=== PATIENT | male | born 1930 | race Caucasian/White ===

== ENCOUNTER 2016-11-25 13:31 | Observation (INO) ==
[2016-11-25 14:40] LABS: Basophils % 0.5 %; Eosinophils # 0.1 K/mcL (0.0-0.6); Hematocrit 41.4 % (37.5-50.1); Hemoglobin 13.4 g/dL (12.9-16.9); Immature Granulocytes % 0.5 % (0-4); Lymphocytes # 0.8 K/mcL (0.6-4.6); Lymphocytes % 9.7 %; Mean Corpuscular HGB Conc 32.4 g/dL (31.6-35.5); Mean Corpuscular Hemoglobin 30.8 pg (28.0-33.3); Mean Corpuscular Volume 95.2 fL (83.0-100.0); Monocytes # 0.7 K/mcL (0.0-1.3); Monocytes % 7.8 %; Platelet Count 232 K/mcL (140-400); Red Blood Count 4.35 M/mcL (4.19-5.50); Red Cell Distribution Width 13.9 % (11.5-14.5); Segmented Neutrophils % 80.5 %
[2016-11-25 14:46] LABS: INR 1.5; Prothrombin Time 16.9 Seconds (9.4-12.1)
[2016-11-25 14:54] LABS: Calcium 9.9 mg/dL (8.6-10.8)
--- NOTE | 2016-11-25 15:43 | Emergency Department Note ---
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 Patient states that he has had shortness of breath since August of this year. States he was admitted to the hospital for heart failure and was placed on Lasix. Prior to discharge, she noticed that he had some abdominal fullness and swelling and states that he was told the Lasix would help. Since then, he is had progressive shortness of breath. States that his abdomen has been so full of water that he can no longer been down to tie his shoes and gets very short of breath with very little activity. He denies any chest pain or swelling in his legs. Since he just cannot breathe. No history DVT or PE. Has no other symptoms or complaints. - Related Data Home Medications Medication Instructions Recorded Confirmed Cyclosporine [Restasis] 1 drop OP BID 04/17/15 11/25/16 Gabapentin [Neurontin] 400 mg PO BID 04/17/15 11/25/16 Insulin Glargine,Hum.rec.anlog 24 unit SQ QAM 04/17/15 11/25/16 [Lantus Solostar] Multivit-Min/FA/Lycopen/Lutein 1 tab PO QAM 04/17/15 11/25/16 [Centrum Silver Tablet] Rivaroxaban [Xarelto] 15 mg PO QPM 04/17/15 11/25/16 Ropinerole [Requip] 1 mg PO HS 04/17/15 11/25/16 Simvastatin [Zocor] 40 mg PO QPM 09/17/15 11/25/16 Furosemide [Lasix] 40 mg PO BID 01/24/16 11/25/16 Metoprolol Succinate 100 mg PO DAILY 07/18/16 11/25/16 Potassium Chloride 10 meq PO BID 11/25/16 11/25/16 Previous Rx's Medication Instructions Recorded Diltiazem CD (24hr) [Cardizem CD] 240 mg PO QAM #30 cap.er.24h 04/20/15 Albuterol Sulfate [Proair Hfa] 1 puff IH Q6H PRN #1 inh 10/12/15 Allergies Allergy/AdvReac Type Severity Reaction Status Date / Time codeine Allergy Mild Flushing Verified 10/12/15 10:07 tramadol Allergy Mild Dizziness Verified 10/12/15 10:07 metformin AdvReac Mild Nausea Verified 10/12/15 10:07 All systems ED: reviewed and negative except as stated. Cardiovascular: Reports: dyspnea on exertion Respiratory: Reports: dyspnea Gastrointestinal: Reports: as per HPI (abdominal swelling ) Genitourinary: Denies: dysuria, hematuria Musculoskeletal: Denies: back pain, neck pain Integumentary: Denies: rash Neurological: Denies: headache Endocrine: Reports: fatigue Past Medical History - Past Medical History Attestation: Yes The following information was validated with the patient. Source: patient, old records reviewed, obtained from family Medical history: Reports: arthritis, atrial fibrillation, CHF, coronary artery disease, diabetes, hyperlipidemia, hypertension, renal disease, valvular heart disease Surgical history: Reports: appendectomy, cholecystectomy, orthopedic, other, other Psychiatric history: Reports: no psych history - Social History Smoking Status: Never smoker Smokeless Tobacco Status: No Alcohol use: Reports: none Drug use: Reports: none Physical Exam - General Limitations: no limitations General appearance: alert, in no apparent distress - Head Head exam: atraumatic, normocephalic, normal inspection - Eye Eye exam: Present: normal appearance, PERRL, EOMI - ENT ENT exam: normal exam, normal oropharynx, mucous membranes moist - Neck Neck exam: Present: normal inspection, full ROM, trachea midline - Chest Chest inspection: Present: normal inspection, symmetric chest wall rise - Respiratory Respiratory exam: Present: normal lung sounds bilaterally - Cardiovascular Cardiovascular exam: Present: regular rate, irregular rhythm - Abdominal Exam Abdominal exam: Present: soft, Non-Tender, distention, diminished bowel sounds, ascites. Absent: tenderness - Extremities Exam Extremities exam: Present: normal inspection, full ROM, normal capillary refill. Absent: tenderness, pedal edema - Neurological Exam Neurological exam: Present: alert, oriented X3 - Psychiatric Psychiatric exam: Present: normal affect, normal mood - Skin Skin exam: Present: warm, dry, intact, normal color Course Course Narrative: 86-year-old male presenting with progressive abdominal fullness and distention. Was told it was just related to CHF, but has been getting worse, causing difficulty in breathing. Hepatic panel and lipase pending. We will order a noncontrasted CT of abdomen. On medical record review. 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 We will further evaluate this, but are unable to use IV contrast at this time due to chronic renal insufficiency. - Reevaluation(s) Reevaluation #1: Accepted to the hospitalist service. Vital Signs Temperature 97.9 F 11/25/16 13:37 Pulse Rate 91 11/25/16 13:37 Respiratory Rate 20 11/25/16 13:37 Blood Pressure 109/66 11/25/16 13:37 O2 Sat by Pulse Oximetry 94 11/25/16 13:37 Temperature 97.9 F 11/25/16 13:37 Pulse Rate 89 11/25/16 15:22 Respiratory Rate 22 11/25/16 15:22 Blood Pressure 133/98 11/25/16 15:22 O2 Sat by Pulse Oximetry 95 11/25/16 15:22 Oxygen Delivery Oxygen Delivery Room Air Shortness of Breath/Dyspnea - Medical Records Medical records reviewed: Yes I reviewed the patient's medical records. - Lab Data Lab results reviewed: Yes I reviewed the patient's lab results. Result diagrams: 11/25/16 14:25 11/25/16 14:25 Lab Results 11/25/16 11/25/16 11/25/16 Range/Units 14:25 14:25 14:25 WBC 8.7 (4.3-11.1) K/mcL RBC 4.35 (4.19-5.50) M/mcL Hgb 13.4 (12.9-16.9) g/dL Hct 41.4 (37.5-50.1) % MCV 95.2 (83.0-100.0) fL MCH 30.8 (28.0-33.3) pg MCHC 32.4 (31.6-35.5) g/dL RDW 13.9 (11.5-14.5) % Plt Count 232 (140-400) K/mcL MPV 11.0 (9.4-12.4) fL Immature Gran % 0.5 (0-4) % Seg Neutrophils % 80.5 % Lymphocytes % 9.7 % Monocytes % 7.8 % Eosinophils % 1.0 % Basophils % 0.5 % Neutrophils # 7.0 (1.6-8.9) K/mcL Lymphocytes # 0.8 (0.6-4.6) K/mcL Monocytes # 0.7 (0.0-1.3) K/mcL Eosinophils # 0.1 (0.0-0.6) K/mcL Basophils # 0.0 (0.0-0.2) K/mcL PT 16.9 H (9.4-12.1) Seconds INR 1.5 Sodium 144 (136-145) mEq/L Potassium 5.0 H (3.5-4.5) mEq/L Chloride 103 (98-109) mEq/L Carbon Dioxide 33 H (19-29) mEq/L BUN 31 H (8-26) mg/dL Creatinine 1.89 H (0.72-1.25) mg/dL Est GFR ( Amer) 41 L (> 60) Est GFR (Non-Af Amer) 34 L (> 60) BUN/Creatinine Ratio 16 (6-26) Glucose 225 H (70-99) mg/dL Calculated Osmolality 312 H (280-300) Calcium 9.9 (8.6-10.8) mg/dL Total Bilirubin 0.5 (0.2-1.2) mg/dL Direct Bilirubin 0.2 (0.0-0.5) mg/dL Indirect Bilirubin 0.3 (0.0-1.2) mg/dL AST 25 (5-34) Units/L ALT 22 (0-55) Units/L Alkaline Phosphatase 120 (38-126) Units/L Troponin I (0-0.03) ng/mL Serum Total Protein 6.9 (6.0-8.3) g/dL Albumin 3.6 (3.5-5.0) g/dL Globulin 3.3 (2.4-3.5) g/dL Albumin/Globulin Ratio 1.1 (1.1-2.2) Lipase 37 (8-78) Units/L 04/19/17 Range/Units 14:25 WBC (4.3-11.1) K/mcL RBC (4.19-5.50) M/mcL Hgb (12.9-16.9) g/dL Hct (37.5-50.1) % MCV (83.0-100.0) fL MCH (28.0-33.3) pg MCHC (31.6-35.5) g/dL RDW (11.5-14.5) % Plt Count (140-400) K/mcL MPV (9.4-12.4) fL Immature Gran % (0-4) % Seg Neutrophils % % Lymphocytes % % Monocytes % % Eosinophils % % Basophils % % Neutrophils # (1.6-8.9) K/mcL Lymphocytes # (0.6-4.6) K/mcL Monocytes # (0.0-1.3) K/mcL Eosinophils # (0.0-0.6) K/mcL Basophils # (0.0-0.2) K/mcL PT (9.4-12.1) Seconds INR Sodium (136-145) mEq/L Potassium (3.5-4.5) mEq/L Chloride (98-109) mEq/L Carbon Dioxide (19-29) mEq/L BUN (8-26) mg/dL Creatinine (0.72-1.25) mg/dL Est GFR ( Amer) (> 60) Est GFR (Non-Af Amer) (> 60) BUN/Creatinine Ratio (6-26) Glucose (70-99) mg/dL Calculated Osmolality (280-300) Calcium (8.6-10.8) mg/dL Total Bilirubin (0.2-1.2) mg/dL Direct Bilirubin (0.0-0.5) mg/dL Indirect Bilirubin (0.0-1.2) mg/dL AST (5-34) Units/L ALT (0-55) Units/L Alkaline Phosphatase (38-126) Units/L Troponin I 0.07 H* (0-0.03) ng/mL Serum Total Protein (6.0-8.3) g/dL Albumin (3.5-5.0) g/dL Globulin (2.4-3.5) g/dL Albumin/Globulin Ratio (1.1-2.2) Lipase (8-78) Units/L - Radiology Data Radiology results reviewed: Yes I reviewed the patient's radiology results. - EKG Data EKG attestation: Yes I reviewed and interpreted this EKG. EKG results narrative: A. fib, rate 91, QRS 104, QTC 400, left axis deviation, no ischemic changes Keny - Keny Situation: Demographics, MOA Background: Presenting Complaint, Relevant PMH, Meds, & Allergies Assessment: Vital Signs, Course and respsone to treatment, Exam Concerns, Patient/Family Expectation, Pertinant Lab Results, Outstanding Labs Recommendation: Recommendation based on pending studies, treatments, or consults S.B.Daniel Report Given to: Dr. Tomas Bustillo Repor Time: 17:01
--- NOTE | 2016-11-25 15:45 | Emergency Department Note ---
Disposition Clinical Impression: CHF (congestive heart failure), Elevated troponin Disposition: Admitted As Inpatient Condition: Fair General Adult HPI - General Chief complaint: ED Shortness of Breath/Dyspnea Stated complaint: ASHISH Time Seen by Provider: 11/25/16 15:03 Source: patient Mode of arrival: ambulatory Limitations: no limitations Nursing Notes Reviewed: Yes Vital Signs Reviewed: Yes - History of Present Illness Pain Scale: 0 - Related Data Home Medications Medication Instructions Recorded Confirmed Cyclosporine [Restasis] 1 drop OP BID 04/17/15 11/25/16 Gabapentin [Neurontin] 400 mg PO BID 04/17/15 11/25/16 Insulin Glargine,Hum.rec.anlog 24 unit SQ QAM 04/17/15 11/25/16 [Lantus Solostar] Multivit-Min/FA/Lycopen/Lutein 1 tab PO QAM 04/17/15 11/25/16 [Centrum Silver Tablet] Rivaroxaban [Xarelto] 15 mg PO QPM 04/17/15 11/25/16 Ropinerole [Requip] 1 mg PO HS 04/17/15 11/25/16 Simvastatin [Zocor] 40 mg PO QPM 09/17/15 11/25/16 Furosemide [Lasix] 40 mg PO BID 01/24/16 11/25/16 Metoprolol Succinate 100 mg PO DAILY 07/18/16 11/25/16 Potassium Chloride 10 meq PO BID 11/25/16 11/25/16 Previous Rx's Medication Instructions Recorded Diltiazem CD (24hr) [Cardizem CD] 240 mg PO QAM #30 cap.er.24h 04/20/15 Albuterol Sulfate [Proair Hfa] 1 puff IH Q6H PRN #1 inh 10/12/15 Allergies Allergy/AdvReac Type Severity Reaction Status Date / Time codeine Allergy Mild Flushing Verified 10/12/15 10:07 tramadol Allergy Mild Dizziness Verified 10/12/15 10:07 metformin AdvReac Mild Nausea Verified 10/12/15 10:07 Past Medical History - Past Medical History Medical history: Reports: arthritis, atrial fibrillation, CHF, coronary artery disease, diabetes, hyperlipidemia, hypertension, renal disease, valvular heart disease Surgical history: Reports: appendectomy, cholecystectomy, orthopedic, other, other Psychiatric history: Reports: no psych history - Social History Smoking Status: Never smoker Smokeless Tobacco Status: No Alcohol use: Reports: none Drug use: Reports: none Physical Exam - General Limitations: no limitations General appearance: alert, in no apparent distress Course Vital Signs Temperature 97.9 F 11/25/16 13:37 Pulse Rate 91 11/25/16 13:37 Respiratory Rate 20 11/25/16 13:37 Blood Pressure 109/66 11/25/16 13:37 O2 Sat by Pulse Oximetry 94 11/25/16 13:37 Temperature 97.9 F 11/25/16 13:37 Pulse Rate 80 11/25/16 17:32 Respiratory Rate 16 11/25/16 17:47 Blood Pressure 128/86 11/25/16 17:47 O2 Sat by Pulse Oximetry 96 11/25/16 17:32 Oxygen Delivery Oxygen Delivery Room Air Medical Decision Making - MDM Narrative Medical decision making narrative: I examined this patient and my medical decision-making was reviewed with the DIABETES CLINICAL MANAGER/PA/Advanced Practice Nurse/Resident Physician. I agree with the documented findings, disposition and treatment plan as described except to the extent set forth below. Evaluate this patient with Dr. King myself, I agree with his evaluation and management plan, supravascular the patient states. Patient presents today with some edema in his abdomen sitting on this after his last discharge back in July. Into spasm and any better he denies any chest pain he says difficulty breathing as he feels like his abdomen is pushing up into his chest. He does not really have a lot of pitting edema at this time. Due to his old CT which showed no fluid in his abdomen at the time. Repeat check labs on him and reassess. He is in agreement with this plan. 1640 hrs.: Patient's CT is fairly unremarkable workup and echo in bring him in the hospital with elevated troponin and the dyspnea that he had. She will need a cardiac workup. He stable at this time denies any chest pain is agreement with this plan. - Lab Data Result diagrams: 11/25/16 14:25 11/25/16 14:25 Lab Results 11/25/16 11/25/16 11/25/16 Range/Units 14:25 14:25 14:25 WBC 8.7 (4.3-11.1) K/mcL RBC 4.35 (4.19-5.50) M/mcL Hgb 13.4 (12.9-16.9) g/dL Hct 41.4 (37.5-50.1) % MCV 95.2 (83.0-100.0) fL MCH 30.8 (28.0-33.3) pg MCHC 32.4 (31.6-35.5) g/dL RDW 13.9 (11.5-14.5) % Plt Count 232 (140-400) K/mcL MPV 11.0 (9.4-12.4) fL Immature Gran % 0.5 (0-4) % Seg Neutrophils % 80.5 % Lymphocytes % 9.7 % Monocytes % 7.8 % Eosinophils % 1.0 % Basophils % 0.5 % Neutrophils # 7.0 (1.6-8.9) K/mcL Lymphocytes # 0.8 (0.6-4.6) K/mcL Monocytes # 0.7 (0.0-1.3) K/mcL Eosinophils # 0.1 (0.0-0.6) K/mcL Basophils # 0.0 (0.0-0.2) K/mcL PT 16.9 H (9.4-12.1) Seconds INR 1.5 Sodium 144 (136-145) mEq/L Potassium 5.0 H (3.5-4.5) mEq/L Chloride 103 (98-109) mEq/L Carbon Dioxide 33 H (19-29) mEq/L BUN 31 H (8-26) mg/dL Creatinine 1.89 H (0.72-1.25) mg/dL Est GFR ( Amer) 41 L (> 60) Est GFR (Non-Af Amer) 34 L (> 60) BUN/Creatinine Ratio 16 (6-26) Glucose 225 H (70-99) mg/dL Calculated Osmolality 312 H (280-300) Calcium 9.9 (8.6-10.8) mg/dL Total Bilirubin 0.5 (0.2-1.2) mg/dL Direct Bilirubin 0.2 (0.0-0.5) mg/dL Indirect Bilirubin 0.3 (0.0-1.2) mg/dL AST 25 (5-34) Units/L ALT 22 (0-55) Units/L Alkaline Phosphatase 120 (38-126) Units/L Troponin I (0-0.03) ng/mL Serum Total Protein 6.9 (6.0-8.3) g/dL Albumin 3.6 (3.5-5.0) g/dL Globulin 3.3 (2.4-3.5) g/dL Albumin/Globulin Ratio 1.1 (1.1-2.2) Lipase 37 (8-78) Units/L 11/25/16 Range/Units 14:25 WBC (4.3-11.1) K/mcL RBC (4.19-5.50) M/mcL Hgb (12.9-16.9) g/dL Hct (37.5-50.1) % MCV (83.0-100.0) fL MCH (28.0-33.3) pg MCHC (31.6-35.5) g/dL RDW (11.5-14.5) % Plt Count (140-400) K/mcL MPV (9.4-12.4) fL Immature Gran % (0-4) % Seg Neutrophils % % Lymphocytes % % Monocytes % % Eosinophils % % Basophils % % Neutrophils # (1.6-8.9) K/mcL Lymphocytes # (0.6-4.6) K/mcL Monocytes # (0.0-1.3) K/mcL Eosinophils # (0.0-0.6) K/mcL Basophils # (0.0-0.2) K/mcL PT (9.4-12.1) Seconds INR Sodium (136-145) mEq/L Potassium (3.5-4.5) mEq/L Chloride (98-109) mEq/L Carbon Dioxide (19-29) mEq/L BUN (8-26) mg/dL Creatinine (0.72-1.25) mg/dL Est GFR ( Amer) (> 60) Est GFR (Non-Af Amer) (> 60) BUN/Creatinine Ratio (6-26) Glucose (70-99) mg/dL Calculated Osmolality (280-300) Calcium (8.6-10.8) mg/dL Total Bilirubin (0.2-1.2) mg/dL Direct Bilirubin (0.0-0.5) mg/dL Indirect Bilirubin (0.0-1.2) mg/dL AST (5-34) Units/L ALT (0-55) Units/L Alkaline Phosphatase (38-126) Units/L Troponin I 0.07 H* (0-0.03) ng/mL Serum Total Protein (6.0-8.3) g/dL Albumin (3.5-5.0) g/dL Globulin (2.4-3.5) g/dL Albumin/Globulin Ratio (1.1-2.2) Lipase (8-78) Units/L
[2016-11-25 15:58] LABS: Albumin 3.6 g/dL (3.5-5.0); Albumin/Globulin Ratio 1.1 (1.1-2.2); Bilirubin,Direct 0.2 mg/dL (0.0-0.5); Bilirubin,Indirect 0.3 mg/dL (0.0-1.2); Bilirubin,Total 0.5 mg/dL (0.2-1.2); Globulin 3.3 g/dL (2.4-3.5); Total Protein 6.9 g/dL (6.0-8.3)
[2016-11-25] MEDS ORDERED: Sodium Bicarbonate 50 MEQ/50 ML VIAL IVP ONE (17:08)
[2016-11-25] MEDS ORDERED: Calcium Gluconate 1,000 MG in D5% in Water 100 ML IVPB ONE (17:08)
[2016-11-25] MEDS ORDERED: Naloxone 0.4 MG/ML INJ IVP PRN (20:03)
[2016-11-25] MEDS ORDERED: Dextrose Gel 15 GM PO PRN ×2 (20:10)
[2016-11-25] MEDS ORDERED: D5% in Water 1,000 ML IVC PRN (20:10)
[2016-11-25] MEDS ORDERED: *HR* Dextrose 50 % in Water (Syg) 50 ML SYRINGE IVP PRN (20:10)
--- NOTE | 2016-11-25 20:53 | Internal Med History&Physical ---
<Zoe Marx - Last Filed: 11/25/16 21:39> Date of Encounter: 11/25/16 Time of Encounter: 20:45 Assessment and Plan (1) Acute exacerbation of CHF (congestive heart failure) Current visit: Yes Status: Acute Patient with history of diastolic CHF. Last echo 05/23/16 showed LVEF 60%, normal LV size and function, mild-moderate LVH and indeterminate diastolic function. He is reporting increased abdominal fullness, shortness of breath and LE swelling over the last several months. He takes 40mg PO Lasix BID at home. CT of the abdomen showed no ascites. CXR showed trace bilateral pleural effusions. BNP ordered daily weights I/Os Lasix 40mg IVP BID cardiac diet with 1.5L fluid restriction Qualifiers: Congestive heart failure type: diastolic Qualified Code(s): I50.33 - Acute on chronic diastolic (congestive) heart failure (2) Hyperkalemia Current visit: Yes Status: Acute Potassium of 5.0. Patient given Calcium gluconate and sodium bicarb hold home PO potassium Recheck chemistry in the morning. (3) Type 2 diabetes mellitus Current visit: No Status: Chronic Diabetic, heart healthy diet check blood sugars ACHS continue home basal dose of Levemir 24u Q AM Sliding scale correction dose ACHS hypoglycemic protocol. Qualifiers: Diabetes mellitus complication status: with unspecified complications Diabetes mellitus stereoptician insulin use: with stereoptician use Qualified Code(s) : E11.8 - Type 2 diabetes mellitus with unspecified complications; Z79.4 - shelter (current) use of insulin (4) CKD (chronic kidney disease) Current visit: No Status: Acute BUN/Cr 31/1.89 consistent with baseline. Qualifiers: Chronic kidney disease stage: stage 4 (severe) Qualified Code(s): N18.4 - Chronic kidney disease, stage 4 (severe) (5) Atrial fibrillation Current visit: No Status: Chronic Patient on Xarelto for anticoagulation and takes diltiazem and metoprolol for rate control. Continue home doses of medications. Qualifiers: Atrial fibrillation type: chronic Qualified Code(s): I48.2 - Chronic atrial fibrillation (6) Elevated troponin Current visit: Yes Status: Acute Patient with troponin elevation to 0.07. HIs troponin has been chronically elevated during previous admissions. He has CKD which may account for troponin elevation. Continuous cardiac/vascular sonographer. Serial troponins for trend. (7) Fever Current visit: Yes Status: Acute Patient with temperature of 100.7. Patient denies any recent fevers at home, chills, sweats, cough, body aches, or dysuria. Will get UA, blood cultures and flu swab. Qualifiers: Fever type: unspecified Qualified Code(s): R50.9 - Fever, unspecified (8) DVT prophylaxis Current visit: No Status: Acute Ambulate with assistance anti-embolic stockings Patient on Xarelto, additional pharmacologic prophylaxis not warranted. Internal Medicine - H&P: HPI Chief complaint: shortness of breath Admitted From: Emergency Dept Plans for Post Hospital Care: Home History of present illness: Mr. lFores is a 86 year old male with atrial fibrillation on several toe, diabetes, hypertension, hyperlipidemia, CAD, CHF who presented to the emergency department today with complaints of increasing shortness of breath and abdominal fullness. Patient reports he was hospitalized 3 or 4 months ago with similar complaints and was given Lasix, however he reports his history is of breath has gradually worsened since discharge as well as abdominal fullness. Shortness of breath is worse with activity and lying flat. He denies any headache, lightheadedness, chest pain, palpitations. He denies any fever, chills, sweats, cough, body aches, nausea, vomiting, diarrhea, abdominal pain. Evaluation in the emergency department included a troponin which was elevated to 0.07, he was hyperkalemic with potassium of 5.0, BUN and creatinine were elevated consistent with his chronic kidney disease. His EKG showed atrial fibrillation with heart rate of 91. CT of the abdomen showed trace right and small left pleural effusions with mild bibasilar atelectasis noted acute abdominal abnormalities, no evidence of ascites. Chest x-ray showed trace bilateral pleural effusions and left atelectasis. On exam, patient is alert and oriented, in no acute distress. Heart has irregular rhythm with normal rate. Lungs are mostly clear to auscultation with fine crackles in the bases. He has bilateral lower extremity edema +1. Past Med Surg Social Fam HX - Past Medical History Medical history: arthritis, atrial fibrillation, CHF, coronary artery disease, diabetes, hyperlipidemia, hypertension, renal disease, valvular heart disease Psychiatric history: no psych history - Past Surgical History Surgical History: appendectomy, cholecystectomy, orthopedic, other, other - Social History Smoking Status: Never smoker Smokeless Tobacco Status: No Alcohol use: none Drug use: none - Family History Mother History Unknown: Yes Living Status: Age at : 86 Father Family Member Ethnicity: Non- Living Status: Age at : 87 Hx Family Cardiac Disorders: No Hx Family Respiratory Disorders: No Hx Family Cancer: No Hx Family GI Disorders: No Hx Family Endocrine Disorder: Yes (diabetes) Hx Family Neuromuscular Disorders: No Hx Family Neurologic Disorders: No Hx Family HEENT Disorders: No Hx Family Autoimmune Disorders: No Internal Medicine - H&P: Meds Cyclosporine [Restasis] 1 drop OP BID 04/17/15 [History] Gabapentin [Neurontin] 400 mg PO BID 04/17/15 [History] Insulin Glargine,Hum.rec.anlog [Lantus Solostar] 24 unit SQ QAM 04/17/15 [ History] Multivit-Min/FA/Lycopen/Lutein [Centrum Silver Tablet] 1 tab PO QAM 04/17/15 [ History] Rivaroxaban [Xarelto] 15 mg PO QPM 04/17/15 [History] Ropinerole [Requip] 1 mg PO HS 04/17/15 [History] Diltiazem CD (24hr) [Cardizem CD] 240 mg PO QAM #30 cap.er.24h 04/20/15 [Rx] Simvastatin [Zocor] 40 mg PO QPM 09/17/15 [History] Albuterol Sulfate [Proair Hfa] 1 puff IH Q6H PRN #1 inh 10/12/15 [Rx] Furosemide [Lasix] 40 mg PO BID 01/24/16 [History] Metoprolol Succinate 100 mg PO DAILY 07/18/16 [History] Potassium Chloride 10 meq PO BID 11/25/16 [History] Allergies codeine Allergy (Mild, Verified 10/12/15 10:07) Flushing tramadol Allergy (Mild, Verified 10/12/15 10:07) Dizziness metformin Adverse Reaction (Mild, Verified 10/12/15 10:07) Nausea All Systems PM: A 10-system review of systems was performed and is negative for pertinent findings except as documented above in the HPI. - Constitutional Constitutional: no chills, no fever(s), no night sweats - EENT Eyes: no change in vision, no discharge, no pain, no photophobia Ears: no ear discharge, no ear pain, no tinnitus Nose, mouth and throat: no dysphagia, no nasal discharge, no neck pain, no sore throat - Cardiovascular Cardiovascular ROS IM: dyspnea, dyspnea on exertion, edema, no chest pain, no diaphoresis, no lightheadedness, no palpitations, no syncope - Respiratory Respiratory: dyspnea, dyspnea on exertion, no cough, no wheezing, no excessive phlegm production - Gastrointestinal Gastrointestinal: no abdominal pain, no diarrhea, no hematemesis, no hematochezia, no melena, no nausea, no vomiting - Musculoskeletal Musculoskeletal ROS IM: no numbness, no tingling - Integumentary Integumentary IM: no rash, no unusual bruising - Neurological Neurological ROS: no confusion, no convulsions, no focal weakness, no numbness, no tingling, no tremor(s) - Hematologic/Lymphatic Hematologic/Lymphatic: no easy bruising - Constitutional Vitals: Temp Pulse Resp BP Pulse Ox 100.7 F H 86 16 118/79 93 11/25/16 18:56 11/25/16 18:56 11/25/16 18:56 11/25/16 18:56 11/25/16 18:56 General appearance: Present: A&O X 3, pleasant, no acute distress - Head Head exam: Present: atraumatic, normocephalic - Eye Eye exam: Present: PERRL, conjuntiva pink, sclera anicteric Pupils: Present: PERRL - Neck Neck exam general surgery: Present: supple, trachea midline. Absent: lymphadenopathy - Respiratory Respiratory exam: Present: CTAB. Absent: accessory muscle use, rales, rhonchi, wheezes Additional comments: fine crackles in bases - Cardiovascular Cardiovascular exam: Present: irregular rhythm, +S1, +S2. Absent: diastolic murmur, gallop, rubs, systolic murmur - GI/Abdominal GI/Abdominal exam: Present: distended, normal bowel sounds, soft, no peritoneal signs. Absent: tenderness - Extremities Exam Extremities exam: Present: pedal edema, warm, radial pulses palpable and symetrical. Absent: calf tenderness, cyanotic Additional comments: +1 BLE edema - Neurological Exam Neurological exam: Present: CN II-XII intact, oriented X3, no focal deficits, pronater drift. Absent: facial droop, speech deficit - Skin Skin exam: Present: dry, intact Internal Med - H&P Results - Labs CBC & Chem 7: 11/25/16 14:25 11/25/16 14:25 Labs: All Lab Results (24 Hours) 11/25/16 11/25/16 11/25/16 Range/Units 14:25 14:25 14:25 WBC 8.7 (4.3-11.1) K/mcL RBC 4.35 (4.19-5.50) M/mcL Hgb 13.4 (12.9-16.9) g/dL Hct 41.4 (37.5-50.1) % MCV 95.2 (83.0-100.0) fL MCH 30.8 (28.0-33.3) pg MCHC 32.4 (31.6-35.5) g/dL RDW 13.9 (11.5-14.5) % Plt Count 232 (140-400) K/mcL MPV 11.0 (9.4-12.4) fL Immature Gran % 0.5 (0-4) % Seg Neutrophils % 80.5 % Lymphocytes % 9.7 % Monocytes % 7.8 % Eosinophils % 1.0 % Basophils % 0.5 % Neutrophils # 7.0 (1.6-8.9) K/mcL Lymphocytes # 0.8 (0.6-4.6) K/mcL Monocytes # 0.7 (0.0-1.3) K/mcL Eosinophils # 0.1 (0.0-0.6) K/mcL Basophils # 0.0 (0.0-0.2) K/mcL PT 16.9 H (9.4-12.1) Seconds INR 1.5 Sodium 144 (136-145) mEq/L Potassium 5.0 H (3.5-4.5) mEq/L Chloride 103 (98-109) mEq/L Carbon Dioxide 33 H (19-29) mEq/L BUN 31 H (8-26) mg/dL Creatinine 1.89 H (0.72-1.25) mg/dL Est GFR ( Amer) 41 L (> 60) Est GFR (Non-Af Amer) 34 L (> 60) BUN/Creatinine Ratio 16 (6-26) Glucose 225 H (70-99) mg/dL Calculated Osmolality 312 H (280-300) Calcium 9.9 (8.6-10.8) mg/dL Total Bilirubin 0.5 (0.2-1.2) mg/dL Direct Bilirubin 0.2 (0.0-0.5) mg/dL Indirect Bilirubin 0.3 (0.0-1.2) mg/dL AST 25 (5-34) Units/L ALT 22 (0-55) Units/L Alkaline Phosphatase 120 (38-126) Units/L Troponin I (0-0.03) ng/mL Serum Total Protein 6.9 (6.0-8.3) g/dL Albumin 3.6 (3.5-5.0) g/dL Globulin 3.3 (2.4-3.5) g/dL Albumin/Globulin Ratio 1.1 (1.1-2.2) Lipase 37 (8-78) Units/L / Range/Units 14:25 WBC (4.3-11.1) K/mcL RBC (4.19-5.50) M/mcL Hgb (12.9-16.9) g/dL Hct (37.5-50.1) % MCV (83.0-100.0) fL MCH (28.0-33.3) pg MCHC (31.6-35.5) g/dL RDW (11.5-14.5) % Plt Count (140-400) K/mcL MPV (9.4-12.4) fL Immature Gran % (0-4) % Seg Neutrophils % % Lymphocytes % % Monocytes % % Eosinophils % % Basophils % % Neutrophils # (1.6-8.9) K/mcL Lymphocytes # (0.6-4.6) K/mcL Monocytes # (0.0-1.3) K/mcL Eosinophils # (0.0-0.6) K/mcL Basophils # (0.0-0.2) K/mcL PT (9.4-12.1) Seconds INR Sodium (136-145) mEq/L Potassium (3.5-4.5) mEq/L Chloride (98-109) mEq/L Carbon Dioxide (19-29) mEq/L BUN (8-26) mg/dL Creatinine (0.72-1.25) mg/dL Est GFR ( Amer) (> 60) Est GFR (Non-Af Amer) (> 60) BUN/Creatinine Ratio (6-26) Glucose (70-99) mg/dL Calculated Osmolality (280-300) Calcium (8.6-10.8) mg/dL Total Bilirubin (0.2-1.2) mg/dL Direct Bilirubin (0.0-0.5) mg/dL Indirect Bilirubin (0.0-1.2) mg/dL AST (5-34) Units/L ALT (0-55) Units/L Alkaline Phosphatase (38-126) Units/L Troponin I 0.07 H* (0-0.03) ng/mL Serum Total Protein (6.0-8.3) g/dL Albumin (3.5-5.0) g/dL Globulin (2.4-3.5) g/dL Albumin/Globulin Ratio (1.1-2.2) Lipase (8-78) Units/L - Diagnostic Studies CT scan - abdomen Additional comments: Abdomen/Pelvis CT 11/25/16 15:31 IMPRESSION: Trace right and small left pleural effusions with mild adjacent bibasilar atelectasis. No acute intraabdominal for intrapelvic abnormality. No evidence of ascites. D/ / Lizbeth Amaral MD / Lizbeth Amaral MD Interpreting Provider: Lizbeth Amaral MD Chest x-ray Additional comments: Chest X-Ray 11/25/16 13:40 IMPRESSION: Trace bilateral pleural effusions and left basilar atelectasis. D/ / Jimmie Lange MD / Jimmie Lange MD Interpreting Provider: Jimmie Lange MD <Apple Buckner - Last Filed: 11/26/16 05:38> Date of Encounter: 11/26/16 Internal Medicine - H&P: HPI History of present illness: Mr. Flores is a 86 year old male All Systems PM: A 10-system review of systems was performed and is negative for pertinent findings except as documented above in the HPI. - Constitutional Vitals: Temp Pulse Resp BP Pulse Ox 98.5 F 76 16 119/75 90 11/26/16 04:00 11/26/16 04:00 11/26/16 04:00 11/26/16 04:00 11/26/16 04:00 Internal Med - H&P Results - Labs CBC & Chem 7: 11/26/16 03:58 11/26/16 03:58 Labs: Short CBC 11/26/16 Range/Units 03:58 WBC 8.0 (4.3-11.1) K/mcL Hgb 12.2 L (12.9-16.9) g/dL Hct 37.9 (37.5-50.1) % Plt Count 205 (140-400) K/mcL Neutrophils # 6.1 (1.6-8.9) K/mcL BMP 11/26/16 03:58 Sodium 146 H Potassium 3.5 D Chloride 102 Carbon Dioxide 36 H BUN 32 H Creatinine 1.83 H Glucose 79 Calcium 9.7 Cardiac Enzymes 11/25/16 11/26/16 Range/Units 20:53 03:58 Troponin I 0.07 H* 0.08 H* (0-0.03) ng/mL Urine 11/25/16 Range/Units 23:56 Urine Color Yellow (Yellow) Urine Clarity Clear (Clear) Urine pH 7.0 (5.0-8.0) pH Units Ur Specific [place] 1.013 (1.010-1.025) Urine Protein Negative (Neg-Trace) mg/dL Urine Glucose (UA) 100 H (Normal) mg/dL - Attending Attestation Patient seen and examined, agree with assessment and plan of JAVI Marx. Patient with CHF exacerbation, symptoms significantly improved with IV lasix given in ER. Will continue to diurese. Troponin slightly elevated in setting of decompensated CHF and CKD. Will trend troponin.
[2016-11-25 21:15] LABS: Hemoglobin A1C 8.2 %
[2016-11-25] MEDS: Furosemide 40 MG/4 ML VIAL IVP SCH (22:23)
[2016-11-25] MEDS: Insulin LISPRO 300 UNITS/3 ML VIAL SQ SCH (22:24)
[2016-11-25] MEDS: rOPINIRole 1 MG TABLET PO SCH (22:24)
[2016-11-25] MEDS: Gabapentin 400 MG CAPSULE PO SCH (22:24)
[2016-11-26 00:09] LABS: Bilirubin,Urine Negative (Negative); Blood,Urine Negative (Negative); Clarity,Urine Clear (Clear); Color,Urine Yellow (Yellow); Glucose,Urine (UA) 100 mg/dL (Normal); Ketones,Urine Negative (Negative); Leukocyte Esterase,Urine Negative (Negative); Nitrite,Urine Negative (Negative); Protein,Urine Negative (Neg-Trace); Specific Gravity,Urine 1.013 (1.010-1.025); Urobilinogen,Urine Normal (Normal)
[2016-11-26 04:46] LABS: Basophils % 0.5 %; Eosinophils # 0.2 K/mcL (0.0-0.6); Eosinophils % 1.9 %; Hematocrit 37.9 % (37.5-50.1); Hemoglobin 12.2 g/dL (12.9-16.9); Immature Granulocytes % 0.2 % (0-4); Lymphocytes % 11.8 %; Mean Corpuscular HGB Conc 32.2 g/dL (31.6-35.5); Mean Corpuscular Hemoglobin 30.2 pg (28.0-33.3); Mean Corpuscular Volume 93.8 fL (83.0-100.0); Monocytes # 0.7 K/mcL (0.0-1.3); Neutrophils # 6.1 K/mcL (1.6-8.9); Platelet Count 205 K/mcL (140-400); Red Blood Count 4.04 M/mcL (4.19-5.50); Red Cell Distribution Width 13.8 % (11.5-14.5); Segmented Neutrophils % 76.6 %
[2016-11-26 05:08] LABS: Calcium 9.7 mg/dL (8.6-10.8); Potassium 3.5 mEq/L (3.5-4.5)
[2016-11-26] MEDS: Insulin LISPRO 300 UNITS/3 ML VIAL SQ SCH ×5 (07:20→21:18)
[2016-11-26] MEDS: Gabapentin 400 MG CAPSULE PO SCH ×2 (08:32→21:17)
[2016-11-26] MEDS: Metoprolol XL (24 HR) Succ 50 MG TAB.ER.24H PO SCH (08:32)
[2016-11-26] MEDS: Insulin DETEMIR 100 UNIT/ML X5UNITS SQ SCH (08:33)
[2016-11-26] MEDS: Diltiazem CD (24hr) 240 MG CAPSULE PO SCH (08:33)
[2016-11-26] MEDS: Furosemide 40 MG/4 ML VIAL IVP SCH ×2 (08:35→18:19)
--- NOTE | 2016-11-26 11:05 | Internal Med Progress Note ---
Date of Encounter: 11/26/16 Time of Encounter: 11:05 - Assessment and plan (1) CHF (congestive heart failure) Current Visit: Yes Status: Acute Assessment and plan: Continue diuresis, strict intake and output fluid restriction Patient is hemodynamically stable and not hypoxic Last echo 05/23/16 showed LVEF 60%, normal LV size and function, mild-moderate LVH and indeterminate diastolic function. Continue other home meds Qualifiers: Congestive heart failure type: systolic Congestive heart failure chronicity : acute on chronic Qualified Code(s): I50.23 - Acute on chronic systolic ( congestive) heart failure (2) Pleural effusion Current Visit: Yes Status: Chronic Assessment and plan: Chronic, stable Continue diuresis Patient is not in respirator distress (3) Afib Current Visit: Yes Status: Chronic Assessment and plan: rate controlled Continue diltiazem, metoprolol, xarelto Qualifiers: Atrial fibrillation type: chronic Qualified Code(s): I48.2 - Chronic atrial fibrillation (4) HTN (hypertension) Current Visit: Yes Status: Chronic Assessment and plan: Controlled, continue same meds Qualifiers: Hypertension type: essential hypertension Qualified Code(s): I10 - Essential (primary) hypertension (5) Type 2 diabetes mellitus Current Visit: Yes Status: Chronic Assessment and plan: Uncontrolled A1C 8.2 Continue basal insulin Stat on lispro prandial and continue supplemental insulin Monitor FS Qualifiers: Diabetes mellitus complication status: with unspecified complications Diabetes mellitus fdc insulin use: with fdc use Qualified Code(s) : E11.8 - Type 2 diabetes mellitus with unspecified complications; Z79.4 - prison (current) use of insulin (6) Fever Current Visit: Yes Status: Acute Assessment and plan: Etiology unspecified at this time Patient has no focal point or source of infection, no leukocytosis, only one abnormal temp reading Will continue t observe Qualifiers: Fever type: unspecified Qualified Code(s): R50.9 - Fever, unspecified - Subjective Interval history: Initial encounter 86 Y/O M PMH of CHpEF, CKD IV, DM, Afib, CAD, Valvular heart disease He is placed on observation for management of acute on chronic CHF He is seen at bedside Denies new complains - Constitutional Vitals: Temp Pulse Resp BP Pulse Ox 98.6 F 81 17 122/79 96 11/26/16 06:50 11/26/16 06:50 11/26/16 06:50 11/26/16 06:50 11/26/16 06:50 General appearance: Present: A&O X 3, pleasant, no acute distress - Head Head exam: Present: atraumatic, normocephalic - Eye Eye exam: Present: PERRL, conjuntiva pink, sclera anicteric Pupils: Present: PERRL - Neck Neck exam general surgery: Present: supple, trachea midline. Absent: lymphadenopathy - Respiratory Respiratory exam: Present: CTAB. Absent: accessory muscle use, rales, rhonchi, wheezes - Cardiovascular Cardiovascular exam: Present: RRR, +S1, +S2, systolic murmur. Absent: diastolic murmur, gallop, rubs - GI/Abdominal GI/Abdominal exam: Present: normal bowel sounds, soft, no peritoneal signs. Absent: tenderness - Extremities Exam Additional comments: trace peal edema extremities are cold, left dorsalis pedis faint, right doraslis pedis palpable - Neurological Exam Neurological exam: Present: alert, CN II-XII intact, oriented X3, no focal deficits. Absent: pronater drift, facial droop, speech deficit - Skin Skin exam: Present: dry, intact Internal Medicine: Result - Labs CBC & Chem 7: 11/26/16 03:58 11/26/16 03:58 Labs: Short CBC 11/26/16 Range/Units 03:58 WBC 8.0 (4.3-11.1) K/mcL Hgb 12.2 L (12.9-16.9) g/dL Hct 37.9 (37.5-50.1) % Plt Count 205 (140-400) K/mcL Neutrophils # 6.1 (1.6-8.9) K/mcL BMP 11/26/16 03:58 Sodium 146 H Potassium 3.5 D Chloride 102 Carbon Dioxide 36 H BUN 32 H Creatinine 1.83 H Glucose 79 Calcium 9.7 Cardiac Enzymes 11/25/16 11/26/16 Range/Units 20:53 03:58 Troponin I 0.07 H* 0.08 H* (0-0.03) ng/mL Urine 11/25/16 Range/Units 23:56 Urine Color Yellow (Yellow) Urine Clarity Clear (Clear) Urine pH 7.0 (5.0-8.0) pH Units Ur Specific [place] 1.013 (1.010-1.025) Urine Protein Negative (Neg-Trace) mg/dL Urine Glucose (UA) 100 H (Normal) mg/dL - ABG Interpretation ABG results: PT/INR, D-dimer PT 16.9 Seconds (9.4-12.1) H 11/25/16 14:25 Consult Discharge Plan - Plan Referrals: Dannie Anthony MD [Primary Care Provider] - (web request sent on 11/26/16)
--- NOTE | 2016-11-26 13:34 | Electrocardiograph Report ---
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
--- NOTE | 2016-11-26 13:35 | Electrocardiograph Report ---
[place] [address] Test Date: 2016-11-25 Pat Name: Ciro Flores Department: 105 Room: 2A14 Gender: M Announcer: ELVIRA : 1930 Requested By: Francisco Hinkle Order Number: [id number] Reading MD: Ilya Cortez MD Measurements Intervals [place] Rate: 91 P: [place]: 0 QRS: -28 QRSD: 104 T: -22 QT: 351 QTc: 400 Interpretive Statements ATRIAL FIBRILLATION Poor R wave progression BASELINE ARTIFACT COMPLICATES ACCURATE INTERPRETATION Electronically Signed On 11-26-2016 13:34:21 EDT by Ilya Cortez MD
[2016-11-26] MEDS: *HR* Rivaroxaban 15 MG TABLET PO SCH (18:19)
[2016-11-26] MEDS: rOPINIRole 1 MG TABLET PO SCH (21:17)
[2016-11-27 04:38] LABS: Basophils % 0.5 %; Eosinophils # 0.2 K/mcL (0.0-0.6); Eosinophils % 2.8 %; Hematocrit 38.9 % (37.5-50.1); Hemoglobin 12.6 g/dL (12.9-16.9); Immature Granulocytes % 0.4 % (0-4); Lymphocytes # 1.1 K/mcL (0.6-4.6); Lymphocytes % 13.3 %; Mean Corpuscular HGB Conc 32.4 g/dL (31.6-35.5); Mean Corpuscular Hemoglobin 30.4 pg (28.0-33.3); Mean Platelet Volume 10.9 fL (9.4-12.4); Monocytes # 0.9 K/mcL (0.0-1.3); Monocytes % 11.1 %; Neutrophils # 5.9 K/mcL (1.6-8.9); Platelet Count 205 K/mcL (140-400); Red Blood Count 4.14 M/mcL (4.19-5.50); Segmented Neutrophils % 71.9 %
[2016-11-27 04:59] LABS: Potassium 3.6 mEq/L (3.5-4.5)
[2016-11-27 05:00] LABS: Calcium 9.5 mg/dL (8.6-10.8)
[2016-11-27] MEDS: Metoprolol XL (24 HR) Succ 50 MG TAB.ER.24H PO SCH (08:43)
[2016-11-27] MEDS: Insulin LISPRO 300 UNITS/3 ML VIAL SQ SCH ×7 (08:43→20:57)
[2016-11-27] MEDS: Gabapentin 400 MG CAPSULE PO SCH ×2 (08:44→20:56)
[2016-11-27] MEDS: Diltiazem CD (24hr) 240 MG CAPSULE PO SCH (08:44)
[2016-11-27] MEDS: Furosemide 40 MG/4 ML VIAL IVP SCH ×2 (08:44→16:21)
[2016-11-27] MEDS: Insulin DETEMIR 100 UNIT/ML X5UNITS SQ SCH (08:53)
--- NOTE | 2016-11-27 11:45 | Internal Med Progress Note ---
Date of Encounter: 11/27/16 Time of Encounter: 11:44 - Assessment and plan (1) CHF (congestive heart failure) Current Visit: Yes Status: Acute Assessment and plan: Continue diuresis, strict intake and output fluid restriction Patient is hemodynamically stable and not hypoxic Last echo 05/23/16 showed LVEF 60%, normal LV size and function, mild-moderate LVH and indeterminate diastolic function. Continue other home meds Qualifiers: Congestive heart failure type: systolic Congestive heart failure chronicity : acute on chronic Qualified Code(s): I50.23 - Acute on chronic systolic ( congestive) heart failure (2) Pleural effusion Current Visit: Yes Status: Chronic Assessment and plan: Chronic, stable Continue diuresis Patient is not in respirator distress (3) Afib Current Visit: Yes Status: Chronic Assessment and plan: rate controlled Continue diltiazem, metoprolol, xarelto Qualifiers: Atrial fibrillation type: chronic Qualified Code(s): I48.2 - Chronic atrial fibrillation (4) HTN (hypertension) Current Visit: Yes Status: Chronic Assessment and plan: Controlled, continue same meds Qualifiers: Hypertension type: essential hypertension Qualified Code(s): I10 - Essential (primary) hypertension (5) Type 2 diabetes mellitus Current Visit: Yes Status: Chronic Assessment and plan: Uncontrolled A1C 8.2 Continue basal insulin Stat on lispro prandial and continue supplemental insulin Monitor FS Qualifiers: Diabetes mellitus complication status: with unspecified complications Diabetes mellitus [facility] insulin use: with continuous churn buttermaker use Qualified Code(s) : E11.8 - Type 2 diabetes mellitus with unspecified complications; Z79.4 - [facility] (current) use of insulin (6) Fever Current Visit: Yes Status: Acute Assessment and plan: Etiology unspecified at this time Patient has no focal point or source of infection, no leukocytosis, only one abnormal temp reading Blood culture is negative, UA unremarkable Will continue to observe Qualifiers: Fever type: unspecified Qualified Code(s): R50.9 - Fever, unspecified - Subjective Interval history: Initial encounter 86 Y/O M PMH of CHpEF, CKD IV, DM, Afib, CAD, Valvular heart disease He is placed on observation for management of acute on chronic CHF He is seen at bedside Denies new complains, diuresis is not adequate, possibly because of patient's CKD, will give additional dose of lasix Patient has requested to establish renal care with Dr. Wills, consult placed - Constitutional Vitals: Temp Pulse Resp BP Pulse Ox 97.4 F L 82 18 127/81 93 11/27/16 06:55 11/27/16 06:55 11/27/16 06:55 11/27/16 06:55 11/27/16 08:43 General appearance: Present: A&O X 3, pleasant, no acute distress - Head Head exam: Present: atraumatic, normocephalic - Eye Eye exam: Present: PERRL, conjuntiva pink, sclera anicteric Pupils: Present: PERRL - Neck Neck exam general surgery: Present: supple, trachea midline. Absent: lymphadenopathy - Respiratory Respiratory exam: Present: CTAB. Absent: accessory muscle use, rales, rhonchi, wheezes - Cardiovascular Cardiovascular exam: Present: RRR, +S1, +S2. Absent: diastolic murmur, gallop, rubs, systolic murmur - GI/Abdominal GI/Abdominal exam: Present: normal bowel sounds, soft, no peritoneal signs. Absent: distended, tenderness - Extremities Exam Extremities exam: Present: pedal edema (Trace) Additional comments: Cold, diminished R dorsalis pedis pulses, normal capillary refill - Neurological Exam Neurological exam: Present: alert, CN II-XII intact, oriented X3, no focal deficits. Absent: pronater drift, facial droop, speech deficit - Skin Skin exam: Present: dry Internal Medicine: Result - Labs CBC & Chem 7: 11/27/16 04:19 11/27/16 04:19 Labs: Short CBC 11/27/16 Range/Units 04:19 WBC 8.1 (4.3-11.1) K/mcL Hgb 12.6 L (12.9-16.9) g/dL Hct 38.9 (37.5-50.1) % Plt Count 205 (140-400) K/mcL Neutrophils # 5.9 (1.6-8.9) K/mcL BMP 11/27/16 04:19 Sodium 143 Potassium 3.6 Chloride 100 Carbon Dioxide 36 H BUN 33 H Creatinine 1.77 H Glucose 109 H Calcium 9.5 - ABG Interpretation ABG results: PT/INR, D-dimer PT 16.9 Seconds (9.4-12.1) H 11/25/16 14:25 Consult Discharge Plan - Plan Referrals: Dannie Anthony MD [Primary Care Provider] - 12/03/16 10:00 am ()
[2016-11-27] MEDS ORDERED: Furosemide 40 MG/4 ML VIAL IVP ONE (11:46)
[2016-11-27] MEDS: *HR* Rivaroxaban 15 MG TABLET PO SCH (16:57)
[2016-11-27] MEDS ORDERED: Acetaminophen 325 MG TABLET PO PRN (18:38)
[2016-11-27] MEDS: rOPINIRole 1 MG TABLET PO SCH (20:56)
[2016-11-28] MEDS: Insulin LISPRO 300 UNITS/3 ML VIAL SQ SCH ×4 (07:39→11:41)
[2016-11-28] MEDS: Furosemide 40 MG/4 ML VIAL IVP SCH (08:01)
[2016-11-28] MEDS: Insulin DETEMIR 100 UNIT/ML X5UNITS SQ SCH (08:03)
[2016-11-28] MEDS: Diltiazem CD (24hr) 240 MG CAPSULE PO SCH (08:05)
[2016-11-28] MEDS: Metoprolol XL (24 HR) Succ 50 MG TAB.ER.24H PO SCH (08:05)
[2016-11-28] MEDS: Gabapentin 400 MG CAPSULE PO SCH (08:05)
--- NOTE | 2016-11-28 09:43 | Discharge Summary ---
Date of Encounter: 11/28/16 Time of Encounter: 09:40 - Discharge Diagnosis (1) CHF (congestive heart failure) Priority: Primary Status: Acute Qualifiers: Congestive heart failure type: systolic Congestive heart failure chronicity : acute on chronic Qualified Code(s): I50.23 - Acute on chronic systolic ( congestive) heart failure (2) Pleural effusion Priority: Secondary Status: Chronic (3) Afib Priority: Secondary Status: Chronic Qualifiers: Atrial fibrillation type: chronic Qualified Code(s): I48.2 - Chronic atrial fibrillation (4) HTN (hypertension) Priority: Secondary Status: Chronic Qualifiers: Hypertension type: essential hypertension Qualified Code(s): I10 - Essential (primary) hypertension (5) Type 2 diabetes mellitus Priority: Secondary Status: Chronic Qualifiers: Diabetes mellitus complication status: with unspecified complications Diabetes mellitus senior living insulin use: with vermin exterminator use Qualified Code(s) : E11.8 - Type 2 diabetes mellitus with unspecified complications; 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 (6) Fever Priority: Secondary Status: Acute Qualifiers: Fever type: unspecified Qualified Code(s): R50.9 - Fever, unspecified - Discharge Medications Prescriptions: Furosemide [Lasix] 40 mg PO QPM #30 tab Furosemide [Lasix] 60 mg PO QAM #90 tablet Home Medications: Cyclosporine [Restasis] 1 drop OP BID 04/17/15 [History] Gabapentin [Neurontin] 400 mg PO BID 04/17/15 [History] Insulin Glargine,Hum.rec.anlog [Lantus Solostar] 24 unit SQ QAM 04/17/15 [ History] Multivit-Min/FA/Lycopen/Lutein [Centrum Silver Tablet] 1 tab PO QAM 04/17/15 [ History] Rivaroxaban [Xarelto] 15 mg PO QPM 04/17/15 [History] Ropinerole [Requip] 1 mg PO HS 04/17/15 [History] Diltiazem CD (24hr) [Cardizem CD] 240 mg PO QAM #30 cap.er.24h 04/20/15 [Rx] Simvastatin [Zocor] 40 mg PO QPM 09/17/15 [History] Albuterol Sulfate [Proair Hfa] 1 puff IH Q6H PRN #1 inh 10/12/15 [Rx] Metoprolol Succinate 100 mg PO DAILY 07/18/16 [History] Potassium Chloride 10 meq PO BID 11/25/16 [History] Furosemide [Lasix] 40 mg PO QPM #30 tab 11/28/16 [Rx] Furosemide [Lasix] 60 mg PO QAM #90 tablet 11/28/16 [Rx] Allergies/Adverse Reactions: Allergies codeine Allergy (Mild, Verified 10/12/15 10:07) Flushing tramadol Allergy (Mild, Verified 10/12/15 10:07) Dizziness metformin Adverse Reaction (Mild, Verified 10/12/15 10:07) Nausea Date of admission: 11/25/16 17:14 Primary care physician: Dannie Anthony MD Consults: 11/25/16 18:34 Consult to Hand Buffer [CONS] Routine Reason for SW Consult: Over 80 and lives alone 11/27/16 11:44 Consult to Nephrology [CONS] Routine Consulting Provider: [facility] Reason for Consult: CKD IV, fluid overload Call Completed: No Discharging clinician: Atilio Jaime Anticipated date of discharge: 11/28/16 - Patient Status Disposition: Home, Self-Care Condition: Fair Functional capacity at discharge: independent ambulation Overall status at discharge: patient is back to baseline - Discharge Instructions Follow Up With: Dannie Anthony MD [Primary Care Provider] - 12/03/16 10:00 am () - Diet and Activity Activity: resume usual activities as tolerated Diet: diabetic diet, low fat, low cholesterol, low salt diet Interval History: See below Hospital course: 86 Y/O M PMH of CHpEF, CKD IV, DM, Afib, CAD, Valvular heart disease He is placed on observation for management of acute on chronic CHF He is seen at bedside today with no new complains His pedal edema has resolved and he has been diuressed on Lasix 40mg IV bid His home meds have been resumed and he is stable for discharge today His home lasix regimen has been chnaed to 60mg a.m and 40mg ppm. He is on PO K replacements, continue same Patient requests renal team eval prior to discharge, prefered Dr. Wills's group because of prior relationship with his , he has been obliged He has an appointment with his PCP next week,advised to keep Follow up with pumper helper as out-patient - Time Spent with Patient Total time spent providing and/or coordinating discharge services: Less than 30 minutes - Constitutional Vitals: Temp Pulse Resp BP Pulse Ox 98.5 F 68 16 124/78 95 11/28/16 06:56 11/28/16 06:56 11/28/16 06:56 11/28/16 06:56 11/28/16 08:23 General appearance: Present: A&O X 3, pleasant, no acute distress - Head Head exam: Present: atraumatic, normocephalic - Eye Eye exam: Present: PERRL, conjuntiva pink, sclera anicteric Pupils: Present: PERRL - Neck Neck exam general surgery: Present: supple, trachea midline. Absent: lymphadenopathy - Respiratory Respiratory exam: Present: CTAB. Absent: accessory muscle use, rales, rhonchi, wheezes - Cardiovascular Cardiovascular exam: Present: irregular rhythm, +S1, +S2. Absent: diastolic murmur, gallop, rubs, systolic murmur - GI/Abdominal GI/Abdominal exam: Present: normal bowel sounds, soft, no peritoneal signs. Absent: distended, tenderness - Extremities Exam Extremities exam: Present: warm, radial pulses palpable and symetrical. Absent : calf tenderness, cyanotic, pedal edema - Neurological Exam Neurological exam: Present: alert, CN II-XII intact, normal gait, oriented X3, no focal deficits. Absent: pronater drift, facial droop, speech deficit - Skin Skin exam: Present: dry, intact
[2016-11-28 10:45] VITALS: BP 127/68
--- NOTE | 2016-11-28 12:40 | Nephrology Consult Note ---
Date of Encounter: 11/28/16 Time of Encounter: 12:32 Assessment and Plan (1) CKD (chronic kidney disease) stage 3, GFR 30-59 ml/min Current Visit: No Status: Chronic 1. 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 Serum creatinine is stable. Needs outpatient follow-up with Dr. Alex in 2- 4 weeks. 2. CHF sec to diastolic dysfunction. 2-D echo 05/2016; LVEF 60 %, mild to moderate LVH Place of 2 g sodium restriction, 1.5-2 L fluid restriction. Patient is being discharged on Lasix 60 mg every morning and 40 mg every afternoon 3. Bone metabolism. Check vitamin D, PTH levels at outpatient visit 4. HTN, BP stable. Continue metoprolol and Cardizem History of Present Illness - Reason for Consult Chronic Kidney Disease - Chief Complaint Renal failure - History of Present Illness 86-year-old male with history of DM type II, HTN, admitted with increasing shortness of breath and abdominal fullness. He was admitted with fluid overload in August of this year. Labs significant for a slightly elevated troponin of 0.07. EKG showed A. fib. CT abdomen; small bilateral pleural effusions, no ascites. Chest x-ray; small bilateral pleural effusions, left basilar atelectasis Noted to have bibasilar crackles and 1+ edema in the ankles. He was diagnosed with CHF secondary to diastolic dysfunction. He was on Lasix 40 mg twice a day at home. IV Lasix 40 mg twice a day was started He was diuresed, wt improved from 89.8-85.8 kg,, peripheral edema and shortness of breath have improved. He is being discharged today. He is requesting to be seen by Dr. Alex prior to discharge. H/o long-standing diabetes, complicated by neuropathy but no h/o retinopathy. He is unaware of hypertension. Denies h/o prostate problems. Had taken OTC NSAIDs for several years in the past. Baseline creatinine in the mid to high 1 range since 2013. Serum albumin total protein and hemoglobin are stable UA is negative for blood and protein Past Med Surg Social Fam HX - Past Medical History Medical history: arthritis, atrial fibrillation, CHF, coronary artery disease, diabetes, hyperlipidemia, hypertension, renal disease, valvular heart disease Psychiatric history: no psych history - Past Surgical History Surgical History: appendectomy, cholecystectomy, orthopedic, other, other ( Cervical spine surgery) - Social History Smoking Status: Never smoker Smokeless Tobacco Status: No Alcohol use: none Drug use: none - Family History Mother History Unknown: Yes Living Status: Age at : 86 Father Family Member Ethnicity: Non- Living Status: Age at : 87 Hx Family Cardiac Disorders: No Hx Family Respiratory Disorders: No Hx Family Cancer: No Hx Family GI Disorders: No Hx Family Endocrine Disorder: Yes (diabetes) Hx Family Neuromuscular Disorders: No Hx Family Neurologic Disorders: No Hx Family HEENT Disorders: No Hx Family Autoimmune Disorders: No Medications and Allergies Cyclosporine [Restasis] 1 drop OP BID 04/17/15 [History] Gabapentin [Neurontin] 400 mg PO BID 04/17/15 [History] Insulin Glargine,Hum.rec.anlog [Lantus Solostar] 24 unit SQ QAM 04/17/15 [ History] Multivit-Min/FA/Lycopen/Lutein [Centrum Silver Tablet] 1 tab PO QAM 04/17/15 [ History] Rivaroxaban [Xarelto] 15 mg PO QPM 04/17/15 [History] Ropinerole [Requip] 1 mg PO HS 04/17/15 [History] Diltiazem CD (24hr) [Cardizem CD] 240 mg PO QAM #30 cap.er.24h 04/20/15 [Rx] Simvastatin [Zocor] 40 mg PO QPM 09/17/15 [History] Albuterol Sulfate [Proair Hfa] 1 puff IH Q6H PRN #1 inh 10/12/15 [Rx] Metoprolol Succinate 100 mg PO DAILY 07/18/16 [History] Potassium Chloride 10 meq PO BID 11/25/16 [History] Furosemide [Lasix] 40 mg PO QPM #30 tab 11/28/16 [Rx] Furosemide [Lasix] 60 mg PO QAM #90 tablet 11/28/16 [Rx] Allergies codeine Allergy (Mild, Verified 10/12/15 10:07) Flushing tramadol Allergy (Mild, Verified 10/12/15 10:07) Dizziness metformin Adverse Reaction (Mild, Verified 10/12/15 10:07) Nausea Review of Systems All Systems review (narrative): CVS; edema in ankles has resolved, denies chest pain or shortness of breath Musculoskeletal; has chronic pain in the left shoulder and back. Had cervical spine surgery in 2003 C/O chronic numbness in the feet All other review of symptoms was done and is negative Exam - Vital Signs Vital signs: Initial Vital Signs Temp Pulse Resp BP Pulse Ox 97.9 F 91 20 109/66 94 11/25/16 13:37 11/25/16 13:37 11/25/16 13:37 11/25/16 13:37 11/25/16 13:37 Vital Signs - Last 8 Hours Temp Pulse Resp BP Pulse Ox 11/28/16 10:00 98.3 F 63 16 127/68 96 11/28/16 08:23 95 11/28/16 06:56 98.5 F 68 16 124/78 95 11/28/16 05:00 98.4 F 65 16 128/71 94 Intake and Output 11/27/16 11/28/16 11/28/16 23:59 07:59 15:59 Intake Total 680 / 680 Output Total 900 / 900 600 / 600 325 / 325 Balance -220 / -220 -600 / -600 -325 / -325 Intake: Oral 680 / 680 Output: Urine 900 / 900 600 / 600 325 / 325 Other: Meal Dinner Percent of Meal Consumed 100% Stool Size Moderate Stool Consistency soft formed Stool Color Brown Weight 85.8 kg Blood Glucose* 67 82 149 Patient Weight 11/28/16 23:59 Weight 85.8 kg - General Appearance Exam: HEENT; no pallor or icterus Throat no congestion. Neck ; supple no JVD no lymphadenopathy no carotid bruit CVS; s1s2 present, irregular, no murmurs RESP; good air entry, clear to auscultation ABD; soft, NT, BS present, no organomegaly, no bruits EXT; no edema, DP pulses palpable. 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
== END 2016-11-28 13:50 | disposition home or self-care (01) ==
LOC: 2ANU 13:31 → EMEROO 13:31 → 2ANU 18:07
PROVIDERS: ADMIT Hospitalist; ATTEND Internal Medicine

== ENCOUNTER 2017-02-01 07:01 | Inpatient (IN) ==
--- NOTE | 2017-02-01 07:35 | Emergency Department Note ---
Disposition Clinical Impression: Elevated troponin I level Acute exacerbation of CHF (congestive heart failure) Qualifiers: Congestive heart failure type: unspecified congestive heart failure type Qualified Code(s): I50.9 - Heart failure, unspecified Disposition: Admitted As Inpatient Condition: Fair Referrals: NO,PCP [Non-Partnered Physician] - Forms: ED Satisfaction Letter Time of Disposition: 09:14 SOB HPI - General Chief Complaint: ED Shortness of Breath/Dyspnea Stated Complaint: rylee 2l o2 at night couldn't breathe Time Seen by Provider: 02/01/17 07:12 Source: patient Limitations: no limitations Nursing Notes Reviewed: Yes Vital Signs Reviewed: Yes - History of Present Illness 86-year-old male with history of CHF Heart failure, valvular heart disease, A. fib on Xarelto, presents with shortness of breath for the last day. Patient states that he is on oxygen at baseline and night, reports that he was was to get some outpatient lab work work done, and he came in because he was still feeling short of breath and he felt like he get a done faster at the beginning emergency department. Is a patient of Dr. Tate. He states that he needed a CBC a CMP hemoglobin A1c uric acid microalbumin random additional lab work run today's visit, I stated that some of those are outpatient labs were not able to get in the emergency department. Pt Subjective Complaint: shortness of breath Onset (ago): hour(s) Severity: mild Consistency/Duration: constant Improves with: nothing Worsens with: lying flat, exertion Known history of: congestive heart failure Associated symptoms: Reports: orthopnea. Denies: chest pain, pain with inspiration, fever, cough, wheezing, sputum production, lower extremity pain, polydipsia, parasthesias - Related Data Home Medications Medication Instructions Recorded Confirmed Cyclosporine [Restasis] 1 drop OP BID 04/17/15 02/01/17 Gabapentin [Neurontin] 400 mg PO TID 04/17/15 02/01/17 Insulin Glargine,Hum.rec.anlog 24 unit SQ QAM 04/17/15 02/01/17 [Lantus Solostar] Multivit-Min/FA/Lycopen/Lutein 1 tab PO QAM 04/17/15 02/01/17 [Centrum Silver Tablet] Rivaroxaban [Xarelto] 15 mg PO QPM 04/17/15 02/01/17 Ropinerole [Requip] 1 mg PO HS 04/17/15 02/01/17 Simvastatin [Zocor] 40 mg PO QPM 09/17/15 02/01/17 Metoprolol Succinate 100 mg PO DAILY 07/18/16 02/01/17 Potassium Chloride 10 meq PO BID 11/25/16 02/01/17 Diltiazem HCl [Diltiazem 24Hr Cd] 180 mg PO DAILY 02/01/17 02/01/17 Previous Rx's Medication Instructions Recorded Albuterol Sulfate [Proair Hfa] 1 puff IH Q6H PRN #1 inh 10/12/15 Furosemide [Lasix] 40 mg PO QPM #30 tab 11/28/16 Furosemide [Lasix] 60 mg PO QAM #90 tablet 11/28/16 Allergies Allergy/AdvReac Type Severity Reaction Status Date / Time codeine Allergy Mild Flushing Verified 02/01/17 07:37 tramadol Allergy Mild Dizziness Verified 02/01/17 07:37 metformin AdvReac Mild Nausea Verified 02/01/17 07:37 All systems ED: reviewed and negative except as stated. Constitutional: Denies: fever, chills ENT ED: Denies: ear pain, throat pain Cardiovascular: Reports: as per HPI, orthopnea, edema. Denies: chest pain, palpitations Respiratory: Denies: cough, dyspnea Gastrointestinal: Denies: abdominal pain, nausea Genitourinary: Denies: urgency, dysuria Musculoskeletal: Denies: back pain, neck pain Past Medical History - Past Medical History Attestation: Yes The following information was validated with the patient. Source: patient Medical history: Reports: arthritis, atrial fibrillation, CHF, coronary artery disease, diabetes, hyperlipidemia, hypertension, renal disease, valvular heart disease Surgical history: Reports: appendectomy, cholecystectomy, orthopedic, other, other (Cervical spine surgery) Psychiatric history: Reports: no psych history - Social History Smoking Status: Never smoker Smokeless Tobacco Status: No Alcohol use: Reports: none Drug use: Reports: none Physical Exam Constitutional: alert and oriented, in NAD, vital signs reviewed and wnl HEENT: NCAT, sclera anicteric, PERRLA bilaterally, normal external ears bilaterally, nasal septum nondeviated, average dentition, MMM Neck: normal inspection, neck is supple, trachea midline Resp: Mild bibasilar Rales CV: Irregularly irregular, no m/g/r +1 pitting edema bilateral lower extremities GI: normal inspection, Soft, NTND, BS present Back: normal inspection, no tenderness to palpation Neuro: A&O3, no gross motor or sensory deficits bilaterally Skin: No rashes, skin warm, dry, intact - General Limitations: no limitations General appearance: alert, in no apparent distress Course Course Narrative: 86-year-old male with shortness of breath, history of CHF will give diuretic medication troponin EKG basic lab work and reassess - Reevaluation(s) Reevaluation #1: Is not evidence of elevated troponin 0.09, this is consistent with his baseline , his BNP is slightly elevated 700, I did add an aspirin, also given the patient Lasix 40 mg IV, again his EKG has no ischemic changes, concerning given his any shortness of breath with lab abnormalities, his mild pleural effusion on the left lung base, will admit to the medicine service, I spoke with Dr. Schuster who is accepting the patient Vital Signs Temperature 97.4 F L 02/01/17 07:03 Pulse Rate 96 02/01/17 07:03 Respiratory Rate 18 02/01/17 07:03 Blood Pressure 145/89 02/01/17 07:03 O2 Sat by Pulse Oximetry 96 02/01/17 07:03 Temperature 97.4 F L 02/01/17 07:03 Pulse Rate 78 02/01/17 09:22 Respiratory Rate 16 02/01/17 09:22 Blood Pressure 134/94 02/01/17 09:22 O2 Sat by Pulse Oximetry 100 02/01/17 09:22 Oxygen Delivery Oxygen Delivery Nasal Cannula Shortness of Breath/Dyspnea - [facility] Narrative Medical decision making narrative: 86-year-old male with acute CHF exacerbation shortness of breath, diuresis in the ER, found of elevated troponin however this is consistent with his baseline is no EKG changes, admitted to medicine service in stable condition - Differential Diagnosis Likely: acute exacerbation of chronic obstructive airways disease, congestive heart failure, pneumonia - Medical Records Medical records reviewed: Yes I reviewed the patient's medical records. - Lab Data Lab results reviewed: Yes I reviewed the patient's lab results. Result diagrams: 02/01/17 07:48 02/01/17 07:48 Lab Results 02/01/17 02/01/17 02/01/17 Range/Units 07:48 07:48 07:48 WBC 8.9 (4.3-11.1) K/mcL RBC 4.37 (4.19-5.50) M/mcL Hgb 13.6 (12.9-16.9) g/dL Hct 42.1 (37.5-50.1) % MCV 96.3 (83.0-100.0) fL MCH 31.1 (28.0-33.3) pg MCHC 32.3 (31.6-35.5) g/dL RDW 14.4 (11.5-14.5) % Plt Count 200 (140-400) K/mcL MPV 11.2 (9.4-12.4) fL Immature Gran % 0.2 (0-4) % Seg Neutrophils % 82.4 % Lymphocytes % 7.2 % Monocytes % 6.9 % Eosinophils % 3.0 % Basophils % 0.3 % Neutrophils # 7.3 (1.6-8.9) K/mcL Lymphocytes # 0.6 (0.6-4.6) K/mcL Monocytes # 0.6 (0.0-1.3) K/mcL Eosinophils # 0.3 (0.0-0.6) K/mcL Basophils # 0.0 (0.0-0.2) K/mcL Sodium (136-145) mEq/L Potassium (3.5-4.5) mEq/L Chloride (98-109) mEq/L Carbon Dioxide (19-29) mEq/L BUN (8-26) mg/dL Creatinine (0.72-1.25) mg/dL Est GFR ( Amer) (> 60) Est GFR (Non-Af Amer) (> 60) BUN/Creatinine Ratio (6-26) Glucose (70-99) mg/dL Calculated Osmolality (280-300) Calcium (8.6-10.8) mg/dL Total Bilirubin (0.2-1.2) mg/dL AST (5-34) Units/L ALT (0-55) Units/L Alkaline Phosphatase (38-126) Units/L Troponin I 0.09 H* (0-0.03) ng/mL B-Natriuretic Peptide 716 H (0-100) pg/mL Serum Total Protein (6.0-8.3) g/dL Albumin (3.5-5.0) g/dL Globulin (2.4-3.5) g/dL Albumin/Globulin Ratio (1.1-2.2) Urine Color (Yellow) Urine Clarity (Clear) Urine pH (5.0-8.0) pH Units Ur Specific [place] (1.010-1.025) Urine Protein (Neg-Trace) mg/dL Urine Glucose (UA) (Normal) mg/dL Urine Ketones (Negative) mg/dL Urine Blood (Negative) Urine Nitrite (Negative) Urine Bilirubin (Negative) Urine Urobilinogen (Normal) mg/dL Ur Leukocyte Esterase (Negative) Urine Microscopic RBC (0-3) per hpf Urine Microscopic WBC (0-3) per hpf Ur Squamous Epith Cells (None-Few) per lpf Urine Bacteria (None-Few) per hpf Hyaline Casts (None-Few) per lpf Ur Culture Indicated? (NO) 02/01/17 02/01/17 Range/Units 07:48 08:24 WBC (4.3-11.1) K/mcL RBC (4.19-5.50) M/mcL Hgb (12.9-16.9) g/dL Hct (37.5-50.1) % MCV (83.0-100.0) fL MCH (28.0-33.3) pg MCHC (31.6-35.5) g/dL RDW (11.5-14.5) % Plt Count (140-400) K/mcL MPV (9.4-12.4) fL Immature Gran % (0-4) % Seg Neutrophils % % Lymphocytes % % Monocytes % % Eosinophils % % Basophils % % Neutrophils # (1.6-8.9) K/mcL Lymphocytes # (0.6-4.6) K/mcL Monocytes # (0.0-1.3) K/mcL Eosinophils # (0.0-0.6) K/mcL Basophils # (0.0-0.2) K/mcL Sodium 145 (136-145) mEq/L Potassium 4.0 (3.5-4.5) mEq/L Chloride 101 (98-109) mEq/L Carbon Dioxide 34 H (19-29) mEq/L BUN 30 H (8-26) mg/dL Creatinine 1.94 H (0.72-1.25) mg/dL Est GFR ( Amer) 40 L (> 60) Est GFR (Non-Af Amer) 33 L (> 60) BUN/Creatinine Ratio 15 (6-26) Glucose 132 H (70-99) mg/dL Calculated Osmolality 308 H (280-300) Calcium 9.8 (8.6-10.8) mg/dL Total Bilirubin 1.1 (0.2-1.2) mg/dL AST 26 (5-34) Units/L ALT 18 (0-55) Units/L Alkaline Phosphatase 120 (38-126) Units/L Troponin I (0-0.03) ng/mL B-Natriuretic Peptide (0-100) pg/mL Serum Total Protein 6.7 (6.0-8.3) g/dL Albumin 3.6 (3.5-5.0) g/dL Globulin 3.1 (2.4-3.5) g/dL Albumin/Globulin Ratio 1.2 (1.1-2.2) Urine Color Yellow (Yellow) Urine Clarity Clear (Clear) Urine pH 6.0 (5.0-8.0) pH Units Ur Specific [place] 1.020 (1.010-1.025) Urine Protein 100 H (Neg-Trace) mg/dL Urine Glucose (UA) Normal (Normal) mg/dL Urine Ketones Negative (Negative) mg/dL Urine Blood Trace H (Negative) Urine Nitrite Negative (Negative) Urine Bilirubin Negative (Negative) Urine Urobilinogen Normal (Normal) mg/dL Ur Leukocyte Esterase Negative (Negative) Urine Microscopic RBC 0-3 (0-3) per hpf Urine Microscopic WBC 0-3 (0-3) per hpf Ur Squamous Epith Cells Many H (None-Few) per lpf Urine Bacteria None Seen (None-Few) per hpf Hyaline Casts None Seen (None-Few) per lpf Ur Culture Indicated? NO (NO) - Radiology Data Radiology results reviewed: Yes I reviewed the patient's radiology results. Chest X-Ray 02/01/17 07:32 IMPRESSION: Stable cardiomegaly. Atelectasis and small pleural effusion at the left lung base. Persistent asymmetric elevation of the left hemidiaphragm. D/ / Jason Sandy MD / Jason Sandy MD Interpreting Provider: Jason Sandy MD - EKG Data EKG attestation: Yes I reviewed and interpreted this EKG. Rate: Reports: tachycardia Rhythm: Reports: A.Fib (70 bpm QRS [address] segment changes.) Interpretation: Reports: unchanged when compared to prior tracing (date) - Core Measures AMI Core Measures Followed: Yes Attestation Statement - Attestation Attestation: I examined this patient and my medical decision-making was reviewed with the BILLIARD TABLE ASSEMBLER/PA/Advanced Practice Nurse/Resident Physician. I agree with the documented findings, disposition and treatment plan as described except to the extent set forth below. Patient to the emergency Department not feeling well. States he was wheezing last night. Week. Was going to have blood drawn but thought he should stop here. Denies fever. Denies chest pain. Patient is in no acute distress on exam. Lungs clear. Plan. Cardiac workup and basic labs. Patient has a slight elevated troponin which is likely chronic. BNP is elevated at baseline. He is dyspneic. Patient admitted. 30 minutes of critical care exclusive of separately billable procedures.
[2017-02-01 08:11] LABS: Albumin 3.6 g/dL (3.5-5.0); Albumin/Globulin Ratio 1.2 (1.1-2.2); Bilirubin,Total 1.1 mg/dL (0.2-1.2); Calcium 9.8 mg/dL (8.6-10.8); Globulin 3.1 g/dL (2.4-3.5); Total Protein 6.7 g/dL (6.0-8.3)
[2017-02-01 08:16] LABS: Basophils % 0.3 %; Eosinophils # 0.3 K/mcL (0.0-0.6); Hematocrit 42.1 % (37.5-50.1); Hemoglobin 13.6 g/dL (12.9-16.9); Immature Granulocytes % 0.2 % (0-4); Lymphocytes # 0.6 K/mcL (0.6-4.6); Lymphocytes % 7.2 %; Mean Corpuscular HGB Conc 32.3 g/dL (31.6-35.5); Mean Corpuscular Hemoglobin 31.1 pg (28.0-33.3); Mean Corpuscular Volume 96.3 fL (83.0-100.0); Mean Platelet Volume 11.2 fL (9.4-12.4); Monocytes # 0.6 K/mcL (0.0-1.3); Monocytes % 6.9 %; Neutrophils # 7.3 K/mcL (1.6-8.9); Platelet Count 200 K/mcL (140-400); Red Blood Count 4.37 M/mcL (4.19-5.50); Red Cell Distribution Width 14.4 % (11.5-14.5); Segmented Neutrophils % 82.4 %
[2017-02-01] MEDS ORDERED: Furosemide 40 MG/4 ML VIAL IVP ONE (08:40)
[2017-02-01 08:49] LABS: Bilirubin,Urine Negative (Negative); Blood,Urine Trace (Negative); Clarity,Urine Clear (Clear); Color,Urine Yellow (Yellow); Glucose,Urine (UA) Normal (Normal); Ketones,Urine Negative (Negative); Leukocyte Esterase,Urine Negative (Negative); Nitrite,Urine Negative (Negative); Protein,Urine 100 mg/dL (Neg-Trace); Urobilinogen,Urine Normal (Normal)
[2017-02-01 08:53] LABS: Bacteria,Urine None Seen per hpf (None-Few); Hyaline Casts,Urine None Seen per lpf (None-Few); RBC,Urine 0-3 per hpf (0-3); Squamous Epithelial Cell,Urine Many per lpf (None-Few); WBC,Urine 0-3 per hpf (0-3)
[2017-02-01] MEDS: Aspirin Enteric Coated 325 MG Tablet PO SCH (09:19)
[2017-02-01] MEDS ORDERED: Acetaminophen 325 MG TABLET PO PRN (10:41)
[2017-02-01] MEDS ORDERED: Naloxone 0.4 MG/ML INJ IVP PRN (10:41)
[2017-02-01] MEDS ORDERED: Ondansetron 4 MG/2 ML VIAL IVP PRN (10:41)
--- NOTE | 2017-02-01 10:58 | Internal Med History&Physical ---
<Jac Benjamin - Last Filed: 02/01/17 14:33> Date of Encounter: 02/01/17 Time of Encounter: 10:15 Assessment and Plan (1) Acute exacerbation of CHF (congestive heart failure) Current visit: Yes Status: Acute Patient presents with acute exacerbation of congestive heart failure. Patient states he is always short of breath but his symptoms worsened over the past 72 hours. He also states he has been coughing and wheezing with no sputum production. Will place continuous cardiac telemetry, IVP Lasix 60 mg twice a day , supplemental O2 with titration and continuous SPO2 monitoring. Qualifiers: Congestive heart failure type: diastolic Qualified Code(s): I50.33 - Acute on chronic diastolic (congestive) heart failure (2) Dyspnea Current visit: Yes Status: Acute Patient presents with chief complaint shortness of breath/dyspnea due to acute exacerbation of CHF. States symptoms worsened over the past 72 hours. Patient' s SPO2 varying between mid 80s and mid 90s on 2 L via nasal cannula. DuoNebs ordered Q6. Supplemental O2 with titration if SPO2 92% and continuous SPO2 monitoring. We will switch to facemask if nasal cannula ineffective. Qualifiers: Dyspnea type: shortness of breath Qualified Code(s): R06.02 - Shortness of breath (3) Elevated troponin I level Current visit: Yes Status: Acute Patient presents with elevated troponin level of 0.09. Patient has history of CAD, atrial fibrillation, HLD, HTN, and valvular heart disease. Will trend troponins 2 and order echocardiogram. (4) Leg edema Current visit: Yes Status: Acute Patient presents with bilateral pedal edema 1+ pitting related to current acute exacerbation of CHF. IVP Lasix 60 mg twice a day ordered. 1.5L Fluid restriction/cardiac diet ordered. Will monitor patient for signs of fluid overload. Qualifiers: Laterality: bilateral Qualified Code(s): R60.0 - Localized edema (5) Leg weakness, bilateral Current visit: Yes Status: Acute Patient presents with acute bilateral leg weakness which he reports he cannot stand for great lengths of time without risk of fall. Patient states leg weakness most likely related to his back pain and history of cervical spine surgery. PT/OT consult ordered. Falls precautions/-width-assist/bedrest with bedside commode with assist status to leg weakness and risk of falls. (6) Atrial fibrillation with rapid ventricular response Current visit: Yes Status: Chronic Patient presents with history of chronic atrial fibrillation with rapid ventricular response. Continuous cardiac telemetry ordered. Will continue patient's diltiazem and Xarelto. (7) Insulin dependent diabetes mellitus Current visit: Yes Status: Chronic Patient presents with history of chronic insulin-dependent diabetes mellitus. Blood glucose monitoring ordered ACHS and will continue patient's a.m. insulin with hypoglycemic protocol. A1C ordered. (8) CKD (chronic kidney disease) stage 3, GFR 30-59 ml/min Current visit: Yes Status: Chronic Presents with history of chronic kidney disease stage III. Patient's current GFR is 33. 1.5 L fluid restriction diet ordered. Monitor I&O and daily weight. (9) HTN (hypertension) Current visit: Yes Status: Chronic She presents with history of chronic hypertension. We will continue patient's metoprolol and monitor patient and vital signs. Qualifiers: Hypertension type: essential hypertension Qualified Code(s): I10 - Essential (primary) hypertension (10) HLD (hyperlipidemia) Current visit: Yes Status: Chronic Patient presents with history of chronic hyperlipidemia. Will continue patient' s simvastatin. Lipid panel ordered. Qualifiers: Hyperlipidemia type: pure hypercholesterolemia Qualified Code(s): E78.00 - Pure hypercholesterolemia, unspecified; E78.0 - Pure hypercholesterolemia (11) DVT prophylaxis Current visit: No Status: Acute Patient placed on DVT prophylaxis due to admission protocol concurrent risk factors. Will continue patient's Xarelto. Internal Medicine - H&P: HPI Chief complaint: SOB/Dyspnea Admitted From: Emergency Dept Plans for Post Hospital Care: Home History of present illness: Mr. Flores is a 86 year old male who presents from the ED with chief complaint of shortness of breath/dyspnea. Patient states he is always short of breath due to CHF but this is become progressively worse over the past 72 hours. He reports he was up all night coughing and wheezing. Produces no sputum. Patient does state he has bilateral leg weakness for which he uses a cane and walker now at home but denies current history of falls. Patient denies chest pain, nausea, vomiting, recent illness, fever, chills, abdominal pain, headache , or generalized weakness. Upon examination patient has +1 pitting edema bilaterally lower extremities with diminished lung sounds. Mr. Flores has a medical history of arthritis, atrial fibrillation which is currently controlled with diltiazem, CHF, CAD, diabetes with insulin dependency, HLD, HTN, stage IV renal disease (stage III), and valvular heart disease. Patient also states he has 2 pinched nerves in his back which comes constant back pain and difficulty with ambulation. Patient is at moderate risk for respiratory decline due to acute exacerbation of CHF currently and will be placed as observation with orders for supplemental O2 with titration if SpO2 <92%, continuous cardiac telemetry, fluid restriction (1.5 L daily) cardiac diet, DuoNebs Q6, continuation of home meds with the exception of PO Lasix, IVP Lasix 60 mg daily BID, falls precautions/ob-ldla-ldmvmj/bed rest with bedside commode with assist only, PT/OT consults. Patient to be monitored closely. Time spent with patient > 40 minutes. Past Med Surg Social Fam HX - Past Medical History Source: patient Medical history: arthritis, atrial fibrillation, CHF, coronary artery disease, diabetes, hyperlipidemia, hypertension, renal disease (Stage III), valvular heart disease Psychiatric history: no psych history - Past Surgical History Surgical History: appendectomy, cholecystectomy, knee replacement (Bilateral), orthopedic, other (Cervical spine) - Social History Smoking Status: Never smoker Smokeless Tobacco Status: No Alcohol use: none Drug use: none Occupational status: retired Current living situation: Home - Independent Activity Level: Uses cane/walker Recent Out of Country Travel Within the Last 8 Weeks: No Exposure or Possible Exposure to Illness During Travel: No - Family History Mother Race: Family Member Ethnicity: Non- Living Status: Age at : 87 Cause of : Unknown Hx Family Musculoskeletal Disorders: Yes (Arthritis) Father Race: Family Member Ethnicity: Non- Living Status: Age at : 85 Cause of : Unknown Hx Family Endocrine Disorder: Yes (DM) Brother Race: Family Member Ethnicity: Non- Living Status: Age at : 79 Cause of : Unknown Sister Race: Family Member Ethnicity: Non- Living Status: Still Living Hx Family Medical Disorders: No Internal Medicine - H&P: Meds Cyclosporine [Restasis] 1 drop OP BID 04/17/15 [History] Gabapentin [Neurontin] 400 mg PO TID 04/17/15 [History] Insulin Glargine,Hum.rec.anlog [Lantus Solostar] 24 unit SQ QAM 04/17/15 [ History] Multivit-Min/FA/Lycopen/Lutein [Centrum Silver Tablet] 1 tab PO QAM 04/17/15 [ History] Rivaroxaban [Xarelto] 15 mg PO QPM 04/17/15 [History] Ropinerole [Requip] 1 mg PO HS 04/17/15 [History] Simvastatin [Zocor] 40 mg PO QPM 09/17/15 [History] Albuterol Sulfate [Proair Hfa] 1 puff IH Q6H PRN #1 inh 10/12/15 [Rx] Metoprolol Succinate 100 mg PO DAILY 07/18/16 [History] Potassium Chloride 10 meq PO BID 11/25/16 [History] Furosemide [Lasix] 40 mg PO QPM #30 tab 11/28/16 [Rx] Furosemide [Lasix] 60 mg PO QAM #90 tablet 11/28/16 [Rx] Diltiazem HCl [Diltiazem 24Hr Cd] 180 mg PO DAILY 02/01/17 [History] Allergies codeine Allergy (Mild, Verified 02/01/17 07:37) Flushing tramadol Allergy (Mild, Verified 02/01/17 07:37) Dizziness metformin Adverse Reaction (Mild, Verified 02/01/17 07:37) Nausea All Systems PM: A 10-system review of systems was performed and is negative for pertinent findings except as documented above in the HPI. - Constitutional Constitutional: no chills, no fever(s), no night sweats - EENT Eyes: no change in vision, no discharge, no pain, no photophobia Ears: no ear discharge, no ear pain, no tinnitus Nose, mouth and throat: no dysphagia, no nasal discharge, no neck pain, no sore throat - Breasts Breasts: as per HPI - Cardiovascular Cardiovascular ROS IM: as per HPI, dyspnea, irregular heart rhythm, no chest pain, no diaphoresis, no lightheadedness, no palpitations, no syncope - Respiratory Respiratory: as per HPI, cough, dyspnea - Gastrointestinal Gastrointestinal: no abdominal pain, no diarrhea, no hematemesis, no hematochezia, no melena, no nausea, no vomiting - Genitourinary Genitourinary ROS male: as per HPI - Musculoskeletal Musculoskeletal ROS IM: as per HPI, back pain, other (Bilateral leg weakness) - Integumentary Integumentary IM: no rash, no unusual bruising - Neurological Neurological ROS: no confusion, no convulsions, no focal weakness, no numbness, no tingling, no tremor(s) - Psychiatric Psychiatric: as per HPI - Endocrine Endocrine IM: as per HPI - Hematologic/Lymphatic Hematologic/Lymphatic: no easy bruising - Allergic/Immunologic Allergic/Immunologic: as per HPI - Constitutional Vitals: Temp Pulse Resp BP Pulse Ox 97.4 F L 78 16 134/94 100 02/01/17 07:03 02/01/17 09:22 02/01/17 09:22 02/01/17 09:22 02/01/17 09:22 General appearance: Present: cooperative, A&O X 3, pleasant, no acute distress, obese, answers questions appropriately - Head Head exam: Present: atraumatic, normocephalic - Eye Eye exam: Present: PERRL, conjuntiva pink, sclera anicteric Pupils: Present: PERRL - ENT ENT exam: Present: normal exam, normal external ear exam - Neck Neck exam general surgery: Present: supple, trachea midline. Absent: lymphadenopathy - Respiratory Respiratory exam: Present: decreased breath sounds - Cardiovascular Cardiovascular exam: Present: irregular rhythm (Atrial fibrillation) - GI/Abdominal GI/Abdominal exam: Present: normal bowel sounds, soft, no peritoneal signs. Absent: distended, tenderness - Rectal Rectal exam: Present: deferred - Additional comments: exam deferred. - Extremities Exam Extremities exam: Present: pedal edema (1+ pitting edema bilaterally in LE), warm, radial pulses palpable and symetrical. Absent: calf tenderness, cyanotic - Back Exam Back exam: Present: normal inspection - Neurological Exam Neurological exam: Present: CN II-XII intact, oriented X3, no focal deficits. Absent: pronater drift, facial droop, speech deficit - Psychiatric Psychiatric exam: Present: normal affect, normal mood - Skin Skin exam: Present: dry, intact Internal Med - H&P Results - Labs CBC & Chem 7: 02/01/17 07:48 02/01/17 07:48 Labs: Short CBC 02/01/17 Range/Units 07:48 WBC 8.9 (4.3-11.1) K/mcL Hgb 13.6 (12.9-16.9) g/dL Hct 42.1 (37.5-50.1) % Plt Count 200 (140-400) K/mcL Neutrophils # 7.3 (1.6-8.9) K/mcL BMP 02/01/17 07:48 Sodium 145 Potassium 4.0 Chloride 101 Carbon Dioxide 34 H BUN 30 H Creatinine 1.94 H Glucose 132 H Calcium 9.8 Cardiac Enzymes 02/01/17 Range/Units 07:48 Troponin I 0.09 H* (0-0.03) ng/mL Liver Function 02/01/17 Range/Units 07:48 Total Bilirubin 1.1 (0.2-1.2) mg/dL AST 26 (5-34) Units/L ALT 18 (0-55) Units/L Alkaline Phosphatase 120 (38-126) Units/L Albumin 3.6 (3.5-5.0) g/dL Urine 02/01/17 Range/Units 08:24 Urine Color Yellow (Yellow) Urine Clarity Clear (Clear) Urine pH 6.0 (5.0-8.0) pH Units Ur Specific Caspian 1.020 (1.010-1.025) Urine Protein 100 H (Neg-Trace) mg/dL Urine Glucose (UA) Normal (Normal) mg/dL - EKG Data Prior EKG available for review: yes When compared to previous EKG: there is no significant change EKG comments: 02/01/17 11:19 EKG dated 11/25/16 shows atrial fibrillation with poor R-wave progression. Baseline artifact complicates accurate interpretation. 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 - Impressions ITS Impressions Chest X-Ray 02/01/17 07:32 IMPRESSION: Stable cardiomegaly. Atelectasis and small pleural effusion at the left lung base. Persistent asymmetric elevation of the left hemidiaphragm. D/ / Jason Sandy MD / Jason Sandy MD Interpreting Provider: Jason Sandy MD - Diagnostic Studies Chest x-ray Additional comments: Impressions Chest X-Ray 02/01/17 07:32 IMPRESSION: Stable cardiomegaly. Atelectasis and small pleural effusion at the left lung base. Persistent asymmetric elevation of the left hemidiaphragm. D/ / Jason Sandy MD / Jason Sandy MD Interpreting Provider: Jason Sandy MD <[email or web address] - Last Filed: 02/01/17 14:41> Date of Encounter: 02/01/17 Time of Encounter: 12:15 Internal Medicine - H&P: HPI History of present illness: Mr. Flores is a 86 year old male All Systems PM: A 10-system review of systems was performed and is negative for pertinent findings except as documented above in the HPI. - Constitutional Vitals: Temp Pulse Resp BP Pulse Ox 97.4 F L 106 16 118/75 99 02/01/17 07:03 02/01/17 13:57 02/01/17 13:57 02/01/17 13:57 02/01/17 13:57 Internal Med - H&P Results - Labs CBC & Chem 7: 02/01/17 07:48 02/01/17 07:48 - Attending Attestation I examined this patient and my medical decision-making was reviewed with the nurse practitioner. I agree with the documented history of present illness, review of systems, past medical, surgical social and family histories and examination findings, disposition and treatment plan as described above except to any changes set forth below. Patient with history of atrial fibrillation, CHF, coronary artery disease, presented to the ER with complaints of shortness of breath. He has chronic shortness of breath and wears home oxygen only at bedtime but he became progressively dyspneic over the past 72 hours. He denies any chest discomfort or pain but has been having some intermittent palpitations. Denies any nausea or vomiting. Complains of bilateral lower extremity swelling and weakness. In the ER, the patient was noted to be severely dyspneic and was wheezing. He was also having a rapid ventricular response to A. fib. He was treated with duo nebs and O2 supplementation. He also received Lasix. This seemed to have helped with his breathing but he remains dyspneic than usual. On examination, patient has normal S1 and S2 with an irregularly irregular heart rate and tachycardia. Bilateral pedal edema is present. I will let her end expiratory wheezing on examination of lungs. Acute diastolic congestive heart failure: We will treat with IV Lasix. Patient' s most recent echo in May 2016 showed an EF of 60% with indeterminate diastolic function. Monitor daily weights. Monitor input and output. High risk for complications due to acute CHF and IV Lasix use. Mild elevation in troponins: Likely related to demand ischemia. We will trend. Atrial fibrillation with RVR: Chronic A. fib. Resume home medications. Heart rate is currently varying between 70 and 110. For now we will hold off on any IV medications. If heart rate persistently is greater than 110/m, we will start him on IV Cardizem drip. Diabetes mellitus type 2: Monitor blood sugars. Sliding scale insulin. Hypertension: Monitor blood pressure. Currently well controlled. Continue home medications.
--- NOTE | 2017-02-01 15:47 | Electrocardiograph Report ---
[facility] Test Date: 2017-02-01 Pat Name: Ciro Flores Department: 105 Room: 3B23 Gender: M Care Connector: MSC : [id number] Requested By: Gail See Order Number: [id number] Reading MD: Walter Tobias MD Measurements Intervals [place] Rate: 97 P: [place]: 0 QRS: -42 QRSD: 90 T: -28 QT: 360 QTc: 415 Interpretive Statements ATRIAL FIBRILLATION WITH ABERRANT CONDUCTION OR VENTRICULAR PREMATURE COMPLEXES MARKED LEFT AXIS DEVIATION [QRS AXIS < -30] LOW QRS VOLTAGE IN EXTREMITY LEADS [QRS DEFLECTION < 0.5 mV IN LIMB LEADS] SEPTAL MYOCARDIAL INFARCTION [40+ ms Q WAVE IN V1/V2], PROBABLY OLD Electronically Signed On 02-01-2017 15:45:29 EDT by Walter Tobias MD
[2017-02-01] MEDS: Ipratropium/Albuterol Neb 3 ML IH SCH ×2 (16:18→21:00)
[2017-02-01] MEDS: Gabapentin 400 MG CAPSULE PO SCH ×2 (16:31→21:15)
[2017-02-01] MEDS: Furosemide 40 MG/4 ML VIAL IVP SCH (16:31)
[2017-02-01] MEDS: *HR* Rivaroxaban 15 MG TABLET PO SCH (18:36)
[2017-02-01 20:40] LABS: Basophils % 0.3 %; Eosinophils # 0.1 K/mcL (0.0-0.6); Eosinophils % 1.2 %; Hematocrit 39.7 % (37.5-50.1); Hemoglobin 12.8 g/dL (12.9-16.9); Immature Granulocytes % 0.6 % (0-4); Immature Platelets 8.2 % (1.1-6.1); Lymphocytes # 0.5 K/mcL (0.6-4.6); Lymphocytes % 4.8 %; Mean Corpuscular HGB Conc 32.2 g/dL (31.6-35.5); Mean Corpuscular Hemoglobin 30.8 pg (28.0-33.3); Mean Corpuscular Volume 95.7 fL (83.0-100.0); Mean Platelet Volume 10.9 fL (9.4-12.4); Monocytes # 0.8 K/mcL (0.0-1.3); Monocytes % 7.1 %; Neutrophils # 9.2 K/mcL (1.6-8.9); Platelet Count 195 K/mcL (140-400); Red Blood Count 4.15 M/mcL (4.19-5.50); Red Cell Distribution Width 14.3 % (11.5-14.5)
[2017-02-01] MEDS: rOPINIRole 1 MG TABLET PO SCH (21:14)
[2017-02-01] MEDS: (Cyclosporine [Restasis] 1 DROP) OP SCH (21:15)
[2017-02-02] MEDS: Ipratropium/Albuterol Neb 3 ML IH SCH ×2 (04:29→06:08)
[2017-02-02] MEDS ORDERED: Ipratropium/Albuterol Neb 3 ML IH PRN (06:04)
[2017-02-02 06:59] LABS: INR 2.2
[2017-02-02 07:01] LABS: Basophils % 0.3 %; Eosinophils # 0.1 K/mcL (0.0-0.6); Hematocrit 40.9 % (37.5-50.1); Hemoglobin 13.3 g/dL (12.9-16.9); Immature Granulocytes % 0.5 % (0-4); Lymphocytes # 0.9 K/mcL (0.6-4.6); Lymphocytes % 7.6 %; Mean Corpuscular HGB Conc 32.5 g/dL (31.6-35.5); Mean Corpuscular Hemoglobin 31.1 pg (28.0-33.3); Mean Corpuscular Volume 95.8 fL (83.0-100.0); Mean Platelet Volume 11.7 fL (9.4-12.4); Monocytes # 0.9 K/mcL (0.0-1.3); Monocytes % 7.2 %; Platelet Count 187 K/mcL (140-400); Red Blood Count 4.27 M/mcL (4.19-5.50); Red Cell Distribution Width 14.6 % (11.5-14.5); Segmented Neutrophils % 83.4 %
[2017-02-02 07:02] LABS: Activated Partial Thrombo Time 36.5 Seconds (26.0-36.0)
[2017-02-02 07:12] LABS: Calcium 9.4 mg/dL (8.6-10.8); Chol/HDL Ratio 2.9 (0-4.9); Potassium 3.6 mEq/L (3.5-4.5)
[2017-02-02] MEDS: Metoprolol XL (24 HR) Succ 50 MG TAB.ER.24H PO SCH (08:07)
[2017-02-02] MEDS: Gabapentin 400 MG CAPSULE PO SCH ×3 (08:07→20:30)
[2017-02-02] MEDS: (Cyclosporine [Restasis] 1 DROP) OP SCH ×2 (08:08→20:25)
[2017-02-02] MEDS: Multivit/Ca/Min/Fe/FA 1 TAB TABLET PO SCH (08:08)
[2017-02-02] MEDS: Aspirin Enteric Coated 325 MG Tablet PO SCH ×2 (08:08→10:22)
[2017-02-02] MEDS: Diltiazem CD (24hr) 180 MG CAPSULE PO SCH (08:08)
--- NOTE | 2017-02-02 08:42 | Cardiology Consult Note ---
Date of Encounter: 02/02/17 Time of Encounter: 08:40 Assessment and Plan (1) Atrial fibrillation with rapid ventricular response Current Visit: Yes Status: Chronic Per Cardiology: Known history of atrial fibrillation. Presented with A. fib with RVR. Upon review of records received IV Cardizem bolus yesterday evening. IV Cardizem drip started this morning. Received Cardizem CD 180 mg and Toprol-XL 100 mg by mouth this morning prior to evaluation. Current heart rate 120s to 140s and remains atrial fibrillation. Heart rate improved to 80s to 110s status post IV Cardizem 10 mg bolus. Systolic blood pressures 140s to 150s. On Cardizem drip at 15 mg per hour. Will titrate to keep HR less than 100mmHg. Mg = 2.0. TSH ok. From a respiratory standpoint remains clinically unchanged with better rate control. Suspect respiratory status driving A. fib with RVR. Will switch Alb nebs to xopenex. (2) Dyspnea Current Visit: Yes Status: Acute Per Cardiology: No known history of COPD or past history of nicotine abuse. Patient seen and evaluated with Dr. Bermudez-- ABG showed PCO2 in the 50s and PO2 in the 60s. CT scan pending. Patient reports compliance with Xarelto. Has R leg larger than left-- reports chronic. Has underlying CKD3B-- about baseline. Can consider CT to r/o PE, however since on Xarelto with compliance suspect low-liklihood. Additionally, echo showed normal RV size and mild decrease in fxn. Chest x-ray: IMPRESSION: Stable cardiomegaly. Atelectasis and small pleural effusion at the left lung base. Persistent asymmetric elevation of the left hemidiaphragm. Discussed with Dr. Bermudez and recommend pulmonology consult, primary service aware. Qualifiers: Dyspnea type: shortness of breath Qualified Code(s): R06.02 - Shortness of breath (3) Elevated troponin I level Current Visit: Yes Status: Acute Per Cardiology: Upon review of records patient has chronically elevated troponins over the past few years. Currently flat and adynamic at 0.09, then 0.08 x 2 in setting of afib rvr, hypoxia, and CKD. Suspect demand ischemia, no cardiac rehab c/s warranted at this juncture. Had negative nuclear stress test March 2015. Denies CP. (4) Acute on chronic diastolic heart failure Current Visit: No Status: Acute Per Cardiology: History of diastolic CHF. Current echo shows EF 50-55%, indeterminant diastolic dysfunction, normal RV size with mild reduction in function, mildly dilated left atrium, mild to moderate MR, mild TR, moderate pulmonary hypertension. BNP 716. Has bilateral LE edema. On IV Lasix 60mg BID-- net I&O +127.7ml. Continue daily weights, place on strict I&O and 1.5L fluid restriction. Suspect CHF contributing factor to resp status, however severity of resp status appears worse than CHF clinical picture. Has PHTN as well. (5) CKD (chronic kidney disease) stage 3, GFR 30-59 ml/min Current Visit: Yes Status: Chronic Per Cardiology: Has CKD3B-- about baseline. Monitor closely with diuresis. On renal dose of Xarelto. Discussion w patient/family: The assessment and plan as outlined above was discussed with the patient who expressed understanding and agreement. All questions were answered. Thank you for involving us in the care of your patient. Please call with any questions. Patient is full code. History of Present Illness Consult date: 02/02/17 Requesting physician: Dali Caro Consult reason: Afib RVR Chief complaint: SOB History of present illness: Mr. Flores is a 86 year old male with a PMH: arthritis, atrial fibrillation, CHF , coronary artery disease, diabetes, hyperlipidemia, hypertension, renal disease (Stage III), and valvular heart disease. Cardiology c/s for afib RVR. Called this am to evaluate patient urgently d/t concerns of afibr RVR in the 180's. Patient reports increased short of breath at rest and with exertion over the past 2 months. Reports slight swelling to lower extremities, right leg chronically larger than left. He denies any chest pain or palpitations. He reports compliance with medications and his Xarelto. He denies any active bleeding or blood loss. Denies any syncope or falls. Denies any past history of COPD or nicotine abuse. Patient reports cough with tannish productive sputum. Denies any recent fever, chills, nausea, vomiting, diarrhea. Past Med Surg Social Fam HX - Past Medical History Attestation: Yes The following information was validated with the patient. Source: patient, old records reviewed Medical history: arthritis, atrial fibrillation, CHF, coronary artery disease, diabetes, hyperlipidemia, hypertension, renal disease, valvular heart disease Psychiatric history: no psych history - Past Surgical History Surgical History: appendectomy, cholecystectomy, knee replacement, orthopedic, other - Social History Smoking Status: Never smoker Smokeless Tobacco Status: No Alcohol use: none Drug use: none - Family History Mother Race: Family Member Ethnicity: Non- Living Status: Age at : 87 Cause of : Unknown Hx Family Musculoskeletal Disorders: Yes (Arthritis) Brother Race: Family Member Ethnicity: Non- Living Status: Age at : 79 Cause of : Unknown Sister Race: Family Member Ethnicity: Non- Living Status: Still Living Hx Family Medical Disorders: No Father Race: Family Member Ethnicity: Non- Living Status: Age at : 85 Cause of : Unknown Hx Family Cardiac Disorders: No Hx Family Respiratory Disorders: No Hx Family Cancer: No Hx Family GI Disorders: No Hx Family Endocrine Disorder: Yes (DM) Hx Family Neuromuscular Disorders: No Hx Family Neurologic Disorders: No Hx Family HEENT Disorders: No Hx Family Autoimmune Disorders: No Medications and Allergies Cyclosporine [Restasis] 1 drop OP BID 04/17/15 [History] Gabapentin [Neurontin] 400 mg PO TID 04/17/15 [History] Insulin Glargine,Hum.rec.anlog [Lantus Solostar] 24 unit SQ QAM 04/17/15 [ History] Multivit-Min/FA/Lycopen/Lutein [Centrum Silver Tablet] 1 tab PO QAM 04/17/15 [ History] Rivaroxaban [Xarelto] 15 mg PO QPM 04/17/15 [History] Ropinerole [Requip] 1 mg PO HS 04/17/15 [History] Simvastatin [Zocor] 40 mg PO QPM 09/17/15 [History] Albuterol Sulfate [Proair Hfa] 1 puff IH Q6H PRN #1 inh 10/12/15 [Rx] Metoprolol Succinate 100 mg PO DAILY 07/18/16 [History] Potassium Chloride 10 meq PO BID 11/25/16 [History] Furosemide [Lasix] 40 mg PO QPM #30 tab 11/28/16 [Rx] Furosemide [Lasix] 60 mg PO QAM #90 tablet 11/28/16 [Rx] Diltiazem HCl [Diltiazem 24Hr Cd] 180 mg PO DAILY 02/01/17 [History] Allergies codeine Allergy (Mild, Verified 02/01/17 07:37) Flushing tramadol Allergy (Mild, Verified 02/01/17 07:37) Dizziness metformin Adverse Reaction (Mild, Verified 02/01/17 07:37) Nausea All Systems Review: A 10-system review of systems was performed and is negative for pertinent findings except as documented above in the HPI. - Constitutional Constitutional: fatigue - Cardiovascular Cardiovascular: as per HPI, dyspnea at rest, dyspnea on exertion, leg edema - Respiratory Respiratory: cough, dyspnea, wheezing Physical Examination Vital Signs, Last 4 Hours Temp Pulse Resp BP Pulse Ox 02/02/17 08:30 133 20 130/82 02/02/17 07:57 134 18 135/75 95 02/02/17 07:29 99.1 F 103 17 118/82 94 02/02/17 06:50 120 111/66 02/02/17 06:10 18 96 Selected Entries 02/02/17 03:37 Temperature 99.6 F General: Conversant HEENT: Atraumatic, Normocephaly, Mucus Membranes Moist Neck: No JVD, Normal carotid pulses Cardiac: No Murmur, Other (Irregularly irregular) Lungs: Other (Audible expiratory wheezes noted, conversational dyspnea noted, scattered wheezes throughout right lobes and diminished breath sounds left lobes ) Neuro: Alert and responsive, No focal deficits noted Abdomen: Soft, Non-Tender Skin: No rashes noted on visualized skin Musculoskeletal: No Chest Wall Tenderness Extremities: Normal Pulses, Other (+1 pitting edema to bilateral lower extremities, right leg larger than left-- patient reports chronic) Results 02/02/17 05:57 02/02/17 05:57 Lab Results Laboratory Tests 12/03/16 02/01/17 02/01/17 12:59 07:48 07:48 Potassium Creatinine 1.96 H Est GFR (Non-Af Amer) 33 L Troponin I 0.09 H* B-Natriuretic Peptide 716 H 02/01/17 02/01/17 02/01/17 07:48 13:29 18:54 Potassium Creatinine 1.94 H Est GFR (Non-Af Amer) 33 L Troponin I 0.08 H* 0.08 H* B-Natriuretic Peptide 02/02/17 05:57 Potassium 3.6 Creatinine 1.62 H Est GFR (Non-Af Amer) 41 L Troponin I B-Natriuretic Peptide 02/02/17 02/02/17 02/02/17 05:57 05:57 09:26 INR 2.2 ABG pH 7.43 ABG pCO2 55 H ABG pO2 61 L ABG HCO3 36.5 H Magnesium 2.0 TSH 1.246 ITS Impressions Chest X-Ray 02/01/17 07:32 IMPRESSION: Stable cardiomegaly. Atelectasis and small pleural effusion at the left lung base. Persistent asymmetric elevation of the left hemidiaphragm. D/ / Jason Sandy MD / Jason Sandy MD Interpreting Provider: Jason Sandy MD Intake & Output 01/30/17 01/31/17 02/01/17 02/02/17 23:59 23:59 23:59 23:59 Intake Total 337.7 / 337.7 Output Total 200 / 200 250 / 250 Balance -200 / -200 87.7 / 87.7 Weight 90.718 kg 91 kg Active Medications Acetaminophen (Tylenol) 650 mg PO Q6HR PRN PRN Reason: Mild Pain (1-3) Stop: 08/03/17 10:42 Albuterol/Ipratropium (Duoneb) 3 ml IH [id number] KELSI PRN Reason: Protocol Stop: 08/03/17 16:01 Last Admin: 02/02/17 04:29 Dose: Not Given Albuterol/Ipratropium (Duoneb) 3 ml IH [id number] PRN; Protocol PRN Reason: Shortness Of Breath/Wheezing Stop: 08/04/17 06:05 Last Admin: 02/02/17 06:10 Dose: 3 ml Aspirin (Aspirin Ec) 325 mg PO DAILY [facility] Stop: 08/03/17 09:01 Last Admin: 02/02/17 08:08 Dose: 325 mg Diltiazem HCl (Cardizem Cd) 180 mg PO DAILY [facility] Stop: 08/04/17 09:01 Last Admin: 02/02/17 08:08 Dose: 180 mg Furosemide (Lasix) 60 mg IVP BIDDIURETIC KELSI Stop: 08/03/17 17:01 Last Admin: 02/01/17 16:31 Dose: 60 mg Gabapentin (Neurontin) 400 mg PO TID KELSI Stop: 08/03/17 15:01 Last Admin: 02/02/17 08:07 Dose: 400 mg Diltiazem HCl 125 mg/ Dextrose 125 mls @ 5 mls/hr IVC .Q24H KELSI; 5 MG/HR PRN Reason: Protocol Stop: 08/04/17 06:16 Last Titration: 02/02/17 08:00 Dose: 10 mg/hr, 10 mls/hr Insulin Detemir (Levemir) 24 unit SQ QAM [facility] Stop: 08/04/17 09:01 Metoprolol Succinate (Toprol Xl) 100 mg PO DAILY [facility] Stop: 08/04/17 09:01 Last Admin: 02/02/17 08:07 Dose: 100 mg Multivitamins/Calcium (Thera M Plus) 1 tab PO QAM [facility] Stop: 08/04/17 09:01 Last Admin: 02/02/17 08:08 Dose: 1 tab Naloxone HCl (Narcan) 0.4 mg IVP Q2MIN PRN PRN Reason: Opioid Reversal Stop: 08/03/17 10:42 Ondansetron HCl (Zofran) 4 mg IVP Q8HR PRN PRN Reason: Nausea And Vomiting Stop: 08/03/17 10:42 Pantoprazole Sodium (Protonix) 40 mg IVP DAILY [facility] Stop: 08/04/17 09:01 Pharmacy Profile Note (Patient Taking Own Medication) 0 each OP BID KELSI Stop: 08/03/17 21:01 Last Admin: 02/02/17 08:08 Dose: Not Given Potassium Chloride (Potassium Chloride) 10 meq PO BID KELSI Stop: 08/03/17 21:01 Last Admin: 02/02/17 08:08 Dose: 10 meq Rivaroxaban (Xarelto) 15 mg PO QPM [facility] Stop: 08/03/17 18:01 Last Admin: 02/01/17 18:36 Dose: 15 mg Ropinirole HCl (Requip) 1 mg PO HS [facility] Stop: 08/03/17 21:01 Last Admin: 02/01/17 21:14 Dose: 1 mg Simvastatin (Zocor) 40 mg PO QPM KELSI PRN Reason: Protocol Stop: 08/03/17 18:01 Last Admin: 02/01/17 18:36 Dose: 40 mg - Imaging and Cardiology Chest Xray: report reviewed Echo: report reviewed - EKG Interpretation EKG results cardiology: personally reviewed (afib RVR), other (upon eval, afib 120's-140's, repeat eval afib 80-110's) Consult Discharge Plan - Plan Referrals: Jaime Garcia MD [Primary Care Provider] - 02/08/17 3:15 pm
--- NOTE | 2017-02-02 08:45 | Internal Med Progress Note ---
Date of Encounter: 02/02/17 Time of Encounter: 08:15 - Assessment and plan (1) Asthma Current Visit: Yes Status: Suspected Assessment and plan: Patient informing me that he was diagnosed with asthma approximately 6 months ago with "asthma and some sort of inflammatory issue." I cannot find any evidence of this in review of his chart in [facility] and in [facility]. He has seen his primary care provider several times this year with no mention of any type of lung disease. He is a non-/never smoker. 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 I am concerned that he has had shortness of breath for 6 months and has had several readmissions for suspected fluid overload and diastolic heart failure exacerbations. On examination, he has diffuse expiratory wheezing and poor aeration with moderate respiratory distress. He is unable to speak in complete sentences. Patient stating the breathing treatment helped while he was in progress this morning but he states the second breathing treatment was turned off, and he continued to be short of breath. We will change the albuterol to Xopenex secondary to A. fib RVR and continue ipratropium. Chest x-ray revealing small pleural effusion to left lower lobe. Chest CT revealing small bilateral pleural effusions with atelectasis. ABGs unremarkable. We will continue to diurese but will also continue bronchodilators and initiate steroids. As his physical examination is not entirely consistent with simple fluid overload, we will bring pulmonology on board; appreciate their recommendations. ITS Impressions Chest X-Ray 02/01/17 07:32 IMPRESSION: Stable cardiomegaly Atelectasis and small pleural effusion at the left lung base. Persistent asymmetric elevation of the left hemidiaphragm. D/ / Jason Sandy MD / Jason Sandy MD Interpreting Provider: Jason Sandy MD Chest CT 02/02/17 09:00 IMPRESSION: 1. Small bilateral pleural effusions with associated atelectasis. 2. Mild patchy ground-glass opacities in the lower lungs could be due to atelectatic changes or pulmonary edema. D/ / Nick Hathaway MD / Nick Hathaway MD Interpreting Provider: Nick Hathaway MD (2) ILD (interstitial lung disease) Current Visit: Yes Status: Suspected Assessment and plan: See prior note for asthma (3) CHF (congestive heart failure) Current Visit: No Status: Acute Assessment and plan: Acute on chronic diastolic heart failure. We will continue to diurese with IV furosemide. Patient does have 1+ pitting edema to his right lower extremity, left lower extremity with nonpitting edema. Patient stating his right leg is always more swollen than the left and continues to endorse compliance with his Xarelto. Low suspicion for DVT. Aeration poor with moderate respiratory distress. See prior note for asthma as well. Echocardiogram revealing ejection fraction of 50-55% with indeterminate diastolic function. He is on furosemide at home. Cardiology is on board and is following. Echocardiogram impressions: LVEF 50-55%. Normal LV chamber size and function. Mild concentric left ventricular hypertrophy. Indeterminate diastolic function. Normal right ventricular size with mildly reduced function. Moderately dilated left atrium. Mild-moderate mitral regurgitation. Mild tricuspid regurgitation. Moderate pulmonary hypertension. Estimated RVSP is 48 mmHg. Qualifiers: Congestive heart failure type: diastolic Congestive heart failure chronicity: acute on chronic Qualified Code(s): I50.23 - Acute on chronic systolic (congestive) heart failure (4) Atrial fibrillation with rapid ventricular response Current Visit: Yes Status: Acute Assessment and plan: Continue diltiazem drip. Heart rate now better controlled. Blood pressure stable. Cardiology is on board. Of note, patient's respiratory distress and poor aeration did not improve after his heart rate had decreased to the 80s, suspect possible interstitial lung disease/asthma in addition to CHF exacerbation. Pulmonology also on board. (5) Afib Current Visit: No Status: Chronic Assessment and plan: Anticoagulated with Xarelto. On diltiazem at home as well. Qualifiers: Atrial fibrillation type: chronic Qualified Code(s): I48.2 - Chronic atrial fibrillation (6) HTN (hypertension) Current Visit: Yes Status: Chronic Assessment and plan: Controlled and stable, trending closely with diltiazem drip. Qualifiers: Hypertension type: essential hypertension Qualified Code(s): I10 - Essential (primary) hypertension (7) CKD (chronic kidney disease) stage 3, GFR 30-59 ml/min Current Visit: Yes Status: Chronic Assessment and plan: In review of his chart, he was chronic kidney disease stage IV last year however is currently in stage III and is currently at the high end of his normal , will continue to trend daily. Improved overnight. (8) Type 2 diabetes mellitus Current Visit: No Status: Chronic Assessment and plan: Moderately controlled with an A1c of 8.0%, continue sliding scale while admitted. 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 OT and PT consultations are pending. (10) DVT prophylaxis Current Visit: No Status: Acute Assessment and plan: home Xarelto continued (11) Elevated troponin Current Visit: No Status: Chronic Assessment and plan: Chronic over the past several years, adynamic, stable. Patient denies chest pain. (12) HLD (hyperlipidemia) Current Visit: Yes Status: Chronic Assessment and plan: Lipid panel unremarkable. Recommend continue statin and low-cholesterol diet Qualifiers: Hyperlipidemia type: pure hypercholesterolemia Qualified Code(s): E78.00 - Pure hypercholesterolemia, unspecified; E78.0 - Pure hypercholesterolemia (13) Leg edema Current Visit: Yes Status: Chronic Assessment and plan: 1+ pitting edema noted to right lower extremity, trace, nonpitting edema noted to left lower extremity. Patient stating this is chronic for him. - Subjective Interval history: Patient seen and examined. On examination, patient sitting upright in bed. Patient stating he feels lousy and miserable. He states he feels very short of breath. He states he was able to eat a few bites of his breakfast but was otherwise too short of breath and too fatigued to eat more. He states he had a breathing treatment approximately 30 minutes ago that he states helped while it was in progress but immediately afterwards, he continued with shortness of breath. - Constitutional Vitals: Temp Pulse Resp BP Pulse Ox 99.1 F 133 20 130/82 95 02/02/17 07:29 02/02/17 08:30 02/02/17 08:30 02/02/17 08:30 02/02/17 07:57 General appearance: Present: cooperative, A&O X 3, pleasant, severe distress ( moderate), answers questions appropriately - Head Head exam: Present: atraumatic, normocephalic - Eye Eye exam: Present: PERRL, conjuntiva pink, sclera anicteric Pupils: Present: PERRL - Neck Neck exam general surgery: Present: supple, trachea midline. Absent: lymphadenopathy - Respiratory Respiratory exam: Present: accessory muscle use, decreased breath sounds, prolonged expiratory phase, respiratory distress, wheezes, tachypnea. Absent: CTAB, rales, rhonchi - Cardiovascular Cardiovascular exam: Present: irregular rhythm, +S1, +S2, tachycardia. Absent: diastolic murmur, gallop, rubs, systolic murmur - GI/Abdominal GI/Abdominal exam: Present: normal bowel sounds, soft, no peritoneal signs. Absent: distended, tenderness - Extremities Exam Extremities exam: Present: warm, radial pulses palpable and symetrical. Absent : calf tenderness, cyanotic, pedal edema - Neurological Exam Neurological exam: Present: alert, CN II-XII intact, oriented X3, no focal deficits, strengths equal and symetr throughout. Absent: pronater drift, facial droop, speech deficit - Skin Skin exam: Present: dry, intact, pallor, warm Internal Medicine: Result - Labs CBC & Chem 7: 02/02/17 05:57 02/02/17 05:57 Labs: Short CBC 02/01/17 02/02/17 Range/Units 20:35 05:57 WBC 10.7 11.9 H (4.3-11.1) K/mcL Hgb 12.8 L 13.3 (12.9-16.9) g/dL Hct 39.7 40.9 (37.5-50.1) % Plt Count 195 187 (140-400) K/mcL Neutrophils # 9.2 H 10.0 H (1.6-8.9) K/mcL BMP 02/02/17 05:57 Sodium 142 Potassium 3.6 Chloride 100 Carbon Dioxide 33 H BUN 25 Creatinine 1.62 H Glucose 162 H Calcium 9.4 Cardiac Enzymes 02/01/17 Range/Units 18:54 Troponin I 0.08 H* (0-0.03) ng/mL - ABG Interpretation ABG results: PT/INR, D-dimer PT 24.0 Seconds (9.4-12.1) H 02/02/17 05:57 Consult Discharge Plan - Plan Referrals: Jaime Garcia MD [Primary Care Provider] - 02/08/17 3:15 pm
[2017-02-02 09:31] LABS: ABG Base Excess 10.2 mEq/L (-2.0 to 3.0); ABG HCO3 36.5 mEQ/L (21-27); ABG Oxygen Saturation 92 % (95-98); ABG PCO2 55 mmHg (35-45); ABG PH 7.43 pH Units (7.32-7.45); ABG PO2 61 mmHg (85-104); ABG TCO2 38.2 mEq/L (20-26); Blood Gas Liter Flow 2 L/MIN
[2017-02-02] MEDS: Ipratropium Neb 0.5 MG NEBULIZER IH SCH ×3 (09:31→20:53)
[2017-02-02] MEDS: Levalbuterol Neb 1.25 MG/3 ML IH SCH ×3 (09:31→20:53)
[2017-02-02] MEDS: Insulin DETEMIR 100 UNIT/ML X5UNITS SQ SCH (09:32)
[2017-02-02] MEDS: Furosemide 40 MG/4 ML VIAL IVP SCH ×2 (09:32→16:19)
[2017-02-02] MEDS: Pantoprazole 40 MG VIAL IVP SCH (09:33)
[2017-02-02 10:03] LABS: Thyroid Stimulating Hormone 1.246 mcIU/mL (0.350-4.840)
--- NOTE | 2017-02-02 13:51 | Event Note ---
Date of Encounter: 02/02/17 Time of Encounter: 13:30 - Cardiology Event Note Impressions Chest CT 02/02/17 09:00 IMPRESSION: 1. Small bilateral pleural effusions with associated atelectasis. 2. Mild patchy ground-glass opacities in the lower lungs could be due to atelectatic changes or pulmonary edema. D/ / Nick Hathaway MD / Nick Hathaway MD Interpreting Provider: Nick Hathaway MD remains afib in the 80's -100's. SBP currently stable. IV Cardizem gtt 12.5mg per hr, wean to keep HR less than 100bpm. Pending transfer to . Continue with diuresis.
[2017-02-02] MEDS ORDERED: 0.9 % Sodium Chloride 500 ML ONE (14:29)
--- NOTE | 2017-02-02 15:53 | Event Note ---
Date of Encounter: 02/02/17 Time of Encounter: 12:30 Patient seen and reexamined. On examination, patient appears much more comfortable and states that he is less short of breath than earlier this morning. Diffuse expiratory wheezing now more prominent and aeration has improved slightly. Continue current plan of care. Heart rate now in the 80s with stable blood pressures. Plan is transfer down to [facility]. Cardiology and pulmonology on board.
[2017-02-02] MEDS: *HR* Rivaroxaban 15 MG TABLET PO SCH (16:20)
[2017-02-02] MEDS ORDERED: Dextrose Gel 15 GM PO PRN ×2 (16:45)
[2017-02-02] MEDS ORDERED: *HR* Dextrose 50 % in Water (Syg) 50 ML SYRINGE IVP PRN (16:45)
[2017-02-02] MEDS ORDERED: D5% in Water 1,000 ML IVC PRN (16:45)
[2017-02-02] MEDS: Insulin LISPRO 300 UNITS/3 ML VIAL SQ SCH (17:05)
[2017-02-02] MEDS: rOPINIRole 1 MG TABLET PO SCH (20:29)
[2017-02-02] MEDS ORDERED: Insulin LISPRO 300 UNITS/3 ML VIAL SQ SCH (21:00)
[2017-02-02] MEDS ORDERED: Ipratropium/Albuterol Neb 3 ML IH ONE (22:19)
[2017-02-03] MEDS ORDERED: methylPREDNISolone 125 MG/2 ML VIAL IVP ONE (00:30)
[2017-02-03] MEDS: Ipratropium Neb 0.5 MG NEBULIZER IH SCH ×4 (04:31→21:56)
[2017-02-03] MEDS: Levalbuterol Neb 1.25 MG/3 ML IH SCH ×2 (04:32→10:41)
[2017-02-03 05:24] LABS: Basophils % 0.1 %; Eosinophils % 0.2 %; Hematocrit 38.4 % (37.5-50.1); Hemoglobin 12.3 g/dL (12.9-16.9); Immature Granulocytes % 0.4 % (0-4); Lymphocytes # 0.3 K/mcL (0.6-4.6); Lymphocytes % 2.8 %; Mean Corpuscular Hemoglobin 30.7 pg (28.0-33.3); Mean Corpuscular Volume 95.8 fL (83.0-100.0); Mean Platelet Volume 11.2 fL (9.4-12.4); Monocytes # 0.4 K/mcL (0.0-1.3); Monocytes % 3.2 %; Neutrophils # 10.7 K/mcL (1.6-8.9); Platelet Count 174 K/mcL (140-400); Red Blood Count 4.01 M/mcL (4.19-5.50); Red Cell Distribution Width 14.6 % (11.5-14.5); Segmented Neutrophils % 93.3 %
[2017-02-03 05:34] LABS: Calcium 9.4 mg/dL (8.6-10.8); Potassium 3.8 mEq/L (3.5-4.5)
--- NOTE | 2017-02-03 08:25 | Electrocardiograph Report ---
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
[2017-02-03] MEDS: Furosemide 40 MG/4 ML VIAL IVP SCH ×2 (08:29→17:14)
[2017-02-03] MEDS: Pantoprazole 40 MG VIAL IVP SCH (08:30)
--- NOTE | 2017-02-03 08:30 | Electrocardiograph Report ---
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
[2017-02-03] MEDS: Metoprolol XL (24 HR) Succ 50 MG TAB.ER.24H PO SCH (08:31)
[2017-02-03] MEDS: Diltiazem CD (24hr) 180 MG CAPSULE PO SCH (08:31)
[2017-02-03] MEDS: Insulin LISPRO 300 UNITS/3 ML VIAL SQ SCH ×4 (08:31→19:57)
[2017-02-03] MEDS: Multivit/Ca/Min/Fe/FA 1 TAB TABLET PO SCH (08:31)
[2017-02-03] MEDS: Insulin DETEMIR 100 UNIT/ML X5UNITS SQ SCH (08:32)
[2017-02-03] MEDS: Gabapentin 400 MG CAPSULE PO SCH ×2 (08:32→19:58)
[2017-02-03] MEDS: (Cyclosporine [Restasis] 1 DROP) OP SCH (08:33)
[2017-02-03] MEDS: Aspirin Enteric Coated 325 MG Tablet PO SCH (08:33)
--- NOTE | 2017-02-03 08:42 | Cardiology Progress Note ---
Date of Encounter: 02/03/17 Time of Encounter: 08:40 Assessment and Plan (1) Atrial fibrillation with rapid ventricular response Current Visit: Yes Status: Acute Per Cardiology: Known history of atrial fibrillation. Presented with A. fib with RVR. Average heart rate the past 12 hours 87, remains in atrial fibrillation, currently 90s to 110s. Currently on Cardizem drip down to 7.5 mg per hour and on Cardizem CD 180 mg and Toprol-XL 100 mg PO daily. Received PO medications this morning. Will give Cardizem 60 mg PO 1 now and attempt to wean off IV Cardizem drip to keep HR less than 100bpm. Increase Cardizem CD to 240 mg by mouth daily. Systolic blood pressures 100's - 120's. Mg & TSH ok. Continue with rate control strategy. Regarding long-term anticoagulation, currently on Xarelto 15 mg by mouth daily. Patient reports compliance at home. H&H stable. Continue to monitor closely. Kidney function remains about baseline. (2) Dyspnea Current Visit: Yes Status: Acute Per Cardiology: No known history of COPD or past history of nicotine abuse. Chest CT: IMPRESSION: 1. Small bilateral pleural effusions with associated atelectasis. 2. Mild patchy ground-glass opacities in the lower lungs could be due to atelectatic changes or pulmonary edema. Remains on NC O2. Seen by pulmonology, mohsen recs. Qualifiers: Dyspnea type: shortness of breath Qualified Code(s): R06.02 - Shortness of breath (3) Acute on chronic diastolic heart failure Current Visit: No Status: Acute Per Cardiology: History of diastolic CHF and pulmonary HTN. Current echo shows EF 50-55%, indeterminant diastolic dysfunction, normal RV size with mild reduction in function, mildly dilated left atrium, mild to moderate MR, mild TR, moderate pulmonary hypertension. BNP 716. Edema imporoved, but resp status remains somewhat tenous. On IV Lasix 60mg BID-- net I&O according to records +280ml. Kidney fxn appears slightly improved. Will attempt more aggressive diuresis-- increase to 80mg IV BID. Continue daily weights, strict I&O and 1.5L fluid restriction. K being replaced. (4) Elevated troponin I level Current Visit: Yes Status: Acute Per Cardiology: Upon review of records patient has chronically elevated troponins over the past few years. Flat and adynamic at 0.09, then 0.08 x 2 in setting of afib rvr, hypoxia, and CKD. Suspect demand ischemia. Had negative nuclear stress test March 2015. Denies CP. (5) CKD (chronic kidney disease) stage 3, GFR 30-59 ml/min Current Visit: Yes Status: Chronic Per Cardiology: Has CKD3B-- about baseline, slightly improved today. Monitor closely with diuresis. On renal dose of Xarelto. Discussion w patient/family: The assessment and plan as outlined above was discussed with the patient who expressed understanding and agreement. All questions were answered. Thank you for involving us in the care of your patient. Please call with any questions. Patient is full code. Subjective Principal diagnosis: Afib RVR Interval history: Patient reports he continues to have shortness of breath at rest. He denies any chest pain or palpitations. Denies any new concerns or complaints overnight. Objective Vital Signs, Last 4 Hours Temp Pulse Resp BP Pulse Ox 02/03/17 07:49 97.6 F 96 20 123/104 99 02/03/17 07:18 75 02/03/17 06:00 75 98/55 02/03/17 05:00 82 105/67 General: Conversant HEENT: Atraumatic, Normocephaly, Mucus Membranes Moist Neck: No JVD, Normal carotid pulses Cardiac: No Murmur, Other (Irregularly irregular) Lungs: Other (Audible expiratory wheezes noted, decreased breath sounds to left lower lobe, scattered rhonchi throughout, mild conversational dyspnea noted, on NC O2) Neuro: Alert and responsive, No focal deficits noted Abdomen: Soft, Non-Tender, Other (distended) Skin: No rashes noted on visualized skin Musculoskeletal: No Chest Wall Tenderness Extremities: No Clubbing, No Cyanosis, No Edema, Normal Pulses Results 02/03/17 04:47 02/03/17 04:47 Lab Results: Laboratory Tests 02/01/17 02/02/17 02/03/17 07:48 05:57 04:47 Creatinine 1.94 H 1.62 H 1.[address] 02/02/17 09:00 IMPRESSION: 1. Small bilateral pleural effusions with associated atelectasis. 2. Mild patchy ground-glass opacities in the lower lungs could be due to atelectatic changes or pulmonary edema. D/ / Nick Hathaway MD / Nick Hathaway MD Interpreting Provider: Nick Hathaway MD Intake & Output 01/31/17 02/01/17 02/02/17 02/03/17 23:59 23:59 23:59 23:59 Intake Total 1055.0 / 1055.0 Output Total 200 / 200 600 / 600 Balance -200 / -200 455.0 / 455.0 Weight 90.718 kg 89.72 kg 88.8 kg Active Medications Acetaminophen (Tylenol) 650 mg PO Q6HR PRN PRN Reason: Mild Pain (1-3) Stop: 08/03/17 10:42 Aspirin (Aspirin Ec) 81 mg PO DAILY KELSI Stop: 08/03/17 09:01 Last Admin: 02/03/17 08:33 Dose: Not Given Dextrose/Water (Dextrose 50% (Syg)) 25 ml IVP AD PRN PRN Reason: Hypoglycemia Stop: 08/04/17 16:46 Diltiazem HCl (Cardizem Cd) 180 mg PO DAILY KELSI Stop: 08/04/17 09:01 Last Admin: 02/03/17 08:31 Dose: 180 mg Furosemide (Lasix) 60 mg IVP BIDDIURETIC KELSI Stop: 08/03/17 17:01 Last Admin: 02/03/17 08:29 Dose: 60 mg Gabapentin (Neurontin) 400 mg PO TID KELSI Stop: 08/03/17 15:01 Last Admin: 02/03/17 08:32 Dose: 400 mg Glucagon (Glucagen) 1 mg IM ONCE PRN PRN Reason: Hypoglycemia Stop: 08/04/17 16:46 Glucose (Gluctose) 15 gm PO ONCE PRN PRN Reason: Hypoglycemia Stop: 08/04/17 16:46 Glucose (Gluctose) 30 gm PO ONCE PRN PRN Reason: Hypoglycemia Stop: 08/04/17 16:46 Diltiazem HCl 125 mg/ Dextrose 125 mls @ 5 mls/hr IVC .Q24H KELSI; 5 MG/HR PRN Reason: Protocol Stop: 08/04/17 06:16 Last Admin: 02/03/17 02:06 Dose: 7.5 mg/hr, 7.5 mls/hr Dextrose (Dextrose 5%) 1,000 mls @ 100 mls/hr IVC .Q10H PRN PRN Reason: HYPOGLYCEMIA Stop: 08/04/17 16:46 Insulin Detemir (Levemir) 24 unit SQ QAM [facility] Stop: 08/04/17 09:01 Last Admin: 02/03/17 08:32 Dose: 24 unit Insulin Human Lispro (Humalog) 0 units SQ TIDAC KELSI PRN Reason: Protocol Stop: 08/04/17 16:46 Last Admin: 02/03/17 08:31 Dose: 4 units Insulin Human Lispro (Humalog) 0 units SQ HS KELSI PRN Reason: Protocol Stop: 08/04/17 21:01 Last Admin: 02/02/17 20:25 Dose: Not Given Ipratropium Spruce (Atrovent Neb) 0.5 mg IH [id number] [facility] Stop: 08/04/17 10:01 Last Admin: 02/03/17 04:31 Dose: 0.5 mg Levalbuterol HCl (Xopenex) 1.25 mg IH [id number] [facility] Stop: 08/04/17 10:01 Last Admin: 02/03/17 04:32 Dose: Not Given Metoprolol Succinate (Toprol Xl) 100 mg PO DAILY [facility] Stop: 08/04/17 09:01 Last Admin: 02/03/17 08:31 Dose: 100 mg Multivitamins/Calcium (Thera M Plus) 1 tab PO QAM [facility] Stop: 08/04/17 09:01 Last Admin: 02/03/17 08:31 Dose: 1 tab Naloxone HCl (Narcan) 0.4 mg IVP Q2MIN PRN PRN Reason: Opioid Reversal Stop: 08/03/17 10:42 Ondansetron HCl (Zofran) 4 mg IVP Q8HR PRN PRN Reason: Nausea And Vomiting Stop: 08/03/17 10:42 Pantoprazole Sodium (Protonix) 40 mg IVP DAILY [facility] Stop: 08/04/17 09:01 Last Admin: 02/03/17 08:30 Dose: 40 mg Pharmacy Profile Note (Patient Taking Own Medication) 0 each OP BID [facility] Stop: 08/03/17 21:01 Last Admin: 02/03/17 08:33 Dose: Not Given Potassium Chloride (Potassium Chloride) 10 meq PO BID [facility] Stop: 08/03/17 21:01 Last Admin: 02/03/17 08:31 Dose: 10 meq Rivaroxaban (Xarelto) 15 mg PO QPM [facility] Stop: 08/03/17 18:01 Last Admin: 02/02/17 16:20 Dose: 15 mg Ropinirole HCl (Requip) 1 mg PO HS [facility] Stop: 08/03/17 21:01 Last Admin: 02/02/17 20:29 Dose: 1 mg Simvastatin (Zocor) 40 mg PO QPM [facility]EL[facility] PRN Reason: Protocol Stop: 08/03/17 18:01 Last Admin: 02/02/17 16:19 Dose: 40 mg - Imaging and Cardiology Chest Xray: report reviewed Echo: report reviewed - EKG Interpretation EKG results cardiology: other (Telemetry reviewed with average heart rate is 12 hours 87, currently in the 90s to 100s, A. fib, longest pause 2 seconds) Consult Discharge Plan - Plan Referrals: Jaime Garcia MD [Primary Care Provider] - 02/08/17 3:15 pm
--- NOTE | 2017-02-03 08:43 | Pulmonology Consult Note ---
Date of Encounter: 02/03/17 Time of Encounter: 08:40 Assessment and Plan (1) Dyspnea Current Visit: Yes Status: Acute Dyspnea is multifactorial in etiology with diastolic heart failure coupled with atrial fibrillation with RVR contributing significantly. He describes deconditioning and musculoskeletal weakness as a contributor as well. He also has secondary pulmonary hypertension from diastolic dysfunction and valvular heart disease, is also likely contributing to his dyspnea and hypoxia. His expiratory wheezing is upper airway in etiology and very unlikely due to bronchospasm. I do not know that he is benefiting much from bronchodilator therapy, and is likely contributing to his tachycardia. I recommend Xopenex on a when necessary basis if it provides symptomatic relief. I will obtain pulmonary function testing as well for further evaluation of bronchospasm and upper airway obstruction. Qualifiers: Dyspnea type: shortness of breath Qualified Code(s): R06.02 - Shortness of breath (2) Pleural effusion Current Visit: No Status: Chronic Small pleural effusions left greater than right noted on CT scan of the chest. Associated atelectasis may be contributing to hypoxia as well. 2 small for thoracentesis. Recommend diuresis to tolerance. (3) CHF (congestive heart failure) Current Visit: No Status: Acute Diastolic heart failure made worse by A. fib with RVR. Management per cardiology and primary service. Currently on a diltiazem drip and anticoagulated with an oral agent. Qualifiers: Congestive heart failure type: diastolic Congestive heart failure chronicity: acute on chronic Qualified Code(s): I50.23 - Acute on chronic systolic (congestive) heart failure (4) Secondary pulmonary hypertension Current Visit: Yes Status: Acute Secondary to diastolic dysfunction and valvular heart disease. I do not recommend vasodilator therapy. This may be contributing to his hypoxia. History of Present Illness Consult date: 02/02/17 Requesting physician: Dali Caro Reason for consult: dyspnea Chief complaint: dyspnea History of present illness: 86-year-old white male with medical history significant for diastolic heart failure and atrial fibrillation. He presented to the hospital with complaints of dyspnea and lower extremity edema. Evaluation has revealed A. fib with RVR requiring diltiazem drip. He continues to have upper respiratory expiratory wheezing and dyspnea with very little activity, so pulmonary was consult for further evaluation and management. Patient states that he has had chronic dyspnea for greater than one year. He can walk out to his mailbox and back on most days, but some days he will have significant dyspnea on exertion with that. He states that a lot of his symptoms are related to muscle fatigue, and then he can no longer stand for prolonged periods of time as he has to take multiple breaks. He denies cough or chronic sputum production. He denies significant orthopnea. He feels no better or worse since admission. He describes very little activity since admission. No fevers or chills. Overall, the patient feels that his lung function is good. 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 However, upper extremity and back musculoskeletal issues have limited this, but he states even a few days ago his lung capacity was well enough that he was able to play several songs on the [employer]. Past Med Surg Social Fam HX - Past Medical History Medical history: arthritis, atrial fibrillation, CHF, coronary artery disease, diabetes, hyperlipidemia, hypertension, renal disease, valvular heart disease Psychiatric history: no psych history - Past Surgical History Surgical History: appendectomy, cholecystectomy, knee replacement, orthopedic, other - Social History Smoking Status: Never smoker Smokeless Tobacco Status: No Alcohol use: none Drug use: none - Family History Mother Race: Family Member Ethnicity: Non- Living Status: Age at : 87 Cause of : Unknown Hx Family Musculoskeletal Disorders: Yes (Arthritis) Brother Race: Family Member Ethnicity: Non- Living Status: Age at : 79 Cause of : Unknown Sister Race: Family Member Ethnicity: Non- Living Status: Still Living Hx Family Medical Disorders: No Father Race: Family Member Ethnicity: Non- Living Status: Age at : 85 Cause of : Unknown Hx Family Cardiac Disorders: No Hx Family Respiratory Disorders: No Hx Family Cancer: No Hx Family GI Disorders: No Hx Family Endocrine Disorder: Yes (DM) Hx Family Neuromuscular Disorders: No Hx Family Neurologic Disorders: No Hx Family HEENT Disorders: No Hx Family Autoimmune Disorders: No Medications and Allergies Cyclosporine [Restasis] 1 drop OP BID 04/17/15 [History] Gabapentin [Neurontin] 400 mg PO TID 04/17/15 [History] Insulin Glargine,Hum.rec.anlog [Lantus Solostar] 24 unit SQ QAM 04/17/15 [ History] Multivit-Min/FA/Lycopen/Lutein [Centrum Silver Tablet] 1 tab PO QAM 04/17/15 [ History] Rivaroxaban [Xarelto] 15 mg PO QPM 04/17/15 [History] Ropinerole [Requip] 1 mg PO HS 04/17/15 [History] Simvastatin [Zocor] 40 mg PO QPM 09/17/15 [History] Albuterol Sulfate [Proair Hfa] 1 puff IH Q6H PRN #1 inh 10/12/15 [Rx] Metoprolol Succinate 100 mg PO DAILY 07/18/16 [History] Potassium Chloride 10 meq PO BID 11/25/16 [History] Furosemide [Lasix] 40 mg PO QPM #30 tab 11/28/16 [Rx] Furosemide [Lasix] 60 mg PO QAM #90 tablet 11/28/16 [Rx] Diltiazem HCl [Diltiazem 24Hr Cd] 180 mg PO DAILY 02/01/17 [History] Allergies codeine Allergy (Mild, Verified 02/01/17 07:37) Flushing tramadol Allergy (Mild, Verified 02/01/17 07:37) Dizziness metformin Adverse Reaction (Mild, Verified 02/01/17 07:37) Nausea All Systems: A 10-system review of systems was performed and is negative for pertinent findings except as documented above in the HPI. Physical Examination Vital Signs: Vital Signs, Last 4 Hours Temp Pulse Resp BP Pulse Ox 02/03/17 07:49 97.6 F 96 20 123/104 99 02/03/17 07:18 75 02/03/17 06:00 75 98/55 02/03/17 05:00 82 105/67 General: no acute distress Eyes: nonicteric ENT: oropharynx moist Neck: supple, no lymphadenopathy Lungs: Clear to auscultation bilaterally Cardiovascular: Irregular and tachycardic Gastrointestinal: normoactive bowel sounds, soft, non-tender, non-distended Integumentary: normal Extremities: no cyanosis, no edema Musculoskeletal: no deformities Neuro: normal mental status, non-focal exam Psych: mood appropriate, affect normal Results - Laboratory Findings CBC and BMP: 02/03/17 04:47 02/03/17 04:47 ABG ABG pH 7.43 pH Units (7.32-7.45) 02/02/17 09:26 ABG pCO2 55 mmHg (35-45) H 02/02/17 09:26 ABG pO2 61 mmHg (85-104) L 02/02/17 09:26 ABG O2 Saturation 92 % (95-98) L 02/02/17 09:26 PT/INR, D-dimer PT 24.0 Seconds (9.4-12.1) H 02/02/17 05:57 Abnormal lab findings: Abnormal lab results WBC 11.5 K/mcL (4.3-11.1) H 02/03/17 04:47 RBC 4.01 M/mcL (4.19-5.50) L 02/03/17 04:47 Hgb 12.3 g/dL (12.9-16.9) L 02/03/17 04:47 RDW 14.6 % (11.5-14.5) H 02/03/17 04:47 Neutrophils # 10.7 K/mcL (1.6-8.9) H 02/03/17 04:47 Lymphocytes # 0.3 K/mcL (0.6-4.6) L 02/03/17 04:47 Immature Plt Fraction 8.2 % (1.1-6.1) H 02/01/17 20:35 PT 24.0 Seconds (9.4-12.1) H 02/02/17 05:57 APTT 36.5 Seconds (26.0-36.0) H 02/02/17 05:57 ABG pCO2 55 mmHg (35-45) H 02/02/17 09:26 ABG pO2 61 mmHg (85-104) L 02/02/17 09:26 ABG HCO3 36.5 mEQ/L (21-27) H 02/02/17 09:26 ABG Total CO2 38.2 mEq/L (20-26) H 02/02/17 09:26 ABG O2 Saturation 92 % (95-98) L 02/02/17 09:26 ABG Base Excess 10.2 mEq/L (-2.0 to 3.0) H 02/02/17 09:26 Carbon Dioxide 33 mEq/L (19-29) H 02/03/17 04:47 BUN 32 mg/dL (8-26) H 02/03/17 04:47 Creatinine 1.52 mg/dL (0.72-1.25) H 02/03/17 04:47 Est GFR ( Amer) 53 (> 60) L 02/03/17 04:47 Est GFR (Non-Af Amer) 44 (> 60) L 02/03/17 04:47 Glucose 123 mg/dL (70-99) H 02/03/17 04:47 POC Glucose 262 (58-89) H 02/02/17 15:55 Hemoglobin A1c 8.0 % (-5.6) H 02/02/17 05:57 Troponin I 0.08 ng/mL (0-0.03) H* 02/01/17 18:54 B-Natriuretic Peptide 716 pg/mL (0-100) H 02/01/17 07:48 HDL Cholesterol 38 mg/dL (40-59) L 02/02/17 05:57 Urine Protein 100 mg/dL (Neg-Trace) H 02/01/17 08:24 Urine Blood Trace (Negative) H 02/01/17 08:24 Ur Squamous Epith Cells Many per lpf (None-Few) H 02/01/17 08:24 - Clinical Findings Intake & Output: Intake & Output 02/02/17 02/03/17 02/03/17 23:59 07:59 15:59 Intake Total 340.0 / 340.0 Output Total 350 / 350 Balance -10.0 / -10.0 Weight 88.8 kg Consult Discharge Plan - Plan Referrals: Jaime Garcia MD [Primary Care Provider] - 02/08/17 3:15 pm
[2017-02-03] MEDS ORDERED: dilTIAZem HCl 60 MG TABLET PO ONE (10:22)
[2017-02-03] MEDS ORDERED: Furosemide 20 MG/2 ML VIAL IVP ONE (10:23)
[2017-02-03] MEDS ORDERED: Artificial Tears SOLN 15 ML BOTTLE BOTH EYES PRN (14:50)
[2017-02-03] MEDS: Aspirin Enteric Coated 81 MG Tablet PO SCH (14:54)
--- NOTE | 2017-02-03 14:59 | Internal Med Progress Note ---
Date of Encounter: 02/03/17 Time of Encounter: 14:56 - Assessment and plan (1) HTN (hypertension) Current Visit: Yes Status: Chronic Assessment and plan: Controlled and stable, continue to monitor Qualifiers: Hypertension type: essential hypertension Qualified Code(s): I10 - Essential (primary) hypertension (2) CKD (chronic kidney disease) stage 3, GFR 30-59 ml/min Current Visit: Yes Status: Chronic Assessment and plan: continue to monitor (3) Type 2 diabetes mellitus Current Visit: No Status: Chronic Assessment and plan: Moderately controlled with an A1c of 8.0% noted that the fsgs today at 500s, possible given one dose of methypred yest. will start levemir at 25 HS for now and advance to high dose sliding scale. 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 ?aggravated by Afib RVR, appreciate pulmonary recommendations. Plan for lung function tests for evaluation of bronchospasm and upper airway obstruction. He denies any history of COPD or asthma, currently maintaining his sats at 4 L of nasal cannula. He received 1 dose of methylprednisone yesterday, no indication to continue steroids at this time. Albuterol has been changed to Xopenex when necessary Qualifiers: Dyspnea type: shortness of breath Qualified Code(s): R06.02 - Shortness of breath (5) Atrial fibrillation with rapid ventricular response Current Visit: Yes Status: Acute Assessment and plan: Cardiology on board. Cardizem drip has been stopped and oral Cardizem restarted at a higher dose. contiue xarelto for AC - Subjective Interval history: Patient seen at the bedside, reports that he had a rough night with difficulty in breathing. However this morning lying in bed in no acute distress. Cardiology and pulmonary has been consulted. Patient noted to be on Cardizem drip for A. fib RVR. - Constitutional Vitals: Temp Pulse Resp BP Pulse Ox 97.7 F 94 20 115/74 97 02/03/17 14:16 02/03/17 14:16 02/03/17 14:16 02/03/17 14:16 02/03/17 14:16 General appearance: Present: cooperative, A&O X 3, pleasant, severe distress ( moderate), answers questions appropriately Exam: HEENT: Atraumatic, Normocephaly, Mucus Membranes Moist Neck: No JVD, Normal carotid pulses Cardiac: No Murmur, Other (Irregularly irregular) Lungs: b/l minimal wheezing, no crepts Neuro: Alert and responsive, No focal deficits noted Abdomen: Soft, Non-Tender,bs are present Skin: No rashes noted on visualized skin Musculoskeletal: No Chest Wall Tenderness Extremities: No Clubbing, No Cyanosis, No Edema, Normal Pulses Internal Medicine: Result - Labs CBC & Chem 7: 02/03/17 04:47 02/03/17 04:47 Labs: Short CBC 02/03/17 Range/Units 04:47 WBC 11.5 H (4.3-11.1) K/mcL Hgb 12.3 L (12.9-16.9) g/dL Hct 38.4 (37.5-50.1) % Plt Count 174 (140-400) K/mcL Neutrophils # 10.7 H (1.6-8.9) K/mcL BMP 02/03/17 04:47 Sodium 141 Potassium 3.8 Chloride 100 Carbon Dioxide 33 H BUN 32 H Creatinine 1.52 H Glucose 123 H Calcium 9.4 - ABG Interpretation ABG results: ABG ABG pH 7.43 pH Units (7.32-7.45) 02/02/17 09:26 ABG pCO2 55 mmHg (35-45) H 02/02/17 09:26 ABG pO2 61 mmHg (85-104) L 02/02/17 09:26 ABG O2 Saturation 92 % (95-98) L 02/02/17 09:26 PT/INR, D-dimer PT 24.0 Seconds (9.4-12.1) H 02/02/17 05:57 Consult Discharge Plan - Plan Referrals: Jaime Garcia MD [Primary Care Provider] - 02/08/17 3:15 pm
[2017-02-03] MEDS: *HR* Rivaroxaban 15 MG TABLET PO SCH (17:14)
[2017-02-03] MEDS: rOPINIRole 1 MG TABLET PO SCH (19:57)
[2017-02-04] MEDS: Ipratropium Neb 0.5 MG NEBULIZER IH SCH ×4 (04:11→22:52)
[2017-02-04 05:55] LABS: Calcium 9.4 mg/dL (8.6-10.8); Potassium 4.4 mEq/L (3.5-4.5)
[2017-02-04] MEDS: Pantoprazole 40 MG VIAL IVP SCH (08:39)
[2017-02-04] MEDS: Furosemide 40 MG/4 ML VIAL IVP SCH ×2 (08:39→16:57)
[2017-02-04] MEDS: Metoprolol XL (24 HR) Succ 50 MG TAB.ER.24H PO SCH (08:39)
[2017-02-04] MEDS: Aspirin Enteric Coated 81 MG Tablet PO SCH (08:40)
[2017-02-04] MEDS: Multivit/Ca/Min/Fe/FA 1 TAB TABLET PO SCH (08:40)
[2017-02-04] MEDS: Diltiazem CD (24hr) 240 MG CAPSULE PO SCH (08:40)
[2017-02-04] MEDS: Gabapentin 400 MG CAPSULE PO SCH ×2 (08:40→19:38)
[2017-02-04] MEDS: Insulin LISPRO 300 UNITS/3 ML VIAL SQ SCH ×4 (08:41→19:36)
[2017-02-04] MEDS: Insulin DETEMIR 100 UNIT/ML X5UNITS SQ SCH (08:46)
[2017-02-04 08:49] LABS: Hematocrit 42.6 % (37.5-50.1); Hemoglobin 13.5 g/dL (12.9-16.9); Immature Granulocytes % 0.9 % (0-4); Lymphocytes % 2.5 %; Mean Corpuscular HGB Conc 31.7 g/dL (31.6-35.5); Mean Corpuscular Hemoglobin 30.8 pg (28.0-33.3); Mean Platelet Volume 11.8 fL (9.4-12.4); Monocytes % 4.7 %; Platelet Count 238 K/mcL (140-400); Red Blood Count 4.39 M/mcL (4.19-5.50); Red Cell Distribution Width 14.8 % (11.5-14.5); Segmented Neutrophils % 91.9 %
[2017-02-04 08:52] LABS: Lymphocytes # 0.6 K/mcL (0.6-4.6); Neutrophils # 20.1 K/mcL (1.6-8.9)
[2017-02-04 09:07] LABS: Potassium 4.7 mEq/L (3.5-4.5)
--- NOTE | 2017-02-04 09:37 | Event Note ---
Date of Encounter: 02/04/17 Time of Encounter: 09:34 - Cardiology Event Note Pt reports continued dyspnea and wheezing, worse on exertion. 12 hour tele AVG HR 97, currently 90s-1teens at bedside, but had not yet received AM meds. Denies palpitations or chest pain.
--- NOTE | 2017-02-04 09:39 | Cardiology Progress Note ---
Date of Encounter: 02/04/17 Time of Encounter: 09:37 Assessment and Plan (1) Atrial fibrillation with rapid ventricular response Current Visit: Yes Status: Acute Per Cardiology: Known history of atrial fibrillation. Presented with Tyron fuller with RVR. Average heart rate the past 12 hours 97, remains in atrial fibrillation, currently 90s to 110s at bedside. Currently on Cardizem CD 240 mg and Toprol-XL 100 mg PO daily. Received PO medications while I was at bedside. Will re-evaluate HR later today after meds given to see if further adjustments need made. Regarding long-term anticoagulation, currently on Xarelto 15 mg daily. (2) CKD (chronic kidney disease) stage 3, GFR 30-59 ml/min Current Visit: Yes Status: Chronic Per Cardiology: Has CKD3B-- worsened today, but near baseline. Monitor closely with diuresis. On renal dose of Xarelto. (3) Acute on chronic diastolic heart failure Current Visit: No Status: Acute Per Cardiology: History of diastolic CHF and pulmonary HTN. Current echo shows EF 50-55%, indeterminant diastolic dysfunction, normal RV size with mild reduction in function, mildly dilated left atrium, mild to moderate MR, mild TR, moderate pulmonary hypertension. BNP 716. Edema imporoved, but resp status remains somewhat tenous. On IV Lasix 80mg BID (increased yesterday)-- net I&O according to records - 1660ml. Continue daily weights, strict I&O and 1.5L fluid restriction. K being replaced. (4) Elevated troponin I level Current Visit: Yes Status: Acute Per Cardiology: Upon review of records patient has chronically elevated troponins over the past few years. Flat and adynamic at 0.09, then 0.08 x 2 in setting of afib rvr, hypoxia, and CKD. Suspect demand ischemia, nondiagnostic for ACS. Had negative nuclear stress test March 2015. Denies CP. Discussion w patient/family: The assessment and plan as outlined above was discussed with the patient and/or family members who expressed understanding and agreement. All questions were answered. Thank you for involving us in the care of your patient. Please call with any questions. I will discuss all the above with Dr. Bermudez and make changes as necessary. Subjective Principal diagnosis: Afib RVR Interval history: Pt reports continued dyspnea and wheezing, worse on exertion. 12 hour tele AVG HR 97, currently 90s-1teens at bedside, but had not yet received AM meds. Denies palpitations or chest pain. Objective Vital Signs, Last 4 Hours Temp Pulse Resp BP Pulse Ox 02/04/17 08:55 100 02/04/17 08:20 97.8 F 125 16 118/75 98 Vital Signs Temp Pulse Resp BP Pulse Ox 02/04/17 08:55 100 02/04/17 08:20 97.8 F 125 16 118/75 98 02/04/17 03:33 98.0 F 119 22 113/90 95 02/04/17 00:13 99.0 F 112 20 112/87 97 02/03/17 21:56 16 97 02/03/17 20:07 97.8 F 97 16 114/67 98 02/03/17 15:42 16 115/74 98 02/03/17 14:56 79 02/03/17 14:16 97.7 F 94 20 115/74 97 02/03/17 12:09 97.8 F 97 20 99/64 97 02/03/17 11:16 98 02/03/17 10:52 96 02/03/17 10:42 18 96 Intake and Output 02/03/17 02/04/17 02/04/17 23:59 07:59 15:59 Output Total 750 / 750 750 / 750 225 / 225 Balance -750 / -750 -750 / -750 -225 / -225 Output: Urine 750 / 750 750 / 750 225 / 225 Other: Meal Dinner Percent of Meal Consumed 100% Weight 89.1 kg Blood Glucose* 304 179 Patient Weight 02/04/17 23:59 Weight 89.1 kg General: Conversant, No Apparent Distress HEENT: Atraumatic, Normocephaly, Mucus Membranes Moist Neck: Normal carotid pulses Cardiac: Other (irregularly irregular) Lungs: Other (wheezes throughout) Neuro: Alert and responsive, No focal deficits noted Abdomen: Soft, Non-Tender Skin: No rashes noted on visualized skin Musculoskeletal: No Chest Wall Tenderness Extremities: No Clubbing, No Cyanosis, No Edema, Normal Pulses Results 02/04/17 08:29 02/04/17 08:29 Lab Results 02/04/17 02/04/17 02/04/17 05:34 08:29 08:29 WBC 21.9 H D Hgb 13.5 Hct 42.6 Plt Count 238 Sodium 143 143 Potassium 4.4 4.7 H Chloride 102 101 Carbon Dioxide 30 H 33 H BUN 59 H D 60 H Creatinine 1.86 H 1.83 H Glucose 198 H 216 H Calcium 9.4 10.0 Short CBC 02/04/17 Range/Units 08:29 WBC 21.9 H D (4.3-11.1) K/mcL Hgb 13.5 (12.9-16.9) g/dL Hct 42.6 (37.5-50.1) % Plt Count 238 (140-400) K/mcL Neutrophils # 20.1 H (1.6-8.9) K/mcL BMP 02/04/17 02/04/17 Range/Units 08:29 05:34 Sodium 143 143 (136-145) mEq/L Potassium 4.7 H 4.4 (3.5-4.5) mEq/L Chloride 101 102 (98-109) mEq/L Carbon Dioxide 33 H 30 H (19-29) mEq/L BUN 60 H 59 H D (8-26) mg/dL Creatinine 1.83 H 1.86 H (0.72-1.25) mg/dL Glucose 216 H 198 H (70-99) mg/dL Calcium 10.0 9.4 (8.6-10.8) mg/dL Active Medications Acetaminophen (Tylenol) 650 mg PO Q6HR PRN PRN Reason: Mild Pain (1-3) Stop: 08/03/17 10:42 Artificial Tears (Akwa Tears) 1 drop BOTH EYES QID PRN PRN Reason: dry eyes Stop: 08/05/17 14:51 Aspirin (Aspirin Ec) 81 mg PO DAILY [facility] Stop: 08/03/17 09:01 Last Admin: 02/04/17 08:40 Dose: 81 mg Dextrose/Water (Dextrose 50% (Syg)) 25 ml IVP AD PRN PRN Reason: Hypoglycemia Stop: 08/04/17 16:46 Diltiazem HCl (Cardizem Cd) 240 mg PO DAILY [facility] Stop: 08/06/17 09:01 Last Admin: 02/04/17 08:40 Dose: 240 mg Furosemide (Lasix) 80 mg IVP BIDDIURETIC [facility] Stop: 08/05/17 17:01 Last Admin: 02/04/17 08:39 Dose: 80 mg Gabapentin (Neurontin) 400 mg PO BID [facility] Stop: 08/03/17 15:01 Last Admin: 02/04/17 08:40 Dose: 400 mg Glucagon (Glucagen) 1 mg IM ONCE PRN PRN Reason: Hypoglycemia Stop: 08/04/17 16:46 Glucose (Gluctose) 15 gm PO ONCE PRN PRN Reason: Hypoglycemia Stop: 08/04/17 16:46 Glucose (Gluctose) 30 gm PO ONCE PRN PRN Reason: Hypoglycemia Stop: 08/04/17 16:46 Diltiazem HCl 125 mg/ Dextrose 125 mls @ 5 mls/hr IVC .Q24H [facility]; 5 MG/HR PRN Reason: Protocol Stop: 08/04/17 06:16 Last Titration: 02/03/17 14:40 Dose: 0 mg/hr, 0 mls/hr Dextrose (Dextrose 5%) 1,000 mls @ 100 mls/hr IVC .Q10H PRN PRN Reason: HYPOGLYCEMIA Stop: 08/04/17 16:46 Insulin Detemir (Levemir) 30 unit SQ QAM [facility] Stop: 08/04/17 09:01 Last Admin: 02/04/17 08:46 Dose: 30 unit Insulin Human Lispro (Humalog) 0 units SQ HS [facility] PRN Reason: Protocol Stop: 08/05/17 21:01 Last Admin: 02/03/17 19:57 Dose: 7 units Insulin Human Lispro (Humalog) 0 units SQ TIDAC [facility] PRN Reason: Protocol Stop: 08/05/17 11:46 Last Admin: 02/04/17 08:41 Dose: 6 units Ipratropium [place] (Atrovent Neb) 0.5 mg IH [id number] [facility] Stop: 08/04/17 10:01 Last Admin: 02/04/17 04:11 Dose: Not Given Levalbuterol HCl (Xopenex) 1.25 mg IH [id number] PRN PRN Reason: wheezing/sob Stop: 08/04/17 10:01 Metoprolol Succinate (Toprol Xl) 100 mg PO DAILY [facility] Stop: 08/04/17 09:01 Last Admin: 02/04/17 08:39 Dose: 100 mg Multivitamins/Calcium (Thera M Plus) 1 tab PO QAM [facility] Stop: 08/04/17 09:01 Last Admin: 02/04/17 08:40 Dose: 1 tab Naloxone HCl (Narcan) 0.4 mg IVP Q2MIN PRN PRN Reason: Opioid Reversal Stop: 08/03/17 10:42 Ondansetron HCl (Zofran) 4 mg IVP Q8HR PRN PRN Reason: Nausea And Vomiting Stop: 08/03/17 10:42 Pantoprazole Sodium (Protonix) 40 mg IVP DAILY [facility] Stop: 08/04/17 09:01 Last Admin: 02/04/17 08:39 Dose: 40 mg Potassium Chloride (Potassium Chloride) 20 meq PO BID [facility] Stop: 08/05/17 21:01 Last Admin: 02/04/17 08:40 Dose: 20 meq Rivaroxaban (Xarelto) 15 mg PO QPM [facility] Stop: 08/03/17 18:01 Last Admin: 02/03/17 17:14 Dose: 15 mg Ropinirole HCl (Requip) 1 mg PO HS [facility] Stop: 08/03/17 21:01 Last Admin: 02/03/17 19:57 Dose: 1 mg Simvastatin (Zocor) 40 mg PO QPM [facility] PRN Reason: Protocol Stop: 08/03/17 18:01 Last Admin: 02/03/17 17:14 Dose: 40 mg - EKG Interpretation EKG results cardiology: other (12 hr tele AVG HR 97, A-Fib) Consult Discharge Plan - Plan Referrals: Jaime Garcia MD [Primary Care Provider] - 02/08/17 3:15 pm
[2017-02-04] MEDS ORDERED: Metoprolol XL (24 HR) Succ 50 MG TAB.ER.24H PO ONE (09:58)
[2017-02-04] MEDS: Sennosides/Docusate Sodium TABLET PO SCH ×2 (11:12→19:38)
--- NOTE | 2017-02-04 13:41 | Pulmonology Progress Note ---
Date of Encounter: 02/04/17 Time of Encounter: 13:36 Assessment and Plan (1) Dyspnea Current Visit: Yes Status: Acute Dyspnea is multifactorial in etiology with diastolic heart failure coupled with atrial fibrillation with RVR contributing significantly. He describes deconditioning and musculoskeletal weakness as well. He also has secondary pulmonary hypertension from diastolic dysfunction and valvular heart disease, which is also likely contributing to his dyspnea and hypoxia. Performed pulmonary function testing for further evaluation of wheezing. The PFTs revealed a severe obstructive defect, which is out of proportion to the typical obstructive pattern seen with aging. He also had a reasonable response to bronchodilator on the PFTs. I think there is very little downside to a trial of a maintenance inhaler such as Symbicort for treatment of a possible underlying obstructive lung disease. Continue when necessary Xopenex. I have also added a flutter valve to assist with mucus clearance. When necessary codeine cough syrup will be reasonable for treatment of his severe cough. I will make arrangements for an outpatient follow-up in the pulmonary clinic to assess how he has responded to maintenance inhaler therapy. Qualifiers: Dyspnea type: shortness of breath Qualified Code(s): R06.02 - Shortness of breath (2) Pleural effusion Current Visit: No Status: Chronic Small pleural effusions left greater than right noted on CT scan of the chest. Associated atelectasis may be contributing to hypoxia as well. 2 small for thoracentesis. Recommend diuresis to tolerance. (3) CHF (congestive heart failure) Current Visit: No Status: Acute Diastolic heart failure made worse by A. fib with RVR. Management per cardiology and primary service. Currently on a diltiazem drip and anticoagulated with an oral agent. Qualifiers: Congestive heart failure type: diastolic Congestive heart failure chronicity: acute on chronic Qualified Code(s): I50.23 - Acute on chronic systolic (congestive) heart failure (4) Secondary pulmonary hypertension Current Visit: Yes Status: Acute Secondary to diastolic dysfunction and valvular heart disease. I do not recommend vasodilator therapy. This may be contributing to his hypoxia. Subjective Principal diagnosis: Afib RVR Interval history: The patient reports very little change in his functional status. He continues to have an intermittent cough associated with night symptoms. He feels as if he is unable to fully bring up sputum that he can feel in his throat. No fever/ chills. Marginal improvement with respiratory status following nebulized bronchodilators. Objective PUL Vital signs: Last Vital Signs Temp 97.7 F 02/04/17 11:10 Pulse 145 02/04/17 11:22 Resp 16 02/04/17 11:10 BP 123/100 02/04/17 11:10 Pulse Ox 90 02/04/17 10:54 General: no acute distress Eyes: nonicteric ENT: oropharynx moist Neck: supple, no lymphadenopathy Lungs: Clear to auscultation bilaterally Cardiovascular: Irregular and tachycardic Gastrointestinal: normoactive bowel sounds, soft, non-tender, non-distended Integumentary: normal Extremities: no cyanosis, no edema Musculoskeletal: no deformities Neuro: normal mental status, non-focal exam Psych: mood appropriate, affect normal Results - Laboratory Findings CBC and BMP: 02/04/17 08:29 02/04/17 08:29 ABG ABG pH 7.43 pH Units (7.32-7.45) 02/02/17 09:26 ABG pCO2 55 mmHg (35-45) H 02/02/17 09:26 ABG pO2 61 mmHg (85-104) L 02/02/17 09:26 ABG O2 Saturation 92 % (95-98) L 02/02/17 09:26 PT/INR, D-dimer PT 24.0 Seconds (9.4-12.1) H 02/02/17 05:57 Abnormal lab findings: Abnormal lab results WBC 21.9 K/mcL (4.3-11.1) H D 02/04/17 08:29 RDW 14.8 % (11.5-14.5) H 02/04/17 08:29 Neutrophils # 20.1 K/mcL (1.6-8.9) H 02/04/17 08:29 Immature Plt Fraction 8.2 % (1.1-6.1) H 02/01/17 20:35 PT 24.0 Seconds (9.4-12.1) H 02/02/17 05:57 APTT 36.5 Seconds (26.0-36.0) H 02/02/17 05:57 ABG pCO2 55 mmHg (35-45) H 02/02/17 09:26 ABG pO2 61 mmHg (85-104) L 02/02/17 09:26 ABG HCO3 36.5 mEQ/L (21-27) H 02/02/17 09:26 ABG Total CO2 38.2 mEq/L (20-26) H 02/02/17 09:26 ABG O2 Saturation 92 % (95-98) L 02/02/17 09:26 ABG Base Excess 10.2 mEq/L (-2.0 to 3.0) H 02/02/17 09:26 Potassium 4.7 mEq/L (3.5-4.5) H 02/04/17 08:29 Carbon Dioxide 33 mEq/L (19-29) H 02/04/17 08:29 BUN 60 mg/dL (8-26) H 02/04/17 08:29 Creatinine 1.83 mg/dL (0.72-1.25) H 02/04/17 08:29 Est GFR ( Amer) 43 (> 60) L 02/04/17 08:29 Est GFR (Non-Af Amer) 35 (> 60) L 02/04/17 08:29 BUN/Creatinine Ratio 33 (6-26) H 02/04/17 08:29 Glucose 216 mg/dL (70-99) H 02/04/17 08:29 POC Glucose 304 (58-89) H 02/03/17 19:53 Hemoglobin A1c 8.0 % (-5.6) H 02/02/17 05:57 Calculated Osmolality 319 (280-300) H 02/04/17 08:29 Troponin I 0.08 ng/mL (0-0.03) H* 02/01/17 18:54 B-Natriuretic Peptide 716 pg/mL (0-100) H 02/01/17 07:48 HDL Cholesterol 38 mg/dL (40-59) L 02/02/17 05:57 Urine Protein 100 mg/dL (Neg-Trace) H 02/01/17 08:24 Urine Blood Trace (Negative) H 02/01/17 08:24 Ur Squamous Epith Cells Many per lpf (None-Few) H 02/01/17 08:24 - Clinical Findings Intake & Output: Intake & Output 02/03/17 02/04/17 02/04/17 23:59 07:59 15:59 Intake Total 473 / 473 Output Total 750 / 750 750 / 750 425 / 425 Balance -750 / -750 -750 / -750 48 / 48 Weight 89.1 kg Consult Discharge Plan - Plan Referrals: Jaime Garcia MD [Primary Care Provider] - 02/08/17 3:15 pm
[2017-02-04] MEDS: Budesonide/Formoterol 80/4.5 MDI IH SCH ×2 (14:28→22:52)
--- NOTE | 2017-02-04 15:47 | Internal Med Progress Note ---
Date of Encounter: 02/04/17 Time of Encounter: 15:44 - Assessment and plan (1) Atrial fibrillation with rapid ventricular response Current Visit: Yes Status: Acute Assessment and plan: Cardiology on board. Cardizem drip has been stopped and oral Cardizem restarted , this morning seems to be tachycardic. cardiology recommended increase in the dose of metoprolol contiue xarelto for AC (2) Dyspnea Current Visit: Yes Status: Acute Assessment and plan: had PFT this morning which demonstrated severe obstructing lung disease. has been added on symbicort and flutter valve for mucus clearance. He denies any history of COPD or asthma, currently maintaining his sats at 2l of nasal cannula. Albuterol has been changed to Xopenex when necessary. will observe , mika will need OP f/u with pulmonary as OP, also need to assess if he will need daytime o2 at dc. Qualifiers: Dyspnea type: shortness of breath Qualified Code(s): R06.02 - Shortness of breath (3) HTN (hypertension) Current Visit: Yes Status: Chronic Assessment and plan: Controlled and stable, continue to monitor Qualifiers: Hypertension type: essential hypertension Qualified Code(s): I10 - Essential (primary) hypertension (4) CKD (chronic kidney disease) stage 3, GFR 30-59 ml/min Current Visit: Yes Status: Chronic Assessment and plan: continue to monitor, mild rise in creatinine today. lasix was increased to 80 mg bid, if creatinine continues to trend up tomm, will cut down on lasix. (5) Type 2 diabetes mellitus Current Visit: No Status: Chronic Assessment and plan: Moderately controlled with an A1c of 8.0% noted that the fsgs today at 200s, on levemir 25 HS and high dose sliding scale. 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 denies nausea, vomiting , chest pain or palpitation Cardiology and pulmonary has been consulted. cardizem drip has been weaned off and started on oral since yesterday. - Constitutional Vitals: Temp Pulse Resp BP Pulse Ox 97.7 F 92 16 123/100 90 02/04/17 11:10 02/04/17 15:04 02/04/17 11:10 02/04/17 11:10 02/04/17 10:54 General appearance: Present: cooperative, A&O X 3, pleasant, severe distress ( moderate), answers questions appropriately Exam: Neck: No JVD, Normal carotid pulses Cardiac: No Murmur, Other (Irregularly irregular) Lungs: creptns heard on the left side of the chest, minimal wheezing. Neuro: Alert and responsive, No focal deficits noted Abdomen: Soft, Non-Tender,bs are present Skin: No rashes noted on visualized skin Musculoskeletal: No Chest Wall Tenderness Extremities: No Clubbing, No Cyanosis, No Edema, Normal Pulses Internal Medicine: Result - Labs CBC & Chem 7: 02/04/17 08:29 02/04/17 08:29 Labs: Short CBC 02/04/17 Range/Units 08:29 WBC 21.9 H D (4.3-11.1) K/mcL Hgb 13.5 (12.9-16.9) g/dL Hct 42.6 (37.5-50.1) % Plt Count 238 (140-400) K/mcL Neutrophils # 20.1 H (1.6-8.9) K/mcL BMP 02/04/17 02/04/17 05:34 08:29 Sodium 143 143 Potassium 4.4 4.7 H Chloride 102 101 Carbon Dioxide 30 H 33 H BUN 59 H D 60 H Creatinine 1.86 H 1.83 H Glucose 198 H 216 H Calcium 9.4 10.0 - ABG Interpretation ABG results: ABG ABG pH 7.43 pH Units (7.32-7.45) 02/02/17 09:26 ABG pCO2 55 mmHg (35-45) H 02/02/17 09:26 ABG pO2 61 mmHg (85-104) L 02/02/17 09:26 ABG O2 Saturation 92 % (95-98) L 02/02/17 09:26 PT/INR, D-dimer PT 24.0 Seconds (9.4-12.1) H 02/02/17 05:57 Consult Discharge Plan - Plan Referrals: Jaime Garcia MD [Primary Care Provider] - 02/08/17 3:15 pm
[2017-02-04] MEDS: *HR* Rivaroxaban 15 MG TABLET PO SCH (16:57)
[2017-02-04] MEDS: rOPINIRole 1 MG TABLET PO SCH (19:38)
[2017-02-05] MEDS ORDERED: 0.9 % Sodium Chloride 500 ML ONE (00:38)
[2017-02-05 01:19] LABS: Calcium 9.7 mg/dL (8.6-10.8)
[2017-02-05] MEDS: Ipratropium Neb 0.5 MG NEBULIZER IH SCH ×4 (03:57→22:13)
[2017-02-05] MEDS: Insulin LISPRO 300 UNITS/3 ML VIAL SQ SCH ×4 (08:10→21:47)
[2017-02-05] MEDS: Multivit/Ca/Min/Fe/FA 1 TAB TABLET PO SCH (08:20)
[2017-02-05] MEDS: Aspirin Enteric Coated 81 MG Tablet PO SCH (08:20)
[2017-02-05] MEDS: Furosemide 40 MG/4 ML VIAL IVP SCH (08:20)
[2017-02-05] MEDS: Diltiazem CD (24hr) 240 MG CAPSULE PO SCH (08:20)
[2017-02-05] MEDS: Metoprolol XL (24 HR) Succ 50 MG TAB.ER.24H PO SCH (08:21)
[2017-02-05] MEDS: Sennosides/Docusate Sodium TABLET PO SCH ×2 (08:23→21:48)
[2017-02-05] MEDS: Insulin DETEMIR 100 UNIT/ML X5UNITS SQ SCH (08:27)
--- NOTE | 2017-02-05 08:37 | Pulmonology Progress Note ---
Date of Encounter: 02/05/17 Time of Encounter: 08:34 Assessment and Plan (1) Dyspnea Current Visit: Yes Status: Acute Dyspnea is multifactorial in etiology with diastolic heart failure coupled with atrial fibrillation with RVR contributing significantly. He describes deconditioning and musculoskeletal weakness as well. He also has secondary pulmonary hypertension from diastolic dysfunction and valvular heart disease, which is also likely contributing to his dyspnea and hypoxia. Performed pulmonary function testing for further evaluation of wheezing. The PFTs revealed a severe obstructive defect, which is out of proportion to the typical obstructive pattern seen with aging. He also had a reasonable response to bronchodilator on the PFTs. I think there is very little downside to a trial of a maintenance inhaler such as Symbicort for treatment of a possible underlying obstructive lung disease. Continue when necessary Xopenex. He will need discharged on these medications. I have also added a flutter valve to assist with mucus clearance, which he can take home and continue to use after discharge. When necessary codeine cough syrup is reasonable for the treatment of his severe cough. I will make arrangements for an outpatient follow-up in the pulmonary clinic to assess how he has responded to maintenance inhaler therapy. Qualifiers: Dyspnea type: shortness of breath Qualified Code(s): R06.02 - Shortness of breath (2) Pleural effusion Current Visit: No Status: Chronic Small pleural effusions left greater than right noted on CT scan of the chest. Associated atelectasis may be contributing to hypoxia as well. Too small for thoracentesis. Recommend diuresis to tolerance. (3) CHF (congestive heart failure) Current Visit: No Status: Acute Diastolic heart failure made worse by Chantal. fib with RVR. Management per cardiology and primary service. Currently on a diltiazem drip and anticoagulated with an oral agent. Qualifiers: Congestive heart failure type: diastolic Congestive heart failure chronicity: acute on chronic Qualified Code(s): I50.23 - Acute on chronic systolic (congestive) heart failure (4) Secondary pulmonary hypertension Current Visit: Yes Status: Acute Secondary to diastolic dysfunction and valvular heart disease. I do not recommend vasodilator therapy. This may be contributing to his hypoxia. He should be evaluated for home oxygen therapy prior to discharge. No further recommendations from a pulmonary standpoint. We will sign off. Subjective Principal diagnosis: Afib RVR Interval history: The patient reports very little change in his functional status. He continues to have an intermittent cough associated with night symptoms. Improved mucous clearance with the flutter valve device. No fever/chills. Marginal improvement with respiratory status following nebulized bronchodilators. Objective PUL Vital signs: Last Vital Signs Temp 97.6 F 02/05/17 07:51 Pulse 99 02/05/17 07:54 Resp 22 02/05/17 07:51 BP 124/93 02/05/17 07:51 Pulse Ox 98 02/05/17 07:54 General: no acute distress Eyes: nonicteric ENT: oropharynx moist Neck: supple, no lymphadenopathy Lungs: Soft end-expiratory wheezes noted Cardiovascular: Irregular and tachycardic Gastrointestinal: normoactive bowel sounds, soft, non-tender, non-distended Integumentary: normal Extremities: no cyanosis, no edema Musculoskeletal: no deformities Neuro: normal mental status, non-focal exam Psych: mood appropriate, affect normal Results - Laboratory Findings CBC and BMP: 02/04/17 08:29 02/05/17 00:52 ABG ABG pH 7.43 pH Units (7.32-7.45) 02/02/17 09:26 ABG pCO2 55 mmHg (35-45) H 02/02/17 09:26 ABG pO2 61 mmHg (85-104) L 02/02/17 09:26 ABG O2 Saturation 92 % (95-98) L 02/02/17 09:26 PT/INR, D-dimer PT 24.0 Seconds (9.4-12.1) H 02/02/17 05:57 Abnormal lab findings: Abnormal lab results WBC 21.9 K/mcL (4.3-11.1) H D 02/04/17 08:29 RDW 14.8 % (11.5-14.5) H 02/04/17 08:29 Neutrophils # 20.1 K/mcL (1.6-8.9) H 02/04/17 08:29 Immature Plt Fraction 8.2 % (1.1-6.1) H 02/01/17 20:35 PT 24.0 Seconds (9.4-12.1) H 02/02/17 05:57 APTT 36.5 Seconds (26.0-36.0) H 02/02/17 05:57 ABG pCO2 55 mmHg (35-45) H 02/02/17 09:26 ABG pO2 61 mmHg (85-104) L 02/02/17 09:26 ABG HCO3 36.5 mEQ/L (21-27) H 02/02/17 09:26 ABG Total CO2 38.2 mEq/L (20-26) H 02/02/17 09:26 ABG O2 Saturation 92 % (95-98) L 02/02/17 09:26 ABG Base Excess 10.2 mEq/L (-2.0 to 3.0) H 02/02/17 09:26 Carbon Dioxide 36 mEq/L (19-29) H 02/05/17 00:52 BUN 74 mg/dL (8-26) H 02/05/17 00:52 Creatinine 1.92 mg/dL (0.72-1.25) H 02/05/17 00:52 Est GFR ( Amer) 40 (> 60) L 02/05/17 00:52 Est GFR (Non-Af Amer) 33 (> 60) L 02/05/17 00:52 BUN/Creatinine Ratio 39 (6-26) H 02/05/17 00:52 Glucose 124 mg/dL (70-99) H 02/05/17 00:52 POC Glucose 298 (58-89) H 02/04/17 19:35 Hemoglobin A1c 8.0 % (-5.6) H 02/02/17 05:57 Calculated Osmolality 321 (280-300) H 02/05/17 00:52 Troponin I 0.08 ng/mL (0-0.03) H* 02/01/17 18:54 B-Natriuretic Peptide 716 pg/mL (0-100) H 02/01/17 07:48 HDL Cholesterol 38 mg/dL (40-59) L 02/02/17 05:57 Urine Protein 100 mg/dL (Neg-Trace) H 02/01/17 08:24 Urine Blood Trace (Negative) H 02/01/17 08:24 Ur Squamous Epith Cells Many per lpf (None-Few) H 02/01/17 08:24 - Clinical Findings Intake & Output: Intake & Output 02/04/17 02/05/17 02/05/17 23:59 07:59 15:59 Intake Total 940 / 940 Output Total 725 / 725 300 / 300 Balance 215 / 215 -300 / -300 Weight 88.5 kg Consult Discharge Plan - Plan Referrals: Jaime Garcia MD [Primary Care Provider] - 02/08/17 3:15 pm
[2017-02-05 09:02] LABS: Eosinophils % 0.2 %; Hematocrit 43.2 % (37.5-50.1); Hemoglobin 13.6 g/dL (12.9-16.9); Immature Granulocytes % 0.7 % (0-4); Lymphocytes # 0.7 K/mcL (0.6-4.6); Lymphocytes % 4.9 %; Mean Corpuscular HGB Conc 31.5 g/dL (31.6-35.5); Mean Corpuscular Volume 98.4 fL (83.0-100.0); Mean Platelet Volume 11.5 fL (9.4-12.4); Monocytes # 0.9 K/mcL (0.0-1.3); Monocytes % 6.6 %; Neutrophils # 11.9 K/mcL (1.6-8.9); Platelet Count 260 K/mcL (140-400); Red Blood Count 4.39 M/mcL (4.19-5.50); Segmented Neutrophils % 87.6 %
[2017-02-05] MEDS ORDERED: Diltiazem CD (24hr) 120 MG CAPSULE PO ONE (09:38)
--- NOTE | 2017-02-05 09:44 | Cardiology Progress Note ---
Date of Encounter: 02/05/17 Time of Encounter: 09:40 Assessment and Plan (1) Atrial fibrillation with rapid ventricular response Current Visit: Yes Status: Acute Per Cardiology: Known history of atrial fibrillation. Presented with Tyron fuller with RVR. Average heart rate the past 12 hours 90, remains in atrial fibrillation, currently 90s to 110s at bedside. Currently on Cardizem CD 240 mg and Toprol-XL 200 mg PO daily (increased yesterday). Will increase Cardizem to 360mg daily. Re-evaluate HR later today. Regarding long-term anticoagulation, currently on Xarelto 15 mg daily. (2) CKD (chronic kidney disease) stage 3, GFR 30-59 ml/min Current Visit: Yes Status: Chronic Per Cardiology: Has CKD3B-- worsened today, but near upper limits of baseline. Will decrease Lasix from 80mg to 60mg IV BID. On renal dose of Xarelto. (3) Acute on chronic diastolic heart failure Current Visit: No Status: Acute Per Cardiology: History of diastolic CHF and pulmonary HTN. Current echo shows EF 50-55%, indeterminant diastolic dysfunction, normal RV size with mild reduction in function, mildly dilated left atrium, mild to moderate MR, mild TR, moderate pulmonary hypertension. BNP 716. Edema imporoved, respiratory status mildly improved. On IV Lasix 80mg BID. Will decrease due to worsening renal function-- net I&O according to records -1672ml. Continue daily weights, strict I&O and 1.5L fluid restriction. K being replaced. (4) Elevated troponin I level Current Visit: Yes Status: Acute Per Cardiology: Upon review of records patient has chronically elevated troponins over the past few years. Flat and adynamic at 0.09, then 0.08 x 2 in setting of afib rvr, hypoxia, and CKD. Suspect demand ischemia, nondiagnostic for ACS. Had negative nuclear stress test March 2015. Denies CP. Discussion w patient/family: The assessment and plan as outlined above was discussed with the patient and/or family members who expressed understanding and agreement. All questions were answered. Thank you for involving us in the care of your patient. Please call with any questions. I will discuss all the above with Dr. Bermudez and make changes as necessary. Subjective Principal diagnosis: Afib RVR Interval history: Pt reports mild improvement in dyspnea and wheezing, worse on exertion. 12 hour tele AVG HR 90, currently 90s-1teens at bedside. Denies palpitations or chest pain. Objective Vital Signs, Last 4 Hours Temp Pulse Resp BP Pulse Ox 02/05/17 07:54 99 98 02/05/17 07:51 97.6 F 96 22 124/93 97 Vital Signs Temp Pulse Resp BP Pulse Ox 02/05/17 07:54 99 98 02/05/17 07:51 97.6 F 96 22 124/93 97 02/05/17 03:58 18 96 02/05/17 03:29 97.5 F L 83 22 118/83 100 02/04/17 23:58 97.8 F 91 20 103/70 97 02/04/17 22:52 18 98 02/04/17 19:51 98.1 F 103 16 127/86 99 02/04/17 16:51 97.6 F 91 19 103/70 100 02/04/17 15:43 18 97 02/04/17 15:04 92 02/04/17 11:22 145 02/04/17 11:10 97.7 F 137 16 123/100 02/04/17 10:54 20 90 Intake and Output 02/04/17 02/05/17 02/05/17 23:59 07:59 15:59 Intake Total 940 / 940 Output Total 725 / 725 300 / 300 Balance 215 / 215 -300 / -300 Intake: Oral 940 / 940 Output: Urine 725 / 725 300 / 300 Other: Meal Dinner Percent of Meal Consumed 100% Stool Size Small Stool Color Brown # Voids 1 # Bowel Movements 1 Weight 88.5 kg Blood Glucose* 298 89 Patient Weight 02/05/17 23:59 Weight 88.5 kg General: Conversant, No Apparent Distress HEENT: Atraumatic, Normocephaly, Mucus Membranes Moist Neck: Normal carotid pulses Cardiac: Other (irregularly irregular) Lungs: Other (scattered rhonchi) Neuro: Alert and responsive, No focal deficits noted Abdomen: Soft, Non-Tender Skin: No rashes noted on visualized skin Musculoskeletal: No Chest Wall Tenderness Extremities: No Clubbing, No Cyanosis, No Edema, Normal Pulses Results 02/05/17 08:35 02/05/17 00:52 Lab Results 02/05/17 02/05/17 00:52 08:35 WBC 13.6 H Hgb 13.6 Hct 43.2 Plt Count 260 Sodium 144 Potassium 4.0 Chloride 102 Carbon Dioxide 36 H BUN 74 H Creatinine 1.92 H Glucose 124 H Calcium 9.7 Short CBC 02/05/17 Range/Units 08:35 WBC 13.6 H (4.3-11.1) K/mcL Hgb 13.6 (12.9-16.9) g/dL Hct 43.2 (37.5-50.1) % Plt Count 260 (140-400) K/mcL Neutrophils # 11.9 H (1.6-8.9) K/mcL BMP 02/05/17 Range/Units 00:52 Sodium 144 (136-145) mEq/L Potassium 4.0 (3.5-4.5) mEq/L Chloride 102 (98-109) mEq/L Carbon Dioxide 36 H (19-29) mEq/L BUN 74 H (8-26) mg/dL Creatinine 1.92 H (0.72-1.25) mg/dL Glucose 124 H (70-99) mg/dL Calcium 9.7 (8.6-10.8) mg/dL Active Medications Acetaminophen (Tylenol) 650 mg PO Q6HR PRN PRN Reason: Mild Pain (1-3) Stop: 08/03/17 10:42 Artificial Tears (Akwa Tears) 1 drop BOTH EYES QID PRN PRN Reason: dry eyes Stop: 08/05/17 14:51 Aspirin (Aspirin Ec) 81 mg PO DAILY [facility] Stop: 08/03/17 09:01 Last Admin: 02/05/17 08:20 Dose: 81 mg Budesonide/Formoterol Fumarate (Symbicort) 2 puff IH BIDR KELSI PRN Reason: Protocol Stop: 08/06/17 13:46 Last Admin: 02/04/17 22:52 Dose: 2 puff Dextrose/Water (Dextrose 50% (Syg)) 25 ml IVP AD PRN PRN Reason: Hypoglycemia Stop: 08/04/17 16:46 Diltiazem HCl (Cardizem Cd) 120 mg PO ONCE ONE Stop: 02/05/17 09:39 Diltiazem HCl (Cardizem Cd) 360 mg PO DAILY [facility] Stop: 08/08/17 09:01 Furosemide (Lasix) 80 mg IVP BIDDIURETIC KELSI Stop: 08/05/17 17:01 Last Admin: 02/05/17 08:20 Dose: 80 mg Gabapentin (Neurontin) 400 mg PO HS KELSI Stop: 08/05/17 21:01 Last Admin: 02/04/17 19:38 Dose: 400 mg Glucagon (Glucagen) 1 mg IM ONCE PRN PRN Reason: Hypoglycemia Stop: 08/04/17 16:46 Glucose (Gluctose) 15 gm PO ONCE PRN PRN Reason: Hypoglycemia Stop: 08/04/17 16:46 Glucose (Gluctose) 30 gm PO ONCE PRN PRN Reason: Hypoglycemia Stop: 08/04/17 16:46 Diltiazem HCl 125 mg/ Dextrose 125 mls @ 5 mls/hr IVC .Q24H KELSI; 5 MG/HR PRN Reason: Protocol Stop: 08/04/17 06:16 Last Titration: 02/03/17 14:40 Dose: 0 mg/hr, 0 mls/hr Insulin Detemir (Levemir) 30 unit SQ QAM [facility] Stop: 08/04/17 09:01 Last Admin: 02/05/17 08:27 Dose: 30 unit Insulin Human Lispro (Humalog) 0 units SQ HS KELSI PRN Reason: Protocol Stop: 08/05/17 21:01 Last Admin: 02/04/17 19:36 Dose: 6 units Insulin Human Lispro (Humalog) 0 units SQ TIDAC [facility] PRN Reason: Protocol Stop: 08/05/17 11:46 Last Admin: 02/05/17 08:10 Dose: Not Given Ipratropium [place] (Atrovent Neb) 0.5 mg IH [id number] [facility] Stop: 08/04/17 10:01 Last Admin: 02/05/17 03:57 Dose: 0.5 mg Levalbuterol HCl (Xopenex) 1.25 mg IH [id number] PRN PRN Reason: wheezing/sob Stop: 08/04/17 10:01 Metoprolol Succinate (Toprol Xl) 200 mg PO DAILY [facility] Stop: 08/07/17 09:01 Last Admin: 02/05/17 08:21 Dose: 200 mg Multivitamins/Calcium (Thera M Plus) 1 tab PO QAM [facility] Stop: 08/04/17 09:01 Last Admin: 02/05/17 08:20 Dose: 1 tab Naloxone HCl (Narcan) 0.4 mg IVP Q2MIN PRN PRN Reason: Opioid Reversal Stop: 08/03/17 10:42 Omeprazole (Prilosec) 20 mg PO DAILY@0630 KELSI PRN Reason: Protocol Stop: 08/07/17 06:31 Last Admin: 02/05/17 05:49 Dose: 20 mg Ondansetron HCl (Zofran) 4 mg IVP Q8HR PRN PRN Reason: Nausea And Vomiting Stop: 08/03/17 10:42 Potassium Chloride (Potassium Chloride) 20 meq PO DAILY KELSI Stop: 08/05/17 21:01 Last Admin: 02/05/17 08:20 Dose: 20 meq Rivaroxaban (Xarelto) 15 mg PO QPM KELSI Stop: 08/03/17 18:01 Last Admin: 02/04/17 16:57 Dose: 15 mg Ropinirole HCl (Requip) 1 mg PO HS KELSI Stop: 08/03/17 21:01 Last Admin: 02/04/17 19:38 Dose: 1 mg Senna/Docusate Sodium (Senna Plus) 2 each PO BID KELSI PRN Reason: Protocol Stop: 08/06/17 10:01 Last Admin: 02/05/17 08:23 Dose: 2 each Simvastatin (Zocor) 40 mg PO QPM KELSI PRN Reason: Protocol Stop: 08/03/17 18:01 Last Admin: 02/04/17 16:57 Dose: 40 mg - EKG Interpretation EKG results cardiology: other (12 hr tele AVG HR 90, A-Fib.) Consult Discharge Plan - Plan Referrals: Jaime Garcia MD [Primary Care Provider] - 02/08/17 3:15 pm
[2017-02-05] MEDS: Budesonide/Formoterol 80/4.5 MDI IH SCH ×2 (11:21→22:13)
[2017-02-05] MEDS: Levalbuterol Neb 1.25 MG/3 ML IH PRN ×3 (11:22→22:13)
--- NOTE | 2017-02-05 14:57 | Event Note ---
Date of Encounter: 02/05/17 Time of Encounter: 14:56 - Cardiology Event Note HR now 70s-90s A-Fib on Toprol XL 200mg daily and Cardizem CD 360mg daily. Transition to maintenance PO Lasix prior to discharge. Follow-up with cardiology in 1-2 weeks. Will coordinate. Cardiology signing off. Reconsult PRN.
--- NOTE | 2017-02-05 16:19 | Internal Med Progress Note ---
Date of Encounter: 02/05/17 Time of Encounter: 16:17 - Assessment and plan (1) Atrial fibrillation with rapid ventricular response Current Visit: Yes Status: Acute Assessment and plan: Cardiology on board. cardiology recommended increase in the dose of metoprolol and oral cardizem, HR stable for now. contiue xarelto for AC (2) Dyspnea Current Visit: Yes Status: Acute Assessment and plan: had PFT which demonstrated severe obstructing lung disease. has been added on symbicort and flutter valve for mucus clearance, symptoms much improved with treatment He denies any history of COPD or asthma, currently maintaining his sats at 2l of nasal cannula. Albuterol has been changed to Xopenex when necessary. will observe , mika will need OP f/u with pulmonary as OP, also need to assess if he will need daytime o2 at dc. Qualifiers: Dyspnea type: shortness of breath Qualified Code(s): R06.02 - Shortness of breath (3) HTN (hypertension) Current Visit: Yes Status: Chronic Assessment and plan: Controlled and stable, continue to monitor Qualifiers: Hypertension type: essential hypertension Qualified Code(s): I10 - Essential (primary) hypertension (4) CKD (chronic kidney disease) stage 3, GFR 30-59 ml/min Current Visit: Yes Status: Chronic Assessment and plan: continue to monitor, mild rise in creatinine. will change lasix to po today. (5) Type 2 diabetes mellitus Current Visit: No Status: Chronic Assessment and plan: Moderately controlled with an A1c of 8.0% noted that the fsgs today at 120s, on levemir 25 HS and high dose sliding scale. 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 denies nausea, vomiting , chest pain or palpitation Cardiology and pulmonary has been consulted. had a bowel movement today. - Constitutional Vitals: Temp Pulse Resp BP Pulse Ox 97.8 F 107 18 109/80 96 02/05/17 11:41 02/05/17 14:10 02/05/17 15:43 02/05/17 11:41 02/05/17 15:43 General appearance: Present: cooperative, A&O X 3, pleasant, severe distress ( moderate), answers questions appropriately Exam: Neck: No JVD, Normal carotid pulses Cardiac: No Murmur, Other (Irregularly irregular) Lungs: occ creptns on the left side of the chest, no wheezing Neuro: Alert and responsive, No focal deficits noted Abdomen: Soft, Non-Tender,bs are present Skin: No rashes noted on visualized skin Musculoskeletal: No Chest Wall Tenderness Extremities: No Clubbing, No Cyanosis, No Edema, Normal Pulses Internal Medicine: Result - Labs CBC & Chem 7: 02/05/17 08:35 02/05/17 00:52 Labs: Short CBC 02/05/17 Range/Units 08:35 WBC 13.6 H (4.3-11.1) K/mcL Hgb 13.6 (12.9-16.9) g/dL Hct 43.2 (37.5-50.1) % Plt Count 260 (140-400) K/mcL Neutrophils # 11.9 H (1.6-8.9) K/mcL BMP 02/05/17 00:52 Sodium 144 Potassium 4.0 Chloride 102 Carbon Dioxide 36 H BUN 74 H Creatinine 1.92 H Glucose 124 H Calcium 9.7 - ABG Interpretation ABG results: ABG ABG pH 7.43 pH Units (7.32-7.45) 02/02/17 09:26 ABG pCO2 55 mmHg (35-45) H 02/02/17 09:26 ABG pO2 61 mmHg (85-104) L 02/02/17 09:26 ABG O2 Saturation 92 % (95-98) L 02/02/17 09:26 PT/INR, D-dimer PT 24.0 Seconds (9.4-12.1) H 02/02/17 05:57 Consult Discharge Plan - Plan Referrals: Carlyn Bain MD [Partnered Physician] - 02/15/17 1:45 pm (Your appointment for February 08, 2017 @ [id number] has been cancelled)
[2017-02-05] MEDS ORDERED: Furosemide 40 MG/4 ML VIAL IVP SCH (17:00)
[2017-02-05] MEDS: *HR* Rivaroxaban 15 MG TABLET PO SCH (17:34)
[2017-02-05] MEDS: rOPINIRole 1 MG TABLET PO SCH (21:48)
[2017-02-05] MEDS: Gabapentin 400 MG CAPSULE PO SCH (21:48)
[2017-02-06] MEDS: Levalbuterol Neb 1.25 MG/3 ML IH PRN (03:46)
[2017-02-06] MEDS: Ipratropium Neb 0.5 MG NEBULIZER IH SCH ×2 (03:47→09:26)
[2017-02-06 04:50] LABS: Calcium 9.7 mg/dL (8.6-10.8); Potassium 3.8 mEq/L (3.5-4.5)
[2017-02-06] MEDS: Insulin LISPRO 300 UNITS/3 ML VIAL SQ SCH ×2 (07:13→11:45)
[2017-02-06] MEDS ORDERED: Diltiazem CD (24hr) 180 MG CAPSULE PO SCH (09:00)
[2017-02-06] MEDS: Multivit/Ca/Min/Fe/FA 1 TAB TABLET PO SCH (09:09)
[2017-02-06] MEDS: Aspirin Enteric Coated 81 MG Tablet PO SCH (09:09)
[2017-02-06] MEDS: Sennosides/Docusate Sodium TABLET PO SCH (09:09)
[2017-02-06] MEDS: Metoprolol XL (24 HR) Succ 50 MG TAB.ER.24H PO SCH (09:14)
[2017-02-06] MEDS: Budesonide/Formoterol 80/4.5 MDI IH SCH (09:26)
[2017-02-06 11:44] VITALS: BP 122/87
[2017-02-06] MEDS: Insulin DETEMIR 100 UNIT/ML X5UNITS SQ SCH (11:44)
--- NOTE | 2017-02-06 12:19 | Discharge Summary ---
Date of Encounter: 02/06/17 Time of Encounter: 12:14 - Discharge Diagnosis (1) Atrial fibrillation with rapid ventricular response Priority: Primary Status: Acute (2) Dyspnea Priority: Primary Status: Acute Qualifiers: Dyspnea type: shortness of breath Qualified Code(s): R06.02 - Shortness of breath (3) HTN (hypertension) Priority: Secondary Status: Chronic Qualifiers: Hypertension type: essential hypertension Qualified Code(s): I10 - Essential (primary) hypertension (4) CKD (chronic kidney disease) stage 3, GFR 30-59 ml/min Priority: Secondary Status: Chronic (5) Type 2 diabetes mellitus Priority: Secondary Status: Chronic Qualifiers: Diabetes mellitus complication status: with unspecified complications Diabetes mellitus longterm insulin use: with terminal superintendent use Qualified Code(s) : E11.8 - Type 2 diabetes mellitus with unspecified complications; Z79.4 - intermodal customer service (current) use of insulin - Discharge Medications Prescriptions: Aspirin Enteric Coated [Aspirin EC] 81 mg PO DAILY #30 tablet. Budesonide/Formoterol 80/4.5 [Symbicort 80/4.5] 1 puff IH BID #5 hfa.aer.ad Diltiazem CD (24hr) [Cardizem CD] 360 mg PO DAILY 30 Days Metoprolol XL (24 HR) Succ [Toprol Xl] 200 mg PO DAILY 30 Days Sennosides/Docusate Sodium [Senna Plus] 2 each PO BID #60 tablet Home Medications: Cyclosporine [Restasis] 1 drop OP BID 04/17/15 [History] Gabapentin [Neurontin] 400 mg PO TID 04/17/15 [History] Insulin Glargine,Hum.rec.anlog [Lantus Solostar] 24 unit SQ QAM 04/17/15 [ History] Multivit-Min/FA/Lycopen/Lutein [Centrum Silver Tablet] 1 tab PO QAM 04/17/15 [ History] Rivaroxaban [Xarelto] 15 mg PO QPM 04/17/15 [History] Ropinerole [Requip] 1 mg PO HS 04/17/15 [History] Simvastatin [Zocor] 40 mg PO QPM 09/17/15 [History] Albuterol Sulfate [Proair Hfa] 1 puff IH Q6H PRN #1 inh 10/12/15 [Rx] Potassium Chloride 10 meq PO BID 11/25/16 [History] Furosemide [Lasix] 40 mg PO QPM #30 tab 11/28/16 [Rx] Furosemide [Lasix] 60 mg PO QAM #90 tablet 11/28/16 [Rx] Aspirin Enteric Coated [Aspirin EC] 81 mg PO DAILY #30 tablet. 02/06/17 [Rx] Budesonide/Formoterol 80/4.5 [Symbicort 80/4.5] 1 puff IH BID #5 hfa.aer.ad 08/25 [Rx] Diltiazem CD (24hr) [Cardizem CD] 360 mg PO DAILY 30 Days 02/06/17 [Rx] Metoprolol XL (24 HR) Succ [Toprol Xl] 200 mg PO DAILY 30 Days 02/06/17 [Rx] Sennosides/Docusate Sodium [Senna Plus] 2 each PO BID #60 tablet 02/06/17 [Rx] Allergies/Adverse Reactions: Allergies codeine Allergy (Mild, Verified 02/01/17 07:37) Flushing tramadol Allergy (Mild, Verified 02/01/17 07:37) Dizziness metformin Adverse Reaction (Mild, Verified 02/01/17 07:37) Nausea Date of admission: 02/02/17 15:53 Primary care physician: Jaime Garcia MD Consults: 02/04/17 13:33 Consult to Respiratory Therapy [CONS] Routine Reason for Consult: acapella device (flutter valve) to bedside, please instruct on use. OK to use TID for mucous clearance. Call Completed: No Discharging clinician: Trung Pastor Anticipated date of discharge: 02/06/17 - Patient Status Disposition: Home Health Service Condition: Fair Functional capacity at discharge: independent ambulation Overall status at discharge: patient is back to baseline - Discharge Instructions Instructions: Metoprolol (By mouth), Diltiazem (By mouth) Follow Up With: Cardiology Rebecca [Provider Group] (Office will call patient with appt date/time. ) Micky Cortés MD [Non-Partnered Physician] - Sky Brown MD [Partnered Physician] - (Office will call patient with appt date/time.) Carlyn Bain MD [Partnered Physician] - 02/15/17 1:45 pm (Your appointment for February 08, 2017 @ [id number] has been cancelled) - Diet and Activity Activity: resume usual activities as tolerated Diet: advance to your usual diet, other (fluid restriction 1.5l/day, cardiac diet) Interval History: 86-year-old white male with medical history significant for diastolic heart failure and atrial fibrillation. He presented to the hospital with complaints of dyspnea and lower extremity edema. Evaluation has revealed A. fib with RVR requiring diltiazem drip. He continued to have upper respiratory expiratory wheezing and dyspnea with very little activity. cardio and pulmonary was consulted. patient has no h.o COPD or asthma. he underwent PFT and showed severe obstructive lung disease and was added on symbicort and flutter valve treatment. cardiology was on board and increased dose of BB and cardizem with which the heart rate is much controlled. mika is currentl y much stable, his breathing tx was also changed to xopenex. he is being dc home today in stable condition, he refuses to go to rehab or NH and says that he is independent and can do everything for himself on hi sown. his childrn check on him at times. he will f/u with cardio and pulmonary as OP. Hospital course: Mr. Flores is a 86 year old male - Time Spent with Patient Total time spent providing and/or coordinating discharge services: - Constitutional Vitals: Temp Pulse Resp BP Pulse Ox 97.7 F 115 16 122/87 94 02/06/17 11:43 02/06/17 11:43 02/06/17 11:43 02/06/17 11:43 02/06/17 11:43 General appearance: Present: cooperative, A&O X 3, pleasant, severe distress ( moderate), answers questions appropriately Exam: HEENT: Atraumatic, Normocephaly, Mucus Membranes Moist Neck: No JVD, Normal carotid pulses Cardiac: No Murmur, Other (Irregularly irregular) Lungs: b/l clear, no wheezing now Neuro: Alert and responsive, No focal deficits noted Abdomen: Soft, Non-Tender, Other (distended) Skin: No rashes noted on visualized skin Musculoskeletal: No Chest Wall Tenderness Extremities: No Clubbing, No Cyanosis, No Edema, Normal Pulses
--- NOTE | 2017-02-08 06:35 | Pulmonary Function Test Report ---
[address] [address] Test Date: 2017-02-04 Pat Name: Ciro Flores Department: Room: 2NE20 Gender: M Family Practice Physician: BRENDON BRYAN, DIRECTOR OF [employer] : 1930 Requested By: Micky Cortés Order Number: [id number] Dhaval MD: Francis Youssef Interpretive Statements LAB DATA Indication: Eval for bronchospasm Amiodarone Therapy: []Yes [x]No Previous PFT: []Yes [x]No Previous PFT date: []/[]/[] [x]NA Previous PFT results scanned: []Yes []No [x]NA Hemoglobin within last 30 days: []Yes [x]No Hemoglobin date: []/[]/[] [x]NA Hemoglobin results: []gm/dl If patient unable to complete all procedures ordered, why: PROCEDURES PERFORMED: SP.PFT before and after bronchodilator [pftp1] INTERPRETATION: Quality: Tests were acceptable and reproducible as per [employer] standards Spirometry: The FEV1/FVC is reduced the FEV1 is 29% which increased to 34% after bronchodilators Flow Volume Loop: Obstructive Conclusion: Very severe obstructive ventilatory defect There is a positive response to the administration of bronchodilators Electronically Signed On 02-08-2017 6:33:37 EDT by Francis Youssef
== END 2017-02-06 13:45 | disposition home health service (06) | DRG 291 ==
LOC: EMEROO 07:01 → 3BNU 07:01 → SUATTDRO 13:46 → 3BNU 14:13 → 2NNU 02-02 14:12 → 2NENU 02-05 17:23
PROVIDERS: ADMIT Internal Medicine; ATTEND Nurse Practitioner Family

== ENCOUNTER 2017-02-12 11:57 | Inpatient (IN) ==
[2017-02-12] MEDS ORDERED: Ipratropium/Albuterol Neb 3 ML IH ONE (11:59)
[2017-02-12] MEDS ORDERED: methylPREDNISolone 125 MG/2 ML VIAL IVP ONE (12:00)
[2017-02-12] MEDS ORDERED: Ipratropium/Albuterol Neb 3 ML ONE (12:00)
[2017-02-12 12:11] LABS: Basophils % 0.1 %; Eosinophils % 0.1 %; Hematocrit 38.7 % (37.5-50.1); Hemoglobin 12.4 g/dL (12.9-16.9); Immature Granulocytes % 1.2 % (0-4); Lymphocytes # 0.7 K/mcL (0.6-4.6); Lymphocytes % 4.5 %; Mean Corpuscular Hemoglobin 30.3 pg (28.0-33.3); Mean Corpuscular Volume 94.6 fL (83.0-100.0); Mean Platelet Volume 10.9 fL (9.4-12.4); Monocytes % 6.3 %; Neutrophils # 13.3 K/mcL (1.6-8.9); Nucleated Red Blood Cells 0.3 /100 WBC (0); Platelet Count 269 K/mcL (140-400); Red Blood Count 4.09 M/mcL (4.19-5.50); Red Cell Distribution Width 14.6 % (11.5-14.5); Segmented Neutrophils % 87.8 %
[2017-02-12] MEDS ORDERED: 0.9 % Sodium Chloride 1,000 ML ONE (12:12)
--- NOTE | 2017-02-12 12:13 | Emergency Department Note ---
Disposition Clinical Impression: HCAP (healthcare-associated pneumonia), Atrial fibrillation with RVR Sepsis Qualifiers: Sepsis type: sepsis due to unspecified organism Qualified Code(s): A41.9 - Sepsis, unspecified organism Disposition: Admitted As Inpatient Condition: Fair Referrals: NO,PCP [Primary Care Provider] - Forms: ED Satisfaction Letter Time of Disposition: 13:30 SOB HPI - General Chief Complaint: ED Shortness of Breath/Dyspnea Stated Complaint: ASHISH Time Seen by Provider: 02/12/17 11:59 Source: patient, EMS Mode of arrival: EMS Limitations: age Nursing Notes Reviewed: Yes Vital Signs Reviewed: Yes - History of Present Illness Patient presents to the ED with the chief complaint of shortness breath. Per EMS report. Patient was just discharged from hospital last week for a CHF exacerbation. Patient reports he never really got any better. His shortness of breath has been increasing over the past few days but was significantly worse today. Is home O2 dependent for COPD and CHF at 2 L but when EMS arrived , patient was saturating in the high 80s on his normal oxygen. He looked diaphoretic and was in respiratory distress. They thought that he was having some wheezing, so administered a DuoNeb. He does have a history of A. fib on Xarelto and has been compliant. Denies any chest pain but states he feels like he cannot breathe. No vomiting, headache, changes in vision. - Related Data Home Medications Medication Instructions Recorded Confirmed Cyclosporine [Restasis] 1 drop OP BID 04/17/15 02/12/17 Gabapentin [Neurontin] 400 mg PO TID 04/17/15 02/12/17 Insulin Glargine,Hum.rec.anlog 24 unit SQ QAM 04/17/15 02/12/17 [Lantus Solostar] Multivit-Min/FA/Lycopen/Lutein 1 tab PO QAM 04/17/15 02/12/17 [Centrum Silver Tablet] Rivaroxaban [Xarelto] 15 mg PO QPM 04/17/15 02/12/17 Ropinerole [Requip] 1 mg PO HS 04/17/15 02/12/17 Simvastatin [Zocor] 40 mg PO QPM 09/17/15 02/12/17 Potassium Chloride 10 meq PO BID 11/25/16 02/12/17 Sennosides/Docusate Sodium [Senna 2 tab PO BID 02/12/17 02/12/17 Plus] Previous Rx's Medication Instructions Recorded Albuterol Sulfate [Proair Hfa] 1 puff IH Q6H PRN #1 inh 10/12/15 Furosemide [Lasix] 40 mg PO QPM #30 tab 11/28/16 Furosemide [Lasix] 60 mg PO QAM #90 tablet 11/28/16 Aspirin Enteric Coated [Aspirin EC] 81 mg PO DAILY #30 tablet.dr 02/06/17 Budesonide/Formoterol 80/4.5 1 puff IH BID #5 hfa.aer.ad 02/06/17 [Symbicort 80/4.5] Diltiazem CD (24hr) [Cardizem CD] 360 mg PO DAILY 30 Days 02/06/17 Metoprolol XL (24 HR) Succ [Toprol 200 mg PO DAILY 30 Days 02/06/17 Xl] Allergies Allergy/AdvReac Type Severity Reaction Status Date / Time codeine Allergy Mild Flushing Verified 02/01/17 07:37 tramadol Allergy Mild Dizziness Verified 02/01/17 07:37 metformin AdvReac Mild Nausea Verified 02/01/17 07:37 Constitutional: Denies: fever Eyes: Denies: vision change Cardiovascular: Denies: chest pain Respiratory: Reports: cough, dyspnea Gastrointestinal: Denies: nausea Past Medical History - Past Medical History Attestation: Yes The following information was validated with the patient. Source: patient, old records reviewed Medical history: Reports: arthritis, atrial fibrillation, CHF, coronary artery disease, diabetes, hyperlipidemia, hypertension, renal disease, valvular heart disease Surgical history: Reports: appendectomy, cholecystectomy, knee replacement, orthopedic, other Psychiatric history: Reports: no psych history - Social History Smoking Status: Never smoker Smokeless Tobacco Status: No Alcohol use: Reports: none Drug use: Reports: none Physical Exam - General Limitations: age General appearance: alert - Head Head exam: atraumatic, normocephalic, normal inspection - Eye Eye exam: Present: normal appearance, PERRL, EOMI - Chest Chest inspection: Present: symmetric chest wall rise - Respiratory Respiratory exam: Present: respiratory distress (Moderate to severe), accessory muscle use, other (Difficult to differentiate, rhonchi from rails, although patient does sound wet throughout). Absent: normal lung sounds bilaterally - Cardiovascular Cardiovascular exam: Present: tachycardia, irregular rhythm - Abdominal Exam Abdominal exam: Present: soft, Non-Tender. Absent: tenderness, distention, guarding, rebound, rigidity - Extremities Exam Extremities exam: Present: normal inspection, full ROM, pedal edema. Absent: tenderness - Neurological Exam Neurological exam: Present: alert, oriented X3 - Psychiatric Psychiatric exam: Present: anxious - Skin Skin exam: Present: warm, intact, normal color, diaphoresis Course Course Narrative: 86 -year-old male presenting in moderate to severe respiratory distress. Patient originally responded to DuoNeb, so initially we ordered 2 more. After having him on the monitor, we noticed that he was in A. fib with RVR, so we canceled the DuoNeb. His lungs sound extremely wet bilaterally, so the patient was placed on BiPAP. The did not start a nitroglycerin drip at this time as we wanted to see if the BiPAP would help his work of breathing and will also be bolusing diltiazem with a subsequent drip. If the patient remains in respiratory distress. Nitroglycerin will be started as well. Patient will be admitted for further workup. Once he is stabilized and labs are back. - Reevaluation(s) Reevaluation #1: Chest x-ray is back does seem to be consistent with a right lower lobe pneumonia. Patient does need some urosepsis criteria. This started mantra planned biotic therapy for presumed hospital-acquired pneumonia. Due to his respiratory status and CHF. We will not giving him 8 30 mL/kg bolus. Additionally, his lactate is less than 4, and he is not hypotensive. The do not feel that this would benefit him anyway. BiPAP has significantly decreased his work of breathing. He is no longer in moderate respiratory distress. He still has some accessory muscle use, but is tolerating BiPAP very well. We will wait for the rest of his labs come back and admit to the hospitalist service. I do not think he will need ICU level care at this time. Time: 12:35 Reevaluation #2: Patient received 20 mg bolus of Cardizem and is on 10 mg per hour. Heart rate remained in the 160s. Systolic blood pressure in the 100s. Will bolus liter of fluid and reevaluate. We will also bolus another 10 of Cardizem and see how he responds. Otherwise, patient still looks very well. Vital Signs Temperature 97.6 F 02/12/17 11:59 Pulse Rate 162 02/12/17 11:59 Respiratory Rate 24 02/12/17 11:59 Blood Pressure 124/104 02/12/17 11:59 O2 Sat by Pulse Oximetry 97 02/12/17 11:59 Temperature 97.6 F 02/12/17 11:59 Pulse Rate 146 02/12/17 13:11 Respiratory Rate 26 02/12/17 13:11 Blood Pressure 99/83 02/12/17 13:11 O2 Sat by Pulse Oximetry 99 02/12/17 13:11 Oxygen Delivery Oxygen Delivery Bipap Shortness of Breath/Dyspnea - Lab Data Result diagrams: 02/12/17 12:03 02/12/17 12:03 Lab Results 02/12/17 02/12/17 02/12/17 Range/Units 12:03 12:03 12:03 WBC 15.1 H (4.3-11.1) K/mcL RBC 4.09 L (4.19-5.50) M/mcL Hgb 12.4 L (12.9-16.9) g/dL Hct 38.7 (37.5-50.1) % MCV 94.6 (83.0-100.0) fL MCH 30.3 (28.0-33.3) pg MCHC 32.0 (31.6-35.5) g/dL RDW 14.6 H (11.5-14.5) % Plt Count 269 (140-400) K/mcL MPV 10.9 (9.4-12.4) fL Immature Gran % 1.2 (0-4) % Seg Neutrophils % 87.8 % Lymphocytes % 4.5 % Monocytes % 6.3 % Eosinophils % 0.1 % Basophils % 0.1 % Neutrophils # 13.3 H (1.6-8.9) K/mcL Lymphocytes # 0.7 (0.6-4.6) K/mcL Monocytes # 1.0 (0.0-1.3) K/mcL Eosinophils # 0.0 (0.0-0.6) K/mcL Basophils # 0.0 (0.0-0.2) K/mcL Nucleated RBCs/100 WBC 0.3 H (0) /100 WBC PT 20.6 H (9.4-12.1) Seconds INR 1.9 APTT 31.8 (26.0-36.0) Seconds Sodium 139 (136-145) mEq/L Potassium 4.8 H (3.5-4.5) mEq/L Chloride 94 L (98-109) mEq/L Carbon Dioxide 34 H (19-29) mEq/L BUN 40 H (8-26) mg/dL Creatinine 1.84 H (0.72-1.25) mg/dL Est GFR ( Amer) 42 L (> 60) Est GFR (Non-Af Amer) 35 L (> 60) BUN/Creatinine Ratio 22 (6-26) Glucose 306 H (70-99) mg/dL Calculated Osmolality 309 H (280-300) Lactic Acid (0.5-2.2) mmol/L Calcium 10.3 (8.6-10.8) mg/dL Troponin I (0-0.03) ng/mL B-Natriuretic Peptide (0-100) pg/mL 02/12/17 02/12/17 02/12/17 Range/Units 12:03 12:03 12:03 WBC (4.3-11.1) K/mcL RBC (4.19-5.50) M/mcL Hgb (12.9-16.9) g/dL Hct (37.5-50.1) % MCV (83.0-100.0) fL MCH (28.0-33.3) pg MCHC (31.6-35.5) g/dL RDW (11.5-14.5) % Plt Count (140-400) K/mcL MPV (9.4-12.4) fL Immature Gran % (0-4) % Seg Neutrophils % % Lymphocytes % % Monocytes % % Eosinophils % % Basophils % % Neutrophils # (1.6-8.9) K/mcL Lymphocytes # (0.6-4.6) K/mcL Monocytes # (0.0-1.3) K/mcL Eosinophils # (0.0-0.6) K/mcL Basophils # (0.0-0.2) K/mcL Nucleated RBCs/100 WBC (0) /100 WBC PT (9.4-12.1) Seconds INR APTT (26.0-36.0) Seconds Sodium (136-145) mEq/L Potassium (3.5-4.5) mEq/L Chloride (98-109) mEq/L Carbon Dioxide (19-29) mEq/L BUN (8-26) mg/dL Creatinine (0.72-1.25) mg/dL Est GFR ( Amer) (> 60) Est GFR (Non-Af Amer) (> 60) BUN/Creatinine Ratio (6-26) Glucose (70-99) mg/dL Calculated Osmolality (280-300) Lactic Acid 3.2 H (0.5-2.2) mmol/L Calcium (8.6-10.8) mg/dL Troponin I 0.24 H* (0-0.03) ng/mL B-Natriuretic Peptide 576 H (0-100) pg/mL Critical Care Time Critical Care Time: Yes Total Critical Care Time: 45 Attestation: Critical care performed: Time is exclusive of separately billable procedures. Time includes: direct patient care, patient reassessment, coordination of patient care, interpretation of data (laboratory data, radiology data, and respiratory data), review of patient's medical records, medical consultation and documentation of patient care. Procedures included in critical care time: Procedures excluded from critical care time: Keny - Keny Situation: Demographics, MOA Background: Presenting Complaint, Relevant PMH, Meds, & Allergies Assessment: Vital Signs, Course and respsone to treatment, Exam Concerns, Patient/Family Expectation, Pertinant Lab Results, Outstanding Labs Recommendation: Recommendation based on pending studies, treatments, or consults Keny Report Given to: Dr. Je Bustillo Repor Time: 13:29
[2017-02-12 12:16] LABS: INR 1.9; Prothrombin Time 20.6 Seconds (9.4-12.1)
[2017-02-12 12:23] LABS: Calcium 10.3 mg/dL (8.6-10.8); Potassium 4.8 mEq/L (3.5-4.5)
--- NOTE | 2017-02-12 12:24 | Emergency Department Note ---
Disposition Clinical Impression: HCAP (healthcare-associated pneumonia), Sepsis, Atrial fibrillation with RVR Disposition: Admitted As Inpatient Condition: Fair General Adult HPI - General Chief complaint: ED Shortness of Breath/Dyspnea Stated complaint: ASHISH Time Seen by Provider: 02/12/17 11:59 Source: patient, EMS Mode of arrival: EMS Limitations: age - History of Present Illness Pain Scale: 0 - Related Data Home Medications Medication Instructions Recorded Confirmed Cyclosporine [Restasis] 1 drop OP BID 04/17/15 02/12/17 Gabapentin [Neurontin] 400 mg PO TID 04/17/15 02/12/17 Insulin Glargine,Hum.rec.anlog 24 unit SQ QAM 04/17/15 02/12/17 [Lantus Solostar] Multivit-Min/FA/Lycopen/Lutein 1 tab PO QAM 04/17/15 02/12/17 [Centrum Silver Tablet] Rivaroxaban [Xarelto] 15 mg PO QPM 04/17/15 02/12/17 Ropinerole [Requip] 1 mg PO HS 04/17/15 02/12/17 Simvastatin [Zocor] 40 mg PO QPM 09/17/15 02/12/17 Potassium Chloride 10 meq PO BID 11/25/16 02/12/17 Sennosides/Docusate Sodium [Senna 2 tab PO BID 02/12/17 02/12/17 Plus] Previous Rx's Medication Instructions Recorded Albuterol Sulfate [Proair Hfa] 1 puff IH Q6H PRN #1 inh 10/12/15 Furosemide [Lasix] 40 mg PO QPM #30 tab 11/28/16 Furosemide [Lasix] 60 mg PO QAM #90 tablet 11/28/16 Aspirin Enteric Coated [Aspirin EC] 81 mg PO DAILY #30 tablet. 02/06/17 Budesonide/Formoterol 80/4.5 1 puff IH BID #5 hfa.aer.ad 02/06/17 [Symbicort 80/4.5] Diltiazem CD (24hr) [Cardizem CD] 360 mg PO DAILY 30 Days 02/06/17 Metoprolol XL (24 HR) Succ [Toprol 200 mg PO DAILY 30 Days 02/06/17 Xl] Allergies Allergy/AdvReac Type Severity Reaction Status Date / Time codeine Allergy Mild Flushing Verified 02/01/17 07:37 tramadol Allergy Mild Dizziness Verified 02/01/17 07:37 metformin AdvReac Mild Nausea Verified 02/01/17 07:37 Constitutional: Denies: fever Eyes: Denies: vision change Cardiovascular: Denies: chest pain Respiratory: Reports: cough, dyspnea Gastrointestinal: Denies: nausea Past Medical History - Past Medical History Medical history: Reports: arthritis, atrial fibrillation, CHF, coronary artery disease, diabetes, hyperlipidemia, hypertension, renal disease, valvular heart disease Surgical history: Reports: appendectomy, cholecystectomy, knee replacement, orthopedic, other Psychiatric history: Reports: no psych history - Social History Smoking Status: Never smoker Smokeless Tobacco Status: No Alcohol use: Reports: none Drug use: Reports: none Physical Exam - General Limitations: age General appearance: alert Course - Reevaluation(s) Reevaluation #1: I saw the patient with the resident, Dr. King. Patient was brought by EMS for respiratory distress. On examination he looks like he short of breath. He is able to speak complete sentences. Auscultation of the lungs show coarse sounds and rales. There is no significant peripheral edema. Heart rate shows atrial fibrillation with a rate sometimes getting as high as 200 beats a minute. We did a quick bedside chest x-ray which shows chronic cardiomegaly and there is some haziness particularly in the right base but I cannot tell whether that has fluid build up over that an infiltrate. At this point I do not know if a rapid response of the atrial fibrillation is the cause of his issue or whether it is a result of what else is going on. His pulse ox is 97%. There is no peripheral edema. Therefore I am going to treat the A. fib first with Cardizem and a Cardizem drip. We will get the lab workup going. We will reassess the patient and adjust therapy as indicated. We will definitely need to be admitted to the hospital. Time: 12:24 Reevaluation #2: Chest x-ray came back and shows a right lower lobe pneumonia. We kishor cultures and initiated antibiotics. Patient remains tachycardic at a rate of 150, which is better than the 200 that it was. I think that there is an element of dehydration here because the patient was recently admitted for CHF and was diuresed and now he has a pneumonia. He has no clinical signs of congestive heart failure at this time. We will give fluid boluses and reassessed the patient. He is doing well on the BiPAP and says that he feels better just having the BiPAP on. His O2 sat is in the 96-98 range. I do not think hypoxia is the cause of his tachycardia. I feel that while we are giving fluids we need to continue to try control the RVR, so we will continue with the Cardizem treatment. Patient will be admitted to the hospital. Time: 13:10 Vital Signs Temperature 97.6 F 02/12/17 11:59 Pulse Rate 162 02/12/17 11:59 Respiratory Rate 24 02/12/17 11:59 Blood Pressure 124/104 02/12/17 11:59 O2 Sat by Pulse Oximetry 97 02/12/17 11:59 Temperature 97.6 F 02/12/17 11:59 Pulse Rate 134 02/12/17 13:44 Respiratory Rate 24 02/12/17 13:53 Blood Pressure 107/65 02/12/17 13:53 O2 Sat by Pulse Oximetry 97 02/12/17 13:44 Oxygen Delivery Oxygen Delivery Room Air Medical Decision Making - Lab Data Result diagrams: 02/12/17 12:03 02/12/17 12:03 Lab Results 02/12/17 02/12/17 02/12/17 Range/Units 12:03 12:03 12:03 WBC 15.1 H (4.3-11.1) K/mcL RBC 4.09 L (4.19-5.50) M/mcL Hgb 12.4 L (12.9-16.9) g/dL Hct 38.7 (37.5-50.1) % MCV 94.6 (83.0-100.0) fL MCH 30.3 (28.0-33.3) pg MCHC 32.0 (31.6-35.5) g/dL RDW 14.6 H (11.5-14.5) % Plt Count 269 (140-400) K/mcL MPV 10.9 (9.4-12.4) fL Immature Gran % 1.2 (0-4) % Seg Neutrophils % 87.8 % Lymphocytes % 4.5 % Monocytes % 6.3 % Eosinophils % 0.1 % Basophils % 0.1 % Neutrophils # 13.3 H (1.6-8.9) K/mcL Lymphocytes # 0.7 (0.6-4.6) K/mcL Monocytes # 1.0 (0.0-1.3) K/mcL Eosinophils # 0.0 (0.0-0.6) K/mcL Basophils # 0.0 (0.0-0.2) K/mcL Nucleated RBCs/100 WBC 0.3 H (0) /100 WBC PT 20.6 H (9.4-12.1) Seconds INR 1.9 APTT 31.8 (26.0-36.0) Seconds Sodium 139 (136-145) mEq/L Potassium 4.8 H (3.5-4.5) mEq/L Chloride 94 L (98-109) mEq/L Carbon Dioxide 34 H (19-29) mEq/L BUN 40 H (8-26) mg/dL Creatinine 1.84 H (0.72-1.25) mg/dL Est GFR ( Amer) 42 L (> 60) Est GFR (Non-Af Amer) 35 L (> 60) BUN/Creatinine Ratio 22 (6-26) Glucose 306 H (70-99) mg/dL Calculated Osmolality 309 H (280-300) Lactic Acid (0.5-2.2) mmol/L Calcium 10.3 (8.6-10.8) mg/dL Troponin I (0-0.03) ng/mL B-Natriuretic Peptide (0-100) pg/mL 02/12/17 02/12/17 02/12/17 Range/Units 12:03 12:03 12:03 WBC (4.3-11.1) K/mcL RBC (4.19-5.50) M/mcL Hgb (12.9-16.9) g/dL Hct (37.5-50.1) % MCV (83.0-100.0) fL MCH (28.0-33.3) pg MCHC (31.6-35.5) g/dL RDW (11.5-14.5) % Plt Count (140-400) K/mcL MPV (9.4-12.4) fL Immature Gran % (0-4) % Seg Neutrophils % % Lymphocytes % % Monocytes % % Eosinophils % % Basophils % % Neutrophils # (1.6-8.9) K/mcL Lymphocytes # (0.6-4.6) K/mcL Monocytes # (0.0-1.3) K/mcL Eosinophils # (0.0-0.6) K/mcL Basophils # (0.0-0.2) K/mcL Nucleated RBCs/100 WBC (0) /100 WBC PT (9.4-12.1) Seconds INR APTT (26.0-36.0) Seconds Sodium (136-145) mEq/L Potassium (3.5-4.5) mEq/L Chloride (98-109) mEq/L Carbon Dioxide (19-29) mEq/L BUN (8-26) mg/dL Creatinine (0.72-1.25) mg/dL Est GFR ( Amer) (> 60) Est GFR (Non-Af Amer) (> 60) BUN/Creatinine Ratio (6-26) Glucose (70-99) mg/dL Calculated Osmolality (280-300) Lactic Acid 3.2 H (0.5-2.2) mmol/L Calcium (8.6-10.8) mg/dL Troponin I 0.24 H* (0-0.03) ng/mL B-Natriuretic Peptide 576 H (0-100) pg/mL Attestation Statement - Attestation Attestation: I , Dr. Grissom, examined this patient is to face and my medical decision- making was reviewed with Dr. King, Resident Physician. I agree with the documented findings, disposition and treatment plan as described except to the extent set forth below. Please see my progress note for details.
[2017-02-12 12:27] LABS: Activated Partial Thrombo Time 31.8 Seconds (26.0-36.0)
[2017-02-12] MEDS ORDERED: Vancomycin 1,000 MG in D5% in Water 250 ML IVPB ONE (12:32)
[2017-02-12] MEDS ORDERED: Levofloxacin 750 MG/150 ML 750 MG/150 ML BAG IVPB ONE (12:32)
[2017-02-12] MEDS ORDERED: Piperacillin/Tazobactam 4.5 GM in D5% in Water (Mini-Bag+) 100 ML IVPB ONE (12:32)
[2017-02-12] MEDS ORDERED: Aspirin 325 MG TABLET PO ONE (12:33)
[2017-02-12] MEDS ORDERED: 0.9 % Sodium Chloride 1,000 ML IVC ONE (12:56)
[2017-02-12] MEDS ORDERED: Ondansetron 4 MG/2 ML VIAL IVP PRN (14:31)
[2017-02-12] MEDS ORDERED: Naloxone 0.4 MG/ML INJ IVP PRN (14:31)
[2017-02-12] MEDS ORDERED: *HR* Morphine 2 MG/ML SYRINGE IVP PRN (14:31)
[2017-02-12] MEDS ORDERED: Furosemide 20 MG/2 ML VIAL IVP ONE ×2 (14:50→14:55)
--- NOTE | 2017-02-12 15:01 | Internal Med History&Physical ---
Date of Encounter: 02/12/17 Time of Encounter: 14:40 Assessment and Plan (1) Atrial fibrillation with RVR Current visit: Yes Status: Acute Chronic atrial fibrillation with RVR - current heart rate in the 140s to 160s IV Cardizem bolus was given, continue Cardizem drip - titrate Continue anticoagulation with Xarelto Patient is also hypotensive - monitor blood pressure closely Troponin 0.24, we will trend Chest x-ray - right lower lobe infiltrate Cardiology consult Cardiac telemetry Strict I's and O's, fluid restriction, daily weight Labs in a.m. (2) HCAP (healthcare-associated pneumonia) Current visit: Yes Status: Acute Healthcare associated pneumonia, likely bacterial - present on admission DuoNeb breathing treatment Cultures pending Continue IV Levaquin, IV Zosyn, IV vancomycin (3) Acute exacerbation of CHF (congestive heart failure) Current visit: No Status: Acute Acute exacerbation of diastolic CHF with LVEF 50-55%, with edema and ascites- worsened with A. fib with RVR [id number] MR and moderate pulmonary hypertension Strict I's and O's, fluid restriction, daily weight IV Lasix twice a day if blood pressure is stable Qualifiers: Congestive heart failure type: diastolic Qualified Code(s): I50.33 - Acute on chronic diastolic (congestive) heart failure (4) Dyspnea Current visit: No Status: Acute Secondary to healthcare associated pneumonia and acute exacerbation of CHF Continue BiPAP, DuoNeb breathing treatment, Symbicort Plan as above Qualifiers: Dyspnea type: unspecified Qualified Code(s): R06.00 - Dyspnea, unspecified (5) Sepsis Current visit: Yes Status: Acute Secondary to healthcare associated pneumonia - present on admission White count 15.1, tachycardia, lactic acid 3.2 Continue IV Zosyn, Levaquin and vancomycin DuoNeb breathing treatment Qualifiers: Sepsis type: sepsis due to unspecified organism Qualified Code(s): A41.9 - Sepsis, unspecified organism (6) Ascites Current visit: No Status: Chronic Abdominal distention and ascites - secondary to acute CHF exacerbation Continue IV Lasix Strict I's and O's, fluid restriction Qualifiers: Ascites type: other type Qualified Code(s): R18.8 - Other ascites (7) Secondary pulmonary hypertension Current visit: No Status: Chronic Secondary to diastolic CHF and valvular heart disease Continue BiPAP (8) CKD (chronic kidney disease) stage 3, GFR 30-59 ml/min Current visit: No Status: Chronic Stable, creatinine seems to be at baseline Labs in a.m. (9) Insulin dependent diabetes mellitus Current visit: No Status: Chronic Diabetes mellitus type 2 insulin-dependent, hyperglycemia Insulin sliding scale, glucose checks, Levemir (10) HTN (hypertension) Current visit: No Status: Chronic Control, monitor Qualifiers: Hypertension type: essential hypertension Qualified Code(s): I10 - Essential (primary) hypertension (11) DVT prophylaxis Current visit: No Status: Acute Continue Xarelto Internal Medicine - H&P: HPI Chief complaint: Shortness of breath Admitted From: Emergency Dept Plans for Post Hospital Care: Transfer Intermediate Facility History of present illness: Mr. Flores is a 86 year old male with past medical history of arthritis, atrial fibrillation, CHF, coronary artery disease, diabetes, hyperlipidemia, hypertension and chronic kidney disease stage III and valvular heart disease. Presents to the ED with complaints of shortness of breath. Patient states symptoms have been going on for about 5 or 6 days. Patient was discharged about one week ago after being treated for A. fib with RVR and CHF. Patient states he has not been feeling his usual self since discharge. Shortness of breath has gradually been worsening. He decided to come into the ED today because of severe shortness of breath, present even at rest sometimes. Symptoms are worse with exertion and laying flat. Patient denies chest pain, denies headache denies palpitations. He does have cough with some sputum production. Patient also complains of abdominal bloating and also worsening bilateral lower leg edema. No alleviating factors. No other associated symptoms. Patient states he has been taking his Lasix at home. He also mentions that he may be drinking more fluids than what he should be. Denies diarrhea or vomiting or fever. Initial evaluation reveals right lower lobe infiltrate, elevated white count, elevated troponin and A. fib with RVR. Patient has been given bolus Cardizem in the ED and is also been given IV antibiotics. Continue Xarelto for anticoagulation Patient is being admitted for A. fib with RVR, healthcare associated pneumonia and respiratory failure. On examination patient is awake and alert. Able to provide history. He is in discomfort due to breathing difficulty and cough. Patient does have extensive rales bilaterally. BiPAP will be continued. Cardiology consult pending. No family members at bedside. Patient has been explained about his guarded condition and plan of care. Understood and agreed. No unanswered questions. CODE STATUS full code. Past Med Surg Social Fam HX - Past Medical History Medical history: arthritis, atrial fibrillation, CHF, coronary artery disease, diabetes, hyperlipidemia, hypertension, renal disease, valvular heart disease Psychiatric history: no psych history - Past Surgical History Surgical History: appendectomy, cholecystectomy, knee replacement, orthopedic, other - Social History Smoking Status: Never smoker Smokeless Tobacco Status: No Alcohol use: none Drug use: none - Family History Mother Family Member Ethnicity: Non- Living Status: Brother Family Member Ethnicity: Non- Living Status: Sister Family Member Ethnicity: Non- Living Status: Still Living Father Family Member Ethnicity: Non- Living Status: Hx Family Cardiac Disorders: No Hx Family Respiratory Disorders: No Hx Family Cancer: No Hx Family GI Disorders: No Hx Family Endocrine Disorder: Yes (DM) Hx Family Neuromuscular Disorders: No Hx Family Neurologic Disorders: No Hx Family HEENT Disorders: No Hx Family Autoimmune Disorders: No Internal Medicine - H&P: Meds Cyclosporine [Restasis] 1 drop OP BID 04/17/15 [History] Gabapentin [Neurontin] 400 mg PO TID 04/17/15 [History] Insulin Glargine,Hum.rec.anlog [Lantus Solostar] 24 unit SQ QAM 04/17/15 [ History] Multivit-Min/FA/Lycopen/Lutein [Centrum Silver Tablet] 1 tab PO QAM 04/17/15 [ History] Rivaroxaban [Xarelto] 15 mg PO QPM 04/17/15 [History] Ropinerole [Requip] 1 mg PO HS 04/17/15 [History] Simvastatin [Zocor] 40 mg PO QPM 09/17/15 [History] Albuterol Sulfate [Proair Hfa] 1 puff IH Q6H PRN #1 inh 10/12/15 [Rx] Potassium Chloride 10 meq PO BID 11/25/16 [History] Furosemide [Lasix] 40 mg PO QPM #30 tab 11/28/16 [Rx] Furosemide [Lasix] 60 mg PO QAM #90 tablet 11/28/16 [Rx] Aspirin Enteric Coated [Aspirin EC] 81 mg PO DAILY #30 tablet. 02/06/17 [Rx] Budesonide/Formoterol 80/4.5 [Symbicort 80/4.5] 1 puff IH BID #5 hfa.aer.ad 08/25 [Rx] Diltiazem CD (24hr) [Cardizem CD] 360 mg PO DAILY 30 Days 02/06/17 [Rx] Metoprolol XL (24 HR) Succ [Toprol Xl] 200 mg PO DAILY 30 Days 02/06/17 [Rx] Sennosides/Docusate Sodium [Senna Plus] 2 tab PO BID 02/12/17 [History] Allergies codeine Allergy (Mild, Verified 02/01/17 07:37) Flushing tramadol Allergy (Mild, Verified 02/01/17 07:37) Dizziness metformin Adverse Reaction (Mild, Verified 02/01/17 07:37) Nausea All Systems PM: A 10-system review of systems was performed and is negative for pertinent findings except as documented above in the HPI. - Constitutional Constitutional: fatigue, weakness, no fever(s) - EENT Eyes: no blurry vision, no loss of vision - Cardiovascular Cardiovascular ROS IM: diaphoresis, dyspnea, dyspnea on exertion, edema, lightheadedness, orthopnea, no chest pain, no palpitations, no syncope - Respiratory Respiratory: cough, dyspnea, dyspnea on exertion, chest congestion, excessive phlegm production, no wheezing - Gastrointestinal Gastrointestinal: abdominal pain, bloating, constipation, no diarrhea, no melena , no nausea, no vomiting - Genitourinary Genitourinary ROS male: no dysuria - Musculoskeletal Musculoskeletal ROS IM: no arthralgias - Neurological Neurological ROS: no abnormal gait, no abnormal speech, no dizziness, no loss of vision, no numbness, no tingling - Constitutional Vitals: Temp Pulse Resp BP Pulse Ox 97.8 F 148 18 98/79 92 02/12/17 14:37 02/12/17 14:37 02/12/17 14:37 02/12/17 14:37 02/12/17 14:37 General appearance: Present: mild distress, A&O X 3, answers questions appropriately Exam: Chronically ill-appearing - Head Head exam: Present: atraumatic - Eye Eye exam: Present: EOMI - ENT ENT exam: Present: mucous membranes dry - Respiratory Respiratory exam: Present: accessory muscle use, rales (Bilateral extensive), respiratory distress (Mild), wheezes (Mild), tachypnea - Cardiovascular Cardiovascular exam: Present: irregular rhythm, +S1, +S2, systolic murmur, tachycardia - GI/Abdominal GI/Abdominal exam: Present: distended ( ascites), firm, no peritoneal signs. Absent: guarding, rigid, soft, tenderness - Extremities Exam Extremities exam: Present: pedal edema (3+ pitting edema), radial pulses palpable and symetrical. Absent: cyanotic, tenderness - Neurological Exam Neurological exam: Present: alert, oriented X3, no focal deficits Internal Med - H&P Results - Labs CBC & Chem 7: 02/12/17 12:03 02/12/17 12:03
[2017-02-12] MEDS: Piperacillin/Tazobactam 3.375 GM in D5% in Water (Mini-Bag+) 100 ML IVPB SCH (15:26)
[2017-02-12] MEDS ORDERED: Vancomycin 1,500 MG in D5% in Water 250 ML IVPB ONE (15:30)
[2017-02-12] MEDS: Ipratropium/Albuterol Neb 3 ML IH SCH ×3 (15:50→23:58)
[2017-02-12] MEDS ORDERED: *HR* Dextrose 50 % in Water (Syg) 50 ML SYRINGE IVP PRN (16:28)
[2017-02-12] MEDS ORDERED: D5% in Water 1,000 ML IVC PRN (16:28)
[2017-02-12] MEDS ORDERED: Dextrose Gel 15 GM PO PRN ×2 (16:28)
[2017-02-12] MEDS: Insulin LISPRO 300 UNITS/3 ML VIAL SQ SCH ×2 (17:16→22:09)
[2017-02-12] MEDS: *HR* Rivaroxaban 15 MG TABLET PO SCH (17:16)
[2017-02-12] MEDS: Famotidine 20 MG/2 ML VIAL IVP SCH (17:17)
--- NOTE | 2017-02-12 17:23 | Cardiology Consult Note ---
<Sara Faustin - Last Filed: 02/12/17 17:37> Date of Encounter: 02/12/17 Time of Encounter: 16:30 Assessment and Plan (1) HCAP (healthcare-associated pneumonia) Current Visit: Yes Status: Acute Per cardiology: -Infiltrate noted per chest x-ray. -On ATB. -Management per primary service. (2) Atrial fibrillation with RVR Current Visit: Yes Status: Acute Per cardiology: -Atrial fibrillation with RVR in the setting of pneumonia. -Average HR 144. -On cardizem drip at 20mg/hour. On beta jenny. -On xarelto (renally adjusted). Denies bleeding or blood loss. -BP 90-100s systolic. -Per discussion with , will start amiodarone drip. -Cardiology will continue to monitor. (3) Diastolic congestive heart failure, NYHA class 4 Current Visit: Yes Status: Chronic Per cardiology: -Echo 02/01/17 with LVEF 50-55%, mild concentric left ventricular hypertrophy, inderterminate diastoluc function, normal RV side with mildly reduced function, moderately dilated left atrium, mild-moderate MR, mild TR, moderate PH. -Weight today 83.9kg, per review of records, weight last admission 88kg. -BNP 576, during last admission BNP 700s. -Patient reports increased edema from baseline and increased abdominal girth. -2+ bilateral lower extremity pitting edema. -Was given lasix IVx1 dose in ER. -Net negative 170ml since admission. -Will start lasix IV BID. -Will start strict i/os, daily weights, and fluid restriction. (4) Elevated troponin Current Visit: No Status: Chronic Per cardiology: -Troponin 0.24, 0.23. -Per review of records, patient has chronic mildly elevated troponin. -Echo as above. -Patient denies chest pain. -NO ECG to personally review. -LAst stress 2011 negative for ischemia or infarct. -Will order ECG. -Will trend troponin for a total of 3. (5) CKD (chronic kidney disease) stage 3, GFR 30-59 ml/min Current Visit: No Status: Chronic Per cardiology: -KNown CKD. -Creatinine today 1.84. -Baseline creatinine 1.5-2. -Management per primary service. Discussion w patient/family: The assessment and plan as outlined above was discussed with the patient who expressed understanding and agreement. All questions were answered. Thank you for involving us in the care of your patient. Please call with any questions. Discussed and reviewed with . History of Present Illness Consult date: 02/12/17 Requesting physician: Deep Rodriguez Consult reason: a.fib RVR, elevated troponin Chief complaint: shortness of breath History of present illness: Mr. Flores is a 86 year old male with a relevant past medical history of HTN, DM , Hyperlpidemia, atrial fibrillation, cardiomyopathy, diastolic congestive heart failure, CKD. Patient presented to [facility] for increased shortness of breath. Patient states he wear O2 at home at all times, but it was not helping shortness of breath. Patient reports he called the squad. Per ER records, upon EMS arrival SpO2 was 80%. Patient has been admitted and cardiology has been consulted for atrial fibrillation with RVR and elevated troponin. Patient denies chest pain. Patient reports extreme worsening of shortness of breath. Patient reports increased fatigue. Patient reports increased peripheral edema and increased abdominal girth. Past Med Surg Social Fam HX - Past Medical History Attestation: Yes The following information was validated with the patient. Medical history: arthritis, atrial fibrillation, CHF, coronary artery disease, diabetes, hyperlipidemia, hypertension, renal disease, valvular heart disease Psychiatric history: no psych history - Past Surgical History Surgical History: appendectomy, cholecystectomy, knee replacement, orthopedic, other - Social History Smoking Status: Never smoker Smokeless Tobacco Status: No Alcohol use: none Drug use: none - Family History Mother Family Member Ethnicity: Non- Living Status: Brother Family Member Ethnicity: Non- Living Status: Sister Family Member Ethnicity: Non- Living Status: Still Living Father Family Member Ethnicity: Non- Living Status: Hx Family Cardiac Disorders: No Hx Family Respiratory Disorders: No Hx Family Cancer: No Hx Family GI Disorders: No Hx Family Endocrine Disorder: Yes (DM) Hx Family Neuromuscular Disorders: No Hx Family Neurologic Disorders: No Hx Family HEENT Disorders: No Hx Family Autoimmune Disorders: No Medications and Allergies Cyclosporine [Restasis] 1 drop OP BID 04/17/15 [History] Gabapentin [Neurontin] 400 mg PO TID 04/17/15 [History] Insulin Glargine,Hum.rec.anlog [Lantus Solostar] 24 unit SQ QAM 04/17/15 [ History] Multivit-Min/FA/Lycopen/Lutein [Centrum Silver Tablet] 1 tab PO QAM 04/17/15 [ History] Rivaroxaban [Xarelto] 15 mg PO QPM 04/17/15 [History] Ropinerole [Requip] 1 mg PO HS 04/17/15 [History] Simvastatin [Zocor] 40 mg PO QPM 09/17/15 [History] Albuterol Sulfate [Proair Hfa] 1 puff IH Q6H PRN #1 inh 10/12/15 [Rx] Potassium Chloride 10 meq PO BID 11/25/16 [History] Furosemide [Lasix] 40 mg PO QPM #30 tab 11/28/16 [Rx] Furosemide [Lasix] 60 mg PO QAM #90 tablet 11/28/16 [Rx] Aspirin Enteric Coated [Aspirin EC] 81 mg PO DAILY #30 tablet. 02/06/17 [Rx] Budesonide/Formoterol 80/4.5 [Symbicort 80/4.5] 1 puff IH BID #5 hfa.aer.ad 08/25 [Rx] Diltiazem CD (24hr) [Cardizem CD] 360 mg PO DAILY 30 Days 02/06/17 [Rx] Metoprolol XL (24 HR) Succ [Toprol Xl] 200 mg PO DAILY 30 Days 02/06/17 [Rx] Sennosides/Docusate Sodium [Senna Plus] 2 tab PO BID 02/12/17 [History] Allergies codeine Allergy (Mild, Verified 02/01/17 07:37) Flushing tramadol Allergy (Mild, Verified 02/01/17 07:37) Dizziness metformin Adverse Reaction (Mild, Verified 02/01/17 07:37) Nausea All Systems Review: A 10-system review of systems was performed and is negative for pertinent findings except as documented above in the HPI. - Cardiovascular Cardiovascular: as per HPI, dyspnea at rest, dyspnea on exertion, leg edema, rapid heart rate Physical Examination Vital Signs Temperature 97.8 F 02/12/17 14:37 Pulse Rate 148 02/12/17 14:37 Respiratory Rate 18 02/12/17 14:37 Blood Pressure 98/79 02/12/17 14:37 O2 Sat by Pulse Oximetry 92 02/12/17 14:37 Oxygen Delivery Oxygen Delivery Room Air General: Conversant, Other (Conversational dyspnea noted. ) HEENT: Atraumatic, Normocephaly, Mucus Membranes Moist Neck: No JVD, Normal carotid pulses Cardiac: Other (Irregularly, irregular. Tachycardic. ) Lungs: Other (Left lung with diminished lung sounds. Right lower lobe with crackles. ) Neuro: Alert and responsive, No focal deficits noted Abdomen: Other (Abdomen distended. ) Skin: No rashes noted on visualized skin Musculoskeletal: No Chest Wall Tenderness Extremities: No Clubbing, No Cyanosis, Normal Pulses, Other (2+ bilateral lower extremity pitting edema. ) Results 02/12/17 12:03 02/12/17 12:03 Impressions Chest X-Ray 02/12/17 12:00 IMPRESSION: Small right lower lobe infiltrate which may represent a small pneumonia versus atelectasis. Stable mild elevation of the left hemidiaphragm with associated tiny effusion. D/ / 02/12/2017 12:40:37 Shahid Wooten MD / bcarter Interpreting Provider: Shahid Wooten MD Active Medications Albuterol/Ipratropium (Duoneb) 3 ml IH [id number] KELSI PRN Reason: Protocol Stop: 08/14/17 16:01 Last Admin: 02/12/17 15:50 Dose: Not Given Aspirin (Aspirin Ec) 81 mg PO DAILY [facility] Stop: 08/15/17 09:01 Budesonide/Formoterol Fumarate (Symbicort) 1 puff IH BIDRESP KELSI PRN Reason: Protocol Stop: 08/14/17 22:01 Dextrose/Water (Dextrose 50% (Syg)) 25 ml IVP AD PRN PRN Reason: Hypoglycemia Stop: 08/14/17 16:29 Famotidine (Pepcid) 20 mg IVP Q12HR KELSI Stop: 08/14/17 18:01 Glucagon (Glucagen) 1 mg IM ONCE PRN PRN Reason: Hypoglycemia Stop: 08/14/17 16:29 Glucose (Gluctose) 15 gm PO ONCE PRN PRN Reason: Hypoglycemia Stop: 08/14/17 16:29 Glucose (Gluctose) 30 gm PO ONCE PRN PRN Reason: Hypoglycemia Stop: 08/14/17 16:29 Diltiazem HCl 125 mg/ Dextrose 125 mls @ 5 mls/hr IVC .Q24H KELSI; 5 MG/HR PRN Reason: Protocol Stop: 08/14/17 12:16 Last Titration: 02/12/17 15:00 Dose: 15 mg/hr, 15 mls/hr Levofloxacin/Dextrose (Levaquin Premix 750mg/150 Ml) 750 mg in 150 mls @ 100 mls/hr IVPB Q48H [facility] PRN Reason: Protocol Stop: 08/15/17 13:01 Piperacillin Sod/Tazobactam (Sod 3.375 gm/ Dextrose) 100 mls @ 25 mls/hr IVPB Q8H [facility] PRN Reason: Protocol Stop: 08/14/17 15:01 Last Admin: 02/12/17 15:26 Dose: 25 mls/hr Vancomycin HCl 1,250 mg/ (Dextrose) 250 mls @ 166.667 mls/hr IVPB Q24H [facility] Stop: 08/15/17 09:01 Dextrose (Dextrose 5%) 1,000 mls @ 100 mls/hr IVC .Q10H PRN PRN Reason: HYPOGLYCEMIA Stop: 08/14/17 16:29 Insulin Detemir (Levemir) 24 unit SQ QAM [facility] Stop: 08/15/17 09:01 Insulin Human Lispro (Humalog) 0 units SQ TIDAC [facility] PRN Reason: Protocol Stop: 08/14/17 16:31 Insulin Human Lispro (Humalog) 0 units SQ HS [facility] PRN Reason: Protocol Stop: 08/14/17 21:01 Metoprolol Succinate (Toprol Xl) 200 mg PO DAILY [facility] Stop: 08/15/17 09:01 Morphine Sulfate (Morphine Sulfate) 2 mg IVP Q4HR PRN PRN Reason: Severe Pain (7-10) Stop: 08/14/17 14:32 Multivitamins/Calcium (Thera M Plus) 1 tab PO QAM [facility] Stop: 08/15/17 09:01 Naloxone HCl (Narcan) 0.4 mg IVP Q2MIN PRN PRN Reason: Opioid Reversal Stop: 08/14/17 14:32 Ondansetron HCl (Zofran) 4 mg IVP Q8HR PRN PRN Reason: Nausea And Vomiting Stop: 08/14/17 14:32 Pharmacy Profile Note (Patient Taking Own Medication) 0 each OP BID KELSI Stop: 08/14/17 21:01 Rivaroxaban (Xarelto) 15 mg PO QPM [facility] Stop: 08/14/17 18:01 Ropinirole HCl (Requip) 1 mg PO HS [facility] Stop: 08/14/17 21:01 Senna/Docusate Sodium (Senna Plus) 2 each PO BID [facility]LES[facility] PRN Reason: Protocol Stop: 08/14/17 21:01 Simvastatin (Zocor) 40 mg PO QPM [facility]ELSI PRN Reason: Protocol Stop: 08/14/17 18:01 Laboratory Tests 02/05/17 02/06/17 02/12/17 00:52 03:54 12:03 WBC 15.1 H Hgb 12.4 L Creatinine 1.92 H 1.82 H Troponin I B-Natriuretic Peptide 02/12/17 02/12/17 02/12/17 12:03 12:03 12:03 WBC Hgb Creatinine 1.84 H Troponin I 0.24 H* B-Natriuretic Peptide 576 H 02/12/17 14:44 WBC Hgb Creatinine Troponin I 0.23 H* B-Natriuretic Peptide - Imaging and Cardiology Chest Xray: report reviewed Echo: report reviewed - EKG Interpretation EKG results cardiology: other (Telemetry reviewed with average HR 144, atrial fibrillation with RVR. PVCs and couplets noted. Per review of telemetry strips with , patient has episodes of atrial fibrillation with abberancy.) Consult Discharge Plan - Plan Referrals: Carlyn Bain MD [Partnered Physician] - 02/15/17 1:45 pm Jimmie Bermudez MD [Partnered Physician] - 02/23/17 1:20 pm <Vicenta Taylor - Last Filed: 02/12/17 17:59> Date of Encounter: 02/12/17 Assessment and Plan Discussion w patient/family: The assessment and plan as outlined above was discussed with the patient and/or family members who expressed understanding and agreement. All questions were answered. Thank you for involving us in the care of your patient. Please call with any questions. History of Present Illness History of present illness: Mr. Flores is a 86 year old male All Systems Review: A 10-system review of systems was performed and is negative for pertinent findings except as documented above in the HPI. Results 02/12/17 12:03 02/12/17 12:03 - Attending Attestation I examined this patient and my medical decision-making was reviewed with the HEAD OF CYTOGENETICS/PA/Advanced Practice Nurse/Resident Physician. I agree with the documented findings, disposition and treatment plan. Mr. Flores presents with AFIB RVR in setting of pneumonia and leukocytosis. Cardizem drip has not been successful in controlling rates. Recommend amiodarone IV drip temporarily. He is anticoagulated with xarelto. Also demonstrates diastolic heart failure. Will increase lasix IV and follow kidney function. Troponin elevation is chronic and mild in setting of ARF. This does not represent ACS. Continue aspirin and statin.
[2017-02-12] MEDS ORDERED: Amiodarone Premix 360 MG/200 ML BAG IVC ONE (17:47)
--- NOTE | 2017-02-12 17:56 | Electrocardiograph Report ---
[place] [id number] Test Date: 2017-02-12 Pat Name: Ciro Flores Department: 102 Room: 2N11 Gender: M Chief Nurse: Karel : 1930 Requested By: Julio King Order Number: [id number] Reading MD: Gaby Gresham Measurements Intervals [place] Rate: 156 P: TX: 0 QRS: -34 QRSD: 89 T: 157 QT: 296 QTc: 384 Interpretive Statements ATRIAL FIBRILLATION WITH RAPID VENTRICULAR RESPONSE WITH ABERRANT CONDUCTION OR VENTRICULAR PREMATURE COMPLEXES MARKED LEFT AXIS DEVIATION [QRS AXIS < -30] LOW QRS VOLTAGE IN EXTREMITY LEADS [QRS DEFLECTION < 0.5 mV IN LIMB LEADS] MINIMAL ST DEPRESSION [0.025+ mV ST DEPRESSION] ABNORMAL QRS-T ANGLE [QRS-T AXIS DIFFERENCE > 60] Electronically Signed On 02-12-2017 17:54:40 EDT by Gaby Gresham
[2017-02-12] MEDS ORDERED: Vancomycin 1,000 MG in D5% in Water 250 ML IVPB SCH (18:00)
[2017-02-12] MEDS ORDERED: *HR* LORazepam 2 MG/ML VIAL IVP ONE (18:45)
[2017-02-12] MEDS: Budesonide/Formoterol 80/4.5 MDI IH SCH (19:38)
[2017-02-12] MEDS: (Cyclosporine [Restasis] 1 DROP) OP SCH (20:20)
[2017-02-12] MEDS: rOPINIRole 1 MG TABLET PO SCH (20:21)
[2017-02-12] MEDS: Sennosides/Docusate Sodium TABLET PO SCH (20:22)
[2017-02-12] MEDS: Furosemide 40 MG/4 ML VIAL IVP SCH (20:22)
[2017-02-13] MEDS: Piperacillin/Tazobactam 3.375 GM in D5% in Water (Mini-Bag+) 100 ML IVPB SCH ×3 (00:15→15:11)
[2017-02-13] MEDS: Amiodarone Premix 360 MG/200 ML BAG IVC SCH ×2 (00:17→12:46)
[2017-02-13] MEDS: Ipratropium/Albuterol Neb 3 ML IH SCH ×3 (03:54→14:54)
[2017-02-13 04:02] LABS: Basophils % 0.1 %; Hematocrit 33.7 % (37.5-50.1); Immature Granulocytes % 0.5 % (0-4); Lymphocytes # 0.3 K/mcL (0.6-4.6); Mean Corpuscular HGB Conc 32.6 g/dL (31.6-35.5); Mean Corpuscular Hemoglobin 30.9 pg (28.0-33.3); Mean Corpuscular Volume 94.7 fL (83.0-100.0); Mean Platelet Volume 11.4 fL (9.4-12.4); Monocytes # 0.4 K/mcL (0.0-1.3); Monocytes % 2.3 %; Neutrophils # 14.9 K/mcL (1.6-8.9); Nucleated Red Blood Cells 0.1 /100 WBC (0); Platelet Count 254 K/mcL (140-400); Red Blood Count 3.56 M/mcL (4.19-5.50); Red Cell Distribution Width 14.6 % (11.5-14.5); Segmented Neutrophils % 95.1 %
[2017-02-13 04:17] LABS: Albumin 2.8 g/dL (3.5-5.0); Albumin/Globulin Ratio 0.8 (1.1-2.2); Bilirubin,Total 0.8 mg/dL (0.2-1.2); Calcium 9.1 mg/dL (8.6-10.8); Globulin 3.4 g/dL (2.4-3.5); Potassium 4.3 mEq/L (3.5-4.5); Total Protein 6.2 g/dL (6.0-8.3)
[2017-02-13] MEDS: Famotidine 20 MG/2 ML VIAL IVP SCH ×2 (06:09→17:22)
--- NOTE | 2017-02-13 08:22 | Internal Med Progress Note ---
Date of Encounter: 02/13/17 Time of Encounter: 08:20 - Assessment and plan (1) Pleural effusion Current Visit: Yes Status: Chronic Assessment and plan: Patient on chest x-ray has left pleural effusion though he has pneumonia on the right side suspect this could be secondary to diastolic heart failure (2) HTN (hypertension) Current Visit: Yes Status: Chronic Assessment and plan: Assume home medication and continue daily monitoring Qualifiers: Hypertension type: essential hypertension Qualified Code(s): I10 - Essential (primary) hypertension (3) CKD (chronic kidney disease) stage 3, GFR 30-59 ml/min Current Visit: Yes Status: Chronic Assessment and plan: While we are trying to diurese and watch and monitor creatinine level daily (4) Type 2 diabetes mellitus Current Visit: No Status: Chronic Assessment and plan: Accu-Chek 4 times a day with sliding scale coverage Qualifiers: Diabetes mellitus complication status: with unspecified complications Diabetes mellitus chcf insulin use: with termite treater helper use Qualified Code(s) : E11.8 - Type 2 diabetes mellitus with unspecified complications; Z79.4 - MCFP (current) use of insulin (5) DVT prophylaxis Current Visit: Yes Status: Acute Assessment and plan: Patient is on Xarelto (6) Acute on chronic diastolic heart failure Current Visit: Yes Status: Acute Assessment and plan: Plan diuresis and anticipate creatinine will go up we will try to him on drier feeder side and and see how much we can pull it without compromising renal function too much (7) Elevated troponin I level Current Visit: No Status: Acute (8) Leg edema Current Visit: No Status: Chronic (9) HCAP (healthcare-associated pneumonia) Current Visit: Yes Status: Acute Assessment and plan: Continue IV antibiotics and monitor CBC and temperature and clinical improvement (10) Sepsis Current Visit: Yes Status: Acute Assessment and plan: Continue to observe parameters to see his sepsis resolved with the help of IV antibiotics Qualifiers: Sepsis type: sepsis due to unspecified organism Qualified Code(s): A41.9 - Sepsis, unspecified organism (11) Atrial fibrillation with RVR Current Visit: Yes Status: Acute Assessment and plan: Target is to control rate while he is already on insulin Xarelto with the help of Cardizem and amiodarone and metoprolol for now (12) Acute exacerbation of COPD with asthma Current Visit: Yes Status: Acute Assessment and plan: On his steroids and nebulizers and will taper as oxygen demand lowers (13) Acute worsening of stage 3 chronic kidney disease Current Visit: Yes Status: Acute Assessment and plan: Continue monitoring renal function - Subjective Interval history: Mr. Ciro RYAN is an 86-year-old male who was recently discharged from hospital. He has returned with right lower lobe pneumonia, acute on chronic A. fib with RVR, acute on chronic diastolic condition of heart failure, acute exacerbation of COPD and stage III underlying C daily. He has been started on IV Levaquin and Zosyn, IV steroids nebulizers, all toe, IV Cardizem, IV amiodarone and metoprolol with aspirin. His troponin I in the range of 0.2 but is stable on 2 readings and suspect must be secondary to chronic kidney disease. His chest x-ray did not show signs of CHF however he has some peripheral edema with ascites and pedal edema. I think it is justifiable to continue with low-dose Lasix keeping him around 400-500 minus on I's and O's. Cardiology is involved. I have ordered daily CBC CMP magnesium and one extra set of troponin just in case. Echo today gram done previously showed an ejection fraction of 50% with LV diastolic dysfunction. Patient was seen. He feels much better today. However on on chest examination I noted the he has a lot of rhonchi some wheezing and some rales. I will add Solu-Medrol as his breath sounds seems to have improved and I think we should maximize medical treatment. Albuterol nebs have been substituted by Xopenex nebs as his heart rate is high and according to hospital protocol albuterol nebs cannot be given above heart rate 100. A 6 increased to 80 IV twice a day as he is making not enough urine and we would further like to diurese him more. I suspect that once we maximize treatment for his lungs and they stabilize his heart rate would stabilize itself and it would be rather easier to manage his A. fib. Cardiology is on case. Will follow CBC CMP tomorrow. - Constitutional Vitals: Temp Pulse Resp BP Pulse Ox 97.6 F 121 16 96/80 95 02/13/17 03:30 02/13/17 03:30 02/13/17 03:30 02/13/17 03:30 02/13/17 03:30 General appearance: Present: mild distress, A&O X 3, answers questions appropriately - Head Head exam: Present: atraumatic, normocephalic - Eye Eye exam: Present: PERRL, conjuntiva pink, sclera anicteric Pupils: Present: PERRL - Neck Neck exam general surgery: Present: supple, trachea midline. Absent: lymphadenopathy - Respiratory Respiratory exam: Present: decreased breath sounds, rhonchi, wheezes. Absent: accessory muscle use, rales Additional comments: Overall it seems like that airflow is improving but still has lot of of rhonchi and wheezes - Cardiovascular Cardiovascular exam: Present: RRR, +S1, +S2. Absent: diastolic murmur, gallop, rubs, systolic murmur - GI/Abdominal GI/Abdominal exam: Present: normal bowel sounds, soft, no peritoneal signs. Absent: distended, tenderness - Extremities Exam Extremities exam: Present: pedal edema, warm, radial pulses palpable and symetrical. Absent: calf tenderness, cyanotic - Neurological Exam Neurological exam: Present: CN II-XII intact, oriented X3, no focal deficits. Absent: pronater drift, facial droop, speech deficit - Skin Skin exam: Present: dry, intact Internal Medicine: Result - Labs CBC & Chem 7: 02/13/17 03:20 02/13/17 03:20 Labs: Short CBC 02/13/17 Range/Units 03:20 WBC 15.7 H (4.3-11.1) K/mcL Hgb 11.0 L (12.9-16.9) g/dL Hct 33.7 L (37.5-50.1) % Plt Count 254 (140-400) K/mcL Neutrophils # 14.9 H (1.6-8.9) K/mcL BMP 02/13/17 03:20 Sodium 136 Potassium 4.3 Chloride 95 L Carbon Dioxide 31 H BUN 42 H Creatinine 1.93 H Glucose 264 H Calcium 9.1 Cardiac Enzymes 02/12/17 02/13/17 Range/Units 20:44 03:20 Troponin I 0.21 H* 0.18 H* (0-0.03) ng/mL Liver Function 02/13/17 Range/Units 03:20 Total Bilirubin 0.8 (0.2-1.2) mg/dL AST 23 (5-34) Units/L ALT 27 (0-55) Units/L Alkaline Phosphatase 106 (38-126) Units/L Albumin 2.8 L (3.5-5.0) g/dL - ABG Interpretation ABG results: PT/INR, D-dimer PT 20.6 Seconds (9.4-12.1) H 02/12/17 12:03 Consult Discharge Plan - Plan Referrals: Carlyn Bain MD [Partnered Physician] - 02/15/17 1:45 pm Jimmie Bermudez MD [Partnered Physician] - 02/23/17 1:20 pm
[2017-02-13] MEDS: Furosemide 40 MG/4 ML VIAL IVP SCH ×3 (08:37→20:11)
[2017-02-13] MEDS: Multivit/Ca/Min/Fe/FA 1 TAB TABLET PO SCH (08:37)
[2017-02-13] MEDS: Sennosides/Docusate Sodium TABLET PO SCH ×2 (08:37→20:12)
[2017-02-13] MEDS: Aspirin Enteric Coated 81 MG Tablet PO SCH (08:37)
[2017-02-13] MEDS: Metoprolol XL (24 HR) Succ 50 MG TAB.ER.24H PO SCH (08:37)
[2017-02-13] MEDS: Insulin LISPRO 300 UNITS/3 ML VIAL SQ SCH ×4 (08:38→20:04)
[2017-02-13] MEDS: (Cyclosporine [Restasis] 1 DROP) OP SCH ×2 (08:39→19:51)
[2017-02-13] MEDS: Budesonide/Formoterol 80/4.5 MDI IH SCH (08:44)
[2017-02-13] MEDS: Insulin DETEMIR 100 UNIT/ML X5UNITS SQ SCH (08:55)
[2017-02-13] MEDS ORDERED: Vancomycin 1,250 MG in D5% in Water 250 ML IVPB SCH (09:00)
[2017-02-13] MEDS ORDERED: Furosemide 40 MG/4 ML VIAL IVP ONE (09:47)
--- NOTE | 2017-02-13 11:14 | Cardiology Progress Note ---
Date of Encounter: 02/13/17 Time of Encounter: 07:10 Assessment and Plan (1) HCAP (healthcare-associated pneumonia) Current Visit: Yes Status: Acute Per cardiology: -Infiltrate noted per chest x-ray. -On ATB. -Management per primary service. (2) Atrial fibrillation with RVR Current Visit: Yes Status: Acute Per cardiology: -Atrial fibrillation with RVR in the setting of pneumonia. -Average HR 124--improved from yesterday. Continue cardizem gtt ( now at 10 mg/hr), amiodarone, and betablocker. BP stable , 120's-140's On xarelto (renally adjusted). Denies bleeding or blood loss--sediment noted in cummings cath, will continue to monitor closely. (3) Elevated troponin Current Visit: No Status: Chronic Per cardiology: Troponin 0.24, 0.23 in the setting of acute respiratory distress, HCAP, and diastolic CHF exacerbation. Denies chest pain. Per review of records, patient has chronic mildly elevated troponin. Echo shows preserved LVEF. Last stress 2011 negative for ischemia or infarct. (4) Diastolic congestive heart failure, NYHA class 4 Current Visit: Yes Status: Chronic Per cardiology: -Echo 02/01/17 with LVEF 50-55%, mild concentric left ventricular hypertrophy, inderterminate diastoluc function, normal RV side with mildly reduced function, moderately dilated left atrium, mild-moderate MR, mild TR, moderate PH. -Weight today 83.9kg, per review of records, weight last admission 88kg. -BNP 576, during last admission BNP 700s. -Patient reports increased edema from baseline and increased abdominal girth. -2+ bilateral lower extremity pitting edema. Continue IV lasix 40 mg BID, will give extra 40 mg IV x1 now. Cumulative I&O: -370 mL Continue strict i/os, daily weights, and fluid restriction. (5) CKD (chronic kidney disease) stage 3, GFR 30-59 ml/min Current Visit: Yes Status: Chronic Per cardiology: -Known CKD. -Creatinine today 1.84. -Baseline creatinine 1.5-2. -Management per primary service. Discussion w patient/family: The assessment and plan as outlined above was discussed with the patient and/or family members who expressed understanding and agreement. All questions were answered. Thank you for involving us in the care of your patient. Please call with any questions. The patient will be discussed and reviewed with Dr. Taylor; changes to be made accordingly. Subjective Principal diagnosis: diastolic CHF, HCAP Interval history: Seen and examined. Continues to be short of breath and have uncontrolled rates. He states abdominal distention has improved. Objective Vital Signs, Last 4 Hours Temp Pulse Resp BP Pulse Ox 02/13/17 09:30 121 115/70 02/13/17 08:42 97.6 F 125 18 119/84 94 02/13/17 07:30 131 116/83 General: Conversant, Other (appears acutely ill) HEENT: Atraumatic, Normocephaly Cardiac: Other (irregulary irregular) Lungs: Other (Bilateral diminished/rales; use of accessory muscles) Neuro: Alert and responsive, No focal deficits noted Abdomen: Soft, Non-Tender Skin: No rashes noted on visualized skin Musculoskeletal: No Chest Wall Tenderness Extremities: Normal Pulses, Other (+1 BLE edema) Results 02/13/17 03:20 02/13/17 03:20 Lab Results 02/12/17 02/13/17 02/13/17 20:44 03:20 03:20 WBC 15.7 H Hgb 11.0 L Hct 33.7 L Plt Count 254 Sodium Potassium Chloride Carbon Dioxide BUN Creatinine Glucose Calcium Total Bilirubin AST ALT Alkaline Phosphatase Troponin I 0.21 H* 0.18 H* 02/13/17 02/13/17 03:20 09:21 WBC Hgb Hct Plt Count Sodium 136 Potassium 4.3 Chloride 95 L Carbon Dioxide 31 H BUN 42 H Creatinine 1.93 H Glucose 264 H Calcium 9.1 Total Bilirubin 0.8 AST 23 ALT 27 Alkaline Phosphatase 106 Troponin I 0.18 H* Active Medications Albuterol/Ipratropium (Duoneb) 3 ml IH [id number] KELSI PRN Reason: Protocol Stop: 08/14/17 16:01 Last Admin: 02/13/17 08:42 Dose: Not Given Aspirin (Aspirin Ec) 81 mg PO DAILY KELSI Stop: 08/15/17 09:01 Last Admin: 02/13/17 08:37 Dose: 81 mg Budesonide/Formoterol Fumarate (Symbicort) 1 puff IH BIDRESP KELSI PRN Reason: Protocol Stop: 08/14/17 22:01 Last Admin: 07/08/17 08:44 Dose: Not Given Dextrose/Water (Dextrose 50% (Syg)) 25 ml IVP AD PRN PRN Reason: Hypoglycemia Stop: 08/14/17 16:29 Famotidine (Pepcid) 20 mg IVP Q12HR KELSI Stop: 08/14/17 18:01 Last Admin: 02/13/17 06:09 Dose: 20 mg Furosemide (Lasix) 40 mg IVP BID KELSI Stop: 08/14/17 21:01 Last Admin: 02/13/17 08:37 Dose: 40 mg Glucagon (Glucagen) 1 mg IM ONCE PRN PRN Reason: Hypoglycemia Stop: 08/14/17 16:29 Glucose (Gluctose) 15 gm PO ONCE PRN PRN Reason: Hypoglycemia Stop: 08/14/17 16:29 Glucose (Gluctose) 30 gm PO ONCE PRN PRN Reason: Hypoglycemia Stop: 08/14/17 16:29 Diltiazem HCl 125 mg/ Dextrose 125 mls @ 5 mls/hr IVC .Q24H KELSI; 5 MG/HR PRN Reason: Protocol Stop: 08/14/17 12:16 Last Admin: 02/13/17 06:09 Dose: 10 mg/hr, 10 mls/hr Levofloxacin/Dextrose (Levaquin Premix 750mg/150 Ml) 750 mg in 150 mls @ 100 mls/hr IVPB Q48H KELSI PRN Reason: Protocol Stop: 08/15/17 13:01 Vancomycin HCl 1,250 mg/ (Dextrose) 250 mls @ 166.667 mls/hr IVPB Q24H KELSI Stop: 08/15/17 09:01 Last Admin: 02/13/17 08:55 Dose: 166.667 mls/hr Dextrose (Dextrose 5%) 1,000 mls @ 100 mls/hr IVC .Q10H PRN PRN Reason: HYPOGLYCEMIA Stop: 08/14/17 16:29 Amiodarone HCl/Dextrose (Amiodarone Drip Premix 360mg/200ml) 360 mg in 200 mls @ 16.667 mls/hr IVC CONT KELSI PRN Reason: 0.5 MG/MIN Stop: 08/14/17 18:01 Last Admin: 02/13/17 00:17 Dose: 0.5 mg/min, 16.667 mls/hr Piperacillin Sod/Tazobactam (Sod 3.375 gm/ Dextrose) 100 mls @ 25 mls/hr IVPB Q8H KELSI PRN Reason: Protocol Stop: 08/15/17 08:01 Last Admin: 02/13/17 08:38 Dose: 25 mls/hr Insulin Detemir (Levemir) 24 unit SQ QAM [facility] Stop: 08/15/17 09:01 Last Admin: 02/13/17 08:55 Dose: 24 unit Insulin Human Lispro (Humalog) 0 units SQ TIDAC KELSI PRN Reason: Protocol Stop: 08/14/17 16:31 Last Admin: 02/13/17 08:38 Dose: Not Given Insulin Human Lispro (Humalog) 0 units SQ HS [facility] PRN Reason: Protocol Stop: 08/14/17 21:01 Last Admin: 02/12/17 22:09 Dose: 7 units Metoprolol Succinate (Toprol Xl) 200 mg PO DAILY [facility] Stop: 08/15/17 09:01 Last Admin: 02/13/17 08:37 Dose: 200 mg Morphine Sulfate (Morphine Sulfate) 2 mg IVP Q4HR PRN PRN Reason: Severe Pain (7-10) Stop: 08/14/17 14:32 Multivitamins/Calcium (Thera M Plus) 1 tab PO QAM [facility] Stop: 08/15/17 09:01 Last Admin: 02/13/17 08:37 Dose: 1 tab Naloxone HCl (Narcan) 0.4 mg IVP Q2MIN PRN PRN Reason: Opioid Reversal Stop: 08/14/17 14:32 Ondansetron HCl (Zofran) 4 mg IVP Q8HR PRN PRN Reason: Nausea And Vomiting Stop: 08/14/17 14:32 Pharmacy Profile Note (Patient Taking Own Medication) 0 each OP BID [facility] Stop: 08/14/17 21:01 Last Admin: 02/13/17 08:39 Dose: Not Given Rivaroxaban (Xarelto) 15 mg PO QPM [facility] Stop: 08/14/17 18:01 Last Admin: 02/12/17 17:16 Dose: 15 mg Ropinirole HCl (Requip) 1 mg PO HS [facility] Stop: 08/14/17 21:01 Last Admin: 02/12/17 20:21 Dose: 1 mg Senna/Docusate Sodium (Senna Plus) 2 each PO BID KELSI PRN Reason: Protocol Stop: 08/14/17 21:01 Last Admin: 02/13/17 08:37 Dose: 2 each Simvastatin (Zocor) 40 mg PO QPM KELSI PRN Reason: Protocol Stop: 08/14/17 18:01 Last Admin: 02/12/17 17:16 Dose: 40 mg - Imaging and Cardiology Echo: report reviewed - EKG Interpretation EKG results cardiology: personally reviewed Consult Discharge Plan - Plan Referrals: Carlyn Bain MD [Partnered Physician] - 02/15/17 1:45 pm Jimmie Bermudez MD [Partnered Physician] - 02/23/17 1:20 pm
[2017-02-13] MEDS ORDERED: Levalbuterol 1 PUFF INHALER IH SCH (12:15)
[2017-02-13] MEDS: ALPRAZolam 0.25 MG TABLET PO SCH ×2 (12:45→17:22)
[2017-02-13] MEDS: Levofloxacin 750 MG/150 ML 750 MG/150 ML BAG IVPB SCH (13:59)
[2017-02-13] MEDS: methylPREDNISolone 125 MG/2 ML VIAL IVP SCH (15:10)
[2017-02-13] MEDS: Levalbuterol Neb 1.25 MG/3 ML IH SCH ×3 (15:13→22:07)
[2017-02-13] MEDS: *HR* Rivaroxaban 15 MG TABLET PO SCH (17:22)
[2017-02-13] MEDS ORDERED: Vancomycin 1 EACH in D5% in Water 250 ML IVPB SCH (19:00)
[2017-02-13] MEDS ORDERED: Vancomycin 1,250 MG in D5% in Water 250 ML IVPB ONE (19:15)
[2017-02-13] MEDS: Pantoprazole 40 MG VIAL IVP SCH (19:50)
[2017-02-13] MEDS: rOPINIRole 1 MG TABLET PO SCH (20:12)
[2017-02-13] MEDS ORDERED: *HR* LORazepam 2 MG/ML VIAL IVP ONE (22:12)
[2017-02-13 23:41] LABS: Bilirubin,Urine Negative (Negative); Blood,Urine Large (Negative); Clarity,Urine Cloudy (Clear); Color,Urine Red (Yellow); Glucose,Urine (UA) Normal (Normal); Ketones,Urine Trace mg/dL (Negative); Leukocyte Esterase,Urine Moderate (Negative); Nitrite,Urine Negative (Negative); PH,Urine 5.5 pH Units (5.0-8.0); Protein,Urine 100 mg/dL (Neg-Trace); Specific Gravity,Urine 1.016 (1.010-1.025); Urobilinogen,Urine Normal (Normal)
[2017-02-13 23:43] LABS: Bacteria,Urine None Seen per hpf (None-Few); Hyaline Casts,Urine None Seen per lpf (None-Few); RBC,Urine TNTC per hpf (0-3); Squamous Epithelial Cell,Urine Many per lpf (None-Few); WBC,Urine 15-30 per hpf (0-3)
[2017-02-14] MEDS: Piperacillin/Tazobactam 3.375 GM in D5% in Water (Mini-Bag+) 100 ML IVPB SCH ×3 (00:57→19:58)
[2017-02-14] MEDS: Amiodarone Premix 360 MG/200 ML BAG IVC SCH (01:03)
[2017-02-14] MEDS: methylPREDNISolone 125 MG/2 ML VIAL IVP SCH ×3 (01:03→15:35)
[2017-02-14] MEDS: ALPRAZolam 0.25 MG TABLET PO SCH ×4 (01:05→17:38)
[2017-02-14 01:23] LABS: Basophils % 0.1 %; Immature Granulocytes % 0.7 % (0-4); Lymphocytes # 0.2 K/mcL (0.6-4.6); Mean Corpuscular HGB Conc 32.4 g/dL (31.6-35.5); Mean Corpuscular Hemoglobin 30.5 pg (28.0-33.3); Mean Corpuscular Volume 94.2 fL (83.0-100.0); Mean Platelet Volume 10.8 fL (9.4-12.4); Monocytes # 0.4 K/mcL (0.0-1.3); Neutrophils # 21.1 K/mcL (1.6-8.9); Nucleated Red Blood Cells 0.1 /100 WBC (0); Platelet Count 277 K/mcL (140-400); Red Blood Count 3.61 M/mcL (4.19-5.50); Red Cell Distribution Width 14.5 % (11.5-14.5); Segmented Neutrophils % 96.2 %
[2017-02-14 01:42] LABS: Albumin 2.7 g/dL (3.5-5.0); Albumin/Globulin Ratio 0.9 (1.1-2.2); Bilirubin,Total 0.7 mg/dL (0.2-1.2); Globulin 3.1 g/dL (2.4-3.5); Magnesium 2.2 mg/dL (1.6-2.6); Platelet Estimate Normal (Normal); Potassium 4.2 mEq/L (3.5-4.5); Total Protein 5.8 g/dL (6.0-8.3)
[2017-02-14 01:43] LABS: Anisocytosis 1+ (Not Present)
[2017-02-14] MEDS: Levalbuterol Neb 1.25 MG/3 ML IH SCH ×4 (03:11→23:16)
[2017-02-14] MEDS: Insulin LISPRO 300 UNITS/3 ML VIAL SQ SCH ×4 (07:55→20:44)
[2017-02-14] MEDS ORDERED: Aminoglycoside Consult 1 EACH MC ONE (08:29)
[2017-02-14] MEDS: Sennosides/Docusate Sodium TABLET PO SCH ×2 (09:06→22:09)
[2017-02-14] MEDS: Pantoprazole 40 MG VIAL IVP SCH (09:06)
[2017-02-14] MEDS: Multivit/Ca/Min/Fe/FA 1 TAB TABLET PO SCH (09:06)
[2017-02-14] MEDS: Metoprolol XL (24 HR) Succ 50 MG TAB.ER.24H PO SCH (09:07)
[2017-02-14] MEDS: Insulin DETEMIR 100 UNIT/ML X5UNITS SQ SCH (09:07)
[2017-02-14] MEDS: Aspirin Enteric Coated 81 MG Tablet PO SCH (09:07)
[2017-02-14] MEDS: Furosemide 40 MG TABLET PO SCH (09:07)
[2017-02-14] MEDS: (Cyclosporine [Restasis] 1 DROP) OP SCH ×2 (09:07→20:44)
--- NOTE | 2017-02-14 09:18 | Internal Med Progress Note ---
Date of Encounter: 02/14/17 Time of Encounter: 09:14 - Assessment and plan (1) Pleural effusion Current Visit: Yes Status: Chronic (2) HTN (hypertension) Current Visit: Yes Status: Chronic Qualifiers: Hypertension type: essential hypertension Qualified Code(s): I10 - Essential (primary) hypertension (3) CKD (chronic kidney disease) stage 3, GFR 30-59 ml/min Current Visit: Yes Status: Chronic (4) Type 2 diabetes mellitus Current Visit: No Status: Chronic Qualifiers: Diabetes mellitus complication status: with unspecified complications Diabetes mellitus exterminator termite insulin use: with halfway use Qualified Code(s) : E11.8 - Type 2 diabetes mellitus with unspecified complications; Z79.4 - longterm (current) use of insulin (5) DVT prophylaxis Current Visit: Yes Status: Acute (6) Acute on chronic diastolic heart failure Current Visit: Yes Status: Acute (7) Elevated troponin I level Current Visit: No Status: Acute (8) Leg edema Current Visit: No Status: Chronic (9) HCAP (healthcare-associated pneumonia) Current Visit: Yes Status: Acute (10) Sepsis Current Visit: Yes Status: Acute Qualifiers: Sepsis type: sepsis due to unspecified organism Qualified Code(s): A41.9 - Sepsis, unspecified organism (11) Atrial fibrillation with RVR Current Visit: Yes Status: Acute (12) Acute exacerbation of COPD with asthma Current Visit: Yes Status: Acute (13) Acute worsening of stage 3 chronic kidney disease Current Visit: Yes Status: Acute - Subjective Interval history: Mr. Ciro RYAN is an 86-year-old male who was recently discharged from hospital. He has returned with right lower lobe pneumonia, acute on chronic A. fib with RVR, acute on chronic diastolic condition of heart failure, acute exacerbation of COPD and stage III underlying C daily. He has been started on IV Levaquin and Zosyn, IV steroids nebulizers, all toe, IV Cardizem, IV amiodarone and metoprolol with aspirin. His troponin I in the range of 0.2 but is stable on 2 readings and suspect must be secondary to chronic kidney disease. His chest x-ray did not show signs of CHF however he has some peripheral edema with ascites and pedal edema. I think it is justifiable to continue with low-dose Lasix keeping him around 400-500 minus on I's and O's. Cardiology is involved. I have ordered daily CBC CMP magnesium and one extra set of troponin just in case. Echo today gram done previously showed an ejection fraction of 50% with LV diastolic dysfunction. Patient was seen. He feels much better today. However on on chest examination I noted the he has a lot of rhonchi some wheezing and some rales. I will add Solu-Medrol as his breath sounds seems to have improved and I think we should maximize medical treatment. Albuterol nebs have been substituted by Xopenex nebs as his heart rate is high and according to hospital protocol albuterol nebs cannot be given above heart rate 100. A 6 increased to 80 IV twice a day as he is making not enough urine and we would further like to diurese him more. I suspect that once we maximize treatment for his lungs and they stabilize his heart rate would stabilize itself and it would be rather easier to manage his A. fib. Cardiology is on case. Will follow CBC CMP tomorrow. 02/14 patient's heart rate is borderline controlled while he is on oral metoprolol 200 and Cardizem and amiodarone drip. He is on Xarelto insofar hemoglobin is stable. His previous echocardiogram showed ejection fraction of 50% with LV diastolic function mainly. He suspected to have right-sided pneumonia and UTI though cultures are pending and he was on vancomycin and Zosyn and Levaquin however considering that creatinine is worsening his morning vancomycin will be DC'd. Continue monitoring white count is 20,000 this morning. Continue IV steroids med nebs and Mucinex for COPD. Kierra try to diurese him and increase his Lasix to 80 mg IV twice a day but he is actually positive fluid balance. Might need to involve nephrology. - Constitutional Vitals: Temp Pulse Resp BP Pulse Ox 97.4 F L 107 18 101/73 91 02/14/17 07:35 02/14/17 07:35 02/14/17 07:35 02/14/17 07:35 02/14/17 08:00 General appearance: Present: mild distress, A&O X 3, answers questions appropriately - Head Head exam: Present: atraumatic, normocephalic - Eye Eye exam: Present: PERRL, conjuntiva pink, sclera anicteric Pupils: Present: PERRL - Neck Neck exam general surgery: Present: supple, trachea midline. Absent: lymphadenopathy - Respiratory Respiratory exam: Present: CTAB. Absent: accessory muscle use, rales, rhonchi, wheezes - Cardiovascular Cardiovascular exam: Present: RRR, +S1, +S2. Absent: diastolic murmur, gallop, rubs, systolic murmur - GI/Abdominal GI/Abdominal exam: Present: normal bowel sounds, soft, no peritoneal signs. Absent: distended, tenderness - Extremities Exam Extremities exam: Present: warm, radial pulses palpable and symetrical. Absent : calf tenderness, cyanotic, pedal edema - Neurological Exam Neurological exam: Present: CN II-XII intact, oriented X3, no focal deficits. Absent: pronater drift, facial droop, speech deficit - Skin Skin exam: Present: dry, intact Internal Medicine: Result - Labs CBC & Chem 7: 02/14/17 01:10 02/14/17 01:10 Labs: Short CBC 02/14/17 Range/Units 01:10 WBC 21.9 H (4.3-11.1) K/mcL Hgb 11.0 L (12.9-16.9) g/dL Hct 34.0 L (37.5-50.1) % Plt Count 277 (140-400) K/mcL Neutrophils # 21.1 H (1.6-8.9) K/mcL BMP 02/14/17 01:10 Sodium 136 Potassium 4.2 Chloride 96 L Carbon Dioxide 29 BUN 66 H D Creatinine 2.47 H Glucose 98 Calcium 9.0 Cardiac Enzymes 02/13/17 Range/Units 09:21 Troponin I 0.18 H* (0-0.03) ng/mL Liver Function 02/14/17 Range/Units 01:10 Total Bilirubin 0.7 (0.2-1.2) mg/dL AST 35 H (5-34) Units/L ALT 30 (0-55) Units/L Alkaline Phosphatase 95 (38-126) Units/L Albumin 2.7 L (3.5-5.0) g/dL Urine 02/13/17 Range/Units 23:15 Urine Color Red A (Yellow) Urine Clarity Cloudy A (Clear) Urine pH 5.5 (5.0-8.0) pH Units Ur Specific [place] 1.016 (1.010-1.025) Urine Protein 100 H (Neg-Trace) mg/dL Urine Glucose (UA) Normal (Normal) mg/dL - ABG Interpretation ABG results: PT/INR, D-dimer PT 20.6 Seconds (9.4-12.1) H 02/12/17 12:03 Consult Discharge Plan - Plan Referrals: Carlyn Bain MD [Partnered Physician] - 02/15/17 1:45 pm Jimmie Bermudez MD [Partnered Physician] - 02/23/17 1:20 pm
--- NOTE | 2017-02-14 11:46 | Cardiology Progress Note ---
Date of Encounter: 02/14/17 Time of Encounter: 10:10 Assessment and Plan (1) HCAP (healthcare-associated pneumonia) Current Visit: Yes Status: Acute Per cardiology: -Infiltrate noted per chest x-ray, on ATB, WBC increasing. -Likely etiology of dyspnea. -Management per primary service. (2) Atrial fibrillation with RVR Current Visit: Yes Status: Acute Per cardiology: -Atrial fibrillation with RVR in the setting of pneumonia. -Average HR 104--improved from yesterday. HR 80s-90s at bedside. BP stable, 120's-140's. Will stop IV amiodarone gtt and convert cardizem gtt to po. Continue betablocker. Transition short-acting cardizem to LA by discharge. On xarelto (renally adjusted). Denies bleeding or blood loss--sediment noted in cummings cath, will continue to monitor closely. No further inpatient recommendations, Cardiology will sign-off. Will coordinate outpatient appt. (3) Elevated troponin Current Visit: Yes Status: Chronic Per cardiology: Troponin 0.24, 0.23 in the setting of acute respiratory distress, HCAP, and diastolic CHF exacerbation. Denies chest pain. Per review of records, patient has chronic mildly elevated troponin. Echo shows preserved LVEF. Last stress 2011 negative for ischemia or infarct. (4) Diastolic congestive heart failure, NYHA class 4 Current Visit: Yes Status: Chronic Per cardiology: -Echo 02/01/17 with LVEF 50-55%, mild concentric left ventricular hypertrophy, inderterminate diastoluc function, normal RV side with mildly reduced function, moderately dilated left atrium, mild-moderate MR, mild TR, moderate PH. -BNP 576 on admission, now improved. Lower extremity edema/abdominal distention now improved. SCr worsened, will stop IV lasix and resume po dose. Dyspnea is likely secondary to PNA. Continue strict i/os, daily weights, and fluid restriction. (5) CKD (chronic kidney disease) stage 3, GFR 30-59 ml/min Current Visit: Yes Status: Chronic Per cardiology: -Known CKD. -Creatinine today 1.84. -Baseline creatinine 1.5-2. -Management per primary service. Discussion w patient/family: The assessment and plan as outlined above was discussed with the patient and/or family members who expressed understanding and agreement. All questions were answered. Thank you for involving us in the care of your patient. Please call with any questions. The patient was discussed and reviewed with Dr. Taylor; Cardiology will sign-off , please call with questions. Subjective Principal diagnosis: diastolic CHF, HCAP Interval history: Seen and examined. Edema, abdominal distention improved. Remains short of breath , improved. Worsening confusion overnight per beside RN--patient is confused upon exam. Continues to have sediment in cummings cath tubing--H/H stable. Continue to monitor. Objective Vital Signs, Last 4 Hours Temp Pulse Resp BP Pulse Ox 02/14/17 11:15 97.5 F L 87 18 93/64 95 02/14/17 10:36 18 97 02/14/17 08:00 91 General: Conversant, Other (confused) HEENT: Atraumatic, Normocephaly, Mucus Membranes Moist Cardiac: Other (irregularly irregular) Lungs: Other (Decreased) Abdomen: Soft Skin: No rashes noted on visualized skin Musculoskeletal: No Chest Wall Tenderness Extremities: Normal Pulses, Other (+1 mild BLE edema) Results 02/14/17 01:10 02/14/17 01:10 Lab Results 02/14/17 02/14/17 02/14/17 01:10 01:10 08:23 WBC 21.9 H Hgb 11.0 L Hct 34.0 L Plt Count 277 Sodium 136 Potassium 4.2 Chloride 96 L Carbon Dioxide 29 BUN 66 H D Creatinine 2.47 H Glucose 98 Calcium 9.0 Magnesium 2.2 Total Bilirubin 0.7 AST 35 H ALT 30 Alkaline Phosphatase 95 B-Natriuretic Peptide 395 H Active Medications Alprazolam (Xanax) 0.25 mg PO Q6H KELSI PRN Reason: Protocol Stop: 08/15/17 12:16 Last Admin: 02/14/17 11:37 Dose: 0.25 mg Aspirin (Aspirin Ec) 81 mg PO DAILY KELSI Stop: 08/15/17 09:01 Last Admin: 02/14/17 09:07 Dose: 81 mg Dextrose/Water (Dextrose 50% (Syg)) 25 ml IVP AD PRN PRN Reason: Hypoglycemia Stop: 08/14/17 16:29 Diltiazem HCl (Cardizem) 60 mg PO QID KELSI Stop: 08/16/17 13:01 Furosemide (Lasix) 40 mg PO DAILY KELSI Stop: 08/16/17 09:01 Last Admin: 02/14/17 09:07 Dose: 40 mg Guaifenesin (Mucinex) 600 mg PO BID [facility] Stop: 02/19/17 21:01 Last Admin: 02/14/17 09:06 Dose: 600 mg Levofloxacin/Dextrose (Levaquin Premix 750mg/150 Ml) 750 mg in 150 mls @ 100 mls/hr IVPB Q48H KELSI PRN Reason: Protocol Stop: 08/15/17 13:01 Last Admin: 02/13/17 13:59 Dose: 100 mls/hr Dextrose (Dextrose 5%) 1,000 mls @ 100 mls/hr IVC .Q10H PRN PRN Reason: HYPOGLYCEMIA Stop: 08/14/17 16:29 Piperacillin Sod/Tazobactam (Sod 3.375 gm/ Dextrose) 100 mls @ 25 mls/hr IVPB Q8H KELSI PRN Reason: Protocol Stop: 08/15/17 08:01 Last Admin: 02/14/17 07:59 Dose: 25 mls/hr Insulin Detemir (Levemir) 24 unit SQ QAM [facility] Stop: 08/15/17 09:01 Last Admin: 02/14/17 09:07 Dose: 24 unit Levalbuterol HCl (Xopenex) 1.25 mg IH [id number] [facility] Stop: 08/15/17 12:16 Last Admin: 02/14/17 10:35 Dose: 1.25 mg Methylprednisolone (Solu-Medrol) 60 mg IVP Q8HR [facility] Stop: 08/15/17 16:01 Last Admin: 02/14/17 07:59 Dose: 60 mg Metoprolol Succinate (Toprol Xl) 200 mg PO DAILY [facility] Stop: 08/15/17 09:01 Last Admin: 02/14/17 09:07 Dose: 200 mg Morphine Sulfate (Morphine Sulfate) 2 mg IVP Q4HR PRN PRN Reason: Severe Pain (7-10) Stop: 08/14/17 14:32 Multivitamins/Calcium (Thera M Plus) 1 tab PO QAM [facility] Stop: 08/15/17 09:01 Last Admin: 02/14/17 09:06 Dose: 1 tab Naloxone HCl (Narcan) 0.4 mg IVP Q2MIN PRN PRN Reason: Opioid Reversal Stop: 08/14/17 14:32 Ondansetron HCl (Zofran) 4 mg IVP Q8HR PRN PRN Reason: Nausea And Vomiting Stop: 08/14/17 14:32 Pantoprazole Sodium (Protonix) 40 mg IVP DAILY [facility] Stop: 08/15/17 19:01 Last Admin: 02/14/17 09:06 Dose: 40 mg Pharmacy Profile Note (Patient Taking Own Medication) 0 each OP BID [facility] Stop: 08/14/17 21:01 Last Admin: 02/14/17 09:07 Dose: Not Given Rivaroxaban (Xarelto) 15 mg PO QPM [facility] Stop: 08/14/17 18:01 Last Admin: 02/13/17 17:22 Dose: 15 mg Ropinirole HCl (Requip) 1 mg PO HS [facility] Stop: 08/14/17 21:01 Last Admin: 02/13/17 20:12 Dose: 1 mg Senna/Docusate Sodium (Senna Plus) 2 each PO BID [facility] PRN Reason: Protocol Stop: 08/14/17 21:01 Last Admin: 02/14/17 09:06 Dose: 2 each Simvastatin (Zocor) 40 mg PO QPM [facility] PRN Reason: Protocol Stop: 08/14/17 18:01 Last Admin: 02/13/17 17:22 Dose: 40 mg - Imaging and Cardiology Echo: report reviewed Other Results: 12 hour tele: avg [id number] afib. - EKG Interpretation EKG results cardiology: personally reviewed Consult Discharge Plan - Plan Referrals: Carlyn Bain MD [Partnered Physician] - 02/15/17 1:45 pm Jimmie Bermudez MD [Partnered Physician] - 02/23/17 1:20 pm
[2017-02-14] MEDS: dilTIAZem HCl 60 MG TABLET PO SCH ×3 (13:12→22:09)
[2017-02-14] MEDS ORDERED: *HR* LORazepam 2 MG/ML VIAL ONE (15:51)
[2017-02-14] MEDS: *HR* LORazepam 2 MG/ML VIAL IVP PRN ×3 (15:55→22:32)
[2017-02-14] MEDS: *HR* Rivaroxaban 15 MG TABLET PO SCH (17:38)
[2017-02-14] MEDS: rOPINIRole 1 MG TABLET PO SCH (22:09)
[2017-02-15] MEDS: ALPRAZolam 0.25 MG TABLET PO SCH ×3 (00:25→11:55)
[2017-02-15] MEDS: methylPREDNISolone 125 MG/2 ML VIAL IVP SCH ×4 (00:33→23:32)
[2017-02-15] MEDS: Levalbuterol Neb 1.25 MG/3 ML IH SCH ×4 (04:09→21:44)
[2017-02-15 04:53] LABS: Basophils % 0.1 %; Hematocrit 34.7 % (37.5-50.1); Hemoglobin 11.4 g/dL (12.9-16.9); Immature Granulocytes % 0.8 % (0-4); Lymphocytes # 0.2 K/mcL (0.6-4.6); Lymphocytes % 1.2 %; Mean Corpuscular HGB Conc 32.9 g/dL (31.6-35.5); Mean Corpuscular Hemoglobin 30.9 pg (28.0-33.3); Mean Platelet Volume 11.5 fL (9.4-12.4); Monocytes # 0.3 K/mcL (0.0-1.3); Monocytes % 1.8 %; Neutrophils # 16.4 K/mcL (1.6-8.9); Platelet Count 299 K/mcL (140-400); Red Blood Count 3.69 M/mcL (4.19-5.50); Red Cell Distribution Width 14.9 % (11.5-14.5); Segmented Neutrophils % 96.1 %
[2017-02-15 05:01] LABS: Albumin 2.6 g/dL (3.5-5.0); Albumin/Globulin Ratio 0.8 (1.1-2.2); Bilirubin,Total 0.7 mg/dL (0.2-1.2); Calcium 8.8 mg/dL (8.6-10.8); Globulin 3.1 g/dL (2.4-3.5); Magnesium 2.5 mg/dL (1.6-2.6); Potassium 3.8 mEq/L (3.5-4.5); Total Protein 5.7 g/dL (6.0-8.3)
[2017-02-15] MEDS: *HR* LORazepam 2 MG/ML VIAL IVP PRN (06:39)
[2017-02-15] MEDS: Insulin LISPRO 300 UNITS/3 ML VIAL SQ SCH ×4 (08:25→21:42)
[2017-02-15] MEDS: Sennosides/Docusate Sodium TABLET PO SCH ×2 (08:35→21:41)
[2017-02-15] MEDS: Furosemide 40 MG TABLET PO SCH (08:35)
[2017-02-15] MEDS: dilTIAZem HCl 60 MG TABLET PO SCH ×4 (08:35→21:42)
[2017-02-15] MEDS: Metoprolol XL (24 HR) Succ 50 MG TAB.ER.24H PO SCH (08:35)
[2017-02-15] MEDS: Piperacillin/Tazobactam 3.375 GM in D5% in Water (Mini-Bag+) 100 ML IVPB SCH (08:35)
[2017-02-15] MEDS: Aspirin Enteric Coated 81 MG Tablet PO SCH (08:35)
[2017-02-15] MEDS: Multivit/Ca/Min/Fe/FA 1 TAB TABLET PO SCH (08:35)
[2017-02-15] MEDS: Pantoprazole 40 MG VIAL IVP SCH (08:36)
[2017-02-15] MEDS: (Cyclosporine [Restasis] 1 DROP) OP SCH (08:36)
--- NOTE | 2017-02-15 09:46 | Electrocardiograph Report ---
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
[2017-02-15] MEDS: Insulin DETEMIR 100 UNIT/ML X5UNITS SQ SCH (09:49)
[2017-02-15] MEDS: Levofloxacin 750 MG/150 ML 750 MG/150 ML BAG IVPB SCH (13:23)
[2017-02-15] MEDS ORDERED: Artificial Tears SOLN 15 ML BOTTLE BOTH EYES PRN (14:58)
--- NOTE | 2017-02-15 16:34 | Infectious Disease Consult ---
Date of Encounter: 02/15/17 Time of Encounter: 16:30 Assessment and Plan (1) Dyspnea Status: Acute Assessment and plan: Reviewed chest x-ray from the seventh and then repeat x-ray from February 14. The x- ray is not very impressive for pneumonia. Patient has been afebrile since admission. He does meet 3 surgical criteria with leukocytosis, tachycardia, and tachypnea. However his tachycardia tachypnea may very well be explained by his atrial fibrillation with RVR and his severe COPD. Patient has had multiple admissions in the past year for either COPD or exacerbation of his CHF. Would strongly consider noncompliance as causative agent. Additionally psych clearance patient has baseline confusion but this could be contributing. I also considered aspiration pneumonia. However gait patient is currently eating lunch and is having no difficulties with this is less likely. Could also consider noninfectious etiologies for his recurrent symptoms. Recommendations: At this time I think bacterial pneumonia is less likely. Leukocytosis is likely secondary from steroids. I would recommend checking for urination antigen was. with Legionella and strep pneumonia. Would recommend discontinue Zosyn and continue levofloxacin to treat as a severe COPD exacerbation. Your continued excellent care of the patient's COPD and congestive heart failure. Continue to monitor for drug toxicities. Thank you for the consultation and involving us in this patient's care. Qualifiers: Dyspnea type: unspecified Qualified Code(s): R06.00 - Dyspnea, unspecified (2) Leukocytosis Status: Acute Assessment and plan: Trimming down. Neutral predominate. Afebrile. Likely secondary to steroid use. Continue to monitor. Qualifiers: Leukocytosis type: unspecified Qualified Code(s): D72.829 - Elevated white blood cell count, unspecified (3) COPD (chronic obstructive pulmonary disease) Status: Acute Assessment and plan: Management per primary team. Qualifiers: COPD type: COPD with acute exacerbation Qualified Code(s): J44.1 - Chronic obstructive pulmonary disease with (acute) exacerbation (4) Diastolic heart failure Status: Acute Assessment and plan: Management per primary team. Qualifiers: Heart failure chronicity: acute on chronic Qualified Code(s): I50.33 - Acute on chronic diastolic (congestive) heart failure (5) Confusion Status: Acute Assessment and plan: There is secondary to his current medical conditions. However would also consider underlying dementia. We will defer to primary team. (6) Sepsis Status: Acute Assessment and plan: met 3 sirs criteria on admission likely secondary to COPD exacerbation CXR negative for pneumonia Qualifiers: Sepsis type: sepsis due to unspecified organism Qualified Code(s): A41.9 - Sepsis, unspecified organism (7) Pleural effusion Status: Chronic Assessment and plan: on the left side no signs of empyema worse when compared with xray from 02/12/17 (8) Atrial fibrillation with rapid ventricular response Status: Acute Infectious Disease HPI - Data of Consult Patient: new to practice Consult date: 02/15/17 Requesting Physician: Kaye Arrieta MD Primary Care Provider: PCP NO - Consult Narrative Reason for consult: HCAP Pneumonia History of present illness: Mr. Flores is a 86 y.o. male who was admitted on 02/12/2017 for A. fib with rapid ventricular response and healthcare associated pneumonia with acute exacerbation of COPD. Infectious disease is consulted on 02/15/2017 for age Pneumonia and recommendations on antibiotics. This is a 86 y.o. male with pmh significant for diastolic congestive heart failure, severe COPD with the recent FEV1 of 29%, insulin-dependent diabetes mellitus. Of note the patient had a recent hospitalization from 02/02/2017 until 02/06/2017 where he was treated for acute heart failure, A. fib with RVR, and COPD exacerbation. He did not receive antibiotics on discharge. Since admission they have met 3 SIRS criteria of tachycardia, tachypnea, leukocytosis. Peak white blood cell count has been 21.9. This is treated down with today's white blood cell count being 17.1 with some mild neutrophil predominance. He has been afebrile with a MAXIMUM TEMPERATURE of 99.0. He did have a chest x-ray on 02/12/2017 which revealed a small right lower lobe opacity that could represent pneumonia versus atelectasis. He would also have a repeat chest x-ray on 02/14/2017. This would show a worsening left pleural effusion. Blood cultures from 02/12/2017 show no growth to date. UA would reveal 15-20 white blood cells, moderate leukocytes esterase, and blood. However it did appear contaminated with many squamous cells. Today Mr. Flores states that he is feeling better. He denies having a fever but does admit to cough. He states that it is nonproductive. He states that he occasionally will get choked while eating but not very often. He does admit to some wheezing prior to admission. Admits to some lower extremity edema. He denies any sick contacts. He denies any rash denies any diarrhea. He has no further complaints or concerns at this time. Of note Mr. Flores is a poor historian he is orientated to self and place however he is not currently orientated to time and tells me that it is September 2015. Additionally he is unaware of some of his past medical history. Therefore the medical history was supplemented by chart review. CC: Kaye Arrieta MD Past Med Surg Social Fam HX - Past Medical History Medical history: arthritis, atrial fibrillation, CHF, coronary artery disease, diabetes, hyperlipidemia, hypertension, renal disease, valvular heart disease Psychiatric history: no psych history - Past Surgical History Surgical History: appendectomy, cholecystectomy, knee replacement, orthopedic, other - Social History Smoking Status: Never smoker Smokeless Tobacco Status: No Alcohol use: none Drug use: none - Family History Mother Family Member Ethnicity: Non- Living Status: Brother Family Member Ethnicity: Non- Living Status: Sister Family Member Ethnicity: Non- Living Status: Still Living Father Family Member Ethnicity: Non- Living Status: Hx Family Cardiac Disorders: No Hx Family Respiratory Disorders: No Hx Family Cancer: No Hx Family GI Disorders: No Hx Family Endocrine Disorder: Yes (DM) Hx Family Neuromuscular Disorders: No Hx Family Neurologic Disorders: No Hx Family HEENT Disorders: No Hx Family Autoimmune Disorders: No Infectious Disease-CN:Meds Cyclosporine [Restasis] 1 drop OP BID 04/17/15 [History] Gabapentin [Neurontin] 400 mg PO TID 04/17/15 [History] Insulin Glargine,Hum.rec.anlog [Lantus Solostar] 24 unit SQ QAM 04/17/15 [ History] Multivit-Min/FA/Lycopen/Lutein [Centrum Silver Tablet] 1 tab PO QAM 04/17/15 [ History] Rivaroxaban [Xarelto] 15 mg PO QPM 04/17/15 [History] Ropinerole [Requip] 1 mg PO HS 04/17/15 [History] Simvastatin [Zocor] 40 mg PO QPM 09/17/15 [History] Albuterol Sulfate [Proair Hfa] 1 puff IH Q6H PRN #1 inh 10/12/15 [Rx] Potassium Chloride 10 meq PO BID 11/25/16 [History] Furosemide [Lasix] 40 mg PO QPM #30 tab 11/28/16 [Rx] Furosemide [Lasix] 60 mg PO QAM #90 tablet 11/28/16 [Rx] Aspirin Enteric Coated [Aspirin EC] 81 mg PO DAILY #30 tablet. 02/06/17 [Rx] Budesonide/Formoterol 80/4.5 [Symbicort 80/4.5] 1 puff IH BID #5 hfa.aer.ad 08/25 [Rx] Diltiazem CD (24hr) [Cardizem CD] 360 mg PO DAILY 30 Days 02/06/17 [Rx] Metoprolol XL (24 HR) Succ [Toprol Xl] 200 mg PO DAILY 30 Days 02/06/17 [Rx] Sennosides/Docusate Sodium [Senna Plus] 2 tab PO BID 02/12/17 [History] Allergies codeine Allergy (Mild, Verified 02/01/17 07:37) Flushing tramadol Allergy (Mild, Verified 02/01/17 07:37) Dizziness metformin Adverse Reaction (Mild, Verified 02/01/17 07:37) Nausea Review of systems: Constitutional: Denies fever , chills, rigors, night sweats, weight loss or weight gain. HEENT: Denies headache, denies sore throat, post nasal drip, nasal congestion, rhinnorhea, sinus pressure, hearing or vision changes, stiff neck Heart: Denies chest pain, palpitations, orthopnea Respiratory: As per history of present illness. Additionally he denies hemoptysis. GI: Denies N/V/D denies abdominal pain. : denies dysuria, hematuria, change in frequency of urination. MSK: denies new aches or paines. Neuro: denies focal motor or sensory defecits. Denies recent seizure activity. Endocrine: denies weight change, polyuria, polydipsia, change in hair or nails Lymph: denies swollen lymph noeds in the neck axilla or groin Travel: denies recent travel Animal exposure: Denies Sick contacts: Denies. Denies. Denies being exposed to small children. Of note the patient is a poor historian at this time. Exam - Constitutional Vitals: Temp Pulse Resp BP Pulse Ox 97.6 F 96 16 91/69 94 02/15/17 15:50 02/15/17 15:50 02/15/17 15:54 02/15/17 15:50 02/15/17 15:54 Exam: Gen.: This is a well-developed well-nourished 86-year-old male who is currently orientated to person and place but not to time. Lying in bed currently eating lunch and appears to be in no acute distress at this time. HEENT: Eyes normal cephalic atraumatic. Pupils are equally round. Normal external appearance of ears nose and eyes. Moist mucous membranes. Neck supple without masses thyromegaly. Heart: Heart has regular rate and rhythm without murmurs rubs or gallops. Lungs: Mild rhonchi and coarse breath sounds in the left lower lung field. Normal effort breathing speaks in full sentences. Normal rise and express the chest vieira bilaterally. Abdomen: The abdomen is obese, nondistended, bowel sounds are positive. No fluid wave. Nontender to palpation. Musculoskeletal: Grossly normal for age no gross deformity noted. Extremities: There is no clubbing or cyanosis. There is a 1+ pitting edema of the lower knee bilaterally. Infectious Disease CN: Results - Labs CBC & Chem 7: 02/16/17 04:47 02/16/17 04:47 Serology: Serology 02/13/17 Range/Units 23:15 Urine Color Red A (Yellow) Urine Clarity Cloudy A (Clear) Urine pH 5.5 (5.0-8.0) pH Units Ur Specific [place] 1.016 (1.010-1.025) Urine Protein 100 H (Neg-Trace) mg/dL Urine Glucose (UA) Normal (Normal) mg/dL Urine Ketones Trace H (Negative) mg/dL Urine Blood Large H (Negative) Urine Nitrite Negative (Negative) Urine Bilirubin Negative (Negative) Urine Urobilinogen Normal (Normal) mg/dL Ur Leukocyte Esterase Moderate H (Negative) Urine Microscopic RBC TNTC H (0-3) per hpf Urine Microscopic WBC 15-30 H (0-3) per hpf Ur Squamous Epith Cells Many H (None-Few) per lpf Urine Bacteria None Seen (None-Few) per hpf Hyaline Casts None Seen (None-Few) per lpf Consult Discharge Plan - Plan Referrals: Jimmie Bermudez MD [Partnered Physician] - 02/23/17 1:20 pm Jaime Garcia MD [Non-Partnered Physician] - 02/22/17 4:00 pm - Attending Attestation I examined this patient and my medical decision-making was reviewed with the EXTRUSION OPERATOR/PA/Advanced Practice Nurse/Resident Physician. I agree with the documented findings, disposition and treatment plan as described except to the extent set forth below. Patient is an 86 year old gentleman admitted to [facility] on 02/12/17 for shortness of breath and A fib with RVR, we are consulted on 02/15/17 for pneumonia. Patient with past medical history mentioned below came in with shortness of breath and A fib with RVR. He was recently admitted I late january with COPD exacerbation and A fib with RVR. Treated appropriately and discharged home on no antibiotics. Patient was evaluated in the Ed and met 3 SIRS criteria, leukocytosis without bands. Work up revealed possible right lower lobe pneumonia on 02/12/17. Repeat chest xray on 02/14/17 mentions normal right lung. Blood cultures taken did not reveal any organism. Urine was contaminated. Patient was started on empiric levofloxacin and Zosyn for healthcare associated pneumonia. Patient continues to be afebrile,. Leukocytosis with neutrophilic predominance. At this point I reviewed the chest x-rays which are really not that impressive for pneumonia, there is a pleural effusion on the left side is getting bigger. Patient leukocytosis is most likely due to his Solu-Medrol, it seems to be trending down already. At this point I think its warranted to treat the patient for COPD exacerbation with levofloxacin. Okay to DC vancomycin and Zosyn. Check urine pneumococcal antigen. If pleural effusion on the left continues to get worse, consider consulting cardiothoracic or pulmonary for possible thoracentesis. Monitor labs and for drug toxicity, dose adjust antibiotics based on creatinine clearance. Patient is a 33-year-old woman admitted on 02/14/2017 for UTI and possible pyelonephritis, we are consulted to see the patient for urinary tract infection in a neurogenic bladder with straight catheter and multiple recurrent UTIs in the past with multidrug resistant organisms.
[2017-02-15] MEDS: *HR* Rivaroxaban 15 MG TABLET PO SCH (17:16)
--- NOTE | 2017-02-15 17:29 | Internal Med Progress Note ---
Date of Encounter: 02/15/17 Time of Encounter: 17:22 - Assessment and plan (1) Pleural effusion Current Visit: Yes Status: Chronic (2) HTN (hypertension) Current Visit: Yes Status: Chronic Qualifiers: Hypertension type: essential hypertension Qualified Code(s): I10 - Essential (primary) hypertension (3) CKD (chronic kidney disease) stage 3, GFR 30-59 ml/min Current Visit: Yes Status: Chronic (4) Type 2 diabetes mellitus Current Visit: No Status: Chronic Qualifiers: Diabetes mellitus complication status: with unspecified complications Diabetes mellitus emt intermediate insulin use: with chcf use Qualified Code(s) : E11.8 - Type 2 diabetes mellitus with unspecified complications; Z79.4 - assisted (current) use of insulin (5) DVT prophylaxis Current Visit: Yes Status: Acute (6) Acute on chronic diastolic heart failure Current Visit: Yes Status: Acute (7) Elevated troponin I level Current Visit: No Status: Acute (8) Leg edema Current Visit: No Status: Chronic (9) HCAP (healthcare-associated pneumonia) Current Visit: Yes Status: Acute (10) Sepsis Current Visit: Yes Status: Acute Qualifiers: Sepsis type: sepsis due to unspecified organism Qualified Code(s): A41.9 - Sepsis, unspecified organism (11) Atrial fibrillation with RVR Current Visit: Yes Status: Acute (12) Acute exacerbation of COPD with asthma Current Visit: Yes Status: Acute (13) Acute worsening of stage 3 chronic kidney disease Current Visit: Yes Status: Acute - Subjective Interval history: Mr. Ciro RYAN is an 86-year-old male who was recently discharged from hospital. He has returned with right lower lobe pneumonia, acute on chronic A. fib with RVR, acute on chronic diastolic condition of heart failure, acute exacerbation of COPD and stage III underlying C daily. He has been started on IV Levaquin and Zosyn, IV steroids nebulizers, all toe, IV Cardizem, IV amiodarone and metoprolol with aspirin. His troponin I in the range of 0.2 but is stable on 2 readings and suspect must be secondary to chronic kidney disease. His chest x-ray did not show signs of CHF however he has some peripheral edema with ascites and pedal edema. I think it is justifiable to continue with low-dose Lasix keeping him around 400-500 minus on I's and O's. Cardiology is involved. I have ordered daily CBC CMP magnesium and one extra set of troponin just in case. Echo today gram done previously showed an ejection fraction of 50% with LV diastolic dysfunction. Patient was seen. He feels much better today. However on on chest examination I noted the he has a lot of rhonchi some wheezing and some rales. I will add Solu-Medrol as his breath sounds seems to have improved and I think we should maximize medical treatment. Albuterol nebs have been substituted by Xopenex nebs as his heart rate is high and according to hospital protocol albuterol nebs cannot be given above heart rate 100. A 6 increased to 80 IV twice a day as he is making not enough urine and we would further like to diurese him more. I suspect that once we maximize treatment for his lungs and they stabilize his heart rate would stabilize itself and it would be rather easier to manage his A. fib. Cardiology is on case. Will follow CBC CMP tomorrow. 02/14 patient's heart rate is borderline controlled while he is on oral metoprolol 200 and Cardizem and amiodarone drip. He is on Xarelto insofar hemoglobin is stable. His previous echocardiogram showed ejection fraction of 50% with LV diastolic function mainly. He suspected to have right-sided pneumonia and UTI though cultures are pending and he was on vancomycin and Zosyn and Levaquin however considering that creatinine is worsening his morning vancomycin will be DC'd. Continue monitoring white count is 20,000 this morning. Continue IV steroids med nebs and Mucinex for COPD. Kierra try to diurese him and increase his Lasix to 80 mg IV twice a day but he is actually positive fluid balance. Might need to involve nephrology. 02/15 patient seems to be doing a little better today and he has the same opinion. His heart rate has come down blood pressure is more stable while he is more awake and able to answer my questions much better. Audiology has taken him off IV amiodarone and kept him on Cardizem while he is on renally adjusted Xarelto. Infectious disease has seen him and he may have aspiration pneumonia. He is currently on Zosyn and Levaquin. Infectious disease is recommending only Levaquin. He has CKD with base function 1.5 but now it is 2.5 therefore nephrology was consulted - Constitutional Vitals: Temp Pulse Resp BP Pulse Ox 97.6 F 96 16 91/69 94 02/15/17 15:50 02/15/17 15:50 02/15/17 15:54 02/15/17 15:50 02/15/17 15:54 General appearance: Present: mild distress, A&O X 3, answers questions appropriately - Head Head exam: Present: atraumatic, normocephalic - Eye Eye exam: Present: PERRL, conjuntiva pink, sclera anicteric Pupils: Present: PERRL - Neck Neck exam general surgery: Present: supple, trachea midline. Absent: lymphadenopathy - Respiratory Respiratory exam: Present: decreased breath sounds, rales, rhonchi, wheezes. Absent: accessory muscle use - Cardiovascular Cardiovascular exam: Present: irregular rhythm, +S1, +S2. Absent: diastolic murmur, gallop, rubs, systolic murmur - GI/Abdominal GI/Abdominal exam: Present: normal bowel sounds, soft, no peritoneal signs. Absent: distended, tenderness - Extremities Exam Extremities exam: Present: pedal edema, warm, radial pulses palpable and symetrical. Absent: calf tenderness, cyanotic - Neurological Exam Neurological exam: Present: CN II-XII intact, oriented X3, no focal deficits. Absent: pronater drift, facial droop, speech deficit - Skin Skin exam: Present: dry, intact Internal Medicine: Result - Labs CBC & Chem 7: 02/15/17 03:48 02/15/17 03:48 Labs: Short CBC 02/15/17 Range/Units 03:48 WBC 17.1 H (4.3-11.1) K/mcL Hgb 11.4 L (12.9-16.9) g/dL Hct 34.7 L (37.5-50.1) % Plt Count 299 (140-400) K/mcL Neutrophils # 16.4 H (1.6-8.9) K/mcL BMP 02/15/17 03:48 Sodium 140 Potassium 3.8 Chloride 96 L Carbon Dioxide 31 H BUN 74 H Creatinine 2.53 H Glucose 138 H Calcium 8.8 Liver Function 02/15/17 Range/Units 03:48 Total Bilirubin 0.7 (0.2-1.2) mg/dL AST 23 (5-34) Units/L ALT 28 (0-55) Units/L Alkaline Phosphatase 85 (38-126) Units/L Albumin 2.6 L (3.5-5.0) g/dL - ABG Interpretation ABG results: PT/INR, D-dimer PT 20.6 Seconds (9.4-12.1) H 02/12/17 12:03 Consult Discharge Plan - Plan Referrals: Jimmie Bermudez MD [Partnered Physician] - 02/23/17 1:20 pm Jaime Garcia MD [Non-Partnered Physician] - 02/22/17 4:00 pm
[2017-02-15] MEDS: rOPINIRole 1 MG TABLET PO SCH (21:41)
[2017-02-16] MEDS: Levalbuterol Neb 1.25 MG/3 ML IH SCH ×4 (04:23→22:16)
[2017-02-16 04:58] LABS: Basophils % 0.1 %; Hematocrit 38.1 % (37.5-50.1); Hemoglobin 12.6 g/dL (12.9-16.9); Immature Granulocytes % 0.9 % (0-4); Lymphocytes # 0.2 K/mcL (0.6-4.6); Mean Corpuscular HGB Conc 33.1 g/dL (31.6-35.5); Mean Corpuscular Hemoglobin 30.5 pg (28.0-33.3); Mean Corpuscular Volume 92.3 fL (83.0-100.0); Mean Platelet Volume 11.1 fL (9.4-12.4); Monocytes % 2.4 %; Neutrophils # 17.6 K/mcL (1.6-8.9); Platelet Count 335 K/mcL (140-400); Red Blood Count 4.13 M/mcL (4.19-5.50); Segmented Neutrophils % 95.6 %
[2017-02-16 05:13] LABS: Albumin 2.5 g/dL (3.5-5.0); Albumin/Globulin Ratio 0.8 (1.1-2.2); Bilirubin,Total 0.7 mg/dL (0.2-1.2); Calcium 8.7 mg/dL (8.6-10.8); Globulin 3.1 g/dL (2.4-3.5); Magnesium 2.5 mg/dL (1.6-2.6); Potassium 3.6 mEq/L (3.5-4.5); Total Protein 5.6 g/dL (6.0-8.3)
[2017-02-16 05:47] LABS: Monocytes # 0.4 K/mcL (0.0-1.3)
[2017-02-16 05:59] LABS: Platelet Estimate Normal (Normal)
[2017-02-16] MEDS: dilTIAZem HCl 60 MG TABLET PO SCH ×4 (08:23→21:29)
[2017-02-16] MEDS: Metoprolol XL (24 HR) Succ 50 MG TAB.ER.24H PO SCH (08:23)
[2017-02-16] MEDS: Insulin DETEMIR 100 UNIT/ML X5UNITS SQ SCH (08:23)
[2017-02-16] MEDS: Pantoprazole 40 MG VIAL IVP SCH (08:23)
[2017-02-16] MEDS: Sennosides/Docusate Sodium TABLET PO SCH ×2 (08:23→21:29)
[2017-02-16] MEDS: Furosemide 40 MG TABLET PO SCH (08:23)
[2017-02-16] MEDS: Aspirin Enteric Coated 81 MG Tablet PO SCH (08:23)
[2017-02-16] MEDS: Multivit/Ca/Min/Fe/FA 1 TAB TABLET PO SCH (08:23)
[2017-02-16] MEDS: methylPREDNISolone 125 MG/2 ML VIAL IVP SCH (08:24)
[2017-02-16] MEDS: Insulin LISPRO 300 UNITS/3 ML VIAL SQ SCH ×4 (08:25→21:30)
--- NOTE | 2017-02-16 11:16 | Infectious Disease Progress No ---
Date of Encounter: 02/16/17 Time of Encounter: 10:25 - Assessment and Plan (1) Sepsis Current Visit: Yes Status: Acute Patient meets 3 SIRS criteria of Tachycardia, tachypnea, and leukocytosis. Source is secondary to pneumonia. Lactic acid was normal on admission. Currently hemodynamically stable. Continue Zosyn and LEvofloxacin Qualifiers: Sepsis type: sepsis due to unspecified organism Qualified Code(s): A41.9 - Sepsis, unspecified organism (2) Pneumonia Current Visit: Yes Status: Acute as stated above. Qualifiers: Pneumonia type: due to unspecified organism Laterality: unspecified laterality Lung location: unspecified part of lung Qualified Code(s): J18.9 - Pneumonia, unspecified organism (3) Dyspnea Current Visit: Yes Status: Acute HCAP. Legionella and Strep antigens negative. Patient continues on 2L of Oxygen. With CT findings may consider silent aspiration. Would recommend Speech therapy consult with formal swallow evaluation. Recommend restarting Zosyn. I calculate CrCL to be 24 so should have dose adjusted to 3.375 grams Q12h. Discussed with Pharmacy. Continue Levofloxacin 750 mg IV Q48H. Recommend getting an induced sputum. Continue to monitor for drug toxicities. Chest X-Ray 02/16/17 07:00 IMPRESSION: Stable small left pleural effusion with left basilar airspace disease or atelectasis. D/ / 02/16/2017 14:26:42 Adriano Orozco MD / Agata Martinez Interpreting Provider: Adriano Orozco MD Chest CT 02/16/17 11:00 IMPRESSION: New heterogeneous ground-glass and nodular infiltrate is seen with right-sided predominance, suggestive of pneumonia or aspiration. Left lower lobe collapse. Follow-up to resolution is recommended after chest physical therapy. Persistent small bilateral pleural effusions, left greater than right. D/ / Abisai Landon MD / Abisai Landon MD Interpreting Provider: Abisai Landon MD Qualifiers: Dyspnea type: unspecified Qualified Code(s): R06.00 - Dyspnea, unspecified (4) Leukocytosis Current Visit: Yes Status: Acute Trending up mildly today. 18.4 from 17.1 Neutrophil predominant. However patient is also on steroids. Qualifiers: Leukocytosis type: unspecified Qualified Code(s): D72.829 - Elevated white blood cell count, unspecified (5) COPD (chronic obstructive pulmonary disease) Current Visit: Yes Status: Acute severe management per primary team. Qualifiers: COPD type: COPD with acute exacerbation Qualified Code(s): J44.1 - Chronic obstructive pulmonary disease with (acute) exacerbation (6) Diastolic heart failure Current Visit: Yes Status: Acute management per primary team. Qualifiers: Heart failure chronicity: acute on chronic Qualified Code(s): I50.33 - Acute on chronic diastolic (congestive) heart failure (7) Confusion Current Visit: Yes Status: Acute patient is alert but still has quite a lot of confusion on todays exam. Likely a result of his acute illness. (8) Atrial fibrillation Current Visit: Yes Status: Chronic Diastolic currently rate controlled. Management per primary team Qualifiers: Atrial fibrillation type: paroxysmal Qualified Code(s): I48.0 - Paroxysmal atrial fibrillation (9) CHF (congestive heart failure) Current Visit: Yes Status: Chronic Qualifiers: Congestive heart failure type: diastolic Congestive heart failure chronicity: acute on chronic Qualified Code(s): I50.33 - Acute on chronic diastolic (congestive) heart failure (10) Pleural effusion Current Visit: Yes Status: Acute Likely from volume overload. - Subjective Interval history: No major events overnight. Patient states that he is feeling better. He denies dyspnea. Admits to cough and wheeze. Denies pain, discomfort, rash, diarrhea. HE has no further complaints or concerns at this time. Of not patient is still confused at this time. Infect Dis PN-Objective Data - Labs CBC & Chem 7: 02/17/17 04:05 02/17/17 04:05 Labs: Laboratory Results - last 24 hr 02/15/17 02/15/17 02/15/17 07:11 11:45 16:40 WBC RBC Hgb Hct MCV MCH MCHC RDW Plt Count MPV Immature Gran % Seg Neutrophils % Lymphocytes % Monocytes % Eosinophils % Basophils % Neutrophils # Lymphocytes # Monocytes # Eosinophils # Basophils # Platelet Estimate Sodium Potassium Chloride Carbon Dioxide BUN Creatinine Est GFR ( Amer) Est GFR (Non-Af Amer) BUN/Creatinine Ratio Glucose POC Glucose 143 H 268 H 256 H Calculated Osmolality Calcium Magnesium Total Bilirubin AST ALT Alkaline Phosphatase Serum Total Protein Albumin Globulin Albumin/Globulin Ratio 02/15/17 02/16/17 02/16/17 21:05 04:47 04:47 WBC 18.4 H RBC 4.13 L Hgb 12.6 L Hct 38.1 MCV 92.3 MCH 30.5 MCHC 33.1 RDW 15.0 H Plt Count 335 MPV 11.1 Immature Gran % 0.9 Seg Neutrophils % 95.6 Lymphocytes % 1.0 Monocytes % 2.4 Eosinophils % 0.0 Basophils % 0.1 Neutrophils # 17.6 H Lymphocytes # 0.2 L Monocytes # 0.4 Eosinophils # 0.0 Basophils # 0.0 Platelet Estimate Normal Sodium 137 Potassium 3.6 Chloride 96 L Carbon Dioxide 31 H BUN 84 H Creatinine 2.60 H Est GFR ( Amer) 29 L Est GFR (Non-Af Amer) 24 L BUN/Creatinine Ratio 32 H Glucose 176 H POC Glucose 202 H Calculated Osmolality 314 H Calcium 8.7 Magnesium 2.5 Total Bilirubin 0.7 AST 17 ALT 27 Alkaline Phosphatase 88 Serum Total Protein 5.6 L Albumin 2.5 L Globulin 3.1 Albumin/Globulin Ratio 0.8 L Cultures: Serology 02/13/17 Range/Units 23:15 Urine Color Red A (Yellow) Urine Clarity Cloudy A (Clear) Urine pH 5.5 (5.0-8.0) pH Units Ur Specific [facility] 1.016 (1.010-1.025) Urine Protein 100 H (Neg-Trace) mg/dL Urine Glucose (UA) Normal (Normal) mg/dL Urine Ketones Trace H (Negative) mg/dL Urine Blood Large H (Negative) Urine Nitrite Negative (Negative) Urine Bilirubin Negative (Negative) Urine Urobilinogen Normal (Normal) mg/dL Ur Leukocyte Esterase Moderate H (Negative) Urine Microscopic RBC TNTC H (0-3) per hpf Urine Microscopic WBC 15-30 H (0-3) per hpf Ur Squamous Epith Cells Many H (None-Few) per lpf Urine Bacteria None Seen (None-Few) per hpf Hyaline Casts None Seen (None-Few) per lpf - Imaging and cardiology CT scan - abdomen Status: image reviewed by me Exam - Constitutional Vitals: Temp Pulse Resp BP Pulse Ox 97.5 F L 106 18 103/70 89 02/16/17 07:13 02/16/17 07:13 02/16/17 09:27 02/16/17 07:13 02/16/17 09:27 Exam: General: PAtient is alert but orientated to self and place this AM. However he is also in a state of undress. He appears comfortable and in no acute distress. HEENT: NC/AT anicteric, Dry mucous membranes, poor dentition, Neck is supple, trachea midline, no cervicel LAD. Heart: Irregular irregular, no M/R/G Lungs: Worsening course breath sound and rhonci on the right mid and lower lung combs. Abdomen: obese, soft, nontender, nondistended, MSK: no gross deformities Extremities: pedal edema present bilaterally. Integument: No rash or lesions. Consult Discharge Plan - Plan Referrals: Jimmie Bermudez MD [Partnered Physician] - 02/23/17 1:20 pm Jaime Garcia MD [Non-Partnered Physician] - (Patient is going to rehab, no PCP appointment needed) - Attending Attestation I examined this patient and my medical decision-making was reviewed with the REHABILITATION MANAGER/PA/Advanced Practice Nurse/Resident Physician. I agree with the documented findings, disposition and treatment plan as described except to the extent set forth below.
--- NOTE | 2017-02-16 12:38 | Nephrology Consult Note ---
Date of Encounter: 02/16/17 Time of Encounter: 12:05 Assessment and Plan (1) Acute kidney injury superimposed on chronic kidney disease Current Visit: Yes Status: Acute Acute kidney injury most likely related to diuresis superimposed on CKD 3 in setting of diabetic nephropathy and hypertension. Baseline 1.6-2.0. Would hold Lasix for 1-2 days to see if renal fct improves. will continue to monitor. History of Present Illness - Reason for Consult Chronic Kidney Disease - History of Present Illness Mr. Flores is an 86 year old male known to practice with CKD, baseline creat 1.6- 2.0 for past year. In setting of diabetic nephropathy and hypertension.At consult Mr. 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 Other PMH-arthritis, atrial fibrillation, CHF, coronary artery disease, diabetes, hyperlipidemia, hypertension, renal disease, valvular heart disease Mr Fer Flores was admitted on February 12 with HCAP, RLL pneumonia, placed on Vanco, Zosyn and Levaquin following another recent admission for CHF and was diuresed. Currently on Levquin per ID. Had been on Lasix 80 mg twice daily, with creatinine worsening to 2.6. Now on 4og PO daily. He is on a 1500cc fluid restriction. Aj catheter in place with a documented 995 cc urine output in past 24 hours and 250cc currently in bag. CT of chest on 02/15/17 shows persistent small bilateral pleural effusions L>R. LLL collapse, new ground glass opacities on right suggestive of PNA or aspiration. Past Med Surg Social Fam HX - Past Medical History Medical history: arthritis, atrial fibrillation, CHF, coronary artery disease, diabetes, hyperlipidemia, hypertension, renal disease, valvular heart disease Psychiatric history: no psych history - Past Surgical History Surgical History: appendectomy, cholecystectomy, knee replacement, orthopedic, other - Social History Smoking Status: Never smoker Smokeless Tobacco Status: No Alcohol use: none Drug use: none - Family History Mother Family Member Ethnicity: Non- Living Status: Brother Family Member Ethnicity: Non- Living Status: Sister Family Member Ethnicity: Non- Living Status: Still Living Father Family Member Ethnicity: Non- Living Status: Hx Family Cardiac Disorders: No Hx Family Respiratory Disorders: No Hx Family Cancer: No Hx Family GI Disorders: No Hx Family Endocrine Disorder: Yes (DM) Hx Family Neuromuscular Disorders: No Hx Family Neurologic Disorders: No Hx Family HEENT Disorders: No Hx Family Autoimmune Disorders: No Medications and Allergies Cyclosporine [Restasis] 1 drop OP BID 04/17/15 [History] Gabapentin [Neurontin] 400 mg PO TID 04/17/15 [History] Insulin Glargine,Hum.rec.anlog [Lantus Solostar] 24 unit SQ QAM 04/17/15 [ History] Multivit-Min/FA/Lycopen/Lutein [Centrum Silver Tablet] 1 tab PO QAM 04/17/15 [ History] Rivaroxaban [Xarelto] 15 mg PO QPM 04/17/15 [History] Ropinerole [Requip] 1 mg PO HS 04/17/15 [History] Simvastatin [Zocor] 40 mg PO QPM 09/17/15 [History] Albuterol Sulfate [Proair Hfa] 1 puff IH Q6H PRN #1 inh 10/12/15 [Rx] Potassium Chloride 10 meq PO BID 11/25/16 [History] Furosemide [Lasix] 40 mg PO QPM #30 tab 11/28/16 [Rx] Furosemide [Lasix] 60 mg PO QAM #90 tablet 11/28/16 [Rx] Aspirin Enteric Coated [Aspirin EC] 81 mg PO DAILY #30 tablet. 02/06/17 [Rx] Budesonide/Formoterol 80/4.5 [Symbicort 80/4.5] 1 puff IH BID #5 hfa.aer.ad 08/25 [Rx] Diltiazem CD (24hr) [Cardizem CD] 360 mg PO DAILY 30 Days 02/06/17 [Rx] Metoprolol XL (24 HR) Succ [Toprol Xl] 200 mg PO DAILY 30 Days 02/06/17 [Rx] Sennosides/Docusate Sodium [Senna Plus] 2 tab PO BID 02/12/17 [History] Allergies codeine Allergy (Mild, Verified 02/01/17 07:37) Flushing tramadol Allergy (Mild, Verified 02/01/17 07:37) Dizziness metformin Adverse Reaction (Mild, Verified 02/01/17 07:37) Nausea Review of Systems ROS unobtainable: due to mental status Exam - Vital Signs Vital signs: Initial Vital Signs Temp Pulse Resp BP Pulse Ox 97.6 F 162 24 124/104 97 02/12/17 11:59 02/12/17 11:59 02/12/17 11:59 02/12/17 11:59 02/12/17 11:59 Vital Signs - Last 8 Hours Temp Pulse Resp BP Pulse Ox 02/16/17 12:10 97.9 F 106 18 111/80 90 02/16/17 09:27 18 89 02/16/17 07:13 97.5 F L 106 20 103/70 93 02/16/17 04:30 100 02/16/17 04:23 20 92 Intake and Output 02/15/17 02/16/17 02/16/17 23:59 07:59 15:59 Intake Total 600 / 600 500 / 500 480 / 480 Output Total 800 / 800 Balance 600 / 600 -300 / -300 480 / 480 Intake: Oral 600 / 600 500 / 500 480 / 480 Output: Catheter 800 / 800 Other: Meal Dinner goldfish crackers packet Breakfast Percent of Meal Consumed 100% 100% 50% Weight 91.4 kg Blood Glucose* 202 188 284 Patient Weight 02/16/17 23:59 Weight 91.4 kg - General Appearance General appearance: well-developed, well-nourished, appears started age, chronically ill EENT: mucous membranes moist Neck: no JVD, no carotid bruit Respiratory: rhonchi Cardiology: edema, irregular rhythm Additional Comments: mild pitting Gastrointestinal: hypoactive bowel sounds, no tenderness Integumentary: warm and dry Psychiatric: mood/affect appropriate, cooperative Results - Lab Results 02/16/17 04:47 02/16/17 04:47 Most recent lab results Calcium 8.7 mg/dL (8.6-10.8) 02/16/17 04:47 Magnesium 2.5 mg/dL (1.6-2.6) 02/16/17 04:47 Consult Discharge Plan - Plan Referrals: Jimmie Bermudez MD [Partnered Physician] - 02/23/17 1:20 pm Jaime Garcia MD [Non-Partnered Physician] - 02/22/17 4:00 pm
[2017-02-16] MEDS ORDERED: 3% Sodium Chloride Inhalation 4 ML VIAL.NEB IH ONE ×2 (15:16→15:45)
[2017-02-16] MEDS ORDERED: 3% Sodium Chloride Inhalation 4 ML VIAL.NEB IH SCH (16:00)
[2017-02-16] MEDS: *HR* Rivaroxaban 15 MG TABLET PO SCH (17:21)
--- NOTE | 2017-02-16 17:28 | Pulmonology Consult Note ---
Date of Encounter: 02/16/17 Time of Encounter: 04:30 Assessment and Plan (1) Collapse of left lung Current Visit: Yes Status: Acute Reviewed CT chest and there is evidence of left lower lobe collapse and differential diagnosis could be either mucous plugs or endobronchial lesion for that reason bronchoscopy for airway inspection is recommended and explained all the risks, alternatives, benefits of the procedure to the power of banking attorney patient's daughter and she agreed for her father to have the procedure done. Also will evaluate for any evidence of infection with bronchoalveolar lavage. Will need to hold anticoagulation for at least 24 hour before the procedure. (2) HCAP (healthcare-associated pneumonia) Current Visit: Yes Status: Acute Patient has been seen by infectious disease service. Thank you for the consultation. History of Present Illness Consult date: 02/16/17 Requesting physician: Shala Holman Reason for consult: pneumonia Chief complaint: Shortness of breath History of present illness: This is a pleasant 86-year-old pleasant male who was not able to give history due to his mental status change and the history is taken from the daughter who is power of banking attorney at the bedside. Patient has multiple medical problems and he has been having shortness of breath with abnormal CT chest. Patient presented to emergency room complaining: Shortness of breath for about a week before admission and he was recently discharged from the hospital for atrial fibrillation and congestive heart failure. It is really difficult to get any reliable history regarding wheezing or productive cough. There is no hemoptysis. Patient is on anticoagulation. Past Med Surg Social Fam HX - Past Medical History Medical history: arthritis, atrial fibrillation, CHF, coronary artery disease, diabetes, hyperlipidemia, hypertension, renal disease, valvular heart disease Psychiatric history: no psych history - Past Surgical History Surgical History: appendectomy, cholecystectomy, knee replacement, orthopedic, other - Social History Smoking Status: Never smoker Smokeless Tobacco Status: No Alcohol use: none Drug use: none - Family History Mother Family Member Ethnicity: Non- Living Status: Brother Family Member Ethnicity: Non- Living Status: Sister Family Member Ethnicity: Non- Living Status: Still Living Father Family Member Ethnicity: Non- Living Status: Hx Family Cardiac Disorders: No Hx Family Respiratory Disorders: No Hx Family Cancer: No Hx Family GI Disorders: No Hx Family Endocrine Disorder: Yes (DM) Hx Family Neuromuscular Disorders: No Hx Family Neurologic Disorders: No Hx Family HEENT Disorders: No Hx Family Autoimmune Disorders: No Medications and Allergies Cyclosporine [Restasis] 1 drop OP BID 04/17/15 [History] Gabapentin [Neurontin] 400 mg PO TID 04/17/15 [History] Insulin Glargine,Hum.rec.anlog [Lantus Solostar] 24 unit SQ QAM 04/17/15 [ History] Multivit-Min/FA/Lycopen/Lutein [Centrum Silver Tablet] 1 tab PO QAM 04/17/15 [ History] Rivaroxaban [Xarelto] 15 mg PO QPM 04/17/15 [History] Ropinerole [Requip] 1 mg PO HS 04/17/15 [History] Simvastatin [Zocor] 40 mg PO QPM 09/17/15 [History] Albuterol Sulfate [Proair Hfa] 1 puff IH Q6H PRN #1 inh 10/12/15 [Rx] Potassium Chloride 10 meq PO BID 11/25/16 [History] Furosemide [Lasix] 40 mg PO QPM #30 tab 11/28/16 [Rx] Furosemide [Lasix] 60 mg PO QAM #90 tablet 11/28/16 [Rx] Aspirin Enteric Coated [Aspirin EC] 81 mg PO DAILY #30 tablet. 02/06/17 [Rx] Budesonide/Formoterol 80/4.5 [Symbicort 80/4.5] 1 puff IH BID #5 hfa.aer.ad 08/25 [Rx] Diltiazem CD (24hr) [Cardizem CD] 360 mg PO DAILY 30 Days 02/06/17 [Rx] Metoprolol XL (24 HR) Succ [Toprol Xl] 200 mg PO DAILY 30 Days 02/06/17 [Rx] Sennosides/Docusate Sodium [Senna Plus] 2 tab PO BID 02/12/17 [History] Allergies codeine Allergy (Mild, Verified 02/01/17 07:37) Flushing tramadol Allergy (Mild, Verified 02/01/17 07:37) Dizziness metformin Adverse Reaction (Mild, Verified 02/01/17 07:37) Nausea ROS unobtainable: due to mental status All Systems: A 10-system review of systems was performed and is negative for pertinent findings except as documented above in the HPI. Physical Examination Vital Signs: Vital Signs, Last 4 Hours Temp Pulse Resp BP Pulse Ox 02/16/17 16:23 16 98 02/16/17 15:54 97.4 F L 95 19 106/71 95 General appearance: no acute distress Eyes: nonicteric ENT: oropharynx moist Neck: supple, no lymphadenopathy Effort: normal Inspection: normal Auscultation: left: diminished breath sounds (base area), right: rhonchi Percussion: bilateral: not dull Cardiovascular: irregular rhythm Gastrointestinal: normoactive bowel sounds, non-distended Extremities: no cyanosis unable to assess due to mental status other (Patient continued to talk during the exam) Results - Laboratory Findings CBC and BMP: 02/16/17 04:47 02/16/17 04:47 PT/INR, D-dimer PT 20.6 Seconds (9.4-12.1) H 02/12/17 12:03 Abnormal lab findings: Abnormal lab results WBC 18.4 K/mcL (4.3-11.1) H 02/16/17 04:47 RBC 4.13 M/mcL (4.19-5.50) L 02/16/17 04:47 Hgb 12.6 g/dL (12.9-16.9) L 02/16/17 04:47 RDW 15.0 % (11.5-14.5) H 02/16/17 04:47 Neutrophils # 17.6 K/mcL (1.6-8.9) H 02/16/17 04:47 Lymphocytes # 0.2 K/mcL (0.6-4.6) L 02/16/17 04:47 Nucleated RBCs/100 WBC 0.1 /100 WBC (0) H 02/14/17 01:10 Anisocytosis 1+ (Not Present) A 02/14/17 01:10 PT 20.6 Seconds (9.4-12.1) H 02/12/17 12:03 Chloride 96 mEq/L (98-109) L 02/16/17 04:47 Carbon Dioxide 31 mEq/L (19-29) H 02/16/17 04:47 BUN 84 mg/dL (8-26) H 02/16/17 04:47 Creatinine 2.60 mg/dL (0.72-1.25) H 02/16/17 04:47 Est GFR ( Amer) 29 (> 60) L 02/16/17 04:47 Est GFR (Non-Af Amer) 24 (> 60) L 02/16/17 04:47 BUN/Creatinine Ratio 32 (6-26) H 02/16/17 04:47 Glucose 176 mg/dL (70-99) H 02/16/17 04:47 POC Glucose 202 (58-89) H 02/15/17 21:05 Calculated Osmolality 314 (280-300) H 02/16/17 04:47 Troponin I 0.18 ng/mL (0-0.03) H* 02/13/17 09:21 B-Natriuretic Peptide 395 pg/mL (0-100) H 02/14/17 08:23 Serum Total Protein 5.6 g/dL (6.0-8.3) L 02/16/17 04:47 Albumin 2.5 g/dL (3.5-5.0) L 02/16/17 04:47 Albumin/Globulin Ratio 0.8 (1.1-2.2) L 02/16/17 04:47 Urine Color Red (Yellow) A 02/13/17 23:15 Urine Clarity Cloudy (Clear) A 02/13/17 23:15 Urine Protein 100 mg/dL (Neg-Trace) H 02/13/17 23:15 Urine Ketones Trace mg/dL (Negative) H 02/13/17 23:15 Urine Blood Large (Negative) H 02/13/17 23:15 Ur Leukocyte Esterase Moderate (Negative) H 02/13/17 23:15 Urine Microscopic RBC TNTC per hpf (0-3) H 02/13/17 23:15 Urine Microscopic WBC 15-30 per hpf (0-3) H 02/13/17 23:15 Ur Squamous Epith Cells Many per lpf (None-Few) H 02/13/17 23:15 Vancomycin Trough 31.1 mcg/mL (10-20) H* 02/14/17 08:23 - Microbiology Findings Microbiology Findings: Microbiology, Last 48 Hours 02/16/17 12:00 Legionella Antigen - Final Urine,Random-Not Preferred Streptococcus pneumoniae Antigen (M - Final - Diagnostic Findings CT scan - chest: report reviewed, image reviewed - Clinical Findings Intake & Output: Intake & Output 02/16/17 02/16/17 02/16/17 07:59 15:59 23:59 Intake Total 500 / 500 840 / 840 Output Total 800 / 800 Balance -300 / -300 840 / 840 Weight 91.4 kg Consult Discharge Plan - Plan Referrals: Jimmie Bermudez MD [Partnered Physician] - 02/23/17 1:20 pm Jaime Garcia MD [Non-Partnered Physician] - 02/22/17 4:00 pm
[2017-02-16] MEDS: Piperacillin/Tazobactam 3.375 GM in D5% in Water (Mini-Bag+) 100 ML IVPB SCH (17:59)
--- NOTE | 2017-02-16 18:25 | Internal Med Progress Note ---
Date of Encounter: 02/16/17 Time of Encounter: 10:45 - Assessment and plan (1) Acute respiratory failure Current Visit: Yes Status: Acute Assessment and plan: secondary to pneumonia complicated by left lung collapse. CT chest showed new heterogenous ground-glass and nodular infiltrate within the right lower lobe, right middle lobe, right upper lobe, left lower lung collapse , bilateral pleural effusion. Appreciate ID input. continue levaquin, add zosyn, mucomyst nebs, xopenex/ ipratropium nebs. stop solumedrol. continue mucinex. Rt consult for chest PT. pulmonolgy consult for possible bronch. Qualifiers: Respiratory failure complication: hypoxia Qualified Code(s): J96.01 - Acute respiratory failure with hypoxia (2) Pneumonia Current Visit: Yes Status: Acute Assessment and plan: plan as above Qualifiers: Pneumonia type: aspiration pneumonia Aspiration pneumonia type: unspecified Laterality: right Lung location: lower lobe of lung Qualified Code(s): J69.0 - Pneumonitis due to inhalation of food and vomit (3) Collapse of left lung Current Visit: Yes Status: Acute Assessment and plan: plan as above (4) Pleural effusion Current Visit: Yes Status: Acute (5) Atrial fibrillation with RVR Current Visit: Yes Status: Acute Assessment and plan: Hr is adequate. required amiodaron and cardizem drip on admission. continue oral cardizem and metoprolol. close monitor (6) Insulin dependent diabetes mellitus Current Visit: No Status: Chronic Assessment and plan: ISS. increase levemir to bid. (7) Acute on chronic diastolic heart failure Current Visit: Yes Status: Acute Assessment and plan: echo 02/01/17: LVEF 50-55%, mild concentric left ventricular hypertrophy, inderterminate diastolic function, normal RV side with mildly reduced function, moderately dilated left atrium, mild-moderate MR, mild TR, moderate PH. received lasix but due to GIOVANNI will hold lasix. continue bb. (8) Acute worsening of stage 3 chronic kidney disease Current Visit: Yes Status: Acute Assessment and plan: BUN and creatinine is trending up. appreciate nephrology input. stop lasix. Continue monitoring renal function. avoid nephrotoxic agents as possible. - Subjective Interval history: Patient reports productive cough. No chest pain. - Constitutional Vitals: Temp Pulse Resp BP Pulse Ox 97.4 F L 95 16 106/71 98 02/16/17 15:54 02/16/17 15:54 02/16/17 16:23 02/16/17 15:54 02/16/17 16:23 General appearance: Present: cooperative, A&O X 2, pleasant, no acute distress, answers questions appropriately - Eye Eye exam: Present: PERRL, sclera anicteric - Neck Neck exam general surgery: Present: supple, trachea midline. Absent: lymphadenopathy - Respiratory Respiratory exam: Present: decreased breath sounds, rales - Cardiovascular Cardiovascular exam: Present: RRR - GI/Abdominal GI/Abdominal exam: Present: normal bowel sounds, soft. Absent: distended, tenderness - Extremities Exam Extremities exam: Absent: pedal edema - Back Exam Back exam: Absent: CVA tenderness (L), CVA tenderness (R) - Neurological Exam Neurological exam: Present: alert, oriented X3, no focal deficits, strengths equal and symetr throughout. Absent: facial droop, speech deficit - Skin Skin exam: Absent: rash Internal Medicine: Result - Labs CBC & Chem 7: 02/16/17 04:47 02/16/17 04:47 Labs: Short CBC 02/16/17 Range/Units 04:47 WBC 18.4 H (4.3-11.1) K/mcL Hgb 12.6 L (12.9-16.9) g/dL Hct 38.1 (37.5-50.1) % Plt Count 335 (140-400) K/mcL Neutrophils # 17.6 H (1.6-8.9) K/mcL BMP 02/16/17 04:47 Sodium 137 Potassium 3.6 Chloride 96 L Carbon Dioxide 31 H BUN 84 H Creatinine 2.60 H Glucose 176 H Calcium 8.7 Liver Function 02/16/17 Range/Units 04:47 Total Bilirubin 0.7 (0.2-1.2) mg/dL AST 17 (5-34) Units/L ALT 27 (0-55) Units/L Alkaline Phosphatase 88 (38-126) Units/L Albumin 2.5 L (3.5-5.0) g/dL - ABG Interpretation ABG results: PT/INR, D-dimer PT 20.6 Seconds (9.4-12.1) H 02/12/17 12:03 - Impressions Impressions Chest X-Ray 02/16/17 07:00 IMPRESSION: Stable small left pleural effusion with left basilar airspace disease or atelectasis. D/ / 02/16/2017 14:26:42 Adriano Orozco MD / Agata Martinez Interpreting Provider: Adriano Orozco MD Chest CT 02/16/17 11:00 IMPRESSION: New heterogeneous ground-glass and nodular infiltrate is seen with right-sided predominance, suggestive of pneumonia or aspiration. Left lower lobe collapse. Follow-up to resolution is recommended after chest physical therapy. Persistent small bilateral pleural effusions, left greater than right. D/ / Abisai Landon MD / Abisai Landon MD Interpreting Provider: Abisai Landon MD Consult Discharge Plan - Plan Referrals: Jimmie Bermudez MD [Partnered Physician] - 02/23/17 1:20 pm Jaime Garcia MD [Non-Partnered Physician] - 02/22/17 4:00 pm
[2017-02-16] MEDS ORDERED: Insulin DETEMIR 100 UNIT/ML X5UNITS SQ SCH (21:00)
[2017-02-16] MEDS: rOPINIRole 1 MG TABLET PO SCH (21:29)
[2017-02-16] MEDS: Acetylcysteine 10% 2 ML INHSOL IH SCH ×2 (22:15→22:16)
[2017-02-17 04:59] LABS: Basophils % 0.1 %; Calcium 8.4 mg/dL (8.6-10.8); Hematocrit 34.3 % (37.5-50.1); Hemoglobin 11.6 g/dL (12.9-16.9); Immature Granulocytes % 0.7 % (0-4); Lymphocytes # 0.2 K/mcL (0.6-4.6); Lymphocytes % 1.2 %; Magnesium 2.5 mg/dL (1.6-2.6); Mean Corpuscular HGB Conc 33.8 g/dL (31.6-35.5); Mean Corpuscular Hemoglobin 31.1 pg (28.0-33.3); Mean Platelet Volume 11.3 fL (9.4-12.4); Monocytes # 0.6 K/mcL (0.0-1.3); Monocytes % 3.8 %; Neutrophils # 14.7 K/mcL (1.6-8.9); Platelet Count 278 K/mcL (140-400); Potassium 3.4 mEq/L (3.5-4.5); Red Blood Count 3.73 M/mcL (4.19-5.50); Red Cell Distribution Width 14.9 % (11.5-14.5); Segmented Neutrophils % 94.2 %
[2017-02-17] MEDS: Levalbuterol Neb 1.25 MG/3 ML IH SCH ×4 (05:01→22:22)
[2017-02-17 05:47] LABS: Hypersegmented Neutrophils Present (Not Present); Platelet Estimate Normal (Normal)
[2017-02-17] MEDS: Piperacillin/Tazobactam 3.375 GM in D5% in Water (Mini-Bag+) 100 ML IVPB SCH ×3 (05:56→22:57)
--- NOTE | 2017-02-17 07:36 | Pre-Sedation Evaluation ---
Pre-sedation evaluation - Pre-sedation checklist Date of procedure: 02/17/17 Procedure: bronch Recent Vitals: Last Vital Signs Temp 97.8 F 02/17/17 07:14 Pulse 103 02/17/17 07:14 Resp 16 02/17/17 07:14 BP 94/65 02/17/17 07:14 Pulse Ox 95 02/17/17 07:14 H&P (including ROS) documented in medical record: Yes Previous reaction to sedatives/anesthetics: No Dietary Status: NPO after Midnight Dentition: No loose teeth or bridges Possible difficult airway: No ASA Classification *see protocol: CLASS III-Severe systemic disease Plan of Care: Pt appropriate candidate for procedure/moderate/conscious sedation , Risks/benefits of procedure/sedation discussed w/ patient/family
[2017-02-17] MEDS ORDERED: Tetracaine/Benzocaine/Butamben 200MG/SPRAY (100SPY/BOT) MM ONE (08:22)
[2017-02-17] MEDS ORDERED: Albuterol 2.5 MG/3 ML NEBULIZER IH ONE (08:22)
[2017-02-17] MEDS ORDERED: *HR* EPINEPHrine 1 MG/10 ML SYRINGE INTRATRACH PRN (08:22)
[2017-02-17] MEDS ORDERED: *HR* FentaNYL (PF) 100 MCG/2 ML VIAL IVP PRN (08:22)
[2017-02-17] MEDS ORDERED: Lidocaine Viscous Oral Soln 15 ML SOLUTION MM ONE (08:22)
[2017-02-17] MEDS ORDERED: 0.9 % Sodium Chloride 1,000 ML IVC SCH (08:30)
--- NOTE | 2017-02-17 09:10 | Nephrology Progress Note ---
Date of Encounter: 02/17/17 Time of Encounter: 09:08 - Assessment and Plan (1) Acute kidney failure, unspecified Current Visit: Yes Status: Acute The patient has a clinical picture of acute kidney injury superimposed on stage III chronic disease. Renal function is improving after discontinuation of vancomycin and holding his diuretics. I would continue with the same medical regimen for now. We will continue to monitor the patient closely. Qualifiers: Acute renal failure type: unspecified Qualified Code(s): N17.9 - Acute kidney failure, unspecified (2) Chronic kidney disease, stage III (moderate) Current Visit: Yes Status: Acute Subjective Principal diagnosis: diastolic CHF, HCAP Interval history: Patient continues to complain of a cough. I believe he is scheduled for bronchoscopy later today. Renal function continues to slowly improve. Objective - Vital Signs Vital signs: Vital Signs Temp Pulse Resp BP Pulse Ox 02/17/17 07:14 97.8 F 103 16 94/65 95 02/17/17 05:04 14 100 02/17/17 04:40 88 02/17/17 04:14 97.5 F L 95 16 95/71 02/17/17 00:33 107 02/17/17 00:14 97.4 F L 91 15 101/63 94 02/16/17 22:19 16 99 02/16/17 20:01 97.8 F 96 16 117/77 02/16/17 19:10 96 97 02/16/17 16:23 16 98 02/16/17 15:54 97.4 F L 95 19 106/71 95 02/16/17 12:10 97.9 F 106 18 111/80 90 02/16/17 09:27 18 89 Intake and Output 02/16/17 02/17/17 02/17/17 23:59 07:59 15:59 Intake Total 100 / 100 120 / 120 Output Total 50 / 50 350 / 350 Balance 50 / 50 -230 / -230 Intake: IV Fluids 100 / 100 Zosyn 3.375 GM In 100 / 100 Dextrose 5% (Minibag+) 100 ML 100 ML @ 25 mls/hr IVPB Q12HR KELSI Rx#: [id number] Oral 120 / 120 Output: Urine 50 / 50 350 / 350 Other: Meal npo # Voids 1 Weight 90.9 kg Blood Glucose* 212 77 Patient Weight 02/17/17 23:59 Weight 90.9 kg - General Appearance Exam: Patient is alert. He is in no acute distress. Lungs diffuse rhonchi. Heart irregular rate and rhythm. Abdomen is benign. There is 1+ lower extremity swelling. - Lab 02/17/17 04:05 02/17/17 04:05 Most recent lab results Calcium 8.4 mg/dL (8.6-10.8) L 02/17/17 04:05 Magnesium 2.5 mg/dL (1.6-2.6) 02/17/17 04:05 Consult Discharge Plan - Plan Referrals: Jimmie Bermudez MD [Partnered Physician] - 02/23/17 1:20 pm Jaime Garcia MD [Non-Partnered Physician] - 02/22/17 4:00 pm
[2017-02-17] MEDS: Metoprolol XL (24 HR) Succ 50 MG TAB.ER.24H PO SCH (09:12)
[2017-02-17] MEDS: dilTIAZem HCl 60 MG TABLET PO SCH ×4 (09:13→21:36)
[2017-02-17] MEDS ORDERED: *HR* Midazolam HCl 5 MG/5 ML VIAL IVP ONE (09:29)
[2017-02-17] MEDS ORDERED: *HR* FentaNYL (PF) 100 MCG/2 ML VIAL ONE (09:29)
[2017-02-17] MEDS ORDERED: Lidocaine Viscous Oral Soln 15 ML SOLUTION ONE (09:30)
[2017-02-17] MEDS: *HR* Midazolam HCl 5 MG/5 ML VIAL IVP PRN ×2 (10:41→10:47)
[2017-02-17] MEDS: Acetylcysteine 10% 2 ML INHSOL IH SCH (10:55)
--- NOTE | 2017-02-17 11:48 | Infectious Disease Progress No ---
Date of Encounter: 02/17/17 Time of Encounter: 10:05 - Assessment and Plan (1) Sepsis Current Visit: Yes Status: Acute Patient meets 2 SIRS criteria of Tachycardia, and leukocytosis. WBC are trending down. Source is secondary to pneumonia. Lactic acid was normal on admission. Currently hemodynamically stable. Continue Zosyn and LEvofloxacin. CT scan of the chest from 02/16/17 shows a heterogeneous ground glass appearence greater on the right than on the left. Suggestive of Pneumonia or aspiration. blood cultures from 02/12/17 show no growth to date. Urine antigens for strep and Legionella were negative. Indced sputum culture was ordered ysterday with hypertonic saline IH. However patient could not produce sputum and sample was not sent per executive staff assistant. I spoke with pulmonology and reviewed their notes. He dose appear to have some collapse of the lung and a bronchoscopy is planned for today. We will follow up with bronchoscopy results and cultures. Qualifiers: Sepsis type: sepsis due to unspecified organism Qualified Code(s): A41.9 - Sepsis, unspecified organism (2) Pneumonia Current Visit: Yes Status: Acute as stated above. Qualifiers: Pneumonia type: due to unspecified organism Laterality: unspecified laterality Lung location: unspecified part of lung Qualified Code(s): J18.9 - Pneumonia, unspecified organism (3) Dyspnea Current Visit: Yes Status: Acute HCAP. Legionella and Strep antigens negative. Patient continues on 2L of Oxygen. With CT findings may consider silent aspiration. Would recommend Speech therapy consult with formal swallow evaluation. continue Zosyn. I calculate CrCL to be 24 so should have dose adjusted to 3.375 grams Q12h. Discussed with Pharmacy. Continue Levofloxacin 750 mg IV Q48H. No need for induced sputum if cultures taken during bronchoscopy. Continue to monitor for drug toxicities. Chest X-Ray 02/16/17 07:00 IMPRESSION: Stable small left pleural effusion with left basilar airspace disease or atelectasis. D/ / 02/16/2017 14:26:42 Adriano Orozco MD / Agata Martinez Interpreting Provider: Adriano Orozco MD Chest CT 02/16/17 11:00 IMPRESSION: New heterogeneous ground-glass and nodular infiltrate is seen with right-sided predominance, suggestive of pneumonia or aspiration. Left lower lobe collapse. Follow-up to resolution is recommended after chest physical therapy. Persistent small bilateral pleural effusions, left greater than right. D/ / Abisai Landon MD / Abisia Landon MD Interpreting Provider: Abisai Landon MD Qualifiers: Dyspnea type: unspecified Qualified Code(s): R06.00 - Dyspnea, unspecified (4) Leukocytosis Current Visit: Yes Status: Acute Trending down. Qualifiers: Leukocytosis type: unspecified Qualified Code(s): D72.829 - Elevated white blood cell count, unspecified (5) COPD (chronic obstructive pulmonary disease) Current Visit: Yes Status: Acute severe management per primary team. pulmonology consulted as well. Qualifiers: COPD type: COPD with acute exacerbation Qualified Code(s): J44.1 - Chronic obstructive pulmonary disease with (acute) exacerbation (6) Diastolic heart failure Current Visit: Yes Status: Acute management per primary team. Qualifiers: Heart failure chronicity: acute on chronic Qualified Code(s): I50.33 - Acute on chronic diastolic (congestive) heart failure (7) Confusion Current Visit: Yes Status: Acute appears to have resolved. Patient was orientated this AM. (8) Atrial fibrillation Current Visit: Yes Status: Chronic currently rate controlled. Management per primary team Qualifiers: Atrial fibrillation type: paroxysmal Qualified Code(s): I48.0 - Paroxysmal atrial fibrillation (9) Pleural effusion Current Visit: Yes Status: Acute Likely from volume overload. - Subjective Interval history: This morning the patient states that he " feels about the same". He denies any increasing dyspnea. He states his cough is nonproductive. He denies fever or malaise. He denies diarreah or abdominal pain. He denies any new aches or pains. He denies rashes or pruritis. He has no further complaints or concerns at this time. sputum sample was not sent to the lab yesterday. I spoke with Nursing and He was not able to produce any sputum with induction and so a sample was not sent to the lab. Infect Dis PN-Objective Data - Labs CBC & Chem 7: 02/17/17 04:05 02/17/17 04:05 Labs: Laboratory Results - last 24 hr 02/16/17 02/16/17 02/16/17 07:12 12:09 15:54 WBC RBC Hgb Hct MCV MCH MCHC RDW Plt Count MPV Immature Gran % Seg Neutrophils % Lymphocytes % Monocytes % Eosinophils % Basophils % Neutrophils # Lymphocytes # Monocytes # Eosinophils # Basophils # Hypersegmented Neuts Platelet Estimate Sodium Potassium Chloride Carbon Dioxide BUN Creatinine Est GFR ( Amer) Est GFR (Non-Af Amer) BUN/Creatinine Ratio Glucose POC Glucose 188 H 284 H 291 H Calculated Osmolality Calcium Magnesium 02/16/17 02/17/17 02/17/17 20:30 04:05 04:05 WBC 15.6 H RBC 3.73 L Hgb 11.6 L Hct 34.3 L MCV 92.0 MCH 31.1 MCHC 33.8 RDW 14.9 H Plt Count 278 MPV 11.3 Immature Gran % 0.7 Seg Neutrophils % 94.2 Lymphocytes % 1.2 Monocytes % 3.8 Eosinophils % 0.0 Basophils % 0.1 Neutrophils # 14.7 H Lymphocytes # 0.2 L Monocytes # 0.6 Eosinophils # 0.0 Basophils # 0.0 Hypersegmented Neuts Present A Platelet Estimate Normal Sodium 140 Potassium 3.4 L Chloride 100 Carbon Dioxide 34 H BUN 85 H Creatinine 2.31 H Est GFR ( Amer) 33 L Est GFR (Non-Af Amer) 27 L BUN/Creatinine Ratio 37 H Glucose 75 POC Glucose 212 H Calculated Osmolality 315 H Calcium 8.4 L Magnesium 2.5 Cultures: Cultures 02/16/17 12:00 Legionella Antigen - Final Urine,Random-Not Preferred Streptococcus pneumoniae Antigen (M - Final Serology 02/13/17 Range/Units 23:15 Urine Color Red A (Yellow) Urine Clarity Cloudy A (Clear) Urine pH 5.5 (5.0-8.0) pH Units Ur Specific [place] 1.016 (1.010-1.025) Urine Protein 100 H (Neg-Trace) mg/dL Urine Glucose (UA) Normal (Normal) mg/dL Urine Ketones Trace H (Negative) mg/dL Urine Blood Large H (Negative) Urine Nitrite Negative (Negative) Urine Bilirubin Negative (Negative) Urine Urobilinogen Normal (Normal) mg/dL Ur Leukocyte Esterase Moderate H (Negative) Urine Microscopic RBC TNTC H (0-3) per hpf Urine Microscopic WBC 15-30 H (0-3) per hpf Ur Squamous Epith Cells Many H (None-Few) per lpf Urine Bacteria None Seen (None-Few) per hpf Hyaline Casts None Seen (None-Few) per lpf - Impressions Impressions Chest X-Ray 02/16/17 07:00 IMPRESSION: Stable small left pleural effusion with left basilar airspace disease or atelectasis. D/ / 02/16/2017 14:26:42 Adriano Orozco MD / Agata Martinez Interpreting Provider: Adriano Orozco MD Chest CT 02/16/17 11:00 IMPRESSION: New heterogeneous ground-glass and nodular infiltrate is seen with right-sided predominance, suggestive of pneumonia or aspiration. Left lower lobe collapse. Follow-up to resolution is recommended after chest physical therapy. Persistent small bilateral pleural effusions, left greater than right. D/ / Abisai Landon MD / Abisai Landon MD Interpreting Provider: Abisai Landon MD Exam - Constitutional Vitals: Temp Pulse Resp BP Pulse Ox 97.9 F 82 16 106/72 93 02/17/17 10:18 02/17/17 11:05 02/17/17 11:05 02/17/17 11:05 02/17/17 11:05 Exam: Gen.: This is a well-developed well-nourished 86-year-old male who is currently alert and orientated to person place time and situation. Patient is well- groomed this morning. He is lying in bed and appears to be comfortable and in no acute distress at this time. HEENT: Head is normocephalic atraumatic. Patient is currently wearing eyeglasses. His pupils are equally round. Normal external appearance of ears nose and eyes. Moist mucous membranes. Neck supple without masses thyromegaly. No cervical submandibular supraclavicular lymphadenopathy palpable on exam. Heart: Regular rate and rhythm without murmurs rubs or gallops. No JVD. Lungs: He does have a normal effort of breathing. However he does have some rhonchi and coarse breath sounds on the right lower and midlung combs also has some wheezing in the left lower lung field. However I do think that his lung exam has improved from yesterday. Abdomen: The abdomen is soft, nondistended, nontender palpation. Bowel sounds are positive in all quadrants. No bruits. Musculoskeletal: Grossly normal for his numbers were noted. Extremities: There is no clubbing or cyanosis. He does have some mild pedal edema bilaterally Integument: No rashes or lesions were noted on exam. Consult Discharge Plan - Plan Referrals: Jimmie Bermudez MD [Partnered Physician] - 02/23/17 1:20 pm Jaime Garcia MD [Non-Partnered Physician] - (Patient is going to rehab, no PCP appointment needed) - Attending Attestation I examined this patient and my medical decision-making was reviewed with the TREATMENT COORDINATOR/PA/Advanced Practice Nurse/Resident Physician. I agree with the documented findings, disposition and treatment plan as described except to the extent set forth below.
[2017-02-17] MEDS: Insulin LISPRO 300 UNITS/3 ML VIAL SQ SCH ×3 (12:27→21:34)
[2017-02-17 13:39] LABS: Source of Body Fluid LLL BAL
[2017-02-17] MEDS: Insulin DETEMIR 100 UNIT/ML X5UNITS SQ SCH ×2 (14:28→21:35)
[2017-02-17] MEDS: Sennosides/Docusate Sodium TABLET PO SCH ×2 (14:28→21:35)
[2017-02-17] MEDS: Aspirin Enteric Coated 81 MG Tablet PO SCH (14:43)
[2017-02-17] MEDS: Levofloxacin 750 MG/150 ML 750 MG/150 ML BAG IVPB SCH (14:43)
[2017-02-17] MEDS: Multivit/Ca/Min/Fe/FA 1 TAB TABLET PO SCH (14:43)
[2017-02-17] MEDS: *HR* Rivaroxaban 15 MG TABLET PO SCH (17:16)
--- NOTE | 2017-02-17 20:21 | Internal Med Progress Note ---
Date of Encounter: 02/17/17 Time of Encounter: 10:00 - Assessment and plan (1) Acute respiratory failure Current Visit: Yes Status: Acute Assessment and plan: secondary to pneumonia complicated by left lung collapse. CT chest showed new heterogenous ground-glass and nodular infiltrate within the right lower lobe, right middle lobe, right upper lobe, left lower lung collapse , bilateral pleural effusion. Appreciate ID input. continue levaquin, zosyn, mucomyst nebs, xopenex/ ipratropium nebs, mucinex, chest PT. appreciate pulmonology input: Plan for bronchoscopy this morning. Qualifiers: Respiratory failure complication: hypoxia Qualified Code(s): J96.01 - Acute respiratory failure with hypoxia (2) Pneumonia Current Visit: Yes Status: Acute Assessment and plan: plan as above Qualifiers: Pneumonia type: aspiration pneumonia Aspiration pneumonia type: unspecified Laterality: right Lung location: lower lobe of lung Qualified Code(s): J69.0 - Pneumonitis due to inhalation of food and vomit (3) Collapse of left lung Current Visit: Yes Status: Acute Assessment and plan: plan as above (4) Pleural effusion Current Visit: Yes Status: Acute (5) Atrial fibrillation with RVR Current Visit: Yes Status: Acute Assessment and plan: Hr is adequate. required amiodaron and cardizem drip on admission. continue oral cardizem and metoprolol. close monitor (6) Insulin dependent diabetes mellitus Current Visit: No Status: Chronic Assessment and plan: ISS. Change Levemir to 10 units twice a day. Diabetic diet (7) Acute on chronic diastolic heart failure Current Visit: Yes Status: Acute Assessment and plan: echo 02/01/17: LVEF 50-55%, mild concentric left ventricular hypertrophy, inderterminate diastolic function, normal RV side with mildly reduced function, moderately dilated left atrium, mild-moderate MR, mild TR, moderate PH. received lasix but due to GIOVANNI will hold lasix. continue bb. (8) Acute worsening of stage 3 chronic kidney disease Current Visit: Yes Status: Acute Assessment and plan: BUN and creatinine are slowly trending down. appreciate nephrology input. hOlding lasix. Continue monitoring renal function. avoid nephrotoxic agents as possible. - Subjective Interval history: Positive productive cough. - Constitutional Vitals: Temp Pulse Resp BP Pulse Ox 97.6 F 98 21 108/73 96 02/17/17 20:15 02/17/17 20:15 02/17/17 20:15 02/17/17 20:15 02/17/17 20:15 General appearance: Present: cooperative, A&O X 2, pleasant, no acute distress, answers questions appropriately - Respiratory Respiratory exam: Present: decreased breath sounds, rales - Cardiovascular Cardiovascular exam: Present: irregular rhythm, tachycardia - GI/Abdominal GI/Abdominal exam: Present: normal bowel sounds, soft. Absent: distended, tenderness - Extremities Exam Extremities exam: Present: pedal edema (1+ lower extremity edema up to the knee. ) - Back Exam Back exam: Absent: CVA tenderness (L), CVA tenderness (R) - Neurological Exam Neurological exam: Present: alert, oriented X3, no focal deficits, strengths equal and symetr throughout. Absent: facial droop, speech deficit - Skin Skin exam: Absent: rash Internal Medicine: Result - Labs CBC & Chem 7: 02/17/17 04:05 02/17/17 04:05 Labs: Short CBC 02/17/17 Range/Units 04:05 WBC 15.6 H (4.3-11.1) K/mcL Hgb 11.6 L (12.9-16.9) g/dL Hct 34.3 L (37.5-50.1) % Plt Count 278 (140-400) K/mcL Neutrophils # 14.7 H (1.6-8.9) K/mcL BMP 02/17/17 04:05 Sodium 140 Potassium 3.4 L Chloride 100 Carbon Dioxide 34 H BUN 85 H Creatinine 2.31 H Glucose 75 Calcium 8.4 L - ABG Interpretation ABG results: PT/INR, D-dimer PT 20.6 Seconds (9.4-12.1) H 02/12/17 12:03 Consult Discharge Plan - Plan Referrals: Jimmie Bermudez MD [Partnered Physician] - 02/23/17 1:20 pm Jaime Garcia MD [Non-Partnered Physician] - (Patient is going to rehab, no PCP appointment needed)
[2017-02-17] MEDS: rOPINIRole 1 MG TABLET PO SCH (21:35)
[2017-02-17 22:15] LABS: Appearance of Body Fluid Hazy (Clear)
[2017-02-17 23:30] LABS: Volume of Body Fluid 15 mL
[2017-02-18] MEDS: Levalbuterol Neb 1.25 MG/3 ML IH SCH ×5 (04:20→22:54)
[2017-02-18] MEDS: Piperacillin/Tazobactam 3.375 GM in D5% in Water (Mini-Bag+) 100 ML IVPB SCH ×2 (05:46→18:12)
[2017-02-18 06:30] LABS: Basophils % 0.1 %; Eosinophils % 0.1 %; Hematocrit 39.2 % (37.5-50.1); Hemoglobin 12.5 g/dL (12.9-16.9); Immature Granulocytes % 0.8 % (0-4); Lymphocytes # 0.4 K/mcL (0.6-4.6); Mean Corpuscular HGB Conc 31.9 g/dL (31.6-35.5); Mean Platelet Volume 11.5 fL (9.4-12.4); Monocytes # 0.9 K/mcL (0.0-1.3); Monocytes % 7.2 %; Neutrophils # 11.3 K/mcL (1.6-8.9); Platelet Count 281 K/mcL (140-400); Red Blood Count 4.17 M/mcL (4.19-5.50); Segmented Neutrophils % 88.8 %
[2017-02-18 06:34] LABS: Calcium 8.4 mg/dL (8.6-10.8); Potassium 3.7 mEq/L (3.5-4.5)
--- NOTE | 2017-02-18 09:20 | Infectious Disease Progress No ---
Date of Encounter: 02/18/17 Time of Encounter: 05:50 - Assessment and Plan (1) Sepsis Current Visit: Yes Status: Acute Patient meets 2 SIRS criteria of Tachycardia and tachypnea overnight. He also has some leukocytosis that is trending down. Source is secondary to pneumonia. Lactic acid was normal on admission. Currently hemodynamically stable. He would undergoe bronchoscopy on 02/17/17 which did show mucopurulent secretions. Gram stain did not reveal any bacterial organisms or WBC. CT scan of the chest from 02/16/17 shows a heterogeneous ground glass appearence greater on the right than on the left. Suggestive of Pneumonia or aspiration. blood cultures from 02/12/17 show no growth to date. Urine antigens for strep and Legionella were negative. Continue Zosyn and LEvofloxacin. consider stopping levaquin if no pseudomonas on BAL cultures duration of treatment depends on clinical picture (likely 10 days) We will follow up with culture results. Qualifiers: Sepsis type: sepsis due to unspecified organism Qualified Code(s): A41.9 - Sepsis, unspecified organism (2) Pneumonia Current Visit: Yes Status: Acute as stated above. Qualifiers: Pneumonia type: due to unspecified organism Laterality: unspecified laterality Lung location: unspecified part of lung Qualified Code(s): J18.9 - Pneumonia, unspecified organism (3) Dyspnea Current Visit: Yes Status: Acute HCAP. Legionella and Strep antigens negative. With CT findings may consider silent aspiration. However normal evaluation by speech. continue Zosyn. I calculate CrCL to be 28 so should have dose adjusted to 3.375 grams Q12h. Discussed with Pharmacy. Continue Levofloxacin 750 mg IV Q48H. Continue to monitor for drug toxicities. Chest X-Ray 02/16/17 07:00 IMPRESSION: Stable small left pleural effusion with left basilar airspace disease or atelectasis. D/ / 02/16/2017 14:26:42 Adriano Orozco MD / Agata Martinez Interpreting Provider: Adriano Orozco MD Chest CT 02/16/17 11:00 IMPRESSION: New heterogeneous ground-glass and nodular infiltrate is seen with right-sided predominance, suggestive of pneumonia or aspiration. Left lower lobe collapse. Follow-up to resolution is recommended after chest physical therapy. Persistent small bilateral pleural effusions, left greater than right. D/ / Abisai Landon MD / Abisai Landon MD Interpreting Provider: Abisai Landon MD Qualifiers: Dyspnea type: unspecified Qualified Code(s): R06.00 - Dyspnea, unspecified (4) Leukocytosis Current Visit: Yes Status: Acute Trending down. Qualifiers: Leukocytosis type: unspecified Qualified Code(s): D72.829 - Elevated white blood cell count, unspecified (5) COPD (chronic obstructive pulmonary disease) Current Visit: Yes Status: Acute severe management per primary team. pulmonology consulted as well. Qualifiers: COPD type: COPD with acute exacerbation Qualified Code(s): J44.1 - Chronic obstructive pulmonary disease with (acute) exacerbation (6) Diastolic heart failure Current Visit: Yes Status: Acute management per primary team. Qualifiers: Heart failure chronicity: acute on chronic Qualified Code(s): I50.33 - Acute on chronic diastolic (congestive) heart failure (7) Atrial fibrillation Current Visit: Yes Status: Chronic currently rate controlled. Management per primary team Qualifiers: Atrial fibrillation type: paroxysmal Qualified Code(s): I48.0 - Paroxysmal atrial fibrillation (8) Pleural effusion Current Visit: Yes Status: Acute Likely from volume overload. - Subjective Interval history: No major evetns overight. PAtietn states that he is feeling better this AM and is breathing better. He states he was " wheezy" last night but not as much this AM. He denies any new aches or pains. Denies fever, chills, malaise, diarrhea, rash. He has no further complaints or concerns at this time. Infect Dis PN-Objective Data - Labs CBC & Chem 7: 02/18/17 05:41 02/18/17 05:41 Labs: Laboratory Results - last 24 hr 02/17/17 02/17/17 02/17/17 07:13 10:54 11:50 WBC RBC Hgb Hct MCV MCH MCHC RDW Plt Count MPV Immature Gran % Seg Neutrophils % Lymphocytes % Monocytes % Eosinophils % Basophils % Neutrophils # Lymphocytes # Monocytes # Eosinophils # Basophils # Sodium Potassium Chloride Carbon Dioxide BUN Creatinine Est GFR ( Amer) Est GFR (Non-Af Amer) BUN/Creatinine Ratio Glucose POC Glucose 77 129 H Calculated Osmolality Calcium Fluid Source LLL BAL Fluid Volume 15 Fluid Appearance Hazy A Fluid RBC TNP Fld Tot Nucleated Cell TNP Fluid Seg Neutrophil % 91.0 Fld Band Neutrophil % 4.0 Fluid Lymphocytes % 2.0 Fluid Monocytes % TNP Fluid Eosinophils % TNP Fluid Basophils % TNP Fluid Other Cells % 3.0 02/17/17 02/17/17 02/18/17 16:35 20:30 05:41 WBC 12.7 H RBC 4.17 L Hgb 12.5 L Hct 39.2 MCV 94.0 MCH 30.0 MCHC 31.9 RDW 15.0 H Plt Count 281 MPV 11.5 Immature Gran % 0.8 Seg Neutrophils % 88.8 Lymphocytes % 3.0 Monocytes % 7.2 Eosinophils % 0.1 Basophils % 0.1 Neutrophils # 11.3 H Lymphocytes # 0.4 L Monocytes # 0.9 Eosinophils # 0.0 Basophils # 0.0 Sodium Potassium Chloride Carbon Dioxide BUN Creatinine Est GFR ( Amer) Est GFR (Non-Af Amer) BUN/Creatinine Ratio Glucose POC Glucose 197 H 287 H Calculated Osmolality Calcium Fluid Source Fluid Volume Fluid Appearance Fluid RBC Fld Tot Nucleated Cell Fluid Seg Neutrophil % Fld Band Neutrophil % Fluid Lymphocytes % Fluid Monocytes % Fluid Eosinophils % Fluid Basophils % Fluid Other Cells % 02/18/17 05:41 WBC RBC Hgb Hct MCV MCH MCHC RDW Plt Count MPV Immature Gran % Seg Neutrophils % Lymphocytes % Monocytes % Eosinophils % Basophils % Neutrophils # Lymphocytes # Monocytes # Eosinophils # Basophils # Sodium 140 Potassium 3.7 Chloride 103 Carbon Dioxide 30 H BUN 70 H Creatinine 1.86 H Est GFR ( Amer) 42 L Est GFR (Non-Af Amer) 35 L BUN/Creatinine Ratio 38 H Glucose 60 L POC Glucose Calculated Osmolality 308 H Calcium 8.4 L Fluid Source Fluid Volume Fluid Appearance Fluid RBC Fld Tot Nucleated Cell Fluid Seg Neutrophil % Fld Band Neutrophil % Fluid Lymphocytes % Fluid Monocytes % Fluid Eosinophils % Fluid Basophils % Fluid Other Cells % Cultures: Cultures 02/17/17 10:54 Gram Stain - Final Left Lower Lobe Lung 02/16/17 12:00 Legionella Antigen - Final Urine,Random-Not Preferred Streptococcus pneumoniae Antigen (M - Final Serology 02/17/17 02/13/17 Range/Units 10:54 23:15 Urine Color Red A (Yellow) Urine Clarity Cloudy A (Clear) Urine pH 5.5 (5.0-8.0) pH Units Ur Specific Barry 1.016 (1.010-1.025) Urine Protein 100 H (Neg-Trace) mg/dL Urine Glucose (UA) Normal (Normal) mg/dL Urine Ketones Trace H (Negative) mg/dL Urine Blood Large H (Negative) Urine Nitrite Negative (Negative) Urine Bilirubin Negative (Negative) Urine Urobilinogen Normal (Normal) mg/dL Ur Leukocyte Esterase Moderate H (Negative) Urine Microscopic RBC TNTC H (0-3) per hpf Urine Microscopic WBC 15-30 H (0-3) per hpf Ur Squamous Epith Cells Many H (None-Few) per lpf Urine Bacteria None Seen (None-Few) per hpf Hyaline Casts None Seen (None-Few) per lpf Fluid Source LLL BAL Fluid Volume 15 mL Fluid Appearance Hazy A (Clear) Fluid RBC TNP Fld Tot Nucleated Cell TNP Fluid Seg Neutrophil % 91.0 % Fld Band Neutrophil % 4.0 % Fluid Lymphocytes % 2.0 % Fluid Monocytes % TNP Fluid Eosinophils % TNP Fluid Basophils % TNP Fluid Other Cells % 3.0 % Exam - Constitutional Vitals: Temp Pulse Resp BP Pulse Ox 97.4 F L 90 16 100/73 99 02/18/17 07:51 02/18/17 07:51 02/18/17 07:51 02/18/17 07:51 02/18/17 07:51 Exam: Gen.: This is a well-developed well-nourished 86-year-old male who is currently alert and orientated to person place and does have some difficulty with time. Alignment appears to be comfortable no acute distress at this time. HEENT: Head is cephalic atraumatic. Pupils equally round react light and accommodation. Anicteric sclera, moist weeks nares chronic supple without masses or thyromegaly. No cervical submandibular or supraclavicular lymphadenopathy palpable on exam. Trachea midline. Heart: Irregular regular rate is ranging from 70-95 on room. No JVD. Capillary refill is normal. Lungs: Lung exam has improved significantly from yesterday. Currently he is on less oxygen 4 L. Has normal effort of breathing. Very mild crackles at the right base otherwise his lungs were clear on my exam today. Abdomen: Obese, soft, nontender, bowel sounds are present. Musculoskeletal: Grossly normal for age no gross deformity noted. Extremities: There is no clubbing or cyanosis. He does have a 1+ pitting edema of the level of the gama bilaterally. integument: I noted no rashes or lesions on my exam. Consult Discharge Plan - Plan Referrals: Jimmie Bermudez MD [Partnered Physician] - 02/23/17 1:20 pm Jaime Garcia MD [Non-Partnered Physician] - (Patient is going to rehab, no PCP appointment needed) - Attending Attestation I examined this patient and my medical decision-making was reviewed with the REGIONAL OPERATIONS MANAGER/PA/Advanced Practice Nurse/Resident Physician. I agree with the documented findings, disposition and treatment plan as described except to the extent set forth below.
[2017-02-18] MEDS: Insulin LISPRO 300 UNITS/3 ML VIAL SQ SCH ×4 (09:36→21:31)
[2017-02-18] MEDS: Multivit/Ca/Min/Fe/FA 1 TAB TABLET PO SCH (09:39)
[2017-02-18] MEDS: Sennosides/Docusate Sodium TABLET PO SCH ×2 (09:39→21:18)
--- NOTE | 2017-02-18 09:41 | Nephrology Progress Note ---
Date of Encounter: 02/18/17 Time of Encounter: 09:10 - Assessment and Plan (1) Acute kidney injury superimposed on chronic kidney disease Current Visit: Yes Status: Acute GIOVANNI/CKD. Renal fct improved after discontinuing Vanco and diuretics. Creat at patients baseline 1.86. Will restart Lasix at 20mg po daily.with history of diastolic CHF Subjective Principal diagnosis: diastolic CHF, HCAP Interval history: Watching TV, denies SOB or CP. No new complaints. Objective - Vital Signs Vital signs: Vital Signs Temp Pulse Resp BP Pulse Ox 02/18/17 07:51 97.4 F L 90 16 100/73 99 02/18/17 04:20 22 100 02/18/17 01:20 98.4 F 82 22 97/66 92 02/17/17 22:23 23 90 02/17/17 20:15 97.6 F 98 21 108/73 96 02/17/17 16:32 97.4 F L 62 16 112/78 93 02/17/17 15:38 16 95 02/17/17 11:41 97.5 F L 86 16 98/70 93 02/17/17 11:05 82 16 106/72 93 02/17/17 11:00 72 16 105/70 92 02/17/17 10:55 79 16 106/71 91 02/17/17 10:50 83 16 110/60 88 02/17/17 10:45 80 18 112/63 93 02/17/17 10:18 97.9 F 83 20 116/78 92 Intake and Output 02/17/17 02/18/17 02/18/17 23:59 07:59 15:59 Intake Total 100 / 100 100 / 100 Output Total 200 / 200 Balance -100 / -100 100 / 100 Intake: IV Fluids 100 / 100 100 / 100 Zosyn 3.375 GM In 100 / 100 100 / 100 Dextrose 5% (Minibag+) 100 ML 100 ML @ 25 mls/hr IVPB Q8H [facility] Rx#: [id number] Output: Urine 200 / 200 Other: Stool Size Large Stool Consistency soft formed Stool Color Brown # Voids 1 # Urine Diapers 1 Weight 93.5 kg Blood Glucose* 287 67 Patient Weight 02/18/17 23:59 Weight 93.5 kg - General Appearance General appearance: Present: well-developed, well-nourished, appears started age EENT: Present: mucous membranes moist Neck: Present: no JVD Respiratory: Present: clear Cardiology: Present: edema, irregular rhythm Additional Comments: mild pitting LE Gastrointestinal: Present: normoactive bowel sounds, no tenderness, distended Integumentary: Present: warm and dry Psychiatric: Present: mood/affect appropriate, cooperative - Lab 02/18/17 05:41 02/18/17 05:41 Most recent lab results Calcium 8.4 mg/dL (8.6-10.8) L 02/18/17 05:41 Magnesium 2.5 mg/dL (1.6-2.6) 02/17/17 04:05 Consult Discharge Plan - Plan Referrals: Jimmie Bermudez MD [Partnered Physician] - 02/23/17 1:20 pm Jaime Garcia MD [Non-Partnered Physician] - (Patient is going to rehab, no PCP appointment needed)
[2017-02-18] MEDS: Aspirin Enteric Coated 81 MG Tablet PO SCH (09:42)
[2017-02-18] MEDS: Metoprolol XL (24 HR) Succ 50 MG TAB.ER.24H PO SCH (09:43)
[2017-02-18] MEDS: dilTIAZem HCl 60 MG TABLET PO SCH ×4 (09:43→21:18)
[2017-02-18] MEDS: Insulin DETEMIR 100 UNIT/ML X5UNITS SQ SCH ×2 (09:49→22:35)
[2017-02-18] MEDS: Furosemide 20 MG TABLET PO SCH (11:24)
--- NOTE | 2017-02-18 13:49 | Internal Med Progress Note ---
Date of Encounter: 02/18/17 Time of Encounter: 13:00 - Assessment and plan (1) Pneumonia Current Visit: Yes Status: Acute Assessment and plan: Patient is currently doing better. He is back to 2 L oxygen via nasal cannula at his baseline. 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 Patient has finished 1 week therapy with Zosyn and Levaquin. Levaquin has been discontinued by infectious disease and he is being continued on Zosyn. Case discussed with infectious disease. Awaiting further recommendations regarding possible antifungal therapy given Histoplasma species present in the bronchioloalveolar lavage specimen. Patient is high risk due to risk of septic shock due to fungal pneumonia and the need for intravenous antibiotic therapy and close monitoring. Qualifiers: Pneumonia type: due to unspecified organism Laterality: right Lung location: lower lobe of lung Qualified Code(s): J18.1 - Lobar pneumonia, unspecified organism (2) Acute respiratory failure Current Visit: Yes Status: Resolved Assessment and plan: Patient's oxygen requirement is back to baseline. Qualifiers: Respiratory failure complication: hypoxia Qualified Code(s): J96.01 - Acute respiratory failure with hypoxia (3) Atrial fibrillation Current Visit: Yes Status: Chronic Assessment and plan: Continue by mouth Cardizem and Lopressor. Change Cardizem to extended release tomorrow. Continue anticoagulation. Qualifiers: Atrial fibrillation type: paroxysmal Qualified Code(s): I48.0 - Paroxysmal atrial fibrillation (4) HTN (hypertension) Current Visit: Yes Status: Chronic Assessment and plan: Continue home medications. Patient has been resumed on Lasix as his renal function is back to baseline. Qualifiers: Hypertension type: essential hypertension Qualified Code(s): I10 - Essential (primary) hypertension (5) CHF (congestive heart failure) Current Visit: Yes Status: Chronic Assessment and plan: Patient's Lasix has been resumed by nephrology as his renal function is close to his baseline. Continue Lasix. Qualifiers: Congestive heart failure type: diastolic Congestive heart failure chronicity: chronic Qualified Code(s): I50.32 - Chronic diastolic (congestive ) heart failure (6) Type 2 diabetes mellitus Current Visit: Yes Status: Chronic Assessment and plan: Blood sugar is little bit on the low side. Will reduce the dose of anti- glycemic medications. Patient's renal function appears to be back to his baseline. Qualifiers: Diabetes mellitus complication status: with kidney complications Diabetes mellitus complication detail: with chronic kidney disease Diabetes mellitus senior care insulin use: with long term acute care registered nurse use Chronic kidney disease stage: stage 3 (moderate) Qualified Code(s): E11.22 - Type 2 diabetes mellitus with diabetic chronic kidney disease; N18.3 - Chronic kidney disease, stage 3 ( moderate); Z79.4 - detention (current) use of insulin (7) Respiratory failure Current Visit: Yes Status: Chronic Qualifiers: Chronicity: chronic Respiratory failure complication: hypoxia Qualified Code(s): J96.11 - Chronic respiratory failure with hypoxia - Subjective Interval history: Patient reports that he continues to have some shortness of breath. He also reports cough with sputum production. He reports feeling weak. He denies having any dizziness, chest pain or palpitations. He denies any nausea or vomiting. He underwent bronchoscopy yesterday with clearance of mucous plugs. - Constitutional Vitals: Temp Pulse Resp BP Pulse Ox 97.8 F 89 16 95/62 95 02/18/17 12:13 02/18/17 12:13 02/18/17 12:13 02/18/17 13:33 02/18/17 12:13 General appearance: Present: cooperative, A&O X 2, pleasant, no acute distress, answers questions appropriately Exam: Gen.: Lying in bed. Mild distress. Chest: Reduced breath sounds bilaterally. CVS: First and second heart sounds present. No murmurs, rubs or gallops. 3+ bilateral pitting pedal edema. Abdomen: Soft, nontender, nondistended. Bowel sounds present. No hepatosplenomegaly. Skin: No decubitus ulcers appreciated. Internal Medicine: Result - Labs CBC & Chem 7: 02/18/17 05:41 02/18/17 05:41 Labs: Short CBC 02/18/17 Range/Units 05:41 WBC 12.7 H (4.3-11.1) K/mcL Hgb 12.5 L (12.9-16.9) g/dL Hct 39.2 (37.5-50.1) % Plt Count 281 (140-400) K/mcL Neutrophils # 11.3 H (1.6-8.9) K/mcL BMP 02/18/17 05:41 Sodium 140 Potassium 3.7 Chloride 103 Carbon Dioxide 30 H BUN 70 H Creatinine 1.86 H Glucose 60 L Calcium 8.4 L - ABG Interpretation ABG results: PT/INR, D-dimer PT 20.6 Seconds (9.4-12.1) H 02/12/17 12:03 - Impressions Impressions Videofluoroscopic Swallow 02/18/17 16:04 IMPRESSION: No penetration or aspiration with any tested consistency Please see separate speech pathology report for full discussion of findings and recommendations. D/ / Alec Avitia MD / Alec Avitia MD Interpreting Provider: Alec Avitia MD Case discussed with infectious disease Consult Discharge Plan - Plan Referrals: Jimmie Bermudez MD [Partnered Physician] - 02/23/17 1:20 pm Jaime Garcia MD [Non-Partnered Physician] - (Patient is going to rehab, no PCP appointment needed)
[2017-02-18 15:26] LABS: Albumin 2.4 g/dL (3.5-5.0); Albumin/Globulin Ratio 0.8 (1.1-2.2); Bilirubin,Direct 0.4 mg/dL (0.0-0.5); Bilirubin,Indirect 0.5 mg/dL (0.0-1.2); Bilirubin,Total 0.9 mg/dL (0.2-1.2); Globulin 3.1 g/dL (2.4-3.5); Total Protein 5.5 g/dL (6.0-8.3)
--- NOTE | 2017-02-18 17:00 | Pulmonology Progress Note ---
Date of Encounter: 02/18/17 Time of Encounter: 04:25 Assessment and Plan (1) Collapse of left lung Current Visit: Yes Status: Acute (2) HCAP (healthcare-associated pneumonia) Current Visit: Yes Status: Acute Discussed with the pathologist and there is suspicion patient could have pneumonia due to histoplasmosis and discussed with the infectious disease service for the treatment as well as the primary team. Please call for any questions. Subjective Principal diagnosis: diastolic CHF, HCAP Interval history: Patient denies any complaint and he is confused Objective PUL Vital signs: Last Vital Signs Temp 98.4 F 02/18/17 15:59 Pulse 106 02/18/17 15:59 Resp 18 02/18/17 16:27 BP 99/68 02/18/17 15:59 Pulse Ox 93 02/18/17 16:27 General appearance: no acute distress Eyes: nonicteric ENT: oropharynx moist Neck: supple Effort: normal Auscultation: bilateral: rhonchi Percussion: bilateral: not dull Cardiovascular: regular rate and rhythm Gastrointestinal: normoactive bowel sounds unable to assess due to mental status mood appropriate Results - Laboratory Findings CBC and BMP: 02/18/17 05:41 02/18/17 05:41 PT/INR, D-dimer PT 20.6 Seconds (9.4-12.1) H 02/12/17 12:03 Abnormal lab findings: Abnormal lab results WBC 12.7 K/mcL (4.3-11.1) H 02/18/17 05:41 RBC 4.17 M/mcL (4.19-5.50) L 02/18/17 05:41 Hgb 12.5 g/dL (12.9-16.9) L 02/18/17 05:41 RDW 15.0 % (11.5-14.5) H 02/18/17 05:41 Neutrophils # 11.3 K/mcL (1.6-8.9) H 02/18/17 05:41 Lymphocytes # 0.4 K/mcL (0.6-4.6) L 02/18/17 05:41 Nucleated RBCs/100 WBC 0.1 /100 WBC (0) H 02/14/17 01:10 Hypersegmented Neuts Present (Not Present) A 02/17/17 04:05 Anisocytosis 1+ (Not Present) A 02/14/17 01:10 PT 20.6 Seconds (9.4-12.1) H 02/12/17 12:03 Carbon Dioxide 30 mEq/L (19-29) H 02/18/17 05:41 BUN 70 mg/dL (8-26) H 02/18/17 05:41 Creatinine 1.86 mg/dL (0.72-1.25) H 02/18/17 05:41 Est GFR ( Amer) 42 (> 60) L 02/18/17 05:41 Est GFR (Non-Af Amer) 35 (> 60) L 02/18/17 05:41 BUN/Creatinine Ratio 38 (6-26) H 02/18/17 05:41 Glucose 60 mg/dL (70-99) L 02/18/17 05:41 POC Glucose 98 (58-89) H 02/18/17 12:14 Calculated Osmolality 308 (280-300) H 02/18/17 05:41 Calcium 8.4 mg/dL (8.6-10.8) L 02/18/17 05:41 Troponin I 0.18 ng/mL (0-0.03) H* 02/13/17 09:21 B-Natriuretic Peptide 395 pg/mL (0-100) H 02/14/17 08:23 Serum Total Protein 5.5 g/dL (6.0-8.3) L 02/18/17 15:05 Albumin 2.4 g/dL (3.5-5.0) L 02/18/17 15:05 Albumin/Globulin Ratio 0.8 (1.1-2.2) L 02/18/17 15:05 Urine Color Red (Yellow) A 02/13/17 23:15 Urine Clarity Cloudy (Clear) A 02/13/17 23:15 Urine Protein 100 mg/dL (Neg-Trace) H 02/13/17 23:15 Urine Ketones Trace mg/dL (Negative) H 02/13/17 23:15 Urine Blood Large (Negative) H 02/13/17 23:15 Ur Leukocyte Esterase Moderate (Negative) H 02/13/17 23:15 Urine Microscopic RBC TNTC per hpf (0-3) H 02/13/17 23:15 Urine Microscopic WBC 15-30 per hpf (0-3) H 02/13/17 23:15 Ur Squamous Epith Cells Many per lpf (None-Few) H 02/13/17 23:15 Fluid Appearance Hazy (Clear) A 02/17/17 10:54 Vancomycin Trough 31.1 mcg/mL (10-20) H* 02/14/17 08:23 - Microbiology Findings Microbiology Findings: Microbiology, Last 48 Hours 02/17/17 10:54 Acid Fast Stain - Final Left Lower Lobe Lung 02/17/17 10:54 Gram Stain - Final Left Lower Lobe Lung 02/16/17 12:00 Legionella Antigen - Final Urine,Random-Not Preferred Streptococcus pneumoniae Antigen (M - Final - Clinical Findings Intake & Output: Intake & Output 02/18/17 02/18/17 02/18/17 07:59 15:59 23:59 Intake Total 100 / 100 Output Total 920 / 920 Balance 100 / 100 -920 / -920 Weight 93.5 kg Consult Discharge Plan - Plan Referrals: Jimmie Bermudez MD [Partnered Physician] - 02/23/17 1:20 pm Jaime Garcia MD [Non-Partnered Physician] - (Patient is going to rehab, no PCP appointment needed)
[2017-02-18] MEDS ORDERED: APIXABAN 5 MG TABLET PO SCH (21:00)
[2017-02-18] MEDS: rOPINIRole 1 MG TABLET PO SCH (21:17)
[2017-02-18] MEDS: Budesonide/Formoterol 80/4.5 MDI IH SCH (22:44)
[2017-02-19] MEDS: Piperacillin/Tazobactam 3.375 GM in D5% in Water (Mini-Bag+) 100 ML IVPB SCH ×2 (00:30→06:51)
[2017-02-19 04:22] LABS: Basophils % 0.1 %; Eosinophils # 0.1 K/mcL (0.0-0.6); Eosinophils % 0.7 %; Hematocrit 40.8 % (37.5-50.1); Hemoglobin 13.4 g/dL (12.9-16.9); Immature Granulocytes % 0.4 % (0-4); Lymphocytes # 0.4 K/mcL (0.6-4.6); Lymphocytes % 3.7 %; Mean Corpuscular HGB Conc 32.8 g/dL (31.6-35.5); Mean Corpuscular Hemoglobin 30.9 pg (28.0-33.3); Mean Platelet Volume 11.4 fL (9.4-12.4); Monocytes # 0.8 K/mcL (0.0-1.3); Monocytes % 6.8 %; Neutrophils # 9.9 K/mcL (1.6-8.9); Platelet Count 230 K/mcL (140-400); Red Blood Count 4.34 M/mcL (4.19-5.50); Red Cell Distribution Width 14.9 % (11.5-14.5); Segmented Neutrophils % 88.3 %
[2017-02-19 04:36] LABS: Calcium 8.5 mg/dL (8.6-10.8)
[2017-02-19 04:39] LABS: Potassium 4.2 mEq/L (3.5-4.5)
[2017-02-19] MEDS: Levalbuterol Neb 1.25 MG/3 ML IH SCH ×4 (05:04→22:09)
[2017-02-19] MEDS: Aspirin Enteric Coated 81 MG Tablet PO SCH (08:18)
[2017-02-19] MEDS: Lactobacillus 1 EACH CAP.SPRINK PO SCH ×2 (08:18→20:05)
[2017-02-19] MEDS: Sennosides/Docusate Sodium TABLET PO SCH ×2 (08:19→20:06)
[2017-02-19] MEDS: Metoprolol XL (24 HR) Succ 50 MG TAB.ER.24H PO SCH (08:19)
[2017-02-19] MEDS: Furosemide 20 MG TABLET PO SCH (08:19)
[2017-02-19] MEDS: Multivit/Ca/Min/Fe/FA 1 TAB TABLET PO SCH (08:19)
[2017-02-19] MEDS: Diltiazem CD (24hr) 240 MG CAPSULE PO SCH (08:20)
[2017-02-19] MEDS: Insulin LISPRO 300 UNITS/3 ML VIAL SQ SCH ×4 (08:20→21:39)
[2017-02-19] MEDS: Insulin DETEMIR 100 UNIT/ML X5UNITS SQ SCH ×2 (08:24→21:39)
--- NOTE | 2017-02-19 10:25 | Nephrology Progress Note ---
Date of Encounter: 02/19/17 Time of Encounter: 10:05 - Assessment and Plan (1) Acute kidney injury superimposed on chronic kidney disease Current Visit: Yes Status: Acute GIOVANNI/CKD. Renal fct improved after discontinuing Vanco and diuretics. Creat at patients baseline 1.79. Restarted Lasix at 20mg po daily yesterday with history of diastolic CHF. Documented urine output 1170 cc. Will continue to monitor. Subjective Principal diagnosis: diastolic CHF, HCAP Interval history: Watching TV, denies SOB or CP. No new complaints. Objective - Vital Signs Vital signs: Vital Signs Temp Pulse Resp BP Pulse Ox 02/19/17 07:44 97.9 F 98 16 108/56 96 02/19/17 05:05 20 96 02/18/17 22:59 97.7 F 90 20 102/65 93 02/18/17 22:54 20 92 02/18/17 18:35 97.5 F L 107 17 97/69 92 02/18/17 16:27 18 93 02/18/17 15:59 98.4 F 106 16 99/68 94 02/18/17 13:33 95/62 02/18/17 12:13 97.8 F 89 16 102/71 95 02/18/17 11:08 24 99 Intake and Output 02/18/17 02/19/17 02/19/17 23:59 07:59 15:59 Intake Total 850 / 850 100 / 100 120 / 120 Output Total 250 / 250 400 / 400 Balance 600 / 600 -300 / -300 120 / 120 Intake: IV Fluids 350 / 350 100 / 100 Levaquin Premix 750mg/150 150 / 150 mL 750 mg In 150 ml @ 100 mls/hr IVPB Q48H KEL[facility] Rx#:[id number] Zosyn 3.375 GM In 200 / 200 100 / 100 Dextrose 5% (Minibag+) 100 ML 100 ML @ 25 mls/hr IVPB Q8H KEL[facility] Rx#: [id number] Oral 500 / 500 0 / 0 120 / 120 Output: Urine 250 / 250 400 / 400 Other: Meal Breakfast Percent of Meal Consumed 95% # Voids 1 Weight 93.1 kg Blood Glucose* 140 94 Patient Weight 02/19/17 23:59 Weight 93.1 kg - General Appearance General appearance: Present: well-developed, well-nourished, appears started age EENT: Present: mucous membranes moist Neck: Present: no JVD, no carotid bruit Respiratory: Present: clear Cardiology: Present: edema, irregular rhythm Additional Comments: mild-1+ pitting edema knees down. Gastrointestinal: Present: normoactive bowel sounds, no tenderness Integumentary: Present: warm and dry Psychiatric: Present: mood/affect appropriate, cooperative - Lab 02/19/17 03:45 02/19/17 03:45 Most recent lab results Calcium 8.5 mg/dL (8.6-10.8) L 02/19/17 03:45 Magnesium 2.5 mg/dL (1.6-2.6) 02/17/17 04:05 Consult Discharge Plan - Plan Referrals: Jimmie Bermudez MD [Partnered Physician] - 02/23/17 1:20 pm Jaime Garcia MD [Non-Partnered Physician] - (Patient is going to rehab, no PCP appointment needed)
[2017-02-19] MEDS: Budesonide/Formoterol 80/4.5 MDI IH SCH ×2 (11:05→22:09)
[2017-02-19 11:21] LABS: INR 1.5; Prothrombin Time 16.1 Seconds (9.4-12.1)
[2017-02-19] MEDS: *HR* Enoxaparin 100 MG/ML SYRINGE SQ SCH (12:16)
--- NOTE | 2017-02-19 12:47 | Internal Med Progress Note ---
Date of Encounter: 02/19/17 Time of Encounter: 09:45 - Assessment and plan (1) Histoplasma capsulatum pneumonia Current Visit: Yes Status: Acute Assessment and plan: Bronchioloalveolar lavage specimen is consistent with Histoplasma species. Case discussed with infectious disease and pulmonary medicine. Patient has been started on itraconazole. Zosyn and Levaquin have been discontinued as the patient has finished a seven- day course. Patient is high risk due to resolving fungal infection of his lung and due to uncontrolled atrial fibrillation and is at risk of lethal arrhythmias. (2) Acute respiratory failure Current Visit: Yes Status: Resolved Assessment and plan: Resolved respiratory failure. Patient is currently on room air. Qualifiers: Respiratory failure complication: hypoxia Qualified Code(s): J96.01 - Acute respiratory failure with hypoxia (3) Atrial fibrillation Current Visit: Yes Status: Chronic Assessment and plan: Rate uncontrolled. Patient did not receive 2 doses of 60 mg of Cardizem yesterday due to borderline low blood pressure. Patient has been changed to long-acting Cardizem today. We will monitor his average heart rate and adjust dose of Cardizem accordingly. Patient cannot be on new anticoagulant medications due to cross interaction with itraconazole. Hence, he will be started on Coumadin. Risks and benefits of Coumadin discussed with the patient and he is agreeable to starting the same. He will follow-up with his upper shaper Dr. Zepeda as an outpatient. Qualifiers: Atrial fibrillation type: paroxysmal Qualified Code(s): I48.0 - Paroxysmal atrial fibrillation (4) HTN (hypertension) Current Visit: Yes Status: Chronic Assessment and plan: Borderline low blood pressure. Will discontinue Lasix. We will monitor his fluid status and use Lasix when necessary. Qualifiers: Hypertension type: essential hypertension Qualified Code(s): I10 - Essential (primary) hypertension (5) CHF (congestive heart failure) Current Visit: Yes Status: Chronic Assessment and plan: Euvolemic. Will discontinue Lasix. Qualifiers: Congestive heart failure type: diastolic Congestive heart failure chronicity: chronic Qualified Code(s): I50.32 - Chronic diastolic (congestive ) heart failure (6) Type 2 diabetes mellitus Current Visit: Yes Status: Chronic Assessment and plan: Continue current dose of diuretic medications. Blood sugar this morning was 120. Renal function improving. Discontinue Lasix due to his borderline low blood pressures. Qualifiers: Diabetes mellitus complication status: with kidney complications Diabetes mellitus complication detail: with chronic kidney disease Diabetes mellitus procurement director insulin use: with procurement director use Chronic kidney disease stage: stage 3 (moderate) Qualified Code(s): E11.22 - Type 2 diabetes mellitus with diabetic chronic kidney disease; N18.3 - Chronic kidney disease, stage 3 ( moderate); Z79.4 - retirement (current) use of insulin (7) Respiratory failure Current Visit: Yes Status: Resolved Qualifiers: Chronicity: acute Respiratory failure complication: hypoxia Qualified Code(s): J96.01 - Acute respiratory failure with hypoxia - Subjective Interval history: Patient reports that his breathing is better. His bronchioloalveolar lavage was positive for Histoplasma. He was started on itraconazole yesterday. Currently, he denies any wheezing but reports some cough with sputum production. He denies any chest pain or feeling lightheaded. - Constitutional Vitals: Temp Pulse Resp BP Pulse Ox 98 F 89 16 96/63 98 02/19/17 12:04 02/19/17 12:04 02/19/17 12:04 02/19/17 12:04 02/19/17 12:04 General appearance: Present: cooperative, A&O X 2, pleasant, no acute distress, answers questions appropriately Exam: Gen.: Lying in bed. No acute distress. Chest: Clear to auscultation bilaterally. No adventitious sounds present. CVS: First and second heart sounds present. No murmurs, rubs or gallops. Abdomen: Soft, nontender, obese. Bowel sounds present. No hepatosplenomegaly. Internal Medicine: Result - Labs CBC & Chem 7: 02/19/17 03:45 02/19/17 03:45 Labs: Short CBC 02/19/17 Range/Units 03:45 WBC 11.2 H (4.3-11.1) K/mcL Hgb 13.4 (12.9-16.9) g/dL Hct 40.8 (37.5-50.1) % Plt Count 230 (140-400) K/mcL Neutrophils # 9.9 H (1.6-8.9) K/mcL BMP 02/19/17 03:45 Sodium 141 Potassium 4.2 Chloride 101 Carbon Dioxide 32 H BUN 54 H Creatinine 1.79 H Glucose 121 H Calcium 8.5 L Liver Function 02/18/17 Range/Units 15:05 Total Bilirubin 0.9 (0.2-1.2) mg/dL Direct Bilirubin 0.4 (0.0-0.5) mg/dL AST 20 (5-34) Units/L ALT 25 (0-55) Units/L Alkaline Phosphatase 84 (38-126) Units/L Albumin 2.4 L (3.5-5.0) g/dL - ABG Interpretation ABG results: PT/INR, D-dimer PT 16.1 Seconds (9.4-12.1) H 02/19/17 10:49 Consult Discharge Plan - Plan Referrals: Jimmie Bermudez MD [Partnered Physician] - 02/23/17 1:20 pm Jaime Garcia MD [Non-Partnered Physician] - (Patient is going to rehab, no PCP appointment needed)
--- NOTE | 2017-02-19 16:16 | Infectious Disease Progress No ---
Date of Encounter: 02/19/17 Time of Encounter: 16:13 - Assessment and Plan (1) Sepsis Current Visit: Yes Status: Acute The patient had two SIRS criteria. Likely secondary to PNA. Improved. Leukocytosis continues to improve. Tachycardia intermittent. Tachypnea resolved. Blood culture drawn 02/12/17 is negative 08/09 set. Qualifiers: Sepsis type: sepsis due to unspecified organism Qualified Code(s): A41.9 - Sepsis, unspecified organism (2) Pneumonia Current Visit: Yes Status: Acute Causative organism likely Histoplasmosis per pathology. CT scan 02/16/17 showed heterogenous ground glass appearance greater on the right than on the left, suggestive of PNA or aspiration. Swallow eval negative for aspiration. Status post bronch 02/17/17 that showed mucopurulent secretions. Gram stain and cultures are negative. BAL pathology report shows acute inflammation with small fungal organisms, morphologically suggestive of Histoplasma spp per GMS stain. Check Fungitell and Histoplasma antigen. Continue Sporanox 200mg PO daily. Duration of treatment depends on the clinical picture, but continues until seen by ID in follow up. Follow up with ID 2 weeks post-discharge. Monitor serum creatinine and LFTs periodically throughout the duration of treatment. Check drug levels 10 days after initiation of the medication. Qualifiers: Pneumonia type: due to unspecified organism Laterality: right Lung location: lower lobe of lung Qualified Code(s): J18.1 - Lobar pneumonia, unspecified organism (3) Dyspnea Current Visit: No Status: Acute Likely multifactorial: PNA + Histo + COPD + pleural effusion. Appears improved. Management per the primary team. Qualifiers: Dyspnea type: unspecified Qualified Code(s): R06.00 - Dyspnea, unspecified (4) Pleural effusion Current Visit: Yes Status: Acute Likely from volume overload. Consider repeating CXR to re-evaluate. (5) Atrial fibrillation Current Visit: Yes Status: Chronic Currently rate controlled. Management per primary team. Qualifiers: Atrial fibrillation type: paroxysmal Qualified Code(s): I48.0 - Paroxysmal atrial fibrillation (6) COPD (chronic obstructive pulmonary disease) Current Visit: Yes Status: Acute Severe. Management per primary team. Pulmonology consulted as well. Qualifiers: COPD type: COPD with acute exacerbation Qualified Code(s): J44.1 - Chronic obstructive pulmonary disease with (acute) exacerbation (7) Diastolic heart failure Current Visit: Yes Status: Acute Management per primary team. Qualifiers: Heart failure chronicity: acute on chronic Qualified Code(s): I50.33 - Acute on chronic diastolic (congestive) heart failure - Subjective Interval history: Patient seen and examined. No acute events noted overnight. Patient resting comfortably in bed with family at the bedside. Denies any fevers or chills or rigors overnight. Report some mild shortness of breath and a cough that is mostly nonproductive. Denies any chest pain. Denies any nausea, vomiting, diarrhea, or constipation. Denies any urinary complaints. Denies any oral thrush or new skin lesions. Denies any abdominal pain and states his appetite is good. Infect Dis PN-Objective Data - Labs CBC & Chem 7: 02/19/17 03:45 02/19/17 03:45 Labs: Laboratory Results - last 24 hr 02/13/17 02/13/17 02/18/17 08:35 11:17 16:52 WBC RBC Hgb Hct MCV MCH MCHC RDW Plt Count MPV Immature Gran % Seg Neutrophils % Lymphocytes % Monocytes % Eosinophils % Basophils % Neutrophils # Lymphocytes # Monocytes # Eosinophils # Basophils # PT INR Sodium Potassium Chloride Carbon Dioxide BUN Creatinine Est GFR ( Amer) Est GFR (Non-Af Amer) BUN/Creatinine Ratio Glucose POC Glucose 281 H 371 H 75 Calculated Osmolality Calcium 02/18/17 02/19/17 02/19/17 18:39 03:45 03:45 WBC 11.2 H RBC 4.34 Hgb 13.4 Hct 40.8 MCV 94.0 MCH 30.9 MCHC 32.8 RDW 14.9 H Plt Count 230 MPV 11.4 Immature Gran % 0.4 Seg Neutrophils % 88.3 Lymphocytes % 3.7 Monocytes % 6.8 Eosinophils % 0.7 Basophils % 0.1 Neutrophils # 9.9 H Lymphocytes # 0.4 L Monocytes # 0.8 Eosinophils # 0.1 Basophils # 0.0 PT INR Sodium 141 Potassium 4.2 Chloride 101 Carbon Dioxide 32 H BUN 54 H Creatinine 1.79 H Est GFR ( Amer) 44 L Est GFR (Non-Af Amer) 36 L BUN/Creatinine Ratio 30 H Glucose 121 H POC Glucose 140 H Calculated Osmolality 308 H Calcium 8.5 L 02/19/17 02/19/17 02/19/17 07:52 10:49 12:06 WBC RBC Hgb Hct MCV MCH MCHC RDW Plt Count MPV Immature Gran % Seg Neutrophils % Lymphocytes % Monocytes % Eosinophils % Basophils % Neutrophils # Lymphocytes # Monocytes # Eosinophils # Basophils # PT 16.1 H INR 1.5 Sodium Potassium Chloride Carbon Dioxide BUN Creatinine Est GFR ( Amer) Est GFR (Non-Af Amer) BUN/Creatinine Ratio Glucose POC Glucose 94 H 200 H Calculated Osmolality Calcium Cultures: Cultures 02/17/17 10:54 Gram Stain - Final Left Lower Lobe Lung 02/17/17 10:54 Acid Fast Stain - Final Left Lower Lobe Lung 02/16/17 12:00 Legionella Antigen - Final Urine,Random-Not Preferred Streptococcus pneumoniae Antigen (M - Final Serology 02/17/17 02/13/17 Range/Units 10:54 23:15 Urine Color Red A (Yellow) Urine Clarity Cloudy A (Clear) Urine pH 5.5 (5.0-8.0) pH Units Ur Specific [place] 1.016 (1.010-1.025) Urine Protein 100 H (Neg-Trace) mg/dL Urine Glucose (UA) Normal (Normal) mg/dL Urine Ketones Trace H (Negative) mg/dL Urine Blood Large H (Negative) Urine Nitrite Negative (Negative) Urine Bilirubin Negative (Negative) Urine Urobilinogen Normal (Normal) mg/dL Ur Leukocyte Esterase Moderate H (Negative) Urine Microscopic RBC TNTC H (0-3) per hpf Urine Microscopic WBC 15-30 H (0-3) per hpf Ur Squamous Epith Cells Many H (None-Few) per lpf Urine Bacteria None Seen (None-Few) per hpf Hyaline Casts None Seen (None-Few) per lpf Fluid Source LLL BAL Fluid Volume 15 mL Fluid Appearance Hazy A (Clear) Fluid RBC TNP Fld Tot Nucleated Cell TNP Fluid Seg Neutrophil % 91.0 % Fld Band Neutrophil % 4.0 % Fluid Lymphocytes % 2.0 % Fluid Monocytes % TNP Fluid Eosinophils % TNP Fluid Basophils % TNP Fluid Other Cells % 3.0 % Exam - Constitutional Vitals: Temp Pulse Resp BP Pulse Ox 98 F 89 18 96/63 95 02/19/17 12:04 02/19/17 12:04 02/19/17 16:03 02/19/17 12:04 02/19/17 16:03 General appearance: average body habitus, cooperative, no acute distress - Head Head exam: Present: atraumatic, normal inspection, normocephalic - Eye Eye exam: Present: EOMI, normal appearance, PERRL Pupils: Present: normal accommodation - ENT ENT exam: Present: mucous membranes moist - Neck Neck exam: Present: normal inspection - Respiratory Respiratory exam: Present: CTAB. Absent: rales, respiratory distress, rhonchi, wheezes - Cardiovascular Cardiovascular exam: Present: RRR, +S1, +S2 - GI/Abdominal GI/Abdominal exam: Present: normal bowel sounds, soft. Absent: distended, tenderness - Extremities Exam Extremities exam: Present: normal inspection. Absent: joint swelling, pedal edema, tenderness - Neurological Exam Neurological exam: Present: alert, oriented X3, no focal deficits - Psychiatric Psychiatric exam: Present: normal affect, normal mood - Skin Skin exam: Present: dry, intact, normal color. Absent: warm Consult Discharge Plan - Plan Referrals: Jimmie Bermudez MD [Partnered Physician] - 02/23/17 1:20 pm Jaime Garcia MD [Non-Partnered Physician] - (Patient is going to rehab, no PCP appointment needed)
[2017-02-19] MEDS ORDERED: *HR* Warfarin 2 MG TABLET PO ONE (18:00)
[2017-02-19] MEDS ORDERED: Warfarin perPT PO PRN (18:00)
[2017-02-19] MEDS: rOPINIRole 1 MG TABLET PO SCH (20:06)
[2017-02-20] MEDS: Levalbuterol Neb 1.25 MG/3 ML IH SCH ×2 (04:11→11:04)
[2017-02-20 04:42] LABS: Basophils % 0.1 %; Eosinophils # 0.2 K/mcL (0.0-0.6); Eosinophils % 1.2 %; Hematocrit 36.5 % (37.5-50.1); Immature Granulocytes % 0.4 % (0-4); Lymphocytes # 0.5 K/mcL (0.6-4.6); Mean Corpuscular HGB Conc 32.9 g/dL (31.6-35.5); Mean Corpuscular Hemoglobin 30.5 pg (28.0-33.3); Mean Corpuscular Volume 92.6 fL (83.0-100.0); Mean Platelet Volume 11.5 fL (9.4-12.4); Monocytes # 0.7 K/mcL (0.0-1.3); Neutrophils # 10.8 K/mcL (1.6-8.9); Platelet Count 237 K/mcL (140-400); Red Blood Count 3.94 M/mcL (4.19-5.50); Red Cell Distribution Width 14.9 % (11.5-14.5); Segmented Neutrophils % 88.3 %
[2017-02-20 04:47] LABS: INR 1.4; Prothrombin Time 15.4 Seconds (9.4-12.1)
[2017-02-20 05:02] LABS: Albumin 2.2 g/dL (3.5-5.0); Albumin/Globulin Ratio 0.8 (1.1-2.2); Calcium 8.6 mg/dL (8.6-10.8); Globulin 2.8 g/dL (2.4-3.5); Potassium 3.4 mEq/L (3.5-4.5)
[2017-02-20] MEDS: Multivit/Ca/Min/Fe/FA 1 TAB TABLET PO SCH (08:44)
[2017-02-20] MEDS: Sennosides/Docusate Sodium TABLET PO SCH ×2 (08:44→20:40)
[2017-02-20] MEDS: Diltiazem CD (24hr) 240 MG CAPSULE PO SCH (08:44)
[2017-02-20] MEDS: Metoprolol XL (24 HR) Succ 50 MG TAB.ER.24H PO SCH (08:44)
[2017-02-20] MEDS: Lactobacillus 1 EACH CAP.SPRINK PO SCH ×2 (08:44→20:39)
[2017-02-20] MEDS: Aspirin Enteric Coated 81 MG Tablet PO SCH (08:44)
[2017-02-20] MEDS: *HR* Enoxaparin 100 MG/ML SYRINGE SQ SCH (08:45)
[2017-02-20] MEDS: Insulin LISPRO 300 UNITS/3 ML VIAL SQ SCH ×4 (08:45→21:01)
[2017-02-20] MEDS: Insulin DETEMIR 100 UNIT/ML X5UNITS SQ SCH (08:48)
[2017-02-20] MEDS ORDERED: Diltiazem CD (24hr) 120 MG CAPSULE PO ONE (09:19)
--- NOTE | 2017-02-20 09:58 | Nephrology Progress Note ---
Date of Encounter: 02/20/17 Time of Encounter: 09:25 - Assessment and Plan (1) Acute kidney injury superimposed on chronic kidney disease Current Visit: Yes Status: Acute GIOVANNI/CKD. Renal fct improved after discontinuing Vanco and diuretics. Creat at patients baseline 1.52. Lasix currently on hold due to low BP. Documented urine output 775 cc. Will continue to monitor. Subjective Principal diagnosis: diastolic CHF, HCAP Interval history: Watching TV, denies SOB or CP. No new complaints. Objective - Vital Signs Vital signs: Vital Signs Temp Pulse Resp BP Pulse Ox 02/20/17 07:00 99.5 F 89 17 124/70 95 02/20/17 04:20 96.5 F L 82 16 114/73 100 02/20/17 04:11 14 92 02/19/17 22:10 18 92 02/19/17 21:00 97.5 F L 101 19 132/73 96 02/19/17 16:20 98.3 F 102 16 106/76 96 02/19/17 16:03 18 95 02/19/17 12:04 98 F 89 16 96/63 98 02/19/17 11:05 16 94 Intake and Output 02/19/17 02/20/17 02/20/17 23:59 07:59 15:59 Intake Total 100 / 100 0 / 0 120 / 120 Output Total 200 / 200 100 / 100 100 / 100 Balance -100 / -100 -100 / -100 20 / 20 Intake: Oral 100 / 100 0 / 0 120 / 120 Output: Urine 200 / 200 100 / 100 100 / 100 Other: Meal Dinner Breakfast Percent of Meal Consumed 75% 50% Stool Size Small Stool Consistency formed # Bowel Movements 1 Weight 93.8 kg Blood Glucose* 129 124 Patient Weight 02/20/17 23:59 Weight 93.8 kg - General Appearance General appearance: Present: well-developed, well-nourished, appears started age EENT: Present: mucous membranes moist Neck: Present: no JVD Respiratory: Present: clear Cardiology: Present: edema, irregular rhythm Additional Comments: mild pitting edema LE Gastrointestinal: Present: normoactive bowel sounds, no tenderness, obese Integumentary: Present: warm and dry Neurologic: Present: alert and oriented x3 Psychiatric: Present: mood/affect appropriate, cooperative - Lab 02/20/17 04:03 02/20/17 04:03 Most recent lab results Calcium 8.6 mg/dL (8.6-10.8) 02/20/17 04:03 Magnesium 2.5 mg/dL (1.6-2.6) 02/17/17 04:05 Consult Discharge Plan - Plan Referrals: Jimmie Bermudez MD [Partnered Physician] - 02/23/17 1:20 pm Jaime Garcia MD [Non-Partnered Physician] - (Patient is going to rehab, no PCP appointment needed)
[2017-02-20] MEDS: Budesonide/Formoterol 80/4.5 MDI IH SCH ×2 (11:03→21:41)
[2017-02-20] MEDS ORDERED: Levalbuterol Neb 1.25 MG/3 ML IH PRN (12:08)
--- NOTE | 2017-02-20 12:09 | Internal Med Progress Note ---
Date of Encounter: 02/20/17 Time of Encounter: 10:45 - Assessment and plan (1) Histoplasma capsulatum pneumonia Current Visit: Yes Status: Acute Assessment and plan: Bronchioloalveolar lavage specimen is consistent with Histoplasma species. Continue itraconazole. Follow-up with infectious disease in 14 days after discharge. Blood levels of itraconazole, hepatic function test and CBC 10 days after discharge per ID recommendations. Patient is high risk due to resolving fungal infection of his lung and due to uncontrolled atrial fibrillation and is at risk of lethal arrhythmias. (2) Atrial fibrillation Current Visit: Yes Status: Chronic Assessment and plan: Rate uncontrolled. Patient received 240 mg of Cardizem yesterday and continues to tachycardia. We will increase the dose of Cardizem to 360 mg by mouth daily extended release. Will discontinue [id number] leave albuterol and change to when necessary. Patient cannot be on new anticoagulant medications due to cross interaction with itraconazole. Patient has been started on Coumadin. Dose adjustment according to pharmacy. He will continue to have titration of Coumadin once he is discharged to rehabilitation. Likely discharge tomorrow after monitoring his response to increased dose of Cardizem over the next 24 hours. He will follow-up with his chief enterprise architect Dr. Zepeda as an outpatient. Qualifiers: Atrial fibrillation type: paroxysmal Qualified Code(s): I48.0 - Paroxysmal atrial fibrillation (3) HTN (hypertension) Current Visit: Yes Status: Chronic Assessment and plan: Continue to hold Lasix for now. We will use when necessary for now. Qualifiers: Hypertension type: essential hypertension Qualified Code(s): I10 - Essential (primary) hypertension (4) CHF (congestive heart failure) Current Visit: Yes Status: Chronic Assessment and plan: Euvolemic. Will continue to hold Lasix. Qualifiers: Congestive heart failure type: diastolic Congestive heart failure chronicity: chronic Qualified Code(s): I50.32 - Chronic diastolic (congestive ) heart failure (5) Type 2 diabetes mellitus Current Visit: Yes Status: Chronic Assessment and plan: Reduce Levemir to once a day. Continue sliding scale insulin Renal function continues to improve. Nephrology on board. Qualifiers: Diabetes mellitus complication status: with kidney complications Diabetes mellitus complication detail: with chronic kidney disease Diabetes mellitus shelter insulin use: with suspender maker use Chronic kidney disease stage: stage 3 (moderate) Qualified Code(s): E11.22 - Type 2 diabetes mellitus with diabetic chronic kidney disease; N18.3 - Chronic kidney disease, stage 3 ( moderate); Z79.4 - penitentiary (current) use of insulin (6) Respiratory failure Current Visit: Yes Status: Resolved Qualifiers: Chronicity: acute Respiratory failure complication: hypoxia Qualified Code(s): J96.01 - Acute respiratory failure with hypoxia - Subjective Interval history: Patient denies having any palpitations or feeling lightheaded. He denies any chest pain, shortness of breath, cough or wheezing. - Constitutional Vitals: Temp Pulse Resp BP Pulse Ox 99.5 F 89 17 124/70 95 02/20/17 07:00 02/20/17 07:00 02/20/17 07:00 02/20/17 07:00 02/20/17 07:00 General appearance: Present: cooperative, answers questions appropriately Exam: Gen.: Lying in bed. No acute distress. Chest: Clear to auscultation bilaterally. No adventitious sounds present. CVS: First and second heart sounds present. No murmurs, rubs or gallops. Irregularly irregular rate and rhythm. Tachycardia present. Abdomen: Soft, nontender, nondistended. Bowel sounds present. Skin: No decubitus ulcers appreciated. Internal Medicine: Result - Labs CBC & Chem 7: 02/20/17 04:03 02/20/17 04:03 Labs: Short CBC 02/20/17 Range/Units 04:03 WBC 12.2 H (4.3-11.1) K/mcL Hgb 12.0 L (12.9-16.9) g/dL Hct 36.5 L (37.5-50.1) % Plt Count 237 (140-400) K/mcL Neutrophils # 10.8 H (1.6-8.9) K/mcL BMP 02/20/17 04:03 Sodium 141 Potassium 3.4 L Chloride 101 Carbon Dioxide 34 H BUN 41 H D Creatinine 1.52 H Glucose 105 H Calcium 8.6 Liver Function 02/20/17 Range/Units 04:03 Total Bilirubin 1.0 (0.2-1.2) mg/dL AST 16 (5-34) Units/L ALT 18 (0-55) Units/L Alkaline Phosphatase 76 (38-126) Units/L Albumin 2.2 L (3.5-5.0) g/dL - ABG Interpretation ABG results: PT/INR, D-dimer PT 15.4 Seconds (9.4-12.1) H 02/20/17 04:03 Consult Discharge Plan - Plan Referrals: Jimmie Bermudez MD [Partnered Physician] - 02/23/17 1:20 pm Jaime Garcia MD [Non-Partnered Physician] - (Patient is going to rehab, no PCP appointment needed)
[2017-02-20] MEDS ORDERED: *HR* Warfarin 2 MG TABLET PO ONE (18:00)
[2017-02-20] MEDS: rOPINIRole 1 MG TABLET PO SCH (20:40)
[2017-02-20] MEDS ORDERED: Insulin DETEMIR 100 UNIT/ML X5UNITS SQ SCH (21:00)
[2017-02-21 06:46] LABS: INR 1.2; Prothrombin Time 13.1 Seconds (9.4-12.1)
[2017-02-21] MEDS: Budesonide/Formoterol 80/4.5 MDI IH SCH (07:32)
[2017-02-21 07:48] VITALS: BP 122/81
--- NOTE | 2017-02-21 08:22 | Nephrology Progress Note ---
Date of Encounter: 02/21/17 Time of Encounter: 08:10 - Assessment and Plan (1) Acute kidney injury superimposed on chronic kidney disease Current Visit: Yes Status: Acute GIOVANNI/CKD. Renal fct improved after discontinuing Vanco and diuretics. Today labs pending. Lasix currently on hold due to low BP. Documented urine output 375 cc. Will continue to monitor. Subjective Principal diagnosis: diastolic CHF, HCAP Interval history: Watching TV, eating breakfast, denies SOB or CP. No new complaints. Objective - Vital Signs Vital signs: Vital Signs Temp Pulse Resp BP Pulse Ox 02/21/17 07:33 18 100 02/21/17 07:00 82 17 122/81 100 02/21/17 02:00 98.0 F 82 18 121/81 100 02/20/17 21:41 18 99 02/20/17 19:45 98.0 F 86 21 117/87 98 02/20/17 16:00 98.1 F 90 15 109/73 97 02/20/17 11:04 24 97 Intake and Output 02/20/17 02/21/17 02/21/17 23:59 07:59 15:59 Intake Total 740 / 740 300 / 300 Output Total 100 / 100 375 / 375 Balance 640 / 640 -75 / -75 Intake: Oral 740 / 740 300 / 300 Output: Urine 100 / 100 375 / 375 Other: Meal Dinner Percent of Meal Consumed 100% Stool Size Moderate Stool Consistency soft formed Stool Color Santos Colored # Bowel Movements 1 Weight 94.5 kg Blood Glucose* 208 72 Patient Weight 02/21/17 23:59 Weight 94.5 kg - General Appearance General appearance: Present: well-developed, well-nourished, appears started age EENT: Present: mucous membranes moist Neck: Present: no JVD Respiratory: Present: clear Cardiology: Present: no edema, irregular rhythm Gastrointestinal: Present: normoactive bowel sounds, no tenderness Integumentary: Present: warm and dry Neurologic: Present: alert and oriented x3 Psychiatric: Present: mood/affect appropriate, cooperative - Lab 02/20/17 04:03 02/20/17 04:03 Most recent lab results Calcium 8.6 mg/dL (8.6-10.8) 02/20/17 04:03 Magnesium 2.5 mg/dL (1.6-2.6) 02/17/17 04:05 Consult Discharge Plan - Plan Referrals: Jimmie Bermudez MD [Partnered Physician] - 02/23/17 1:20 pm Jaime Garcia MD [Non-Partnered Physician] - (Patient is going to rehab, no PCP appointment needed)
[2017-02-21] MEDS: Lactobacillus 1 EACH CAP.SPRINK PO SCH (08:56)
[2017-02-21] MEDS: Metoprolol XL (24 HR) Succ 50 MG TAB.ER.24H PO SCH (08:56)
[2017-02-21] MEDS: Multivit/Ca/Min/Fe/FA 1 TAB TABLET PO SCH (08:57)
[2017-02-21] MEDS: Sennosides/Docusate Sodium TABLET PO SCH (08:57)
[2017-02-21] MEDS: *HR* Enoxaparin 100 MG/ML SYRINGE SQ SCH (08:57)
[2017-02-21] MEDS: Aspirin Enteric Coated 81 MG Tablet PO SCH (08:57)
[2017-02-21] MEDS: Insulin LISPRO 300 UNITS/3 ML VIAL SQ SCH ×2 (08:58→12:40)
[2017-02-21] MEDS ORDERED: Diltiazem CD (24hr) 180 MG CAPSULE PO SCH (09:00)
[2017-02-21 09:13] LABS: BUN/Creatinine Ratio 25 (6-26); Carbon Dioxide 37 mEq/L (19-29); Chloride 99 mEq/L (98-109); Glucose 107 mg/dL (70-99); Osmolality,Calculated 297 (280-300); Sodium 140 mEq/L (136-145); eGFR For African Americans > 60 (> 60); eGFR For Non-African Americans 57 (> 60)
[2017-02-21 09:14] LABS: Blood Urea Nitrogen 30 mg/dL (8-26)
--- NOTE | 2017-02-21 10:01 | Discharge Summary ---
Date of Encounter: 02/21/17 Time of Encounter: 09:54 - Discharge Diagnosis (1) Histoplasma capsulatum pneumonia Priority: Primary Status: Acute (2) Atrial fibrillation Priority: Secondary Status: Chronic Qualifiers: Atrial fibrillation type: paroxysmal Qualified Code(s): I48.0 - Paroxysmal atrial fibrillation (3) HTN (hypertension) Priority: Secondary Status: Chronic Qualifiers: Hypertension type: essential hypertension Qualified Code(s): I10 - Essential (primary) hypertension (4) CHF (congestive heart failure) Priority: Secondary Status: Chronic Qualifiers: Congestive heart failure type: diastolic Congestive heart failure chronicity: chronic Qualified Code(s): I50.32 - Chronic diastolic (congestive ) heart failure (5) Type 2 diabetes mellitus Priority: Secondary Status: Chronic Qualifiers: Diabetes mellitus complication status: with kidney complications Diabetes mellitus complication detail: with chronic kidney disease Diabetes mellitus fci insulin use: with fci use Chronic kidney disease stage: stage 3 (moderate) Qualified Code(s): E11.22 - Type 2 diabetes mellitus with diabetic chronic kidney disease; N18.3 - Chronic kidney disease, stage 3 ( moderate); Z79.4 - radiotelegraphist (current) use of insulin (6) Respiratory failure Priority: Secondary Status: Resolved Qualifiers: Chronicity: acute Respiratory failure complication: hypoxia Qualified Code(s): J96.01 - Acute respiratory failure with hypoxia - Discharge Medications Prescriptions: Itraconazole [Sporanox] 200 mg PO Q24H #30 Home Medications: Cyclosporine [Restasis] 1 drop OP BID 04/17/15 [History] Multivit-Min/FA/Lycopen/Lutein [Centrum Silver Tablet] 1 tab PO QAM 04/17/15 [ History] Ropinerole [Requip] 1 mg PO HS 04/17/15 [History] Albuterol Sulfate [Proair Hfa] 1 puff IH Q6H PRN #1 inh 10/12/15 [Rx] Aspirin Enteric Coated [Aspirin EC] 81 mg PO DAILY #30 tablet.dr 02/06/17 [Rx] Budesonide/Formoterol 80/4.5 [Symbicort 80/4.5] 1 puff IH BID #5 hfa.aer.ad 08/25 [Rx] Diltiazem CD (24hr) [Cardizem CD] 360 mg PO DAILY 30 Days 02/06/17 [Rx] Metoprolol XL (24 HR) Succ [Toprol Xl] 200 mg PO DAILY 30 Days 02/06/17 [Rx] Sennosides/Docusate Sodium [Senna Plus] 2 tab PO BID 02/12/17 [History] Furosemide [Lasix] 20 mg PO QPM PRN #30 tab 02/21/17 [Rx] Insulin Glargine,Hum.rec.anlog [Lantus Solostar] 6 unit SQ QAM #0 02/21/17 [Rx] Itraconazole [Sporanox] 200 mg PO Q24H #30 02/21/17 [Rx] Lactobacillus [Culturelle] 2 each PO BID #0 02/21/17 [Rx] Warfarin perPT [Coumadin perPT] 1 each PO DAILY@1800 PRN #0 each 02/21/17 [Rx] Allergies/Adverse Reactions: Allergies codeine Allergy (Mild, Verified 02/01/17 07:37) Flushing tramadol Allergy (Mild, Verified 02/01/17 07:37) Dizziness metformin Adverse Reaction (Mild, Verified 02/01/17 07:37) Nausea - Notes to Outpatient Provider 1. Coumadin needs to be titrated during rehabilitation stay for INR goal 2-3 2. Drug levels of atypical was ordered to be checked on 02/25/2017. Patient to have CMP performed in 1 week of discharge. 3. Follow-up with infectious disease in 2 weeks after discharge. Date of admission: 02/12/17 15:07 Primary care physician: PCP NO Consults: 02/15/17 13:56 Consult to Infectious Diseases [CONS] Routine Consulting Provider: Infectious Disease Rebecca Reason for Consult: Pneumonia - requested by Dr. Arrieta. Time Notified: 13:57 Call Completed: Yes 02/16/17 14:19 Consult to Respiratory Therapy [CONS] Routine Reason for Consult: PNA. left lower lobe collapse. chest PT. Call Completed: No 02/16/17 14:44 Consult to Pulmonology [CONS] Routine Consulting Provider: Pulm Crit Care & Sleep Rebecca Reason for Consult: LLL collapse Call Completed: Yes 02/16/17 15:07 Consult to Speech Therapy [CONS] Routine Comment: Evaluate, develop and implement POC Reason for Consult: swallow evaluation. Possible aspiration. Call Completed: No Discharging clinician: Amos Romeo Anticipated date of discharge: 02/21/17 - Patient Status Disposition: Transfer Inpatient Rehab Fac Condition: Fair Functional capacity at discharge: uses cane/walker Overall status at discharge: patient is progressing back to baseline - Discharge Instructions Follow Up With: Jimmie Bermudez MD [Partnered Physician] - 02/23/17 1:20 pm Jaime Garcia MD [Non-Partnered Physician] - (Patient is going to rehab, no PCP appointment needed) Leelee Henriquez MD [Partnered Physician] - (2 weeks) - Diet and Activity Activity: as per physical therapy, increase activity as tolerated Diet: diabetic diet, low fat, low cholesterol, low salt diet Hospital course: Mr. Flores is a 86 year old male with a history of atrial fibrillation, coronary artery disease, diabetes complicated by chronic kidney disease stage III and valvular heart disease who presented to the emergency room due to complains of shortness of breath for about 5-6 days. Patient was found to have atrial fibrillation with rapid ventricular response in the emergency room and right lower lobe infiltrate with an elevated white count and elevated troponin. He was admitted with a diagnosis of atrial ablation with rapid regular response and pneumonia. He was given a Cardizem bolus and placed on Cardizem drip for his atrial ablation with rapid ventricular response. Cardiology was consulted to evaluate the patient. Due to his recent hospitalization, he was placed on broad spectrum antibody therapy for his presumed healthcare associated pneumonia. He was given Lasix for CHF exacerbation. Nephrology was consulted due to his chronic kidney disease stage III. During stay in the hospital, the patient had altered mental status. He was evaluated by pulmonology and the patient underwent a bronchoscopy with bronchoalveolar lavage to evaluate his pneumonia. His renal function initially worsened with diuresis but got better after holding the diuresis. Infectious disease was also consulted as the patient continued to have symptoms despite broad-spectrum antibody therapy. His bronchial alveolar lavage was positive for Histoplasma species. He was diagnosed to have fungal pneumonia due to Histoplasma and started on itraconazole. Due to starting itraconazole, his statins were discontinued. His xarelto was also discontinued due to cross interaction. The patient has been started on Coumadin for his atrial flutter ablation with rapid ventricular response. The patient will continue taking Coumadin and titrated for optimal dose at rehabilitation facility. He was evaluated by physical therapy during stay in the hospital and felt to require inpatient rehabilitation placement. The patient's rate control medications were eventually titrated and the patient's heart rate was adequately controlled. The patient has been able to come off oxygen with treatment of his pneumonia. As the patient is medically stable and he has a bed available and rehabilitation facility, he has been deemed stable to be discharged to rehabilitation today. - Time Spent with Patient Total time spent providing and/or coordinating discharge services: Greater than 30 minutes (40) - Constitutional Vitals: Temp Pulse Resp BP Pulse Ox 98.0 F 82 18 122/81 100 02/21/17 02:00 02/21/17 07:00 02/21/17 07:33 02/21/17 07:00 02/21/17 07:33 General appearance: Present: cooperative, answers questions appropriately Exam: Gen.: Lying in bed. No acute distress. Chest: Clear to auscultation bilaterally. No adventitious sounds present. CVS: First and second heart sounds present. No murmurs, rubs or gallops.
[2017-02-21] MEDS ORDERED: *HR* Warfarin 4 MG TABLET PO ONE (18:00)
== END 2017-02-21 15:30 | DRG 853 ==
LOC: EMEROO 11:57 → 2NNU 11:57 → SUATTDRO 15:07 → 2NENU 02-17 11:37
PROVIDERS: ADMIT Internal Medicine; ATTEND Internal Medicine Sleep Medicine

== ENCOUNTER 2017-03-22 11:46 | Inpatient (IN) ==
[2017-03-22 12:46] LABS: Basophils % 0.3 %; Eosinophils % 0.1 %; Hematocrit 41.1 % (37.5-50.1); Immature Granulocytes % 0.3 % (0-4); Immature Platelets 5.3 % (1.1-6.1); Lymphocytes % 9.2 %; Mean Corpuscular HGB Conc 31.6 g/dL (31.6-35.5); Mean Corpuscular Hemoglobin 29.7 pg (28.0-33.3); Mean Corpuscular Volume 94.1 fL (83.0-100.0); Mean Platelet Volume 10.3 fL (9.4-12.4); Monocytes % 8.3 %; Platelet Count 402 K/mcL (140-400); Red Blood Count 4.37 M/mcL (4.19-5.50); Red Cell Distribution Width 14.9 % (11.5-14.5); Segmented Neutrophils % 81.8 %
--- NOTE | 2017-03-22 12:46 | Emergency Department Note ---
Disposition Clinical Impression: Pleural effusion, Acute decompensated heart failure, Atrial fibrillation with RVR, Acute kidney injury Disposition: Admitted As Inpatient Condition: Fair Referrals: NONE,PCP [Non-Partnered Physician] - Forms: ED Satisfaction Letter Time of Disposition: 13:40 Pediatric SOB HPI - General Chief Complaint: ED Shortness of Breath/Dyspnea Stated Complaint: CHF,PCP wants admitted Time Seen by Provider: 03/22/17 12:21 Source: patient, family Limitations: no limitations Nursing Notes Reviewed: Yes Vital Signs Reviewed: Yes - History of Present Illness HPI Narrative: Patient to emergency department for dyspnea on exertion and pedal edema. Increasing over the past several days. Increase his Lasix over the weekend but it is not improved. Saw his PCP today who sent him in for admission. Last admission was early February. - Related Data Home Medications Medication Instructions Recorded Confirmed Cyclosporine [Restasis] 1 drop OP BID 04/17/15 03/22/17 Multivit-Min/FA/Lycopen/Lutein 1 tab PO QAM 04/17/15 03/22/17 [Centrum Silver Tablet] Ropinerole [Requip] 1 mg PO HS 04/17/15 03/22/17 Sennosides/Docusate Sodium [Senna 2 tab PO BID 02/12/17 03/22/17 Plus] Furosemide [Lasix] 60 mg PO BID 03/22/17 03/22/17 Insulin Glargine,Hum.rec.anlog 24 unit SQ QAM 03/22/17 03/22/17 [Lantus Solostar] Potassium Chloride [Klor-Con 10] 10 meq PO BID 03/22/17 03/22/17 Simvastatin [Zocor] 40 mg PO HS 03/22/17 03/22/17 Previous Rx's Medication Instructions Recorded Albuterol Sulfate [Proair Hfa] 1 puff IH Q6H PRN #1 inh 10/12/15 Aspirin Enteric Coated [Aspirin EC] 81 mg PO DAILY #30 tablet. 02/06/17 Budesonide/Formoterol 80/4.5 1 puff IH BID #5 hfa.aer.ad 02/06/17 [Symbicort 80/4.5] Diltiazem CD (24hr) [Cardizem CD] 360 mg PO DAILY 30 Days 02/06/17 Metoprolol XL (24 HR) Succ [Toprol 200 mg PO DAILY 30 Days 02/06/17 Xl] Rivaroxaban [Xarelto] 15 mg PO 1700 #1 tablet 03/07/17 Allergies Allergy/AdvReac Type Severity Reaction Status Date / Time codeine AdvReac Mild Flushing Verified 03/22/17 13:10 metformin AdvReac Mild Nausea Verified 03/22/17 13:10 tramadol AdvReac Mild Dizziness Verified 03/22/17 13:10 Pediatric Review of Systems All systems ED: reviewed and negative except as stated. Constitutional: Denies: fever Cardiovascular: Denies: chest pain Respiratory: Reports: dyspnea. Denies: cough Pediatric Past Medical History - Past Medical History PMFSH Narrative: History of CHF. A. fib. Renal disease. Source: patient Pediatric Exam Awake and alert in no distress. Satting 92-93 on room air. Diminished breath sounds in the bases. 3+ pitting edema bilaterally with a blister on the dorsum of the left toes. Heart rate 110-120. - General Limitations: no limitations General appearance: well-appearing - Head Head exam: normocephalic - Eye Eye exam: Present: normal appearance - Neck Neck exam: Present: normal inspection - Chest Chest inspection: Present: normal inspection - Respiratory Respiratory exam: Present: other (Diminished breath sounds in the bases). Absent: respiratory distress - Cardiovascular Cardiovascular exam: Present: tachycardia, irregular rhythm - Abdominal Exam Abdominal exam: Present: soft, Non-Tender - Neurological Exam Neurological exam: Present: alert, oriented X3 - Skin Skin exam: Present: warm, dry, intact Course Course Narrative: Patient appears to be suffering from decompensated heart failure. Cardiac workup. Likely admit. - Consultations Consultation #1: [facility] accepts and request thoracentesis Time: 13:34 Consultation #2: Discussed with Dr. Jones IR. Patient has a small effusion. States he is willing to drain for diagnosis but rather wait until tomorrow and hold his Xarelto. Dr Brown aware. Time: 14:30 Vital Signs Temperature 97.6 F 03/22/17 11:51 Pulse Rate 95 03/22/17 11:51 Respiratory Rate 18 03/22/17 11:51 Blood Pressure 109/57 03/22/17 11:51 O2 Sat by Pulse Oximetry 100 03/22/17 11:51 Temperature 97.6 F 03/22/17 11:51 Pulse Rate 90 03/22/17 13:15 Respiratory Rate 20 03/22/17 13:15 Blood Pressure 127/91 03/22/17 13:15 O2 Sat by Pulse Oximetry 97 03/22/17 13:15 Oxygen Delivery Oxygen Delivery Room Air Medical Decision Making - MDM Narrative Medical decision making narrative: Heart rate improved with 1 dose of IV Cardizem. Accepted by hospitalist. She is requesting a thoracentesis. Consult was placed IR. - Medical Records Medical records reviewed: Yes I reviewed the patient's medical records. - Lab Data Lab results reviewed: Yes I reviewed the patient's lab results. Result diagrams: 03/22/17 12:29 03/22/17 12:29 Lab Results 03/22/17 03/22/17 03/22/17 Range/Units 12:29 12:29 12:29 WBC 8.9 (4.3-11.1) K/mcL RBC 4.37 (4.19-5.50) M/mcL Hgb 13.0 (12.9-16.9) g/dL Hct 41.1 (37.5-50.1) % MCV 94.1 (83.0-100.0) fL MCH 29.7 (28.0-33.3) pg MCHC 31.6 (31.6-35.5) g/dL RDW 14.9 H (11.5-14.5) % Plt Count 402 H (140-400) K/mcL MPV 10.3 (9.4-12.4) fL Immature Gran % 0.3 (0-4) % Seg Neutrophils % 81.8 % Lymphocytes % 9.2 % Monocytes % 8.3 % Eosinophils % 0.1 % Basophils % 0.3 % Neutrophils # 7.2 (1.6-8.9) K/mcL Lymphocytes # 0.8 (0.6-4.6) K/mcL Monocytes # 0.7 (0.0-1.3) K/mcL Eosinophils # 0.0 (0.0-0.6) K/mcL Basophils # 0.0 (0.0-0.2) K/mcL Immature Plt Fraction 5.3 (1.1-6.1) % PT 20.5 H (9.4-12.1) Seconds INR 1.9 Sodium 141 (136-145) mEq/L Potassium 4.8 H (3.5-4.5) mEq/L Chloride 97 L (98-109) mEq/L Carbon Dioxide 35 H (19-29) mEq/L BUN 34 H (8-26) mg/dL Creatinine 1.75 H (0.72-1.25) mg/dL Est GFR ( Amer) 45 L (> 60) Est GFR (Non-Af Amer) 37 L (> 60) BUN/Creatinine Ratio 19 (6-26) Glucose 132 H (70-99) mg/dL Calculated Osmolality 301 H (280-300) Calcium 10.2 (8.6-10.8) mg/dL Troponin I (0-0.03) ng/mL B-Natriuretic Peptide (0-100) pg/mL 03/22/17 03/22/17 Range/Units 12:29 12:29 WBC (4.3-11.1) K/mcL RBC (4.19-5.50) M/mcL Hgb (12.9-16.9) g/dL Hct (37.5-50.1) % MCV (83.0-100.0) fL MCH (28.0-33.3) pg MCHC (31.6-35.5) g/dL RDW (11.5-14.5) % Plt Count (140-400) K/mcL MPV (9.4-12.4) fL Immature Gran % (0-4) % Seg Neutrophils % % Lymphocytes % % Monocytes % % Eosinophils % % Basophils % % Neutrophils # (1.6-8.9) K/mcL Lymphocytes # (0.6-4.6) K/mcL Monocytes # (0.0-1.3) K/mcL Eosinophils # (0.0-0.6) K/mcL Basophils # (0.0-0.2) K/mcL Immature Plt Fraction (1.1-6.1) % PT (9.4-12.1) Seconds INR Sodium (136-145) mEq/L Potassium (3.5-4.5) mEq/L Chloride (98-109) mEq/L Carbon Dioxide (19-29) mEq/L BUN (8-26) mg/dL Creatinine (0.72-1.25) mg/dL Est GFR ( Amer) (> 60) Est GFR (Non-Af Amer) (> 60) BUN/Creatinine Ratio (6-26) Glucose (70-99) mg/dL Calculated Osmolality (280-300) Calcium (8.6-10.8) mg/dL Troponin I 0.08 H* (0-0.03) ng/mL B-Natriuretic Peptide 992 H (0-100) pg/mL - Radiology Data Radiology results reviewed: Yes I reviewed the patient's radiology results. Chest X-Ray 03/22/17 12:21 IMPRESSION: Increasing size of moderate to large left pleural effusion with persistent left basilar atelectasis. Underlying consolidation cannot be excluded. D/ / Dorian Antunez MD / Dorian Antunez MD Interpreting Provider: Dorian Antunez MD - EKG Data EKG #1 EKG attestation: Yes I reviewed and interpreted this EKG. EKG results narrative: Afib at 118. Ashen. Septal Q waves. Left axis deviation. QT 335 QTc 405. Unchanged from February 12 Critical Care Time Critical Care Time: Yes Total Critical Care Time: 40 Attestation: Critical care performed: Time is exclusive of separately billable procedures. Time includes: direct patient care, patient reassessment, coordination of patient care, interpretation of data (laboratory data, radiology data, and respiratory data), review of patient's medical records, medical consultation and documentation of patient care. Procedures included in critical care time: Procedures excluded from critical care time:
[2017-03-22 12:47] LABS: Lymphocytes # 0.8 K/mcL (0.6-4.6); Monocytes # 0.7 K/mcL (0.0-1.3); Neutrophils # 7.2 K/mcL (1.6-8.9)
[2017-03-22 12:52] LABS: INR 1.9; Prothrombin Time 20.5 Seconds (9.4-12.1)
[2017-03-22] MEDS ORDERED: Furosemide 40 MG/4 ML VIAL IVP ONE (12:54)
[2017-03-22 12:58] LABS: Calcium 10.2 mg/dL (8.6-10.8); Potassium 4.8 mEq/L (3.5-4.5)
[2017-03-22] MEDS ORDERED: Aspirin 325 MG TABLET PO ONE (13:17)
[2017-03-22] MEDS ORDERED: Naloxone 0.4 MG/ML INJ IVP PRN (14:59)
[2017-03-22] MEDS ORDERED: D5% in Water 1,000 ML IVC PRN (15:07)
[2017-03-22] MEDS ORDERED: *HR* Dextrose 50 % in Water (Syg) 50 ML SYRINGE IVP PRN (15:07)
[2017-03-22] MEDS ORDERED: Dextrose Gel 15 GM PO PRN ×2 (15:07)
--- NOTE | 2017-03-22 15:17 | Internal Med History&Physical ---
<Georgina Edwards - Last Filed: 03/22/17 15:45> Date of Encounter: 03/22/17 Time of Encounter: 14:30 Assessment and Plan (1) Pleural effusion Current visit: Yes Status: Acute 1 patient has been experiencing increasing shortness of breath on exertion as well as orthopnea and lower extremity edema over the past few days. Symptoms have not improved despite increase in Lasix. He presented to his primary care who advised him to continue the ER. Chest x-ray did reveal large pleural effusion we consulted IR who advised that the effusion is small and would prefer to drain tomorrow after holding Xarelto. We will hold Xarelto overnight and preparations for thoracentesis in a.m. 2 oxygen as needed maintain SPO2 greater than 92% 3 we will give IV Lasix 40 mg twice a day (2) CHF (congestive heart failure) Current visit: No Status: Chronic 1 patient does have history of chronic diastolic heart failure EF of 50-55% mild concentric left ventricular hypertrophy and indeterminant diastolic function- echo 02/01/17. He has been expressing increasing shortness of breath on exertion as well as orthopnea and lower extremity edema. Chest x-ray did reveal pleural effusion. His symptoms did not improve despite the use of Lasix. We will continue with 40 mg IV daily 2 continuous cardiac monitoring 3 monitor intake and output daily weight 4 place on fluid restriction 1500 mL scaly 5. Low sodium Diet Qualifiers: Congestive heart failure type: diastolic Congestive heart failure chronicity: chronic Qualified Code(s): I50.32 - Chronic diastolic (congestive ) heart failure (3) Afib Current visit: No Status: Chronic 1 patient does have history of paroxysmal atrial fibrillation heart rate was 118 A. fib on presentation. He was given IV Cardizem which did improve his rate. We will continue with oral Cardizem, metoprolol goal is to maintain rate less than 90. 2 patient is Xarelto for anticoagulation we will hold this tonight in preparation for thoracentesis in a.m. Resume after procedure 3 oxygen as needed maintain SPO2 greater than 92% Qualifiers: Atrial fibrillation type: paroxysmal Qualified Code(s): I48.0 - Paroxysmal atrial fibrillation (4) HTN (hypertension) Current visit: No Status: Chronic 1 presently controlled we will continue with home medications 2. Low Sodium diet Qualifiers: Hypertension type: unspecified Qualified Code(s): I10 - Essential (primary ) hypertension (5) CKD (chronic kidney disease) stage 3, GFR 30-59 ml/min Current visit: No Status: Chronic 1 creatinine is 1.75 baseline is around 1.62. We will continue monitor creatinine while patient is being diuresed 2 avoid nephrotoxins and renally dose medications 3 monitor intake and output daily weights 4. 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 However we will continue to monitor (8) DVT prophylaxis Current visit: No Status: Chronic 1 patient is on Zarontin and we will hold overnight due to thoracentesis a.m. and resume after procedure Internal Medicine - H&P: HPI Chief complaint: SOB swelling Admitted From: Emergency Dept Plans for Post Hospital Care: Home History of present illness: Mr. Flores is a 86 year old male has no history of paroxysmal atrial fibrillation diastolic heart failure C KD stage III diabetes type 2. Patient has had multiple hospitalizations over the past 2 months most recently earlier in February at that time he was admitted for pneumonia. Over the past several days patient has been experiencing increasing shortness of breath on exertion. As well as lower extremity edema, with the development of 2 water blisters on his left foot as well as expansion of abdominal girth.. He has been experiencing orthopnea and night as well as he is unable to perform ADLs due to increasing shortness of breath. He did speak to his primary care physician on Wednesday who did increase his Lasix over the weekend. Despite this increase he continues to have shortness of breath. He denies any fevers chills nausea vomiting abdominal pain or chest pain. He is on oxygen at night he denies any supplemental oxygen use during the day. He presented to his primary care physician today for checkup who advised patient to go to the emergency department. Upon presentation to the ER patient was found to be in A. fib RVR with heart rate of 118. Patient was given 1 dose of Cardizem which did improve his rate. Chest x-ray was obtained which did reveal large pleural effusion. Lab work revealed no leukocytosis patient is afebrile and his creatinine was 1.75 hours baseline is between 1.62 his BNP was 992 troponin was 0.08 which appears to be chronically elevated. ER physician did speak with Dr. Robert CARMICHAEL concerning possible thoracentesis. I have explained to patient has a small effusion there willing to drain for diagnosis but would rather wait until tomorrow and hold his Xarelto. Patient has been admitted for further workup and evaluation. Presently patient does not appear to be any respiratory distress he denies any source of breath or chest pain at this time. Heart sounds are irregular S1 and S2 lung sounds are clear diminished in the bases bilaterally. Patient does have lower extremity edema +3 up to his knees. He also has 2 blisters on his left foot on approximately the size of a $0.50 piece which is open and draining. A second approximate size of a dime which is intact. He is hemodynamically stable at this time. I did discuss CODE STATUS with patient who requested DNR CCA DNI status I reviewed this case with who agrees with plan. Past Med Surg Social Fam HX - Past Medical History Medical history: arthritis, atrial fibrillation, CHF, coronary artery disease, diabetes, hyperlipidemia, hypertension, renal disease, valvular heart disease Psychiatric history: no psych history - Past Surgical History Surgical History: appendectomy, cholecystectomy, knee replacement, orthopedic, other - Social History Smoking Status: Never smoker Smokeless Tobacco Status: No Alcohol use: none Drug use: none - Family History Mother Family Member Ethnicity: Non- Living Status: Brother Family Member Ethnicity: Non- Living Status: Sister Family Member Ethnicity: Non- Living Status: Still Living Father Family Member Ethnicity: Non- Living Status: Hx Family Cardiac Disorders: No Hx Family Respiratory Disorders: No Hx Family Cancer: No Hx Family GI Disorders: No Hx Family Endocrine Disorder: Yes (DM) Hx Family Neuromuscular Disorders: No Hx Family Neurologic Disorders: No Hx Family HEENT Disorders: No Hx Family Autoimmune Disorders: No Internal Medicine - H&P: Meds Cyclosporine [Restasis] 1 drop OP BID 04/17/15 [History] Multivit-Min/FA/Lycopen/Lutein [Centrum Silver Tablet] 1 tab PO QAM 04/17/15 [ History] Ropinerole [Requip] 1 mg PO HS 04/17/15 [History] Albuterol Sulfate [Proair Hfa] 1 puff IH Q6H PRN #1 inh 10/12/15 [Rx] Aspirin Enteric Coated [Aspirin EC] 81 mg PO DAILY #30 tablet. 02/06/17 [Rx] Budesonide/Formoterol 80/4.5 [Symbicort 80/4.5] 1 puff IH BID #5 hfa.aer.ad 08/25 [Rx] Diltiazem CD (24hr) [Cardizem CD] 360 mg PO DAILY 30 Days 02/06/17 [Rx] Metoprolol XL (24 HR) Succ [Toprol Xl] 200 mg PO DAILY 30 Days 02/06/17 [Rx] Sennosides/Docusate Sodium [Senna Plus] 2 tab PO BID 02/12/17 [History] Rivaroxaban [Xarelto] 15 mg PO 1700 #1 tablet 03/07/17 [Rx] Furosemide [Lasix] 60 mg PO BID 03/22/17 [History] Insulin Glargine,Hum.rec.anlog [Lantus Solostar] 24 unit SQ QAM 03/22/17 [ History] Potassium Chloride [Klor-Con 10] 10 meq PO BID 03/22/17 [History] Simvastatin [Zocor] 40 mg PO HS 03/22/17 [History] Allergies codeine Adverse Reaction (Mild, Verified 03/22/17 13:10) Flushing metformin Adverse Reaction (Mild, Verified 03/22/17 13:10) Nausea tramadol Adverse Reaction (Mild, Verified 03/22/17 13:10) Dizziness All Systems PM: A 10-system review of systems was performed and is negative for pertinent findings except as documented above in the HPI. - Constitutional Constitutional: weakness - EENT Eyes: no change in vision, no discharge, no pain, no photophobia Nose, mouth and throat: no dysphagia, no nasal discharge, no neck pain, no sore throat - Cardiovascular Cardiovascular ROS IM: dyspnea on exertion, edema, orthopnea - Respiratory Respiratory: dyspnea on exertion, no cough, no dyspnea, no wheezing, no excessive phlegm production - Gastrointestinal Gastrointestinal: early satiety, no abdominal pain, no diarrhea, no hematemesis , no hematochezia, no melena, no nausea, no vomiting - Musculoskeletal Musculoskeletal ROS IM: no numbness, no tingling - Integumentary Integumentary IM: new lesions, no rash, no unusual bruising - Neurological Neurological ROS: no confusion, no convulsions, no focal weakness, no numbness, no tingling, no tremor(s) - Hematologic/Lymphatic Hematologic/Lymphatic: no easy bruising - Constitutional Vitals: Temp Pulse Resp BP Pulse Ox 97.7 F 90 16 101/86 96 03/22/17 15:04 03/22/17 15:04 03/22/17 15:04 03/22/17 15:04 03/22/17 15:04 General appearance: Present: A&O X 3, answers questions appropriately - Head Head exam: Present: atraumatic, normocephalic - Eye Eye exam: Present: PERRL, conjuntiva pink, sclera anicteric Pupils: Present: PERRL - Neck Neck exam general surgery: Present: supple, trachea midline. Absent: lymphadenopathy - Respiratory Respiratory exam: Present: decreased breath sounds, CTAB. Absent: accessory muscle use, rales, rhonchi, wheezes - Cardiovascular Cardiovascular exam: Present: irregular rhythm, +S1, +S2. Absent: diastolic murmur, gallop, rubs, systolic murmur - GI/Abdominal GI/Abdominal exam: Present: distended, firm - Extremities Exam Extremities exam: Present: pedal edema, warm, radial pulses palpable and symmetrical. Absent: calf tenderness, cyanotic - Neurological Exam Neurological exam: Present: CN II-XII intact, oriented X3, no focal deficits. Absent: pronater drift, facial droop, speech deficit - Skin Skin exam: Present: dry, intact Internal Med - H&P Results - Labs CBC & Chem 7: 03/22/17 12:29 03/22/17 12:29 - EKG Data Prior EKG available for review: yes When compared to previous EKG: there is no significant change EKG comments: 03/22/17 15:32 Atrial fibrillation - Diagnostic Studies Other Images Additional comments: Abdomen/Pelvis/Transvag US 03/22/17 00:00 IMPRESSION: Small left pleural effusion. RECOMMENDATIONS: No thoracentesis is indicated for therapeutic purposes given the small size. If a diagnostic thoracentesis is required, the patients Eliquis will be held tonight and the procedure can be performed the following day. This was discussed with the ordering physician at the conclusion of the ultrasound scan. D/ / Van Jones MD / Van Jones MD Interpreting Provider: Van Jones MD Chest X-Ray 03/22/17 12:21 IMPRESSION: Increasing size of moderate to large left pleural effusion with persistent left basilar atelectasis. Underlying consolidation cannot be excluded. D/ / Dorian Antunez MD / Dorian Antunez MD Interpreting Provider: Dorian Antunez MD <Trung Pastor - Last Filed: 03/22/17 18:41> Date of Encounter: 03/22/17 Internal Medicine - H&P: HPI History of present illness: Mr. Flores is a 86 year old male All Systems PM: A 10-system review of systems was performed and is negative for pertinent findings except as documented above in the HPI. - Constitutional Vitals: Temp Pulse Resp BP Pulse Ox 97.7 F 90 16 101/86 96 03/22/17 15:04 03/22/17 15:04 03/22/17 15:04 03/22/17 15:04 03/22/17 15:04 Internal Med - H&P Results - Labs CBC & Chem 7: 03/22/17 12:29 03/22/17 12:29 Labs: Cardiac Enzymes 03/22/17 Range/Units 17:34 Troponin I 0.08 H* (0-0.03) ng/mL - Attending Attestation I examined this patient and my medical decision-making was reviewed with the [employer]. I agree with the documented findings, disposition and treatment plan as described
--- NOTE | 2017-03-22 16:14 | Electrocardiograph Report ---
[place] [id number] Test Date: 2017-03-22 Pat Name: Ciro Flores Department: 104 Room: 2NE27 Gender: M Diagnostic Assistant: : [id number] Requested By: Gail See Order Number: [id number] Reading MD: Ilya Cortez MD Measurements Intervals [place] Rate: 118 P: MI: 0 QRS: -36 QRSD: 93 T: 111 QT: 335 QTc: 405 Interpretive Statements ATRIAL FIBRILLATION WITH RAPID VENTRICULAR RESPONSE MARKED LEFT AXIS DEVIATION LOW QRS VOLTAGE IN EXTREMITY LEADS Electronically Signed On 03-22-2017 16:12:03 EDT by Ilya Cortez MD
[2017-03-22] MEDS: Insulin LISPRO 300 UNITS/3 ML VIAL SQ SCH ×2 (17:05→20:44)
[2017-03-22] MEDS: Furosemide 40 MG/4 ML VIAL IVP SCH (17:05)
[2017-03-22] MEDS: (Cyclosporine [Restasis] 1 DROP) OP SCH (20:44)
[2017-03-22] MEDS: rOPINIRole 1 MG TABLET PO SCH (20:45)
[2017-03-22] MEDS: Sennosides/Docusate Sodium TABLET PO SCH (20:46)
[2017-03-22] MEDS: Budesonide/Formoterol 80/4.5 MDI IH SCH (22:20)
[2017-03-23 02:27] LABS: Basophils % 0.4 %; Eosinophils % 0.5 %; Hematocrit 38.3 % (37.5-50.1); Hemoglobin 11.9 g/dL (12.9-16.9); Immature Granulocytes % 0.4 % (0-4); Lymphocytes # 1.1 K/mcL (0.6-4.6); Lymphocytes % 14.6 %; Mean Corpuscular HGB Conc 31.1 g/dL (31.6-35.5); Mean Corpuscular Hemoglobin 29.5 pg (28.0-33.3); Mean Platelet Volume 10.8 fL (9.4-12.4); Monocytes # 0.8 K/mcL (0.0-1.3); Monocytes % 11.1 %; Neutrophils # 5.5 K/mcL (1.6-8.9); Platelet Count 363 K/mcL (140-400); Red Blood Count 4.03 M/mcL (4.19-5.50); Red Cell Distribution Width 14.9 % (11.5-14.5)
[2017-03-23 02:41] LABS: Calcium 9.5 mg/dL (8.6-10.8); Magnesium 2.1 mg/dL (1.6-2.6); Potassium 4.3 mEq/L (3.5-4.5)
[2017-03-23] MEDS: Budesonide/Formoterol 80/4.5 MDI IH SCH ×2 (07:38→23:07)
[2017-03-23] MEDS: Insulin LISPRO 300 UNITS/3 ML VIAL SQ SCH ×4 (08:43→22:32)
[2017-03-23] MEDS: Aspirin Enteric Coated 81 MG Tablet PO SCH (08:52)
[2017-03-23] MEDS: Diltiazem CD (24hr) 180 MG CAPSULE PO SCH (08:52)
[2017-03-23] MEDS: Multivit/Ca/Min/Fe/FA 1 TAB TABLET PO SCH (08:52)
[2017-03-23] MEDS: Sennosides/Docusate Sodium TABLET PO SCH ×2 (08:53→21:00)
[2017-03-23] MEDS: Furosemide 40 MG/4 ML VIAL IVP SCH ×2 (08:53→17:15)
[2017-03-23] MEDS: Metoprolol XL (24 HR) Succ 50 MG TAB.ER.24H PO SCH (08:53)
[2017-03-23] MEDS: Insulin DETEMIR 100 UNIT/ML X5UNITS SQ SCH (08:59)
--- NOTE | 2017-03-23 10:28 | IR Procedure Note ---
Date of procedure: 03/23/17 Consent Obtained: Verbal consent, Written consent Timeout: Correct patient and procedure verified, Correct site verified, Time out performed, Skin prep completed Local anesthetic: Lidocaine 1% Indications: Pleural effusion Procedure Performed: Left thoracentesis Site/Technique: Ultrasound guided left thoracentesis performed Results/Findings: Small to moderate pleural effusion Estimated blood loss (cc): 2 Complications: None; Tolerated procedure well Post Procedure Treatment Plan: CXR pending
--- NOTE | 2017-03-23 11:32 | Internal Med Progress Note ---
Date of Encounter: 03/24/17 Time of Encounter: 11:29 - Assessment and plan (1) Acute diastolic heart failure Current Visit: No Status: Acute (2) Histoplasmosis pneumonia Current Visit: Yes Status: Acute (3) Pleural effusion Current Visit: Yes Status: Acute (4) Afib Current Visit: No Status: Chronic Qualifiers: Atrial fibrillation type: paroxysmal Qualified Code(s): I48.0 - Paroxysmal atrial fibrillation (5) HTN (hypertension) Current Visit: No Status: Chronic Qualifiers: Hypertension type: unspecified Qualified Code(s): I10 - Essential (primary ) hypertension (6) CKD (chronic kidney disease) stage 3, GFR 30-59 ml/min Current Visit: No Status: Chronic (7) Type 2 diabetes mellitus Current Visit: No Status: Chronic Qualifiers: Diabetes mellitus complication status: with kidney complications Diabetes mellitus complication detail: with chronic kidney disease 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 Ciro Flores is an 86-year-old male who is DNR/DNI now. He is presented with orthopnea and leg edema. In February he was admitted with pneumonia and pleural effusion and after bronchoscopy he was noted to have histoplasmosis. His chest x-ray still shows left-sided consolidation with effusion. He had thoracentesis on this admission with a small amount of fluid removed. He also has diastolic CHF and he is on IV Lasix twice a day. 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 #2 acute on chronic congestive heart failure on IV Lasix echocardiogram in January 2017 previously showed EF 50-55% with normal LV systolic function positive diastolic dysfunction and moderate pulmonary hypertension with right-sided pressure of 48 #3 COPD #4 chronic atrial fibrillation #5 diabetes #6 CKD stage III creatinine is under 2 - Constitutional Vitals: Temp Pulse Resp BP Pulse Ox 97.5 F L 107 16 122/74 92 03/23/17 06:46 03/23/17 06:46 03/23/17 07:39 03/23/17 06:46 03/23/17 09:19 General appearance: Present: A&O X 3, answers questions appropriately Internal Medicine: Result - Labs CBC & Chem 7: 03/24/17 07:38 03/24/17 07:38 Labs: Short CBC 03/23/17 Range/Units 01:10 WBC 7.6 (4.3-11.1) K/mcL Hgb 11.9 L (12.9-16.9) g/dL Hct 38.3 (37.5-50.1) % Plt Count 363 (140-400) K/mcL Neutrophils # 5.5 (1.6-8.9) K/mcL BMP 03/23/17 01:10 Sodium 144 Potassium 4.3 Chloride 99 Carbon Dioxide 34 H BUN 36 H Creatinine 1.80 H Glucose 60 L Calcium 9.5 Cardiac Enzymes 03/22/17 03/23/17 Range/Units 17:34 01:10 Troponin I 0.08 H* 0.09 H* (0-0.03) ng/mL - ABG Interpretation ABG results: PT/INR, D-dimer PT 20.5 Seconds (9.4-12.1) H 03/22/17 12:29 - Impressions Impressions Chest X-Ray 03/23/17 10:26 IMPRESSION: No pneumothorax status post thoracentesis. Small left pleural effusion, decreased in size from prior study. Left basilar opacity compatible atelectasis/infiltrate. D/ / Daisha Beth MD / Daisha Beth MD Interpreting Provider: Daisha Beth MD Consult Discharge Plan - Plan Referrals: Jaime Garcia MD [Primary Care Provider] -
[2017-03-23] MEDS ORDERED: Albuterol 2.5 MG/3 ML NEBULIZER IH PRN (11:37)
[2017-03-23] MEDS: *HR* Morphine 2 MG/ML SYRINGE IVP PRN (11:54)
[2017-03-23] MEDS: (Cyclosporine [Restasis] 1 DROP) OP SCH ×2 (12:06→21:00)
[2017-03-23] MEDS: methylPREDNISolone 125 MG/2 ML VIAL IVP SCH (15:33)
[2017-03-23] MEDS: Silvasorb 44.4 ML TUBE TP SCH (15:34)
[2017-03-23] MEDS: Ipratropium/Albuterol Neb 3 ML IH SCH ×3 (15:56→23:07)
[2017-03-23] MEDS: *HR* Rivaroxaban 15 MG TABLET PO SCH (17:15)
[2017-03-23] MEDS: rOPINIRole 1 MG TABLET PO SCH (20:58)
[2017-03-24] MEDS: methylPREDNISolone 125 MG/2 ML VIAL IVP SCH ×4 (00:05→22:35)
[2017-03-24] MEDS: Ipratropium/Albuterol Neb 3 ML IH SCH ×4 (04:38→23:31)
[2017-03-24 08:40] LABS: Basophils % 0.1 %; Hematocrit 37.3 % (37.5-50.1); Hemoglobin 11.8 g/dL (12.9-16.9); Immature Granulocytes % 0.4 % (0-4); Lymphocytes # 0.4 K/mcL (0.6-4.6); Lymphocytes % 4.6 %; Mean Corpuscular HGB Conc 31.6 g/dL (31.6-35.5); Mean Corpuscular Hemoglobin 29.9 pg (28.0-33.3); Mean Corpuscular Volume 94.4 fL (83.0-100.0); Mean Platelet Volume 11.2 fL (9.4-12.4); Monocytes # 0.1 K/mcL (0.0-1.3); Monocytes % 0.8 %; Neutrophils # 7.4 K/mcL (1.6-8.9); Platelet Count 360 K/mcL (140-400); Red Blood Count 3.95 M/mcL (4.19-5.50); Red Cell Distribution Width 14.7 % (11.5-14.5); Segmented Neutrophils % 94.1 %
[2017-03-24 08:41] LABS: Bilirubin,Total 0.5 mg/dL (0.2-1.2); Calcium 9.4 mg/dL (8.6-10.8); Globulin 2.9 g/dL (2.4-3.5); Potassium 4.5 mEq/L (3.5-4.5); Total Protein 5.9 g/dL (6.0-8.3)
[2017-03-24] MEDS: Diltiazem CD (24hr) 180 MG CAPSULE PO SCH (08:46)
[2017-03-24] MEDS: Insulin LISPRO 300 UNITS/3 ML VIAL SQ SCH ×4 (08:47→22:44)
[2017-03-24] MEDS: Furosemide 40 MG/4 ML VIAL IVP SCH ×2 (08:47→17:08)
[2017-03-24] MEDS: Aspirin Enteric Coated 81 MG Tablet PO SCH (08:48)
[2017-03-24] MEDS: Multivit/Ca/Min/Fe/FA 1 TAB TABLET PO SCH (08:48)
[2017-03-24] MEDS: Metoprolol XL (24 HR) Succ 50 MG TAB.ER.24H PO SCH (08:48)
[2017-03-24] MEDS: Sennosides/Docusate Sodium TABLET PO SCH ×2 (08:48→22:35)
[2017-03-24] MEDS: Insulin DETEMIR 100 UNIT/ML X5UNITS SQ SCH (08:50)
[2017-03-24] MEDS: (Cyclosporine [Restasis] 1 DROP) OP SCH ×2 (09:25→22:36)
--- NOTE | 2017-03-24 11:08 | Pulmonology Consult Note ---
<Saúl Mcbride - Last Filed: 03/24/17 14:39> Date of Encounter: 03/24/17 Time of Encounter: 14:40 Assessment and Plan (1) Pleural effusion Current Visit: Yes Status: Acute Patient presents to the hospital with shortness of breath. -Chest x-ray performed initially revealed a large left-sided pleural effusion. -Interventional radiology drained the fluid. -700 mL of serosanguineous fluid was drained using an 8-Cambodian. -Fluid will be cultured and will be examined to determine whether exudative or transudative. -Possible repeat imaging. -Patient will be given oxygen as needed to maintain SPO2 greater than 92%. -Patient's oxygen saturation is currently 94%. -Patient is given IV Lasix 40 mg twice a day. (2) Atrial fibrillation Current Visit: No Status: Chronic Patient has a history of paroxysmal atrial fibrillation. Patient is currently in an irregular rhythm. Patient's heart rate on presentation was 118. He was given IV Cardizem which did improve his heart rate. He was to maintain heart rate less than 90. Patient normally takes Xarelto. Xarelto was held for procedure today. Will be resumed. Qualifiers: Atrial fibrillation type: chronic Qualified Code(s): I48.2 - Chronic atrial fibrillation (3) CHF (congestive heart failure) Current Visit: No Status: Chronic Patient has a history of chronic diastolic heart failure with an ejection fraction of 50-55%. -He also has mild concentric left ventricular hypertrophy and indeterminant diastolic function. -Last echo was 02/01/17. -Patient should be on continuous cardiac monitoring with daily weights and a very strict intake and output. -Patient on low-sodium diet. Qualifiers: Congestive heart failure type: diastolic Congestive heart failure chronicity: chronic Qualified Code(s): I50.32 - Chronic diastolic (congestive ) heart failure (4) CKD (chronic kidney disease) stage 3, GFR 30-59 ml/min Current Visit: No Status: Chronic Patient's baseline creatinine is 1.62. -Continue to monitor creatinine. -Avoid nephrotoxin and renally dose medications. (5) Elevated troponin Current Visit: No Status: Chronic Patient's troponin is likely elevated due to his chronic kidney disease. (6) HTN (hypertension) Current Visit: No Status: Chronic Patient's hypertension is currently well controlled. -Patient's last blood pressure reading was 106/78. Qualifiers: Hypertension type: unspecified Qualified Code(s): I10 - Essential (primary ) hypertension History of Present Illness Consult date: 03/24/17 Requesting physician: Saúl Mcbride Reason for consult: dyspnea, pleural effusion, abnormal CXR/CT Chief complaint: Dyspnea History of present illness: Patient was sedated exam at that afternoon. Patient states that his shortness of breath has not improved much since admission. His shortness of breath is exacerbated with any type of movement, especially moving forward. He also states that his heart rate increases dramatically when he attempts to move forward or exert himself. Patient also complains of swelling in his lower extremities bilaterally. He stated that he had increased his dose of Lasix, but it was ineffective. He was urinating a lot, but his swelling did not subside. He also has some swelling in both of his hands. He states that his problems with congestive heart failure started in 2011, but he has never had swelling this bad before. He also denies having shortness of breath like this recently. Patient denies ever smoking. He states that he worked in the [employer] for approximately 40 years. He also played the [employer] recreationally. Patient currently denies cough, nausea, GI disturbance, chest pain, pain on inspiration, weakness, or palpitations. Patient has no other complaints at this time, and does not appear to be in any distress. Medications and Allergies Cyclosporine [Restasis] 1 drop OP BID 04/17/15 [History] Multivit-Min/FA/Lycopen/Lutein [Centrum Silver Tablet] 1 tab PO QAM 04/17/15 [ History] Ropinerole [Requip] 1 mg PO HS 04/17/15 [History] Albuterol Sulfate [Proair Hfa] 1 puff IH Q6H PRN #1 inh 10/12/15 [Rx] Aspirin Enteric Coated [Aspirin EC] 81 mg PO DAILY #30 tablet. 02/06/17 [Rx] Budesonide/Formoterol 80/4.5 [Symbicort 80/4.5] 1 puff IH BID #5 hfa.aer.ad 08/25 [Rx] Diltiazem CD (24hr) [Cardizem CD] 360 mg PO DAILY 30 Days 02/06/17 [Rx] Metoprolol XL (24 HR) Succ [Toprol Xl] 200 mg PO DAILY 30 Days 02/06/17 [Rx] Sennosides/Docusate Sodium [Senna Plus] 2 tab PO BID 02/12/17 [History] Rivaroxaban [Xarelto] 15 mg PO 1700 #1 tablet 03/07/17 [Rx] Furosemide [Lasix] 60 mg PO BID 03/22/17 [History] Insulin Glargine,Hum.rec.anlog [Lantus Solostar] 24 unit SQ QAM 03/22/17 [ History] Potassium Chloride [Klor-Con 10] 10 meq PO BID 03/22/17 [History] Simvastatin [Zocor] 40 mg PO HS 03/22/17 [History] codeine Adverse Reaction (Mild, Verified 03/22/17 13:10) Flushing metformin Adverse Reaction (Mild, Verified 03/22/17 13:10) Nausea tramadol Adverse Reaction (Mild, Verified 03/22/17 13:10) Dizziness All Systems: A 10-system review of systems was performed and is negative for pertinent findings except as documented above in the HPI. - Constitutional Constitutional: no lethargy, no witnessed apnea, no weakness - Cardiovascular Cardiovascular: dyspnea, dyspnea on exertion, edema, irregular heart rhythm, leg edema, pedal edema, rapid heart rate - Respiratory Respiratory: dyspnea, dyspnea on exertion Physical Examination Vital Signs: Vital Signs, Last 4 Hours Temp Pulse Resp BP Pulse Ox 03/24/17 11:21 20 92 03/24/17 11:00 97.7 F 103 15 106/78 94 General appearance: no acute distress ENT: oropharynx moist Neck: no lymphadenopathy Auscultation: left: diminished breath sounds, bilateral: rales (Fine crackles bilaterally in lower lung combs.) Cardiovascular: irregular rhythm (Patient is in atrial fibrillation.) Extremities: edema (Edema present in both hands and in both lower extremities starting approximately 2 inches below the knee.) mood appropriate Results - Laboratory Findings CBC and BMP: 03/24/17 07:38 03/24/17 07:38 PT/INR, D-dimer PT 20.5 Seconds (9.4-12.1) H 03/22/17 12:29 Abnormal lab findings: Abnormal lab results RBC 3.95 M/mcL (4.19-5.50) L 03/24/17 07:38 Hgb 11.8 g/dL (12.9-16.9) L 03/24/17 07:38 Hct 37.3 % (37.5-50.1) L 03/24/17 07:38 RDW 14.7 % (11.5-14.5) H 03/24/17 07:38 Lymphocytes # 0.4 K/mcL (0.6-4.6) L 03/24/17 07:38 PT 20.5 Seconds (9.4-12.1) H 03/22/17 12:29 Chloride 97 mEq/L (98-109) L 03/24/17 07:38 Carbon Dioxide 33 mEq/L (19-29) H 03/24/17 07:38 BUN 39 mg/dL (8-26) H 03/24/17 07:38 Creatinine 1.83 mg/dL (0.72-1.25) H 03/24/17 07:38 Est GFR ( Amer) 43 (> 60) L 03/24/17 07:38 Est GFR (Non-Af Amer) 35 (> 60) L 03/24/17 07:38 Glucose 294 mg/dL (70-99) H 03/24/17 07:38 POC Glucose 172 (58-89) H 03/23/17 20:47 Calculated Osmolality 314 (280-300) H 03/24/17 07:38 Alkaline Phosphatase 132 Units/L (38-126) H 03/24/17 07:38 Lactate Dehydrogenase 496 Units/L (159-327) H 03/24/17 07:38 Troponin I 0.09 ng/mL (0-0.03) H* 03/23/17 01:10 B-Natriuretic Peptide 992 pg/mL (0-100) H 03/22/17 12:29 Serum Total Protein 5.9 g/dL (6.0-8.3) L 03/24/17 07:38 Albumin 3.0 g/dL (3.5-5.0) L 03/24/17 07:38 Albumin/Globulin Ratio 1.0 (1.1-2.2) L 03/24/17 07:38 - Clinical Findings Intake & Output: Intake & Output 08/15/17 08/16/17 08/16/17 23:59 07:59 15:59 Intake Total 480 / 480 0 / 0 760 / 760 Output Total 0 / 0 575 / 575 100 / 100 Balance 480 / 480 -575 / -575 660 / 660 Weight 91 kg Consult Discharge Plan - Plan Referrals: Jaime Garcia MD [Primary Care Provider] - <Sky Brown - Last Filed: 03/24/17 16:32> Date of Encounter: 03/24/17 Past Med Surg Social Fam HX - Past Medical History Medical history: arthritis, atrial fibrillation, CHF, coronary artery disease, diabetes, hyperlipidemia, hypertension, renal disease, valvular heart disease Psychiatric history: no psych history - Past Surgical History Surgical History: appendectomy, cholecystectomy, knee replacement, orthopedic, other - Social History Smoking Status: Never smoker Smokeless Tobacco Status: No Alcohol use: none Drug use: none - Family History Mother Family Member Ethnicity: Non- Living Status: Brother Family Member Ethnicity: Non- Living Status: Sister Family Member Ethnicity: Non- Living Status: Still Living Father Family Member Ethnicity: Non- Living Status: Hx Family Cardiac Disorders: No Hx Family Respiratory Disorders: No Hx Family Cancer: No Hx Family GI Disorders: No Hx Family Endocrine Disorder: Yes (DM) Hx Family Neuromuscular Disorders: No Hx Family Neurologic Disorders: No Hx Family HEENT Disorders: No Hx Family Autoimmune Disorders: No All Systems: A 10-system review of systems was performed and is negative for pertinent findings except as documented above in the HPI. Results - Laboratory Findings CBC and BMP: 03/24/17 07:38 03/24/17 07:38 PT/INR, D-dimer PT 20.5 Seconds (9.4-12.1) H 03/22/17 12:29 Abnormal lab findings: Abnormal lab results RBC 3.95 M/mcL (4.19-5.50) L 03/24/17 07:38 Hgb 11.8 g/dL (12.9-16.9) L 03/24/17 07:38 Hct 37.3 % (37.5-50.1) L 03/24/17 07:38 RDW 14.7 % (11.5-14.5) H 03/24/17 07:38 Lymphocytes # 0.4 K/mcL (0.6-4.6) L 03/24/17 07:38 PT 20.5 Seconds (9.4-12.1) H 03/22/17 12:29 Chloride 97 mEq/L (98-109) L 03/24/17 07:38 Carbon Dioxide 33 mEq/L (19-29) H 03/24/17 07:38 BUN 39 mg/dL (8-26) H 03/24/17 07:38 Creatinine 1.83 mg/dL (0.72-1.25) H 03/24/17 07:38 Est GFR ( Amer) 43 (> 60) L 03/24/17 07:38 Est GFR (Non-Af Amer) 35 (> 60) L 03/24/17 07:38 Glucose 294 mg/dL (70-99) H 03/24/17 07:38 POC Glucose 172 (58-89) H 03/23/17 20:47 Calculated Osmolality 314 (280-300) H 03/24/17 07:38 Alkaline Phosphatase 132 Units/L (38-126) H 03/24/17 07:38 Troponin I 0.09 ng/mL (0-0.03) H* 03/23/17 01:10 B-Natriuretic Peptide 992 pg/mL (0-100) H 03/22/17 12:29 Serum Total Protein 5.9 g/dL (6.0-8.3) L 03/24/17 07:38 Albumin 3.0 g/dL (3.5-5.0) L 03/24/17 07:38 Albumin/Globulin Ratio 1.0 (1.1-2.2) L 03/24/17 07:38 - Clinical Findings Intake & Output: Intake & Output 03/23/17 03/24/17 03/24/17 23:59 07:59 15:59 Intake Total 480 / 480 0 / 0 360 / 360 Output Total 0 / 0 575 / 575 Balance 480 / 480 -575 / -575 360 / 360 Weight 91 kg - Attending Attestation I examined this patient and my medical decision-making was reviewed with the Resident Physician. I agree with the documented findings, disposition and treatment plan as described except to the extent set forth below. Patient seen and examined. Labs, radiology, chart personally reviewed. Agree with resident's history and physical, assessment, plan with following comments: DELIVERY ASSISTANT: Patient follows commands, Pulmonary: Acceptable oxygenation and ventilation. Reviewed CT chest personally with evidence of bilateral pleural effusion which I suspect this is primarily from underlying cardiac disease with diastolic dysfunction since patient has bilateral pleural effusion, lower extremities edema and elevated BNP. Called labs to process pleural fluid analysis. We can consider Pleurx catheter placement for management. Pleurx will be febrile favorable than pleurodesis especially if the effusion is transudate effusion. I suspect infection is less likely. Thank you very much for the consultation
[2017-03-24] MEDS: Budesonide/Formoterol 80/4.5 MDI IH SCH ×2 (11:21→23:32)
[2017-03-24 13:08] LABS: Glucose,Pleural Fluid 142 mg/dL (No Ref Range); LDH,Pleural Fluid 78 Units/L (No Ref Range); Total Protein,Pleural Fluid 1.5 g/dL (No Ref Range)
[2017-03-24 14:12] LABS: RBC,Pleural Fluid 0.002 M/mcL
[2017-03-24 14:56] LABS: Appearance of Pleural Fl Hazy (Clear)
[2017-03-24] MEDS: *HR* Rivaroxaban 15 MG TABLET PO SCH (17:09)
[2017-03-24] MEDS: Silvasorb 44.4 ML TUBE TP SCH (17:09)
[2017-03-24] MEDS ORDERED: *HR* Digoxin 0.5 MG/2 ML AMPUL IVP ONE (18:21)
--- NOTE | 2017-03-24 18:26 | Internal Med Progress Note ---
Date of Encounter: 03/24/17 Time of Encounter: 18:14 - Assessment and plan (1) Acute diastolic heart failure Current Visit: Yes Status: Acute (2) Histoplasmosis pneumonia Current Visit: Yes Status: Acute (3) Pleural effusion Current Visit: Yes Status: Acute (4) Afib Current Visit: Yes Status: Chronic Qualifiers: Atrial fibrillation type: paroxysmal Qualified Code(s): I48.0 - Paroxysmal atrial fibrillation (5) HTN (hypertension) Current Visit: Yes Status: Chronic Qualifiers: Hypertension type: unspecified Qualified Code(s): I10 - Essential (primary ) hypertension (6) CKD (chronic kidney disease) stage 3, GFR 30-59 ml/min Current Visit: Yes Status: Chronic (7) Type 2 diabetes mellitus Current Visit: Yes Status: Chronic Qualifiers: Diabetes mellitus complication status: with kidney complications Diabetes mellitus complication detail: with chronic kidney disease Diabetes mellitus long term care pharmacist insulin use: with fpc use Chronic kidney disease stage: stage 2 (mild) Qualified Code(s): E11.22 - Type 2 diabetes mellitus with diabetic chronic kidney disease; N18.2 - Chronic kidney disease, stage 2 (mild); 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 Ciro Flores is an 86-year-old male who is DNR/DNI now. He is presented with orthopnea and leg edema. In February he was admitted with pneumonia and pleural effusion and after bronchoscopy he was noted to have histoplasmosis. His chest x-ray still shows left-sided consolidation with effusion. He had thoracentesis on this admission with a small amount of fluid removed. He also has diastolic CHF and he is on IV Lasix twice a day. 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 Pulmonology consulted. #2 acute on chronic congestive heart failure on IV Lasix echocardiogram in January 2017 previously showed EF 50-55% with normal LV systolic function positive diastolic dysfunction and moderate pulmonary hypertension with right-sided pressure of 48. Increase Lasix 80 mg IV twice a day. Patient has not made much urine yet. #3 COPD. On IV steroids and med nebs. Have not started tapering steroids yet probably will try from tomorrow. #4 chronic atrial fibrillation. Rate controlled on xarelto . Add digoxin for rate control #5 diabetes Accu-Chek 4 times a day with sliding scale coverage #6 CKD stage III creatinine is under 2 continue monitoring daily - Constitutional Vitals: Temp Pulse Resp BP Pulse Ox 97.7 F 91 16 104/69 92 03/24/17 16:00 03/24/17 16:00 03/24/17 16:14 03/24/17 16:00 03/24/17 16:14 General appearance: Present: A&O X 3, answers questions appropriately - Head Head exam: Present: atraumatic, normocephalic - Eye Eye exam: Present: PERRL, conjuntiva pink, sclera anicteric Pupils: Present: PERRL - Neck Neck exam general surgery: Present: supple, trachea midline. Absent: lymphadenopathy - Respiratory Respiratory exam: Present: CTAB. Absent: accessory muscle use, rales, rhonchi, wheezes - Cardiovascular Cardiovascular exam: Present: RRR, +S1, +S2. Absent: diastolic murmur, gallop, rubs, systolic murmur - GI/Abdominal GI/Abdominal exam: Present: normal bowel sounds, soft, no peritoneal signs. Absent: distended, tenderness - Extremities Exam Extremities exam: Present: warm, radial pulses palpable and symmetrical. Absent : calf tenderness, cyanotic, pedal edema - Neurological Exam Neurological exam: Present: CN II-XII intact, oriented X3, no focal deficits. Absent: pronater drift, facial droop, speech deficit - Skin Skin exam: Present: dry, intact Internal Medicine: Result - Labs CBC & Chem 7: 03/24/17 07:38 03/24/17 07:38 Labs: Short CBC 03/24/17 Range/Units 07:38 WBC 7.8 (4.3-11.1) K/mcL Hgb 11.8 L (12.9-16.9) g/dL Hct 37.3 L (37.5-50.1) % Plt Count 360 (140-400) K/mcL Neutrophils # 7.4 (1.6-8.9) K/mcL BMP 03/24/17 07:38 Sodium 142 Potassium 4.5 Chloride 97 L Carbon Dioxide 33 H BUN 39 H Creatinine 1.83 H Glucose 294 H Calcium 9.4 Liver Function 03/24/17 Range/Units 07:38 Total Bilirubin 0.5 (0.2-1.2) mg/dL AST 26 (5-34) Units/L ALT 29 (0-55) Units/L Alkaline Phosphatase 132 H (38-126) Units/L Albumin 3.0 L (3.5-5.0) g/dL - ABG Interpretation ABG results: PT/INR, D-dimer PT 20.5 Seconds (9.4-12.1) H 03/22/17 12:29 - VTE Documentation of Mechanical Device: Intermittent pneumatic compression device Consult Discharge Plan - Plan Referrals: Jaime Garcia MD [Primary Care Provider] -
[2017-03-24] MEDS: rOPINIRole 1 MG TABLET PO SCH (22:35)
[2017-03-25] MEDS: Ipratropium/Albuterol Neb 3 ML IH SCH ×4 (03:18→22:57)
[2017-03-25 04:52] LABS: Basophils % 0.1 %; Hematocrit 33.3 % (37.5-50.1); Hemoglobin 10.8 g/dL (12.9-16.9); Immature Granulocytes % 0.9 % (0-4); Lymphocytes # 0.4 K/mcL (0.6-4.6); Lymphocytes % 2.5 %; Mean Corpuscular HGB Conc 32.4 g/dL (31.6-35.5); Mean Corpuscular Hemoglobin 29.9 pg (28.0-33.3); Mean Corpuscular Volume 92.2 fL (83.0-100.0); Mean Platelet Volume 11.1 fL (9.4-12.4); Monocytes # 0.3 K/mcL (0.0-1.3); Monocytes % 2.3 %; Platelet Count 342 K/mcL (140-400); Red Blood Count 3.61 M/mcL (4.19-5.50); Red Cell Distribution Width 14.9 % (11.5-14.5); Segmented Neutrophils % 94.2 %
[2017-03-25 04:55] LABS: Albumin/Globulin Ratio 1.2 (1.1-2.2); Bilirubin,Total 0.4 mg/dL (0.2-1.2); Calcium 9.2 mg/dL (8.6-10.8); Globulin 2.6 g/dL (2.4-3.5); Potassium 4.3 mEq/L (3.5-4.5); Total Protein 5.6 g/dL (6.0-8.3)
[2017-03-25] MEDS ORDERED: *HR* Digoxin 0.125 MG TABLET PO SCH (09:00)
[2017-03-25] MEDS: Aspirin Enteric Coated 81 MG Tablet PO SCH (09:15)
[2017-03-25] MEDS: Metoprolol XL (24 HR) Succ 50 MG TAB.ER.24H PO SCH (09:15)
[2017-03-25] MEDS: Diltiazem CD (24hr) 180 MG CAPSULE PO SCH (09:15)
[2017-03-25] MEDS: Multivit/Ca/Min/Fe/FA 1 TAB TABLET PO SCH (09:15)
[2017-03-25] MEDS: Sennosides/Docusate Sodium TABLET PO SCH ×2 (09:16→22:01)
[2017-03-25] MEDS: methylPREDNISolone 125 MG/2 ML VIAL IVP SCH ×2 (09:16→18:38)
[2017-03-25] MEDS: Furosemide 40 MG/4 ML VIAL IVP SCH ×2 (09:16→18:22)
[2017-03-25] MEDS: Insulin DETEMIR 100 UNIT/ML X5UNITS SQ SCH (09:19)
[2017-03-25] MEDS: Insulin LISPRO 300 UNITS/3 ML VIAL SQ SCH ×4 (09:20→22:00)
[2017-03-25] MEDS: Silvasorb 44.4 ML TUBE TP SCH (10:55)
[2017-03-25] MEDS: (Cyclosporine [Restasis] 1 DROP) OP SCH ×2 (10:55→22:01)
[2017-03-25] MEDS: Budesonide/Formoterol 80/4.5 MDI IH SCH ×2 (11:23→22:53)
[2017-03-25] MEDS: Piperacillin/Tazobactam 3.375 GM in D5% in Water (Mini-Bag+) 100 ML IVPB SCH ×2 (13:35→18:23)
--- NOTE | 2017-03-25 16:50 | Cardiology Consult Note ---
<Sara Faustin - Last Filed: 03/25/17 17:03> Date of Encounter: 03/25/17 Time of Encounter: 16:00 Assessment and Plan (1) Atrial fibrillation Current Visit: No Status: Chronic Per cardiology: -Known chronic atrial fibrillation. -On cardizem CD 360, toprol 200mg, digoxin 0.125mg started this admission. -Telemetry reviewed with average HR previous 12 hours noted to be 99, atrial fibrillation. -Denies previous use of sotalol or amiodarone, however per review of last cardiology consultation, was on amio drip, but was not continued on correction amio. -On xarelto, renally adjusted. Of note, has missed some doses of xarelto in the past 30 days. Creatinine clearance 31ml/min. -Per discussion with , will give amio 150mg bolus, will start amio drip with plans to convert to amio po tomorrow. -Will continue to monitor. Qualifiers: Atrial fibrillation type: chronic Qualified Code(s): I48.2 - Chronic atrial fibrillation (2) Diastolic congestive heart failure, NYHA class 4 Current Visit: No Status: Chronic Per cardiology: -Chronic diastolic CHF. -Short of breath increased. -Per review of records, thoracentesis performed for plueral effusion. -BNP this admission noted to be 992. -On lasix 80mg IV BID per primary service. -Net negative 605ml this admission. -Echo 02/01/17 with LVEF 50-55%, mild concentric LVH, indeterminate diastolic function, normal RV size with mildly reduced function, moderately dilated left atrium, mild-moderate MR, mid TR, moderate PH. -Weight during last admission 84kg, weight today 91kg. -Strict i/os, daily weights, fluid restriction. -Will continue to monitor. Qualifiers: Congestive heart failure chronicity: acute on chronic Qualified Code(s): I50.33 - Acute on chronic diastolic (congestive) heart failure (3) CKD (chronic kidney disease) Current Visit: No Status: Chronic Per cardiology: -Known CKD. -Creatinien today 1.99. -Management per primary service -Can consider neprhology consult. Qualifiers: Chronic kidney disease stage: unspecified stage Qualified Code(s): N18.9 - Chronic kidney disease, unspecified (4) Elevated troponin Current Visit: No Status: Chronic Per cardiology: -Troponin 0.08, 0.08, 0.09. -Troponins flat and adynamic in the setting of a.fib RVR and diastolic CHF. -ECG with no ischemic changes. -Ehco as above. -On asa, statin, beta jenny. -Last stress 2011 negative for ischemia or infarct. -Do not suspect NSTEMI, suspect demand ischemia related to above. No cardiac rehab consult warranted. Discussion w patient/family: The assessment and plan as outlined above was discussed with the patient and/or family members who expressed understanding and agreement. All questions were answered. Thank you for involving us in the care of your patient. Please call with any questions. Discussed and reviewed with History of Present Illness Consult date: 03/25/17 Requesting physician: Kaye Arrieta Consult reason: atrial fibrillation Chief complaint: shortness of breath History of present illness: Mr. Flores is a 86 year old male with a relevant past medical history of HTN, DM , hyperlipidemia, atrial fibrillation, cardiomyopathy, diastolic CHF, CKD. Patient presented to [facility] with complaints of shortness of breath. Patient has had a long standing history of diastolic CHF and atrial fibrillation. Patient states he was recently discharged from the hospital and was doing ok. He said every time he gets discharged, he feels better for a few days and then he " fills up with fluid" again. Patient admits to shortness of breath. Patient admits to feeling "heart racing." Patient denies chest pain. Past Med Surg Social Fam HX - Past Medical History Attestation: Yes The following information was validated with the patient. Source: patient, old records reviewed, obtained from family Medical history: arthritis, atrial fibrillation, CHF, coronary artery disease, diabetes, hyperlipidemia, hypertension, renal disease, valvular heart disease Psychiatric history: no psych history - Past Surgical History Surgical History: appendectomy, cholecystectomy, knee replacement, orthopedic, other - Social History Smoking Status: Never smoker Smokeless Tobacco Status: No Alcohol use: none Drug use: none - Family History Mother Family Member Ethnicity: Non- Living Status: Brother Family Member Ethnicity: Non- Living Status: Sister Family Member Ethnicity: Non- Living Status: Still Living Father Family Member Ethnicity: Non- Living Status: Hx Family Cardiac Disorders: No Hx Family Respiratory Disorders: No Hx Family Cancer: No Hx Family GI Disorders: No Hx Family Endocrine Disorder: Yes (DM) Hx Family Neuromuscular Disorders: No Hx Family Neurologic Disorders: No Hx Family HEENT Disorders: No Hx Family Autoimmune Disorders: No Medications and Allergies Cyclosporine [Restasis] 1 drop OP BID 04/17/15 [History] Multivit-Min/FA/Lycopen/Lutein [Centrum Silver Tablet] 1 tab PO QAM 04/17/15 [ History] Ropinerole [Requip] 1 mg PO HS 04/17/15 [History] Albuterol Sulfate [Proair Hfa] 1 puff IH Q6H PRN #1 inh 10/12/15 [Rx] Aspirin Enteric Coated [Aspirin EC] 81 mg PO DAILY #30 tablet. 02/06/17 [Rx] Budesonide/Formoterol 80/4.5 [Symbicort 80/4.5] 1 puff IH BID #5 hfa.aer.ad 08/25 [Rx] Diltiazem CD (24hr) [Cardizem CD] 360 mg PO DAILY 30 Days 02/06/17 [Rx] Metoprolol XL (24 HR) Succ [Toprol Xl] 200 mg PO DAILY 30 Days 02/06/17 [Rx] Sennosides/Docusate Sodium [Senna Plus] 2 tab PO BID 02/12/17 [History] Rivaroxaban [Xarelto] 15 mg PO 1700 #1 tablet 03/07/17 [Rx] Furosemide [Lasix] 60 mg PO BID 03/22/17 [History] Insulin Glargine,Hum.rec.anlog [Lantus Solostar] 24 unit SQ QAM 03/22/17 [ History] Potassium Chloride [Klor-Con 10] 10 meq PO BID 03/22/17 [History] Simvastatin [Zocor] 40 mg PO HS 03/22/17 [History] 3 Allergy/AdvReac Type Severity Reaction Status Date / Time codeine AdvReac Mild Flushing Verified 03/22/17 13:10 metformin AdvReac Mild Nausea Verified 03/22/17 13:10 tramadol AdvReac Mild Dizziness Verified 03/22/17 13:10 All Systems Review: A 10-system review of systems was performed and is negative for pertinent findings except as documented above in the HPI. - Cardiovascular Cardiovascular: as per HPI, dyspnea on exertion, irregular heart rhythm, rapid heart rate Physical Examination Vital Signs, Last 4 Hours Temp Pulse Resp BP Pulse Ox 03/25/17 15:00 97.8 F 67 19 105/68 96 General: Conversant HEENT: Atraumatic, Normocephaly, Mucus Membranes Moist Neck: No JVD, Normal carotid pulses Cardiac: Other (Irregularly irregular) Lungs: Other (Left lower lobe with diminished breath sounds. ) Neuro: Alert and responsive, No focal deficits noted Abdomen: Soft, Non-Tender Skin: No rashes noted on visualized skin Musculoskeletal: No Chest Wall Tenderness Extremities: No Clubbing, No Cyanosis, Normal Pulses, Other (2+ bilateral lower extremity pitting edema. ) Results 03/25/17 04:10 03/25/17 04:10 Lab Results Impressions Chest X-Ray 03/24/17 11:10 IMPRESSION: Slightly increased moderate left effusion and basilar atelectasis versus consolidation. Stable trace right effusion. D/ / 03/24/2017 19:32:14 Richard Negron MD / earnold Interpreting Provider: Richard Negron MD Active Medications Albuterol Sulfate (Proventil Neb) 2.5 mg IH Q2H PRN; Protocol PRN Reason: Shortness Of Breath/Wheezing Stop: 09/22/17 11:38 Albuterol/Ipratropium (Duoneb) 3 ml IH QIDR KELSI PRN Reason: Protocol Stop: 09/22/17 11:46 Last Admin: 03/25/17 16:20 Dose: 3 ml Aspirin (Aspirin Ec) 81 mg PO DAILY [facility] Stop: 09/22/17 09:01 Last Admin: 03/25/17 09:15 Dose: 81 mg Budesonide/Formoterol Fumarate (Symbicort) 1 puff IH BID KELSI PRN Reason: Protocol Stop: 09/21/17 21:01 Last Admin: 03/25/17 11:23 Dose: 1 puff Dextrose/Water (Dextrose 50% (Syg)) 25 ml IVP AD PRN PRN Reason: Hypoglycemia Stop: 09/21/17 15:08 Digoxin (Lanoxin) 0.125 mg PO DAILY [facility] Stop: 09/24/17 09:01 Last Admin: 03/25/17 09:15 Dose: 0.125 mg Diltiazem HCl (Cardizem Cd) 360 mg PO DAILY [facility] Stop: 09/22/17 09:01 Last Admin: 03/25/17 09:15 Dose: 360 mg Furosemide (Lasix) 80 mg IVP BIDDIURETIC [facility] Stop: 09/24/17 08:01 Last Admin: 03/25/17 09:16 Dose: 80 mg Glucagon (Glucagen) 1 mg IM ONCE PRN PRN Reason: Hypoglycemia Stop: 09/21/17 15:08 Glucose (Gluctose) 15 gm PO ONCE PRN PRN Reason: Hypoglycemia Stop: 09/21/17 15:08 Glucose (Gluctose) 30 gm PO ONCE PRN PRN Reason: Hypoglycemia Stop: 09/21/17 15:08 Dextrose (Dextrose 5%) 1,000 mls @ 100 mls/hr IVC .Q10H PRN PRN Reason: HYPOGLYCEMIA Stop: 09/21/17 15:08 Piperacillin Sod/Tazobactam (Sod 3.375 gm/ Dextrose) 100 mls @ 25 mls/hr IVPB Q8H [facility] PRN Reason: Protocol Stop: 04/04/17 05:59 Last Admin: 03/25/17 13:35 Dose: 25 mls/hr Insulin Detemir (Levemir) 24 unit SQ QAM [facility] Stop: 09/22/17 09:01 Last Admin: 03/25/17 09:19 Dose: 24 unit Insulin Human Lispro (Humalog) 0 units SQ HS [facility] PRN Reason: Protocol Stop: 09/21/17 21:01 Last Admin: 03/24/17 22:44 Dose: 4 units Insulin Human Lispro (Humalog) 0 units SQ TIDAC [facility] PRN Reason: Protocol Stop: 09/21/17 16:31 Last Admin: 03/25/17 13:37 Dose: 300 units Methylprednisolone (Solu-Medrol) 60 mg IVP Q8HR [facility] Stop: 09/22/17 16:01 Last Admin: 03/25/17 09:16 Dose: 60 mg Metoprolol Succinate (Toprol Xl) 200 mg PO DAILY [facility] Stop: 09/22/17 09:01 Last Admin: 03/25/17 09:15 Dose: 200 mg Morphine Sulfate (Morphine Sulfate) 2 mg IVP Q3H PRN PRN Reason: Pain Stop: 09/22/17 11:40 Last Admin: 03/23/17 11:54 Dose: 2 mg Multivitamins/Calcium (Thera M Plus) 1 tab PO QAM [facility] Stop: 09/22/17 09:01 Last Admin: 03/25/17 09:15 Dose: 1 tab Naloxone HCl (Narcan) 0.4 mg IVP Q2MIN PRN PRN Reason: Opioid Reversal Stop: 09/21/17 15:00 Pharmacy Profile Note (Patient Taking Own Medication) 0 each OP BID KELSI Stop: 09/21/17 21:01 Last Admin: 03/25/17 10:55 Dose: 1 each Rivaroxaban (Xarelto) 15 mg PO 1700 [facility] Stop: 09/22/17 17:01 Last Admin: 03/24/17 17:09 Dose: 15 mg Ropinirole HCl (Requip) 1 mg PO HS [facility] Stop: 09/21/17 21:01 Last Admin: 03/24/17 22:35 Dose: 1 mg Senna/Docusate Sodium (Senna Plus) 2 each PO BID [facility]EL[facility] PRN Reason: Protocol Stop: 09/21/17 21:01 Last Admin: 03/25/17 09:16 Dose: 2 each Silver Nitrate (Silvasorb) 1 appl TP DAILY [facility] Stop: 09/22/17 12:31 Last Admin: 03/25/17 10:55 Dose: 1 appl Simvastatin (Zocor) 40 mg PO HS [facility]ELSI PRN Reason: Protocol Stop: 09/21/17 21:01 Last Admin: 03/24/17 22:35 Dose: 40 mg - Imaging and Cardiology Chest Xray: report reviewed Echo: report reviewed - EKG Interpretation EKG results cardiology: personally reviewed (ECG with atrial fibrillation, HR 118.), other (Telemetry reviewed with average HR previous 12 hours noted to be 99, atrial fibrillation. Longest pause 1.8 seconds. PVCs and couplets noted.) Consult Discharge Plan - Plan Referrals: Jaime Garcia MD [Primary Care Provider] - 04/02/17 10:15 am <Tyrone Rose - Last Filed: 03/26/17 13:12> Date of Encounter: 03/26/17 Assessment and Plan Discussion w patient/family: The assessment and plan as outlined above was discussed with the patient and/or family members who expressed understanding and agreement. All questions were answered. Thank you for involving us in the care of your patient. Please call with any questions. History of Present Illness History of present illness: Mr. Flores is a 86 year old male All Systems Review: A 10-system review of systems was performed and is negative for pertinent findings except as documented above in the HPI. Physical Examination Vital Signs, Last 4 Hours Temp Pulse Resp BP Pulse Ox 03/26/17 12:25 97.5 F L 91 18 104/66 97 03/26/17 11:37 97.5 F L 91 18 104/66 97 03/26/17 10:59 16 98 Results 03/26/17 04:57 03/26/17 04:57 Lab Results 03/26/17 03/26/17 04:57 04:57 WBC 14.2 H Hgb 10.9 L Hct 33.9 L Plt Count 319 Sodium 139 Potassium 4.2 Chloride 96 L Carbon Dioxide 33 H BUN 54 H Creatinine 2.02 H Glucose 198 H Calcium 9.0 Total Bilirubin 0.4 AST 20 ALT 28 Alkaline Phosphatase 112
--- NOTE | 2017-03-25 16:51 | Pulmonology Progress Note ---
Date of Encounter: 03/25/17 Time of Encounter: 10:45 Subjective Principal diagnosis: Dyspnea Interval history: Patient denies any significant changes and denies any complaint. Objective PUL Vital signs: Last Vital Signs Temp 97.8 F 03/25/17 15:00 Pulse 67 03/25/17 15:00 Resp 19 03/25/17 15:00 BP 105/68 03/25/17 15:00 Pulse Ox 96 03/25/17 15:00 General appearance: no acute distress Eyes: nonicteric ENT: oropharynx moist Mallampati (class): 2 Neck: supple, no lymphadenopathy Effort: normal Auscultation: left: diminished breath sounds, right: clear Percussion: left: dull Cardiovascular: irregular rhythm Gastrointestinal: normoactive bowel sounds, non-distended Extremities: no cyanosis, edema normal mental status, non-focal exam depressed Results - Laboratory Findings CBC and BMP: 03/25/17 04:10 03/25/17 04:10 PT/INR, D-dimer PT 20.5 Seconds (9.4-12.1) H 03/22/17 12:29 Abnormal lab findings: Abnormal lab results WBC 14.9 K/mcL (4.3-11.1) H D 03/25/17 04:10 RBC 3.61 M/mcL (4.19-5.50) L 03/25/17 04:10 Hgb 10.8 g/dL (12.9-16.9) L 03/25/17 04:10 Hct 33.3 % (37.5-50.1) L 03/25/17 04:10 RDW 14.9 % (11.5-14.5) H 03/25/17 04:10 Neutrophils # 14.0 K/mcL (1.6-8.9) H 03/25/17 04:10 Lymphocytes # 0.4 K/mcL (0.6-4.6) L 03/25/17 04:10 PT 20.5 Seconds (9.4-12.1) H 03/22/17 12:29 BUN 48 mg/dL (8-26) H 03/25/17 04:10 Creatinine 1.99 mg/dL (0.72-1.25) H 03/25/17 04:10 Est GFR ( Amer) 39 (> 60) L 03/25/17 04:10 Est GFR (Non-Af Amer) 32 (> 60) L 03/25/17 04:10 Glucose 251 mg/dL (70-99) H 03/25/17 04:10 POC Glucose 247 (58-89) H 03/24/17 20:21 Calculated Osmolality 307 (280-300) H 03/25/17 04:10 Lactate Dehydrogenase 496 Units/L (159-327) H 03/24/17 07:38 Troponin I 0.09 ng/mL (0-0.03) H* 03/23/17 01:10 B-Natriuretic Peptide 992 pg/mL (0-100) H 03/22/17 12:29 Serum Total Protein 5.6 g/dL (6.0-8.3) L 03/25/17 04:10 Albumin 3.0 g/dL (3.5-5.0) L 03/25/17 04:10 Pleural Appearance Hazy (Clear) A 03/23/17 10:17 - Microbiology Findings Microbiology Findings: Microbiology, Last 48 Hours 03/23/17 10:17 Acid Fast Stain - Final Pleural Fluid 03/23/17 10:17 Body Fluid Culture - Preliminary Pleural Fluid - Clinical Findings Intake & Output: Intake & Output 03/25/17 03/25/17 03/25/17 07:59 15:59 23:59 Intake Total 600 / 600 Output Total 450 / 450 350 / 350 Balance -450 / -450 250 / 250 - VTE Documentation of Mechanical Device: Intermittent pneumatic compression device Consult Discharge Plan - Plan Referrals: Jaime Garcia MD [Primary Care Provider] - 04/02/17 10:15 am - Attending Attestation Assessment and plan. Bilateral pleural effusion which showed transudative and this is consistent with his history of diastolic heart failure and also renal disease. I have discussed with the patient and his daughter at the bedside that talc Pleurodesis is not recommended and he can think of Pleurx pleural catheter placement versus frequent thoracentesis. I have told patient and his daughter if the fluid builds up then we can consider what he would like to do. Continue diuresis and family is asking for heart failure management. Discussed with primary team for cardiology consult.
[2017-03-25] MEDS ORDERED: Amiodarone Premix 150 MG/100 ML BAG IVPB ONE (17:17)
[2017-03-25] MEDS ORDERED: Amiodarone Premix 360 MG/200 ML BAG IVC ONE (17:17)
--- NOTE | 2017-03-25 17:33 | Internal Med Progress Note ---
Date of Encounter: 03/25/17 Time of Encounter: 17:28 - Assessment and plan (1) Acute diastolic heart failure Current Visit: Yes Status: Acute (2) Histoplasmosis pneumonia Current Visit: Yes Status: Acute (3) Pleural effusion Current Visit: Yes Status: Acute (4) Afib Current Visit: Yes Status: Chronic Qualifiers: Atrial fibrillation type: paroxysmal Qualified Code(s): I48.0 - Paroxysmal atrial fibrillation (5) HTN (hypertension) Current Visit: Yes Status: Chronic Qualifiers: Hypertension type: unspecified Qualified Code(s): I10 - Essential (primary ) hypertension (6) CKD (chronic kidney disease) stage 3, GFR 30-59 ml/min Current Visit: Yes Status: Chronic (7) Type 2 diabetes mellitus Current Visit: Yes Status: Chronic Qualifiers: Diabetes mellitus complication status: with kidney complications Diabetes mellitus complication detail: with chronic kidney disease Diabetes mellitus manager long term care insulin use: with custodial use Chronic kidney disease stage: stage 2 (mild) Qualified Code(s): E11.22 - Type 2 diabetes mellitus with diabetic chronic kidney disease; N18.2 - Chronic kidney disease, stage 2 (mild); Z79.4 - exterminator (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 Ciro Flores is an 86-year-old male who is DNR/DNI now. He is presented with orthopnea and leg edema. In February he was admitted with pneumonia and pleural effusion and after bronchoscopy he was noted to have histoplasmosis. His chest x-ray still shows left-sided consolidation with effusion. He had thoracentesis on this admission with a small amount of fluid removed. He also has diastolic CHF and he is on IV Lasix twice a day. 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 Pulmonology consulted. Detailed discussion with Dr. Dick. He has offered Pleurx for recurrent effusion. He has also suggested that he thinks effusion is primarily due to cardiac reasons. #2 acute on chronic congestive heart failure on IV Lasix 80 twice a day. echocardiogram in January 2017 previously showed EF 50-55% with normal LV systolic function positive diastolic dysfunction and moderate pulmonary hypertension with right-sided pressure of 48. Increase Lasix 80 mg IV twice a day. Patient has been -600 now. Still he feels very little improvement. I have consulted cardiology and they have continued current treatment for now while adding amiodarone for A. fib.. #3 COPD. On IV steroids and med nebs. Have not started tapering steroids yet probably will try from tomorrow. #4 chronic atrial fibrillation. Rate controlled on xarelto . He is on digoxin which has provided provided only some improvement. Therefore cardiology was consulted and they have restarted patient on amiodarone drip to load him and will switch him to by mouth amiodarone drawn tomorrow. I will ask him that if it would be inappropriate to DC digoxin at that time as amiodarone seems to "controlled heart rate better. #5 diabetes Accu-Chek 4 times a day with sliding scale coverage. Sugars under control now. #6 CKD stage III creatinine is under 2 continue monitoring daily. Due to diuresis creatinine has gone up slightly but is still in his baseline level. - Constitutional Vitals: Temp Pulse Resp BP Pulse Ox 97.8 F 67 18 105/68 98 03/25/17 15:00 03/25/17 15:00 03/25/17 16:20 03/25/17 15:00 03/25/17 16:20 General appearance: Present: A&O X 3, answers questions appropriately - Head Head exam: Present: atraumatic, normocephalic - Eye Eye exam: Present: PERRL, conjuntiva pink, sclera anicteric Pupils: Present: PERRL - Neck Neck exam general surgery: Present: supple, trachea midline. Absent: lymphadenopathy - Respiratory Respiratory exam: Present: decreased breath sounds. Absent: accessory muscle use, rales, rhonchi, wheezes - Cardiovascular Cardiovascular exam: Present: RRR, +S1, +S2. Absent: diastolic murmur, gallop, rubs, systolic murmur - GI/Abdominal GI/Abdominal exam: Present: normal bowel sounds, soft, no peritoneal signs. Absent: distended, tenderness - Extremities Exam Extremities exam: Present: pedal edema, warm, radial pulses palpable and symmetrical. Absent: calf tenderness, cyanotic - Neurological Exam Neurological exam: Present: CN II-XII intact, oriented X3, no focal deficits. Absent: pronater drift, facial droop, speech deficit - Skin Skin exam: Present: dry, intact Internal Medicine: Result - Labs CBC & Chem 7: 03/25/17 04:10 03/25/17 04:10 Labs: Short CBC 03/25/17 Range/Units 04:10 WBC 14.9 H D (4.3-11.1) K/mcL Hgb 10.8 L (12.9-16.9) g/dL Hct 33.3 L (37.5-50.1) % Plt Count 342 (140-400) K/mcL Neutrophils # 14.0 H (1.6-8.9) K/mcL BMP 03/25/17 04:10 Sodium 138 Potassium 4.3 Chloride 99 Carbon Dioxide 29 BUN 48 H Creatinine 1.99 H Glucose 251 H Calcium 9.2 Liver Function 03/25/17 Range/Units 04:10 Total Bilirubin 0.4 (0.2-1.2) mg/dL AST 20 (5-34) Units/L ALT 27 (0-55) Units/L Alkaline Phosphatase 118 (38-126) Units/L Albumin 3.0 L (3.5-5.0) g/dL - ABG Interpretation ABG results: PT/INR, D-dimer PT 20.5 Seconds (9.4-12.1) H 03/22/17 12:29 - Impressions Impressions Chest X-Ray 03/24/17 11:10 IMPRESSION: Slightly increased moderate left effusion and basilar atelectasis versus consolidation. Stable trace right effusion. D/ / 03/24/2017 19:32:14 Richard Negron MD / earnold Interpreting Provider: Richard Negron MD - VTE Documentation of Mechanical Device: Intermittent pneumatic compression device Consult Discharge Plan - Plan Referrals: Jaime Garcia MD [Primary Care Provider] - 04/02/17 10:15 am
[2017-03-25] MEDS: *HR* Rivaroxaban 15 MG TABLET PO SCH (18:22)
[2017-03-25] MEDS ORDERED: 0.9 % Sodium Chloride 1,000 ML ONE (21:40)
[2017-03-25] MEDS: rOPINIRole 1 MG TABLET PO SCH (22:01)
[2017-03-26] MEDS: Piperacillin/Tazobactam 3.375 GM in D5% in Water (Mini-Bag+) 100 ML IVPB SCH ×3 (01:44→16:27)
[2017-03-26] MEDS: methylPREDNISolone 125 MG/2 ML VIAL IVP SCH ×2 (01:44→08:28)
[2017-03-26] MEDS: Ipratropium/Albuterol Neb 3 ML IH SCH ×4 (04:15→22:16)
[2017-03-26 05:15] LABS: Hematocrit 33.9 % (37.5-50.1); Hemoglobin 10.9 g/dL (12.9-16.9); Immature Granulocytes % 0.5 % (0-4); Lymphocytes # 0.3 K/mcL (0.6-4.6); Mean Corpuscular HGB Conc 32.2 g/dL (31.6-35.5); Mean Corpuscular Hemoglobin 29.9 pg (28.0-33.3); Mean Corpuscular Volume 93.1 fL (83.0-100.0); Monocytes # 0.3 K/mcL (0.0-1.3); Monocytes % 2.3 %; Neutrophils # 13.5 K/mcL (1.6-8.9); Platelet Count 319 K/mcL (140-400); Red Blood Count 3.64 M/mcL (4.19-5.50); Red Cell Distribution Width 14.9 % (11.5-14.5); Segmented Neutrophils % 95.2 %
[2017-03-26 05:22] LABS: Albumin/Globulin Ratio 1.2 (1.1-2.2); Bilirubin,Total 0.4 mg/dL (0.2-1.2); Globulin 2.6 g/dL (2.4-3.5); Potassium 4.2 mEq/L (3.5-4.5); Total Protein 5.6 g/dL (6.0-8.3)
[2017-03-26] MEDS: Insulin LISPRO 300 UNITS/3 ML VIAL SQ SCH ×4 (08:26→21:11)
[2017-03-26] MEDS: Furosemide 40 MG/4 ML VIAL IVP SCH ×2 (08:27→16:27)
[2017-03-26] MEDS: Metoprolol XL (24 HR) Succ 50 MG TAB.ER.24H PO SCH (08:28)
[2017-03-26] MEDS: Multivit/Ca/Min/Fe/FA 1 TAB TABLET PO SCH (08:28)
[2017-03-26] MEDS: Diltiazem CD (24hr) 180 MG CAPSULE PO SCH (08:28)
[2017-03-26] MEDS: Aspirin Enteric Coated 81 MG Tablet PO SCH (08:28)
[2017-03-26] MEDS: Sennosides/Docusate Sodium TABLET PO SCH ×2 (08:28→21:01)
[2017-03-26] MEDS: Silvasorb 44.4 ML TUBE TP SCH (08:36)
[2017-03-26] MEDS: (Cyclosporine [Restasis] 1 DROP) OP SCH ×2 (08:36→21:02)
[2017-03-26] MEDS: Insulin DETEMIR 100 UNIT/ML X5UNITS SQ SCH (08:41)
[2017-03-26] MEDS: Budesonide/Formoterol 80/4.5 MDI IH SCH ×2 (10:59→22:16)
[2017-03-26] MEDS: *HR* Amiodarone 200 MG TABLET PO SCH ×2 (12:14→21:01)
--- NOTE | 2017-03-26 12:35 | Cardiology Progress Note ---
Date of Encounter: 03/26/17 Time of Encounter: 08:00 Assessment and Plan (1) Atrial fibrillation Current Visit: No Status: Chronic Per cardiology: -Known chronic atrial fibrillation. -On cardizem CD 360, toprol 200mg, IV amiodarone load was given yesterday. -Telemetry reviewed with average HR previous 12 hours noted to be 82, atrial fibrillation. -Denies previous use of sotalol or amiodarone, however per review of last cardiology consultation, was on amio drip, but was not continued on long term acute care registered nurse amio. -On xarelto, renally adjusted. Of note, has missed some doses of xarelto in the past 30 days. Creatinine clearance 31ml/min. -Per discussion with , will start amiodarone oral 400mg BID. Will stop toprol. -Will continue to monitor. -Of note, statin changed to atorvastatin due to medication interactions. Qualifiers: Atrial fibrillation type: chronic Qualified Code(s): I48.2 - Chronic atrial fibrillation (2) Diastolic congestive heart failure, NYHA class 4 Current Visit: No Status: Chronic Per cardiology: -Chronic diastolic CHF. -Short of breath increased. -Per review of records, thoracentesis performed for plueral effusion. -BNP this admission noted to be 992. -On lasix 80mg IV BID per primary service, creatinine increased this morning. -Net negative 475ml this admission. -Echo 02/01/17 with LVEF 50-55%, mild concentric LVH, indeterminate diastolic function, normal RV size with mildly reduced function, moderately dilated left atrium, mild-moderate MR, mid TR, moderate PH. -Weight during last admission 84kg, weight today 95.3kg (increased from yesterday). -Strict i/os, daily weights, fluid restriction. -Discussed and reviewed with , hospitalist service. Will consult nephrology for assistance with diuresis. Qualifiers: Congestive heart failure chronicity: acute on chronic Qualified Code(s): I50.33 - Acute on chronic diastolic (congestive) heart failure (3) CKD (chronic kidney disease) Current Visit: No Status: Chronic Per cardiology: -Known CKD. -Creatinien today 2.02. -Management per primary service -Nephrology being consulted. Qualifiers: Chronic kidney disease stage: unspecified stage Qualified Code(s): N18.9 - Chronic kidney disease, unspecified (4) Elevated troponin Current Visit: No Status: Chronic Per cardiology: -Troponin 0.08, 0.08, 0.09. Patient carries chronically elevated troponin. -Troponins flat and adynamic in the setting of a.fib RVR and diastolic CHF. -ECG with no ischemic changes. -Ehco as above. -On asa, statin, beta jenny. -Last stress 2011 negative for ischemia or infarct. -Do not suspect NSTEMI, suspect demand ischemia related to above. No cardiac rehab consult warranted. Discussion w patient/family: The assessment and plan as outlined above was discussed with the patient and/or family members who expressed understanding and agreement. All questions were answered. Thank you for involving us in the care of your patient. Please call with any questions. Discussed and reviewed with Subjective Principal diagnosis: Dyspnea Interval history: Patient states he does not feel any better today. Patient states he is very frustrated regarding lack of progress in his condition. Patient states breathing has not improved and he is still short of breath. Objective Vital Signs, Last 4 Hours Temp Pulse Resp BP Pulse Ox 03/26/17 12:25 97.5 F L 91 18 104/66 97 03/26/17 11:37 97.5 F L 91 18 104/66 97 03/26/17 10:59 16 98 03/26/17 08:35 97.7 F 96 19 119/80 95 General: Conversant, No Apparent Distress HEENT: Atraumatic, Normocephaly, Mucus Membranes Moist Neck: No JVD, Normal carotid pulses Cardiac: Normal S1 and S2, No Murmur, Other (Irregularly irregular) Lungs: Other (Lung sounds diminished to bilateral lower lobes) Neuro: Alert and responsive, No focal deficits noted Abdomen: Soft, Non-Tender Skin: No rashes noted on visualized skin Musculoskeletal: No Chest Wall Tenderness Extremities: No Clubbing, No Cyanosis, Normal Pulses, Other (2+ bilateral lower extremity pitting edema) Results 03/26/17 04:57 03/26/17 04:57 Lab Results Active Medications Albuterol Sulfate (Proventil Neb) 2.5 mg IH Q2H PRN; Protocol PRN Reason: Shortness Of Breath/Wheezing Stop: 09/22/17 11:38 Last Admin: 03/25/17 22:53 Dose: 2.5 mg Albuterol/Ipratropium (Duoneb) 3 ml IH QIDR KELSI PRN Reason: Protocol Stop: 09/22/17 11:46 Last Admin: 03/26/17 10:59 Dose: 3 ml Amiodarone HCl (Cordarone) 400 mg PO BID KELSI Stop: 09/25/17 10:16 Last Admin: 03/26/17 12:14 Dose: 400 mg Aspirin (Aspirin Ec) 81 mg PO DAILY KELSI Stop: 09/22/17 09:01 Last Admin: 03/26/17 08:28 Dose: 81 mg Atorvastatin Calcium (Lipitor) 40 mg PO HS [facility] Stop: 09/25/17 21:01 Budesonide/Formoterol Fumarate (Symbicort) 1 puff IH BID KELSI PRN Reason: Protocol Stop: 09/21/17 21:01 Last Admin: 03/26/17 10:59 Dose: 1 puff Dextrose/Water (Dextrose 50% (Syg)) 25 ml IVP AD PRN PRN Reason: Hypoglycemia Stop: 09/21/17 15:08 Diltiazem HCl (Cardizem Cd) 360 mg PO DAILY [facility] Stop: 09/22/17 09:01 Last Admin: 03/26/17 08:28 Dose: 360 mg Furosemide (Lasix) 80 mg IVP BIDDIURETIC KELSI Stop: 09/24/17 08:01 Last Admin: 03/26/17 08:27 Dose: 80 mg Glucagon (Glucagen) 1 mg IM ONCE PRN PRN Reason: Hypoglycemia Stop: 09/21/17 15:08 Glucose (Gluctose) 15 gm PO ONCE PRN PRN Reason: Hypoglycemia Stop: 09/21/17 15:08 Glucose (Gluctose) 30 gm PO ONCE PRN PRN Reason: Hypoglycemia Stop: 09/21/17 15:08 Dextrose (Dextrose 5%) 1,000 mls @ 100 mls/hr IVC .Q10H PRN PRN Reason: HYPOGLYCEMIA Stop: 09/21/17 15:08 Piperacillin Sod/Tazobactam (Sod 3.375 gm/ Dextrose) 100 mls @ 25 mls/hr IVPB Q8H KELSI PRN Reason: Protocol Stop: 04/04/17 05:59 Last Infusion: 03/26/17 12:31 Dose: Infused Insulin Detemir (Levemir) 24 unit SQ QAM [facility] Stop: 09/22/17 09:01 Last Admin: 03/26/17 08:41 Dose: 24 unit Insulin Human Lispro (Humalog) 0 units SQ HS KELSI PRN Reason: Protocol Stop: 09/21/17 21:01 Last Admin: 03/25/17 22:00 Dose: 3 units Insulin Human Lispro (Humalog) 0 units SQ TIDAC KELSI PRN Reason: Protocol Stop: 09/21/17 16:31 Last Admin: 03/26/17 12:15 Dose: 6 units Methylprednisolone (Solu-Medrol) 60 mg IVP Q8HR [facility] Stop: 09/22/17 16:01 Last Admin: 03/26/17 08:28 Dose: 60 mg Morphine Sulfate (Morphine Sulfate) 2 mg IVP Q3H PRN PRN Reason: Pain Stop: 09/22/17 11:40 Last Admin: 03/23/17 11:54 Dose: 2 mg Multivitamins/Calcium (Thera M Plus) 1 tab PO QAM [facility] Stop: 09/22/17 09:01 Last Admin: 03/26/17 08:28 Dose: 1 tab Naloxone HCl (Narcan) 0.4 mg IVP Q2MIN PRN PRN Reason: Opioid Reversal Stop: 09/21/17 15:00 Pharmacy Profile Note (Patient Taking Own Medication) 0 each OP BID [facility] Stop: 09/21/17 21:01 Last Admin: 03/26/17 08:36 Dose: 1 each Rivaroxaban (Xarelto) 15 mg PO 1700 [facility] Stop: 09/22/17 17:01 Last Admin: 03/25/17 18:22 Dose: 15 mg Ropinirole HCl (Requip) 1 mg PO HS [facility] Stop: 09/21/17 21:01 Last Admin: 03/25/17 22:01 Dose: 1 mg Senna/Docusate Sodium (Senna Plus) 2 each PO BID KELSI PRN Reason: Protocol Stop: 09/21/17 21:01 Last Admin: 03/26/17 08:28 Dose: 2 each Silver Nitrate (Silvasorb) 1 appl TP DAILY [facility] Stop: 09/22/17 12:31 Last Admin: 03/26/17 08:36 Dose: 1 appl - Imaging and Cardiology Chest Xray: report reviewed Echo: report reviewed - EKG Interpretation EKG results cardiology: other (Telemetry reviewed with average HR previous 12 hours noted to be 82, a.fib. Longest pause 1.72 seconds. PVCs and couplets noted.) - VTE Documentation of Mechanical Device: Intermittent pneumatic compression device Consult Discharge Plan - Plan Referrals: Jaime Garcia MD [Primary Care Provider] - 04/02/17 10:15 am
--- NOTE | 2017-03-26 13:20 | Internal Med Progress Note ---
Date of Encounter: 03/26/17 Time of Encounter: 08:50 - Assessment and plan (1) Diastolic congestive heart failure, NYHA class 4 Current Visit: No Status: Chronic Assessment and plan: Acute exacerbation of chronic diastolic CHF LVEF 50-55% - causing shortness of breath, pleural effusion and bilateral lower leg edema Continue IV Lasix, need to diurese patient aggressively - patient seems to be oliguric Chest x-ray - slightly increased moderate left effusion and basilar atelectasis EKG - atrial fibrillation Troponin - 0.09 (chronically elevated) BN peptide - 992 Echocardiogram (02/01/2017) - LVEF 55%, mild concentric LVH, normal RV size with mildly reduced function, dilated LA, moderate pulmonary hypertension Cardiology following patient - recommendations reviewed, appreciate input Nephrology consult pending Continue strict I's and O's, fluid restriction, daily weight, cardiac telemetry Continue to monitor closely Qualifiers: Congestive heart failure chronicity: acute on chronic Qualified Code(s): I50.33 - Acute on chronic diastolic (congestive) heart failure (2) Pleural effusion Current Visit: Yes Status: Acute Assessment and plan: Left-sided pleural effusion, transudative - status post thoracentesis with drainage of 700 mL of serosanguineous fluid Repeat chest x-ray - slightly increased moderate left effusion and basilar atelectasis Pulmonology has evaluated the patient - discussed with Dr. Brown - recommended Pleurx catheter placement as outpatient if effusion worsens Continue to monitor closely (3) Atrial fibrillation Current Visit: No Status: Chronic Assessment and plan: Chronic Atrial Fibrillation - rate controlled Started on Amiodarone 400 mg by mouth twice daily, IV Amiodarone loading dose given yesterday Cardiology consult - recommendations reviewed, appreciate input Continue anticoagulation with Xarelto, continue aspirin and statin Qualifiers: Atrial fibrillation type: paroxysmal Qualified Code(s): I48.0 - Paroxysmal atrial fibrillation (4) Acute kidney injury superimposed on chronic kidney disease Current Visit: No Status: Acute Assessment and plan: Acute kidney injury on chronic kidney disease 3 - likely due to CHF and Lasix use - Patient seems to have oliguria Creatinine is 2.02, baseline ~ 1.6-2.0 Nephrology consult pending (5) Type 2 diabetes mellitus Current Visit: Yes Status: Chronic Assessment and plan: Diabetes mellitus type 2, insulin-dependent, hyperglycemia Continue insulin sliding scale, Levemir and glucose checks Qualifiers: Diabetes mellitus complication status: with kidney complications Diabetes mellitus complication detail: with chronic kidney disease Diabetes mellitus longterm insulin use: with 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 supervisor use Chronic kidney disease stage: stage 2 (mild) Qualified Code(s): E11.22 - Type 2 diabetes mellitus with diabetic chronic kidney disease; N18.2 - Chronic kidney disease, stage 2 (mild); Z79.4 - rn long term care (current) use of insulin (6) HTN (hypertension) Current Visit: Yes Status: Chronic Assessment and plan: Essential hypertension, controlled, continue current meds, monitor Qualifiers: Hypertension type: unspecified Qualified Code(s): I10 - Essential (primary ) hypertension (7) DVT prophylaxis Current Visit: No Status: Acute Assessment and plan: Patient is already on anticoagulation with Xarelto - Time Spent With Patient 25 - 35 minutes - Subjective Interval history: Examined this morning. Patient is awake and alert. Not in any distress. Denies chest pain. Complains of persistent shortness of breath. Also complains of generalized weakness. Tolerating oral diet. Denies vomiting or abdominal pain. No fever. Hemodynamically stable. Lasix is being continued but patient seems to be oliguric. Creatinine is now 2.02. Nephrology consult is pending. Discussed with pulmonology today, Dr. Brown states patient can get a Pleurx catheter as outpatient if needed for recurrent effusion, which is most likely due to CHF. Patient was started on Amiodarone yesterday by cardiology. No other acute events or complaints. - Constitutional Vitals: Temp Pulse Resp BP Pulse Ox 97.5 F L 91 18 104/66 97 03/26/17 12:25 03/26/17 12:25 03/26/17 12:25 03/26/17 12:25 03/26/17 12:25 General appearance: Present: cooperative, A&O X 3, pleasant, no acute distress, answers questions appropriately Exam: Generalized weakness, chronically ill-appearing - Head Head exam: Present: atraumatic - Eye Eye exam: Present: EOMI - ENT ENT exam: Present: mucous membranes dry - Respiratory Respiratory exam: Present: decreased breath sounds (Lung sounds diminished in both lower lobes). Absent: rales, rhonchi, wheezes, tachypnea - Cardiovascular Cardiovascular exam: Present: irregular rhythm, +S1, +S2 - GI/Abdominal GI/Abdominal exam: Present: soft. Absent: distended, firm, guarding, tenderness - Extremities Exam Extremities exam: Present: pedal edema (Bilateral lower leg 2+ pitting edema), radial pulses palpable and symmetrical. Absent: cyanotic - Neurological Exam Neurological exam: Present: alert, oriented X3, no focal deficits. Absent: facial droop, speech deficit Internal Medicine: Result - Labs CBC & Chem 7: 03/26/17 04:57 03/26/17 04:57 Labs: Short CBC 03/26/17 Range/Units 04:57 WBC 14.2 H (4.3-11.1) K/mcL Hgb 10.9 L (12.9-16.9) g/dL Hct 33.9 L (37.5-50.1) % Plt Count 319 (140-400) K/mcL Neutrophils # 13.5 H (1.6-8.9) K/mcL BMP 03/26/17 04:57 Sodium 139 Potassium 4.2 Chloride 96 L Carbon Dioxide 33 H BUN 54 H Creatinine 2.02 H Glucose 198 H Calcium 9.0 Liver Function 03/26/17 Range/Units 04:57 Total Bilirubin 0.4 (0.2-1.2) mg/dL AST 20 (5-34) Units/L ALT 28 (0-55) Units/L Alkaline Phosphatase 112 (38-126) Units/L Albumin 3.0 L (3.5-5.0) g/dL - ABG Interpretation ABG results: PT/INR, D-dimer PT 20.5 Seconds (9.4-12.1) H 03/22/17 12:29 - VTE Documentation of Mechanical Device: Intermittent pneumatic compression device Consult Discharge Plan - Plan Referrals: Jaime Garcia MD [Primary Care Provider] - 04/02/17 10:15 am
[2017-03-26] MEDS: MethylPREDNISolone 40 MG/ML VIAL IVP SCH (16:26)
[2017-03-26] MEDS: *HR* Rivaroxaban 15 MG TABLET PO SCH (16:27)
[2017-03-26] MEDS: rOPINIRole 1 MG TABLET PO SCH (21:01)
[2017-03-27] MEDS: MethylPREDNISolone 40 MG/ML VIAL IVP SCH ×3 (00:23→17:36)
[2017-03-27] MEDS: Piperacillin/Tazobactam 3.375 GM in D5% in Water (Mini-Bag+) 100 ML IVPB SCH ×3 (01:30→17:37)
[2017-03-27] MEDS: Ipratropium/Albuterol Neb 3 ML IH SCH ×4 (04:00→21:36)
[2017-03-27 05:36] LABS: Basophils % 0.1 %; Hematocrit 35.8 % (37.5-50.1); Hemoglobin 11.3 g/dL (12.9-16.9); Immature Granulocytes % 0.6 % (0-4); Lymphocytes # 0.3 K/mcL (0.6-4.6); Lymphocytes % 2.2 %; Mean Corpuscular HGB Conc 31.6 g/dL (31.6-35.5); Mean Corpuscular Volume 91.8 fL (83.0-100.0); Mean Platelet Volume 10.8 fL (9.4-12.4); Monocytes # 0.3 K/mcL (0.0-1.3); Monocytes % 2.4 %; Neutrophils # 12.8 K/mcL (1.6-8.9); Platelet Count 301 K/mcL (140-400); Red Cell Distribution Width 14.7 % (11.5-14.5); Segmented Neutrophils % 94.7 %
[2017-03-27 05:51] LABS: Albumin 2.8 g/dL (3.5-5.0); Albumin/Globulin Ratio 1.1 (1.1-2.2); Bilirubin,Total 0.5 mg/dL (0.2-1.2); Calcium 8.5 mg/dL (8.6-10.8); Globulin 2.6 g/dL (2.4-3.5); Potassium 3.4 mEq/L (3.5-4.5); Total Protein 5.4 g/dL (6.0-8.3)
[2017-03-27] MEDS: Aspirin Enteric Coated 81 MG Tablet PO SCH (08:22)
[2017-03-27] MEDS: *HR* Amiodarone 200 MG TABLET PO SCH ×2 (08:22→21:12)
[2017-03-27] MEDS: Diltiazem CD (24hr) 180 MG CAPSULE PO SCH (08:22)
[2017-03-27] MEDS: Sennosides/Docusate Sodium TABLET PO SCH ×2 (08:22→21:12)
[2017-03-27] MEDS: Multivit/Ca/Min/Fe/FA 1 TAB TABLET PO SCH (08:22)
[2017-03-27] MEDS: Furosemide 40 MG/4 ML VIAL IVP SCH ×2 (08:26→17:37)
[2017-03-27] MEDS: Insulin LISPRO 300 UNITS/3 ML VIAL SQ SCH ×4 (08:30→21:16)
[2017-03-27] MEDS: Insulin DETEMIR 100 UNIT/ML X5UNITS SQ SCH (08:31)
[2017-03-27] MEDS: Silvasorb 44.4 ML TUBE TP SCH (08:32)
[2017-03-27] MEDS: (Cyclosporine [Restasis] 1 DROP) OP SCH ×2 (08:32→21:16)
--- NOTE | 2017-03-27 08:53 | Nephrology Consult Note ---
Date of Encounter: 03/27/17 Time of Encounter: 08:00 Assessment and Plan (1) CKD (chronic kidney disease) stage 3, GFR 30-59 ml/min Current Visit: Yes Status: Chronic CKD 3 at patients baseline 1.6-2.0. Renal fct stable, at patients baseline. Chronic diastolic heart failure. May have to accept higher azotemia related to diuretics related to CHF. Will obtain urine, micro albumin. Will continue to monitor. History of Present Illness - Reason for Consult Chronic Kidney Disease - History of Present Illness Mr. Flores is an 86 year old male known to practice with CKD, baseline creat 1.6- 2.0 for past year. In setting of diabetic nephropathy and hypertension. At consult Mr. Flores is alert, pleasant, is not a good medical aide and HPI obtained from prior records. Other PMH-arthritis, atrial fibrillation, CHF, coronary artery disease, diabetes, hyperlipidemia, hypertension, renal disease, valvular heart disease. Mr. Flores was sent to ER on March 22 per PCP for worsening shortness of breath on exertion and lower extremity edema despite increase in Lasix. History of chronic diastolic heart failure and chronic atrial fibrillation. Creatinine at that time 1.75 which as stated above is patients baseline. CXR did reveal left pleural effusion, had thorocentesis on Mar 23. He is on a fluid restriction of 1500 cc. Since admission creatinine peaked yesterday 2.02 at patients baseline and today is 1.93. Receiving Lasix 80 mg IV BID. Does have 1+ pitting edema in lower extremities with dependent pitting edema in forearms and buttock. Past Med Surg Social Fam HX - Past Medical History Medical history: arthritis, atrial fibrillation, CHF, coronary artery disease, diabetes, hyperlipidemia, hypertension, renal disease, valvular heart disease Psychiatric history: no psych history - Past Surgical History Surgical History: appendectomy, cholecystectomy, knee replacement, orthopedic, other - Social History Smoking Status: Never smoker Smokeless Tobacco Status: No Alcohol use: none Drug use: none - Family History Mother Family Member Ethnicity: Non- Living Status: Brother Family Member Ethnicity: Non- Living Status: Sister Family Member Ethnicity: Non- Living Status: Still Living Father Family Member Ethnicity: Non- Living Status: Hx Family Cardiac Disorders: No Hx Family Respiratory Disorders: No Hx Family Cancer: No Hx Family GI Disorders: No Hx Family Endocrine Disorder: Yes (DM) Hx Family Neuromuscular Disorders: No Hx Family Neurologic Disorders: No Hx Family HEENT Disorders: No Hx Family Autoimmune Disorders: No Medications and Allergies Cyclosporine [Restasis] 1 drop OP BID 04/17/15 [History] Multivit-Min/FA/Lycopen/Lutein [Centrum Silver Tablet] 1 tab PO QAM 04/17/15 [ History] Ropinerole [Requip] 1 mg PO HS 04/17/15 [History] Albuterol Sulfate [Proair Hfa] 1 puff IH Q6H PRN #1 inh 10/12/15 [Rx] Aspirin Enteric Coated [Aspirin EC] 81 mg PO DAILY #30 tablet. 02/06/17 [Rx] Budesonide/Formoterol 80/4.5 [Symbicort 80/4.5] 1 puff IH BID #5 hfa.aer.ad 08/25 [Rx] Diltiazem CD (24hr) [Cardizem CD] 360 mg PO DAILY 30 Days 02/06/17 [Rx] Metoprolol XL (24 HR) Succ [Toprol Xl] 200 mg PO DAILY 30 Days 02/06/17 [Rx] Sennosides/Docusate Sodium [Senna Plus] 2 tab PO BID 02/12/17 [History] Rivaroxaban [Xarelto] 15 mg PO 1700 #1 tablet 03/07/17 [Rx] Furosemide [Lasix] 60 mg PO BID 03/22/17 [History] Insulin Glargine,Hum.rec.anlog [Lantus Solostar] 24 unit SQ QAM 03/22/17 [ History] Potassium Chloride [Klor-Con 10] 10 meq PO BID 03/22/17 [History] Simvastatin [Zocor] 40 mg PO HS 03/22/17 [History] 3 Allergy/AdvReac Type Severity Reaction Status Date / Time codeine AdvReac Mild Flushing Verified 03/22/17 13:10 metformin AdvReac Mild Nausea Verified 03/22/17 13:10 tramadol AdvReac Mild Dizziness Verified 03/22/17 13:10 Review of Systems All Systems: reviewed and no additional remarkable complaints except as stated Exam - Vital Signs Vital signs: Initial Vital Signs Temp Pulse Resp BP Pulse Ox 97.6 F 95 18 109/57 100 03/22/17 11:51 03/22/17 11:51 03/22/17 11:51 03/22/17 11:51 03/22/17 11:51 Vital Signs - Last 8 Hours Temp Pulse Resp BP Pulse Ox 03/27/17 07:37 97.3 F L 85 16 104/78 97 03/27/17 04:02 18 87 03/27/17 03:32 18 100 03/27/17 03:00 97.5 F L 91 18 104/63 96 Intake and Output 03/26/17 03/27/17 03/27/17 23:59 07:59 15:59 Intake Total 400 / 400 100 / 100 Output Total 1250 / 1250 555 / 555 Balance -850 / -850 -455 / -455 Intake: IV Fluids 100 / 100 100 / 100 Zosyn 3.375 GM In 100 / 100 100 / 100 Dextrose 5% (Minibag+) 100 ML 100 ML @ 25 mls/hr IVPB Q8H KELSI Rx#: [id number] Oral 300 / 300 Output: Urine 1250 / 1250 555 / 555 Other: Meal Dinner Percent of Meal Consumed 100% Stool Size Moderate Stool Consistency formed Weight 93.8 kg Blood Glucose* 188 209 Patient Weight 03/27/17 23:59 Weight 93.8 kg - General Appearance General appearance: well-developed, well-nourished, appears started age EENT: mucous membranes moist Neck: no JVD Respiratory: clear Cardiology: edema, irregular rhythm Additional Comments: 1+ pitting edema knees down with dependent pitting edema buttock and forearms. Gastrointestinal: normoactive bowel sounds, no tenderness Integumentary: warm and dry Psychiatric: mood/affect appropriate, cooperative Results - Lab Results 03/27/17 05:22 03/27/17 05:22 Most recent lab results Calcium 8.5 mg/dL (8.6-10.8) L 03/27/17 05:22 Magnesium 2.1 mg/dL (1.6-2.6) 03/23/17 01:10 Consult Discharge Plan - Plan Referrals: Jaime Garcia MD [Primary Care Provider] - 04/02/17 10:15 am
--- NOTE | 2017-03-27 10:00 | Internal Med Progress Note ---
Date of Encounter: 03/27/17 Time of Encounter: 09:00 - Assessment and plan (1) Diastolic congestive heart failure, NYHA class 4 Current Visit: No Status: Chronic Assessment and plan: Acute exacerbation of chronic diastolic CHF LVEF 50-55% - causing shortness of breath, pleural effusion and b/l lower leg edema - slowly improving Continue IV Lasix - urine output seems to be better today Chest x-ray - slightly increased moderate left effusion and basilar atelectasis EKG - atrial fibrillation Troponin - 0.09 (chronically elevated) BN peptide - 992 Echocardiogram (02/01/2017) - LVEF 55%, mild concentric LVH, indeterminant diastolic function, normal RV size with mildly reduced function, dilated LA, moderate Pulm HTN Cardiology following patient - recommendations reviewed, appreciate input Nephrology consult - recommendations reviewed, appreciate input Continue strict I's and O's, fluid restriction, daily weight, cardiac telemetry , monitor closely Qualifiers: Congestive heart failure chronicity: acute on chronic Qualified Code(s): I50.33 - Acute on chronic diastolic (congestive) heart failure (2) Pleural effusion Current Visit: Yes Status: Acute Assessment and plan: Left-sided pleural effusion, transudative - status post thoracentesis with drainage of 700 mL of serosanguineous fluid Secondary to diastolic heart failure and renal disease Repeat chest x-ray - slightly increased moderate left effusion and basilar atelectasis Pulmonology has evaluated the patient - discussed with Dr. Brown - recommended Pleurx catheter placement as outpatient if effusion worsens Continue to monitor closely (3) Atrial fibrillation Current Visit: No Status: Chronic Assessment and plan: Chronic Atrial Fibrillation - rate controlled Started on Amiodarone 400 mg by mouth twice daily, continue Cardizem Cardiology consult - recommendations reviewed, appreciate input Continue anticoagulation with Xarelto, continue aspirin and statin Qualifiers: Atrial fibrillation type: paroxysmal Qualified Code(s): I48.0 - Paroxysmal atrial fibrillation (4) Acute kidney injury superimposed on chronic kidney disease Current Visit: No Status: Acute Assessment and plan: Acute kidney injury on chronic kidney disease 3 - likely due to CHF and Lasix use - urine output is better Creatinine is 1.93, baseline ~ 1.6-2.0 Nephrology has evaluated the patient - recommendations reviewed, appreciate input (5) COPD (chronic obstructive pulmonary disease) Current Visit: No Status: Chronic Assessment and plan: Mild acute COPD exacerbation - improving Continue DuoNeb breathing treatment, start tapering steroids Qualifiers: COPD type: COPD with acute exacerbation Qualified Code(s): J44.1 - Chronic obstructive pulmonary disease with (acute) exacerbation (6) Type 2 diabetes mellitus Current Visit: Yes Status: Chronic Assessment and plan: Diabetes mellitus type 2, insulin-dependent, hyperglycemia Continue insulin sliding scale, Levemir and glucose checks Qualifiers: Diabetes mellitus complication status: with kidney complications Diabetes mellitus complication detail: with chronic kidney disease Diabetes mellitus jail insulin use: with jail use Chronic kidney disease stage: stage 2 (mild) Qualified Code(s): E11.22 - Type 2 diabetes mellitus with diabetic chronic kidney disease; N18.2 - Chronic kidney disease, stage 2 (mild); Z79.4 - jail (current) use of insulin (7) HTN (hypertension) Current Visit: Yes Status: Chronic Assessment and plan: Essential hypertension, controlled, continue current meds, monitor Qualifiers: Hypertension type: unspecified Qualified Code(s): I10 - Essential (primary ) hypertension (8) DVT prophylaxis Current Visit: No Status: Acute Assessment and plan: Patient is already on anticoagulation with Xarelto - Time Spent With Patient 25 - 35 minutes - Subjective Interval history: Examined this morning. Patient is awake and alert. Not in any distress. Denies chest pain. Complains of mild shortness of breath, which seems to be improving. Ambulating with some assistance. Tolerating oral diet. Denies vomiting or abdominal pain. No fever. Hemodynamically stable. No other acute events or complaints. Lasix is being continued but patient seems to be oliguric. Creatinine is now 1.93. Nephrology has evaluated patient. Discussed with pulmonology, Dr. Brown states patient can get a Pleurx catheter as outpatient if needed for recurrent effusion, which is most likely due to CHF. Patient was started on Amiodarone by cardiology. - Constitutional Vitals: Temp Pulse Resp BP Pulse Ox 97.3 F L 85 16 104/78 97 03/27/17 07:37 03/27/17 07:37 03/27/17 07:37 03/27/17 07:37 03/27/17 07:37 General appearance: Present: cooperative, A&O X 3, pleasant, no acute distress, answers questions appropriately - Head Head exam: Present: atraumatic - Eye Eye exam: Present: EOMI - ENT ENT exam: Present: mucous membranes moist - Respiratory Respiratory exam: Present: decreased breath sounds (Lungs sounds decreased in both bases). Absent: rales, rhonchi, wheezes, tachypnea - Cardiovascular Cardiovascular exam: Present: irregular rhythm, +S1, +S2 - GI/Abdominal GI/Abdominal exam: Present: soft. Absent: distended, firm, guarding, tenderness - Extremities Exam Extremities exam: Present: pedal edema (Bilateral lower leg 2+ pitting edema), radial pulses palpable and symmetrical. Absent: cyanotic - Neurological Exam Neurological exam: Present: alert, oriented X3, no focal deficits. Absent: facial droop, speech deficit Internal Medicine: Result - Labs CBC & Chem 7: 03/27/17 05:22 03/27/17 05:22 Labs: Short CBC 03/27/17 Range/Units 05:22 WBC 13.5 H (4.3-11.1) K/mcL Hgb 11.3 L (12.9-16.9) g/dL Hct 35.8 L (37.5-50.1) % Plt Count 301 (140-400) K/mcL Neutrophils # 12.8 H (1.6-8.9) K/mcL BMP 03/27/17 05:22 Sodium 142 Potassium 3.4 L Chloride 98 Carbon Dioxide 35 H BUN 50 H Creatinine 1.93 H Glucose 187 H Calcium 8.5 L Liver Function 03/27/17 Range/Units 05:22 Total Bilirubin 0.5 (0.2-1.2) mg/dL AST 18 (5-34) Units/L ALT 29 (0-55) Units/L Alkaline Phosphatase 105 (38-126) Units/L Albumin 2.8 L (3.5-5.0) g/dL - ABG Interpretation ABG results: PT/INR, D-dimer PT 20.5 Seconds (9.4-12.1) H 03/22/17 12:29 - Impressions Impressions Chest X-Ray 03/24/17 11:10 IMPRESSION: Slightly increased moderate left effusion and basilar atelectasis versus consolidation. Stable trace right effusion. D/ / 03/24/2017 19:32:14 Richard Negron MD / earnold Interpreting Provider: Richard Negron MD - VTE Documentation of Mechanical Device: Intermittent pneumatic compression device Consult Discharge Plan - Plan Referrals: Jaime Garcia MD [Primary Care Provider] - 04/02/17 10:15 am
[2017-03-27] MEDS: Budesonide/Formoterol 80/4.5 MDI IH SCH ×2 (10:43→21:36)
--- NOTE | 2017-03-27 13:35 | Cardiology Progress Note ---
Date of Encounter: 03/27/17 Time of Encounter: 11:45 Assessment and Plan (1) Atrial fibrillation Current Visit: No Status: Chronic Per cardiology: -Known chronic atrial fibrillation. -On cardizem CD 360 and 400 mg amiodarone BID. -Telemetry reviewed with average HR previous 12 hours noted to be 85, atrial fibrillation. -Of note, has missed some doses of xarelto in the past 30 days. Creatinine clearance 31ml/min. -Will continue to monitor. Continues to be rate controlled Qualifiers: Atrial fibrillation type: paroxysmal Qualified Code(s): I48.0 - Paroxysmal atrial fibrillation (2) Diastolic congestive heart failure, NYHA class 4 Current Visit: No Status: Chronic Per cardiology: -Chronic diastolic CHF. -Feeling better today. -Per review of records, thoracentesis performed for plueral effusion. 700 ml removed. -BNP this admission noted to be 992. -On lasix 80mg IV BID per primary service. Creatinine stable. Appreciate nephrology input. -Net negative 1455ml this admission. -Echo 02/01/17 with LVEF 50-55%, mild concentric LVH, indeterminate diastolic function, normal RV size with mildly reduced function, moderately dilated left atrium, mild-moderate MR, mid TR, moderate PH. -Weight during last admission 84kg, weight today 93.8kg , negative 2 kg since yesterday. -Strict i/os, daily weights, fluid restriction. -Continue IV lasix. Qualifiers: Congestive heart failure chronicity: acute on chronic Qualified Code(s): I50.33 - Acute on chronic diastolic (congestive) heart failure Discussion w patient/family: The assessment and plan as outlined above was discussed with the patient and/or family members who expressed understanding and agreement. All questions were answered. Thank you for involving us in the care of your patient. Please call with any questions. Subjective Principal diagnosis: Dyspnea Interval history: Mr. Flores is sitting in his chair. Reports abdomen is less distended. Objective Vital Signs, Last 4 Hours Temp Pulse Resp BP Pulse Ox 03/27/17 11:10 98.4 F 86 16 113/66 96 03/27/17 10:45 16 97 General: Conversant, No Apparent Distress HEENT: Atraumatic, Normocephaly, Mucus Membranes Moist Neck: No JVD, Normal carotid pulses Cardiac: Other (Irregularly irregular.) Lungs: Normal Breath Sounds, No Wheeze, Rales, Rhonchi Neuro: Alert and responsive, No focal deficits noted Abdomen: Soft, Non-Tender Skin: No rashes noted on visualized skin Musculoskeletal: No Chest Wall Tenderness Extremities: No Clubbing, No Cyanosis, Normal Pulses, Other (3+ Edema up to thighs.) Results 03/27/17 05:22 03/27/17 05:22 Lab Results 03/27/17 03/27/17 05:22 05:22 WBC 13.5 H Hgb 11.3 L Hct 35.8 L Plt Count 301 Sodium 142 Potassium 3.4 L Chloride 98 Carbon Dioxide 35 H BUN 50 H Creatinine 1.93 H Glucose 187 H Calcium 8.5 L Total Bilirubin 0.5 AST 18 ALT 29 Alkaline Phosphatase 105 - EKG Interpretation EKG results cardiology: personally reviewed - VTE Documentation of Mechanical Device: Intermittent pneumatic compression device Consult Discharge Plan - Plan Referrals: Jaime Garcia MD [Primary Care Provider] - 04/02/17 10:15 am
[2017-03-27 17:29] LABS: Creatinine,Urine 55 mg/dL; Microalbum/Creatinine Ratio,Ur 15 (0-30); Microalbumin,Urine 8 mg/L
[2017-03-27] MEDS: metOLazone 2.5 MG TABLET PO SCH (17:37)
[2017-03-27] MEDS: *HR* Rivaroxaban 15 MG TABLET PO SCH (17:37)
[2017-03-27] MEDS: rOPINIRole 1 MG TABLET PO SCH (21:12)
[2017-03-28] MEDS: MethylPREDNISolone 40 MG/ML VIAL IVP SCH ×3 (00:01→16:33)
[2017-03-28 01:28] LABS: Basophils % 0.1 %; Eosinophils % 0.1 %; Hematocrit 38.2 % (37.5-50.1); Hemoglobin 12.2 g/dL (12.9-16.9); Immature Granulocytes % 0.9 % (0-4); Immature Platelets 5.8 % (1.1-6.1); Lymphocytes # 0.2 K/mcL (0.6-4.6); Lymphocytes % 1.3 %; Mean Corpuscular HGB Conc 31.9 g/dL (31.6-35.5); Mean Corpuscular Hemoglobin 29.3 pg (28.0-33.3); Mean Corpuscular Volume 91.8 fL (83.0-100.0); Mean Platelet Volume 10.7 fL (9.4-12.4); Monocytes # 0.4 K/mcL (0.0-1.3); Monocytes % 3.4 %; Platelet Count 342 K/mcL (140-400); Red Blood Count 4.16 M/mcL (4.19-5.50); Red Cell Distribution Width 14.4 % (11.5-14.5); Segmented Neutrophils % 94.2 %
[2017-03-28 01:46] LABS: Bilirubin,Total 0.4 mg/dL (0.2-1.2); Calcium 8.8 mg/dL (8.6-10.8); Potassium 3.4 mEq/L (3.5-4.5)
[2017-03-28 02:01] LABS: Platelet Estimate Normal (Normal)
[2017-03-28] MEDS: Piperacillin/Tazobactam 3.375 GM in D5% in Water (Mini-Bag+) 100 ML IVPB SCH ×3 (02:17→17:51)
[2017-03-28] MEDS: Ipratropium/Albuterol Neb 3 ML IH SCH ×4 (04:43→22:12)
--- NOTE | 2017-03-28 07:58 | Nephrology Progress Note ---
Date of Encounter: 03/28/17 Time of Encounter: 07:35 - Assessment and Plan (1) CKD (chronic kidney disease) stage 3, GFR 30-59 ml/min Current Visit: Yes Status: Chronic CKD 3 at patients baseline 1.6-2.0. Creat 2.41. Documented urine output 2455cc. Chronic diastolic heart failure. May have to accept higher azotemia related to diuretics related to CHF. Will continue to monitor. Subjective Principal diagnosis: Dyspnea Interval history: Laying in bed, O2 NC. States breathing easier. No new complaints. Objective - Vital Signs Vital signs: Vital Signs Temp Pulse Resp BP Pulse Ox 03/28/17 07:29 97.5 F L 104 16 116/66 97 03/28/17 04:43 18 95 03/28/17 04:24 97.9 F 92 16 104/59 94 03/27/17 23:57 98.3 F 110 16 111/65 98 03/27/17 21:36 18 98 03/27/17 20:56 98.2 F 96 16 115/76 98 03/27/17 16:55 98.7 F 91 16 109/59 98 03/27/17 15:13 16 96 03/27/17 11:10 98.4 F 86 16 113/66 96 03/27/17 10:45 16 97 03/27/17 08:30 97 Intake and Output 03/27/17 03/27/17 03/28/17 15:59 23:59 07:59 Intake Total 490 / 490 1020 / 1020 100 / 100 Output Total 375 / 375 1525 / 1525 1350 / 1350 Balance 115 / 115 -505 / -505 -1250 / -1250 Intake: IV Fluids 10 / 10 200 / 200 100 / 100 Zosyn 3.375 GM In 200 / 200 100 / 100 Dextrose 5% (Minibag+) 100 ML 100 ML @ 25 mls/hr IVPB Q8H [facility] Rx#: [id number] Potassium Chloride 10 mEq 10 / 10 /100mL 10 meq In 100 ml @ 100 mls/hr IVPB ONCE ONE Rx#:[id number] Oral 480 / 480 820 / 820 Output: Urine 375 / 375 1525 / 1525 1350 / 1350 Other: Meal Lunch Dinner Percent of Meal Consumed 100% 100% Weight 91.6 kg Blood Glucose* 367 270 264 Patient Weight 03/28/17 23:59 Weight 91.6 kg - General Appearance General appearance: Present: well-developed, well-nourished, appears started age EENT: Present: mucous membranes moist Neck: Present: no JVD Respiratory: Present: clear Cardiology: Present: edema, irregular rhythm Additional Comments: 1+ pitting, dependent in buttock, thigh Gastrointestinal: Present: normoactive bowel sounds, no tenderness Integumentary: Present: warm and dry Psychiatric: Present: mood/affect appropriate, cooperative - Lab 03/28/17 01:20 03/28/17 01:20 Most recent lab results Calcium 8.8 mg/dL (8.6-10.8) 03/28/17 01:20 Magnesium 2.1 mg/dL (1.6-2.6) 03/28/17 01:20 Urine Creatinine 55 mg/dL 03/27/17 16:35 - VTE Documentation of Mechanical Device: Intermittent pneumatic compression device Consult Discharge Plan - Plan Referrals: Jaime Garcia MD [Primary Care Provider] - 04/02/17 10:15 am
[2017-03-28] MEDS: Diltiazem CD (24hr) 180 MG CAPSULE PO SCH (08:07)
[2017-03-28] MEDS: metOLazone 2.5 MG TABLET PO SCH (08:07)
[2017-03-28] MEDS: Multivit/Ca/Min/Fe/FA 1 TAB TABLET PO SCH (08:07)
[2017-03-28] MEDS: Aspirin Enteric Coated 81 MG Tablet PO SCH (08:07)
[2017-03-28] MEDS: *HR* Amiodarone 200 MG TABLET PO SCH ×2 (08:07→21:14)
[2017-03-28] MEDS: Insulin DETEMIR 100 UNIT/ML X5UNITS SQ SCH (08:07)
[2017-03-28] MEDS: Sennosides/Docusate Sodium TABLET PO SCH ×2 (08:07→21:14)
[2017-03-28] MEDS: Insulin LISPRO 300 UNITS/3 ML VIAL SQ SCH ×4 (08:08→21:14)
[2017-03-28] MEDS: (Cyclosporine [Restasis] 1 DROP) OP SCH ×2 (08:09→21:15)
[2017-03-28] MEDS: Furosemide 40 MG/4 ML VIAL IVP SCH ×2 (08:15→17:50)
[2017-03-28] MEDS: Budesonide/Formoterol 80/4.5 MDI IH SCH ×2 (09:45→22:12)
--- NOTE | 2017-03-28 13:46 | Internal Med Progress Note ---
Date of Encounter: 03/28/17 Time of Encounter: 09:30 - Assessment and plan (1) Diastolic congestive heart failure, NYHA class 4 Current Visit: No Status: Chronic Assessment and plan: Acute exacerbation of chronic diastolic CHF LVEF 50-55% - causing shortness of breath, pleural effusion and b/l lower leg edema - symptoms improved Continue IV Lasix - urine output seems to be better today, Zaroxolyn added Chest x-ray - slightly increased moderate left effusion and basilar atelectasis EKG - atrial fibrillation Troponin - 0.09 (chronically elevated) BN peptide - 992 Echocardiogram (02/01/2017) - LVEF 55%, mild concentric LVH, indeterminant diastolic function, normal RV size with mildly reduced function, dilated LA, moderate Pulm HTN Cardiology following patient - recommendations reviewed, appreciate input Nephrology consult - recommendations reviewed, appreciate input Continue strict I's and O's, fluid restriction, daily weight, cardiac telemetry , monitor closely Qualifiers: Congestive heart failure chronicity: acute on chronic Qualified Code(s): I50.33 - Acute on chronic diastolic (congestive) heart failure (2) Pleural effusion Current Visit: Yes Status: Acute Assessment and plan: Left-sided pleural effusion, transudative - status post thoracentesis with drainage of 700 mL of serosanguineous fluid Secondary to diastolic heart failure and renal disease Repeat chest x-ray - slightly increased moderate left effusion and basilar atelectasis Pulmonology has evaluated the patient - discussed with Dr. Brown - recommended Pleurx catheter placement as outpatient if effusion worsens Continue to monitor closely (3) Atrial fibrillation Current Visit: No Status: Chronic Assessment and plan: Chronic Atrial Fibrillation - has been rate controlled, but has intermittent tachycardia this morning Started on Amiodarone 400 mg by mouth twice daily, continue Cardizem Cardiology consult - recommendations reviewed, appreciate input Continue anticoagulation with Xarelto, continue aspirin and statin Qualifiers: Atrial fibrillation type: paroxysmal Qualified Code(s): I48.0 - Paroxysmal atrial fibrillation (4) Acute kidney injury superimposed on chronic kidney disease Current Visit: No Status: Acute Assessment and plan: Acute kidney injury on chronic kidney disease 3 - likely due to CHF and Lasix use - urine output is better Creatinine is 2.41, baseline ~ 1.6-2.0 Nephrology has evaluated the patient - recommendations reviewed, appreciate input (5) COPD (chronic obstructive pulmonary disease) Current Visit: No Status: Chronic Assessment and plan: Mild acute COPD exacerbation - improved Continue DuoNeb breathing treatment, start tapering steroids Qualifiers: COPD type: COPD with acute exacerbation Qualified Code(s): J44.1 - Chronic obstructive pulmonary disease with (acute) exacerbation (6) Type 2 diabetes mellitus Current Visit: Yes Status: Chronic Assessment and plan: Diabetes mellitus type 2, insulin-dependent, hyperglycemia Continue insulin sliding scale, Levemir and glucose checks Qualifiers: Diabetes mellitus complication status: with kidney complications Diabetes mellitus complication detail: with chronic kidney disease Diabetes mellitus intermediate manager insulin use: with skilled nursing use Chronic kidney disease stage: stage 2 (mild) Qualified Code(s): E11.22 - Type 2 diabetes mellitus with diabetic chronic kidney disease; N18.2 - Chronic kidney disease, stage 2 (mild); Z79.4 - terminologist (current) use of insulin (7) HTN (hypertension) Current Visit: Yes Status: Chronic Assessment and plan: Essential hypertension, controlled, continue current meds, monitor Qualifiers: Hypertension type: unspecified Qualified Code(s): I10 - Essential (primary ) hypertension (8) DVT prophylaxis Current Visit: No Status: Acute Assessment and plan: Patient is already on anticoagulation with Xarelto - Time Spent With Patient 25 - 35 minutes - Subjective Interval history: Examined this morning. Patient is awake and alert. Not in any distress. Denies chest pain. States his shortness of breath is now improved. Ambulating with some assistance. Tolerating oral diet. Denies vomiting or abdominal pain. No fever. Hemodynamically stable. Patient has been having intermittent tachycardia this morning. No other acute events or complaints. Lasix is being continued. Creatinine is now 2.41. Nephrology has evaluated patient. Discussed with pulmonology, Dr. Brown states patient can get a Pleurx catheter as outpatient if needed for recurrent effusion, which is most likely due to CHF. Amiodarone and Cardizem continued. Continue coagulation with Xarelto. - Constitutional Vitals: Temp Pulse Resp BP Pulse Ox 98.2 F 138 16 100/64 96 03/28/17 11:24 03/28/17 11:24 03/28/17 11:24 03/28/17 11:24 03/28/17 11:24 General appearance: Present: cooperative, A&O X 3, pleasant, no acute distress, answers questions appropriately - Head Head exam: Present: atraumatic - Eye Eye exam: Present: EOMI - ENT ENT exam: Present: mucous membranes moist - Respiratory Respiratory exam: Present: decreased breath sounds (Decreased breath sounds in both bases). Absent: rales, rhonchi, wheezes, tachypnea - Cardiovascular Cardiovascular exam: Present: irregular rhythm, +S1, +S2, tachycardia - GI/Abdominal GI/Abdominal exam: Present: soft. Absent: distended, firm, guarding, tenderness - Extremities Exam Extremities exam: Present: pedal edema (Bilateral lower leg 2+ pitting edema), radial pulses palpable and symmetrical. Absent: cyanotic - Neurological Exam Neurological exam: Present: alert, oriented X3, no focal deficits. Absent: facial droop, speech deficit Internal Medicine: Result - Labs CBC & Chem 7: 03/28/17 01:20 03/28/17 01:20 Labs: Short CBC 03/28/17 Range/Units 01:20 WBC 12.7 H (4.3-11.1) K/mcL Hgb 12.2 L (12.9-16.9) g/dL Hct 38.2 (37.5-50.1) % Plt Count 342 (140-400) K/mcL Neutrophils # 12.0 H (1.6-8.9) K/mcL BMP 03/28/17 01:20 Sodium 141 Potassium 3.4 L Chloride 95 L Carbon Dioxide 35 H BUN 57 H Creatinine 2.41 H Glucose 233 H Calcium 8.8 Liver Function 03/28/17 Range/Units 01:20 Total Bilirubin 0.4 (0.2-1.2) mg/dL AST 18 (5-34) Units/L ALT 33 (0-55) Units/L Alkaline Phosphatase 97 (38-126) Units/L Albumin 3.0 L (3.5-5.0) g/dL - ABG Interpretation ABG results: PT/INR, D-dimer PT 20.5 Seconds (9.4-12.1) H 03/22/17 12:29 - VTE Documentation of Mechanical Device: Intermittent pneumatic compression device Consult Discharge Plan - Plan Referrals: Jaime Garcia MD [Primary Care Provider] - 04/02/17 10:15 am
--- NOTE | 2017-03-28 14:20 | Cardiology Progress Note ---
Date of Encounter: 03/28/17 Time of Encounter: 14:17 Assessment and Plan (1) Atrial fibrillation Current Visit: No Status: Chronic Per cardiology: -Known chronic atrial fibrillation. -On cardizem CD 360 and 400 mg amiodarone BID. Toprol XL d/c'd. -Telemetry reviewed with average HR previous 12 hours noted to be 100, atrial fibrillation. Currently 80-90's. -Of note, has missed some doses of xarelto in the past 30 days. Creatinine clearance 31ml/min. -Will continue to monitor. Continues to be rate controlled Qualifiers: Atrial fibrillation type: paroxysmal Qualified Code(s): I48.0 - Paroxysmal atrial fibrillation (2) Diastolic congestive heart failure, NYHA class 4 Current Visit: No Status: Chronic Per cardiology: -Chronic diastolic CHF. -Feeling better today. -Per review of records, thoracentesis performed for plueral effusion. 700 ml removed. -BNP this admission noted to be 992. -On lasix 80mg IV BID per primary service. Creatinine elevated today 2.4. Appreciate nephrology input. Ok to allow for mildly higher levels from baseline for diuresis. -Net negative 3275.ml this admission. Negative 2400 in 24hrs. -Echo 02/01/17 with LVEF 50-55%, mild concentric LVH, indeterminate diastolic function, normal RV size with mildly reduced function, moderately dilated left atrium, mild-moderate MR, mid TR, moderate PH. -Weight during last admission 84kg, weight today 91.8kg. Trending down. -Strict I/O's, daily weights, fluid restriction. -Continue IV lasix. Zaroxoyln 2.5 mg added yesterday and given this morning. I will d/c now. If No significant change in kidney function tomorrow consider repeat dose. Qualifiers: Congestive heart failure chronicity: acute on chronic Qualified Code(s): I50.33 - Acute on chronic diastolic (congestive) heart failure Discussion w patient/family: The assessment and plan as outlined above was discussed with the patient and/or family members who expressed understanding and agreement. All questions were answered. Thank you for involving us in the care of your patient. Please call with any questions. Subjective Principal diagnosis: Dyspnea Interval history: Mr. Flores is sitting in bed. Reports increase in urine out-pt. Objective Vital Signs, Last 4 Hours Temp Pulse Resp BP Pulse Ox 08/20/17 11:24 98.2 F 138 16 100/64 96 General: Conversant, No Apparent Distress HEENT: Atraumatic, Normocephaly, Mucus Membranes Moist Neck: No JVD, Normal carotid pulses Cardiac: Other (irregular, afib on tele,) Lungs: Normal Breath Sounds, No Wheeze, Rales, Rhonchi, Other (bases) Neuro: Alert and responsive, No focal deficits noted Abdomen: Soft, Non-Tender, Other (Abdomen mildly distended) Skin: No rashes noted on visualized skin Musculoskeletal: No Chest Wall Tenderness Extremities: No Clubbing, No Cyanosis, Normal Pulses, Other (2+ edema up to his thighs.) Results 03/28/17 01:20 03/28/17 01:20 Lab Results 03/28/17 03/28/17 03/28/17 01:20 01:20 01:20 WBC 12.7 H Hgb 12.2 L Hct 38.2 Plt Count 342 Sodium 141 Potassium 3.4 L Chloride 95 L Carbon Dioxide 35 H BUN 57 H Creatinine 2.41 H Glucose 233 H Calcium 8.8 Magnesium 2.1 Total Bilirubin 0.4 AST 18 ALT 33 Alkaline Phosphatase 97 - VTE Documentation of Mechanical Device: Intermittent pneumatic compression device Consult Discharge Plan - Plan Referrals: Jaime Garcia MD [Primary Care Provider] - 04/02/17 10:15 am
[2017-03-28] MEDS: Silvasorb 44.4 ML TUBE TP SCH (16:26)
[2017-03-28] MEDS: *HR* Rivaroxaban 15 MG TABLET PO SCH (17:51)
--- NOTE | 2017-03-28 18:34 | Electrocardiograph Report ---
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
[2017-03-28] MEDS: rOPINIRole 1 MG TABLET PO SCH (21:15)
[2017-03-29] MEDS: MethylPREDNISolone 40 MG/ML VIAL IVP SCH ×2 (00:54→08:18)
[2017-03-29] MEDS: Piperacillin/Tazobactam 3.375 GM in D5% in Water (Mini-Bag+) 100 ML IVPB SCH ×3 (00:54→18:12)
[2017-03-29 03:47] LABS: Hematocrit 36.5 % (37.5-50.1); Hemoglobin 11.8 g/dL (12.9-16.9); Immature Granulocytes % 0.9 % (0-4); Lymphocytes # 0.1 K/mcL (0.6-4.6); Mean Corpuscular HGB Conc 32.3 g/dL (31.6-35.5); Mean Corpuscular Hemoglobin 29.6 pg (28.0-33.3); Mean Corpuscular Volume 91.5 fL (83.0-100.0); Mean Platelet Volume 11.4 fL (9.4-12.4); Monocytes # 0.5 K/mcL (0.0-1.3); Monocytes % 4.1 %; Neutrophils # 11.5 K/mcL (1.6-8.9); Platelet Count 264 K/mcL (140-400); Red Blood Count 3.99 M/mcL (4.19-5.50); Red Cell Distribution Width 14.4 % (11.5-14.5)
[2017-03-29 04:08] LABS: Calcium 8.9 mg/dL (8.6-10.8)
[2017-03-29 04:09] LABS: Potassium 3.4 mEq/L (3.5-4.5)
[2017-03-29] MEDS: Ipratropium/Albuterol Neb 3 ML IH SCH ×4 (04:45→22:27)
[2017-03-29 05:02] LABS: Platelet Estimate Normal (Normal)
--- NOTE | 2017-03-29 08:04 | Nephrology Progress Note ---
Date of Encounter: 03/29/17 Time of Encounter: 07:55 - Assessment and Plan (1) CKD (chronic kidney disease) stage 3, GFR 30-59 ml/min Current Visit: Yes Status: Chronic CKD 3 at patients baseline 1.6-2.0. Creat 2.72, worsening past two days. Documented urine output 2775cc. Will decrease Lasix 40mg BID. Chronic diastolic heart failure. May have to accept higher azotemia related to diuretics related to CHF. Will continue to monitor. Subjective Principal diagnosis: Dyspnea Interval history: Laying in bed, O2 NC. States breathing easier. No new complaints. Objective - Vital Signs Vital signs: Vital Signs Temp Pulse Resp BP Pulse Ox 03/29/17 05:27 97.8 F 104 16 120/71 95 03/29/17 04:45 16 95 03/29/17 00:47 97.7 F 96 16 115/88 99 03/28/17 22:13 15 97 03/28/17 21:08 98.5 F 111 16 100/88 99 03/28/17 16:04 97.9 F 113 16 102/86 97 03/28/17 15:48 18 98 03/28/17 11:24 98.2 F 138 16 100/64 96 03/28/17 09:45 20 97 Intake and Output 03/28/17 03/29/17 03/29/17 23:59 07:59 15:59 Intake Total 640 / 640 300 / 300 Output Total 850 / 850 825 / 825 Balance -210 / -210 -525 / -525 Intake: IV Fluids 100 / 100 100 / 100 Zosyn 3.375 GM In 100 / 100 100 / 100 Dextrose 5% (Minibag+) 100 ML 100 ML @ 25 mls/hr IVPB Q8H [facility] Rx#: [id number] Oral 540 / 540 200 / 200 Output: Urine 850 / 850 825 / 825 Other: Meal Dinner Percent of Meal Consumed 100% Stool Size Large Stool Consistency formed Stool Color Brown # Bowel Movements 1 Blood Glucose* 241 358 - General Appearance General appearance: Present: well-developed, well-nourished, appears started age EENT: Present: mucous membranes moist Neck: Present: no JVD Respiratory: Present: clear Cardiology: Present: edema, irregular rhythm Additional Comments: edema improving , mild-1+ LE, dependent in buttock. Gastrointestinal: Present: normoactive bowel sounds, no tenderness Integumentary: Present: warm and dry Psychiatric: Present: mood/affect appropriate, cooperative - Lab 03/29/17 03:29 03/29/17 03:29 Most recent lab results Calcium 8.9 mg/dL (8.6-10.8) 03/29/17 03:29 Magnesium 2.1 mg/dL (1.6-2.6) 03/28/17 01:20 Urine Creatinine 55 mg/dL 03/27/17 16:35 - VTE Documentation of Mechanical Device: Intermittent pneumatic compression device Consult Discharge Plan - Plan Referrals: Jaime Garcia MD [Primary Care Provider] - 04/02/17 10:15 am
[2017-03-29] MEDS: Insulin DETEMIR 100 UNIT/ML X5UNITS SQ SCH (08:18)
[2017-03-29] MEDS: (Cyclosporine [Restasis] 1 DROP) OP SCH ×2 (08:18→20:49)
[2017-03-29] MEDS: Multivit/Ca/Min/Fe/FA 1 TAB TABLET PO SCH (08:19)
[2017-03-29] MEDS: Insulin LISPRO 300 UNITS/3 ML VIAL SQ SCH ×4 (08:19→20:46)
[2017-03-29] MEDS: Furosemide 40 MG/4 ML VIAL IVP SCH ×2 (08:19→16:24)
[2017-03-29] MEDS: Diltiazem CD (24hr) 180 MG CAPSULE PO SCH (08:19)
[2017-03-29] MEDS: *HR* Amiodarone 200 MG TABLET PO SCH ×2 (08:19→20:45)
[2017-03-29] MEDS: Aspirin Enteric Coated 81 MG Tablet PO SCH (08:19)
[2017-03-29] MEDS: Sennosides/Docusate Sodium TABLET PO SCH ×2 (08:20→20:45)
[2017-03-29] MEDS: Silvasorb 44.4 ML TUBE TP SCH (08:20)
[2017-03-29] MEDS ORDERED: *HR* Digoxin 0.5 MG/2 ML AMPUL IVP STA (09:13)
[2017-03-29] MEDS: Budesonide/Formoterol 80/4.5 MDI IH SCH ×2 (09:42→22:27)
--- NOTE | 2017-03-29 13:07 | Internal Med Progress Note ---
Date of Encounter: 03/29/17 Time of Encounter: 09:05 - Assessment and plan (1) Diastolic congestive heart failure, NYHA class 4 Current Visit: No Status: Chronic Assessment and plan: Acute exacerbation of chronic diastolic CHF LVEF 50-55% - causing shortness of breath, pleural effusion and b/l lower leg edema - symptoms now improved Continue IV Lasix - urine output is good Chest x-ray - slightly increased moderate left effusion and basilar atelectasis EKG - atrial fibrillation with RVR Troponin - 0.09 (chronically elevated) BN peptide - 992 Echocardiogram (02/01/2017) - LVEF 55%, mild concentric LVH, indeterminant diastolic function, normal RV size with mildly reduced function, dilated LA, moderate Pulm HTN Cardiology following patient - recommendations reviewed, appreciate input Nephrology consult - recommendations reviewed, appreciate input Continue strict I's and O's, fluid restriction, daily weight, cardiac telemetry , monitor closely Qualifiers: Congestive heart failure chronicity: acute on chronic Qualified Code(s): I50.33 - Acute on chronic diastolic (congestive) heart failure (2) Atrial fibrillation Current Visit: No Status: Chronic Assessment and plan: Chronic Atrial Fibrillation - has been rate controlled, but RVR this morning - hemodynamically stable IV Digoxin 0.25 mg given, IV Cardizem drip continued and being titrated Started on Amiodarone 400 mg by mouth twice daily, continue Cardizem Cardiology consult - recommendations reviewed, appreciate input Continue anticoagulation with Xarelto, continue aspirin and statin Qualifiers: Atrial fibrillation type: paroxysmal Qualified Code(s): I48.0 - Paroxysmal atrial fibrillation (3) Pleural effusion Current Visit: Yes Status: Acute Assessment and plan: Left-sided pleural effusion, transudative - status post thoracentesis with drainage of 700 mL of serosanguineous fluid Secondary to diastolic CHF and CKD Repeat chest x-ray - slightly increased moderate left effusion and basilar atelectasis Pulmonology has evaluated the patient - discussed with Dr. Brown - recommended Pleurx catheter placement as outpatient if effusion worsens Continue to monitor closely (4) Acute kidney injury superimposed on chronic kidney disease Current Visit: No Status: Acute Assessment and plan: Acute kidney injury on CKD 3 - likely due to CHF and Lasix use - urine output is better Creatinine is 2.72, baseline ~ 1.6-2.0 Nephrology has evaluated the patient - recommendations reviewed, appreciate input (5) COPD (chronic obstructive pulmonary disease) Current Visit: No Status: Chronic Assessment and plan: Mild acute COPD exacerbation - improved Continue DuoNeb breathing treatment, start tapering steroids Qualifiers: COPD type: COPD with acute exacerbation Qualified Code(s): J44.1 - Chronic obstructive pulmonary disease with (acute) exacerbation (6) Type 2 diabetes mellitus Current Visit: Yes Status: Chronic Assessment and plan: Diabetes mellitus type 2, insulin-dependent, hyperglycemia Continue insulin sliding scale, Levemir and glucose checks Qualifiers: Diabetes mellitus complication status: with kidney complications Diabetes mellitus complication detail: with chronic kidney disease Diabetes mellitus terminologist insulin use: with terminologist use Chronic kidney disease stage: stage 2 (mild) Qualified Code(s): E11.22 - Type 2 diabetes mellitus with diabetic chronic kidney disease; N18.2 - Chronic kidney disease, stage 2 (mild); Z79.4 - long-term (current) use of insulin (7) HTN (hypertension) Current Visit: Yes Status: Chronic Assessment and plan: Essential hypertension, controlled, continue current meds, monitor Qualifiers: Hypertension type: unspecified Qualified Code(s): I10 - Essential (primary ) hypertension (8) DVT prophylaxis Current Visit: No Status: Acute Assessment and plan: Patient is already on anticoagulation with Xarelto - Time Spent With Patient 25 - 35 minutes - Subjective Interval history: Examined this morning. Patient is awake and alert. Not in any distress. Denies chest pain. Shortness of breath has improved. Sitting up comfortably in chair. Ambulating with some assistance. Tolerating oral diet. Denies vomiting or abdominal pain. No fever. Hemodynamically stable. Patient has atrial fibrillation with RVR this morning. IV digoxin 0.25 mg given an RVR persisted. IV Cardizem drip has been started and is being titrated. Cardiology following patient. No other acute events or complaints. Lasix is being continued. Creatinine is now 2.72. Nephrology following patient. Amiodarone and Cardizem continued. Continue coagulation with Xarelto. Discussed with pulmonology, Dr. Brown states patient can get a Pleurx catheter as outpatient if needed for recurrent effusion, which is most likely due to CHF. - Constitutional Vitals: Temp Pulse Resp BP Pulse Ox 98.3 F 158 20 104/70 93 03/29/17 11:55 03/29/17 12:00 03/29/17 11:55 03/29/17 12:00 03/29/17 11:55 General appearance: Present: cooperative, A&O X 3, pleasant, no acute distress, answers questions appropriately - Head Head exam: Present: atraumatic - Eye Eye exam: Present: EOMI - ENT ENT exam: Present: mucous membranes moist - Respiratory Respiratory exam: Present: decreased breath sounds (Slightly decreased in both bases, otherwise clear to auscultation). Absent: rales, rhonchi, wheezes, tachypnea - Cardiovascular Cardiovascular exam: Present: irregular rhythm, +S1, +S2, tachycardia - GI/Abdominal GI/Abdominal exam: Present: soft. Absent: distended, firm, guarding, tenderness - Extremities Exam Extremities exam: Present: pedal edema (Bilateral lower leg 2+ pitting edema, slowly improving), radial pulses palpable and symmetrical. Absent: cyanotic - Neurological Exam Neurological exam: Present: alert, oriented X3, no focal deficits. Absent: facial droop, speech deficit Internal Medicine: Result - Labs CBC & Chem 7: 03/29/17 03:29 03/29/17 03:29 Labs: Short CBC 03/29/17 Range/Units 03:29 WBC 12.2 H (4.3-11.1) K/mcL Hgb 11.8 L (12.9-16.9) g/dL Hct 36.5 L (37.5-50.1) % Plt Count 264 (140-400) K/mcL Neutrophils # 11.5 H (1.6-8.9) K/mcL BMP 03/29/17 03:29 Sodium 141 Potassium 3.4 L Chloride 92 L Carbon Dioxide 36 H BUN 69 H Creatinine 2.72 H Glucose 298 H Calcium 8.9 - ABG Interpretation ABG results: PT/INR, D-dimer PT 20.5 Seconds (9.4-12.1) H 03/22/17 12:29 - VTE Documentation of Mechanical Device: Intermittent pneumatic compression device Consult Discharge Plan - Plan Referrals: Jaime Garcia MD [Primary Care Provider] - 04/02/17 10:15 am
--- NOTE | 2017-03-29 13:13 | Cardiology Progress Note ---
Date of Encounter: 03/29/17 Time of Encounter: 13:09 Assessment and Plan (1) Atrial fibrillation Current Visit: No Status: Chronic Per cardiology: -Known chronic atrial fibrillation. -On cardizem CD 360 and 400 mg amiodarone BID. Toprol XL d/c'd during stay. -Telemetry reviewed with average HR previous 4 hours noted to be 140, atrial fibrillation. Currently 140-160. -Of note, has missed some doses of xarelto in the past 30 days. Creatinine clearance 31ml/min. -Cardizem gtt is being started. IV dig given by primary team. If no response will consider BROCK/DCCV. Qualifiers: Atrial fibrillation type: paroxysmal Qualified Code(s): I48.0 - Paroxysmal atrial fibrillation (2) Diastolic congestive heart failure, NYHA class 4 Current Visit: No Status: Chronic Per cardiology: -Chronic diastolic CHF. -Symptoms unchanged today. -Per review of records, thoracentesis performed for plueral effusion. 700 ml removed. -BNP this admission noted to be 992. -On lasix 80mg IV BID per primary service. Creatinine elevated today 2.7. Baseline 1.6-2.0 Appreciate nephrology input. Ok to allow for mildly higher levels from baseline for diuresis. -Net negative 3940.ml this admission. Negative 1695 in 24hrs. -Echo 02/01/17 with LVEF 50-55%, mild concentric LVH, indeterminate diastolic function, normal RV size with mildly reduced function, moderately dilated left atrium, mild-moderate MR, mid TR, moderate PH. -Weight during last admission 84kg, weight today 91.6kg yesterday. Trending down. -Strict I/O's, daily weights, fluid restriction. Qualifiers: Congestive heart failure chronicity: acute on chronic Qualified Code(s): I50.33 - Acute on chronic diastolic (congestive) heart failure Discussion w patient/family: The assessment and plan as outlined above was discussed with the patient and/or family members who expressed understanding and agreement. All questions were answered. Thank you for involving us in the care of your patient. Please call with any questions. Subjective Principal diagnosis: Dyspnea Interval history: Mr. Flores is sitting in bed. He is tearful today. Reports not feeling any better. HR increases overnight and now 140-160. Objective Vital Signs, Last 4 Hours Temp Pulse Resp BP Pulse Ox 03/29/17 12:00 158 104/70 03/29/17 11:55 98.3 F 145 20 93 03/29/17 09:43 16 100 General: Conversant, No Apparent Distress, Other (tearful) HEENT: Atraumatic, Normocephaly, Mucus Membranes Moist Neck: No JVD, Normal carotid pulses Cardiac: Other (Irregularly irregular) Lungs: Normal Breath Sounds, No Wheeze, Rales, Rhonchi Neuro: Alert and responsive, No focal deficits noted Abdomen: Soft, Non-Tender Skin: No rashes noted on visualized skin Musculoskeletal: No Chest Wall Tenderness Extremities: No Clubbing, No Cyanosis, No Edema, Normal Pulses Results 03/29/17 03:29 03/29/17 03:29 Lab Results 03/29/17 03/29/17 03:29 03:29 WBC 12.2 H Hgb 11.8 L Hct 36.5 L Plt Count 264 Sodium 141 Potassium 3.4 L Chloride 92 L Carbon Dioxide 36 H BUN 69 H Creatinine 2.72 H Glucose 298 H Calcium 8.9 - VTE Documentation of Mechanical Device: Intermittent pneumatic compression device Consult Discharge Plan - Plan Referrals: Jaiem Garcia MD [Primary Care Provider] - 04/02/17 10:15 am
[2017-03-29] MEDS: *HR* Rivaroxaban 15 MG TABLET PO SCH (16:24)
[2017-03-29] MEDS: rOPINIRole 1 MG TABLET PO SCH (20:45)
[2017-03-30] MEDS: Piperacillin/Tazobactam 3.375 GM in D5% in Water (Mini-Bag+) 100 ML IVPB SCH ×2 (02:26→08:55)
[2017-03-30] MEDS ORDERED: 0.9 % Sodium Chloride 250 ML ONE (04:03)
[2017-03-30] MEDS: Ipratropium/Albuterol Neb 3 ML IH SCH ×4 (04:09→22:23)
[2017-03-30 04:11] LABS: Basophils % 0.1 %; Hematocrit 35.4 % (37.5-50.1); Hemoglobin 11.5 g/dL (12.9-16.9); Immature Granulocytes % 0.7 % (0-4); Lymphocytes # 0.3 K/mcL (0.6-4.6); Mean Corpuscular HGB Conc 32.5 g/dL (31.6-35.5); Mean Corpuscular Hemoglobin 29.5 pg (28.0-33.3); Mean Corpuscular Volume 90.8 fL (83.0-100.0); Mean Platelet Volume 10.9 fL (9.4-12.4); Monocytes # 1.1 K/mcL (0.0-1.3); Monocytes % 6.8 %; Neutrophils # 15.1 K/mcL (1.6-8.9); Platelet Count 281 K/mcL (140-400); Red Cell Distribution Width 14.2 % (11.5-14.5); Segmented Neutrophils % 90.4 %
[2017-03-30 04:24] LABS: Calcium 8.9 mg/dL (8.6-10.8); Potassium 2.9 mEq/L (3.5-4.5)
[2017-03-30] MEDS: Insulin DETEMIR 100 UNIT/ML X5UNITS SQ SCH ×2 (07:57→22:01)
[2017-03-30] MEDS: Insulin LISPRO 300 UNITS/3 ML VIAL SQ SCH ×4 (07:57→22:02)
[2017-03-30] MEDS: *HR* Amiodarone 200 MG TABLET PO SCH ×2 (07:59→20:31)
[2017-03-30] MEDS: Multivit/Ca/Min/Fe/FA 1 TAB TABLET PO SCH (07:59)
[2017-03-30] MEDS: Sennosides/Docusate Sodium TABLET PO SCH ×2 (07:59→20:31)
[2017-03-30] MEDS: Aspirin Enteric Coated 81 MG Tablet PO SCH (07:59)
[2017-03-30] MEDS: (Cyclosporine [Restasis] 1 DROP) OP SCH ×2 (07:59→20:31)
[2017-03-30] MEDS: Furosemide 40 MG/4 ML VIAL IVP SCH ×2 (08:00→17:27)
[2017-03-30] MEDS: predniSONE 20 MG TABLET PO SCH (08:00)
[2017-03-30] MEDS: Silvasorb 44.4 ML TUBE TP SCH (08:00)
[2017-03-30] MEDS: Diltiazem CD (24hr) 180 MG CAPSULE PO SCH (08:00)
--- NOTE | 2017-03-30 08:00 | Nephrology Progress Note ---
Date of Encounter: 03/30/17 Time of Encounter: 07:58 - Assessment and Plan (1) Acute kidney injury Current Visit: Yes Status: Acute Patient has a clinical picture of acute kidney injury superimposed on stage III chronic kidney disease in the setting of acute diastolic congestive heart failure. Recent echocardiogram showed an ejection fraction of 50-55% with mild- to-moderate mitral regurgitation and moderate pulmonary hypertension. The patient's renal function seems to worsen when he is diuresed aggressively. Echocardiogram suggests that he may require a high preload to maintain cardiac output thus making it difficult to be aggressive with his diuresis. We can try to increase his diuretics today and monitor his renal function. He will require potassium replacement. If his renal function worsens again we may have to reduce the diuretic dosage. (2) CKD (chronic kidney disease) stage 3, GFR 30-59 ml/min Current Visit: Yes Status: Chronic (3) Acute diastolic heart failure Current Visit: Yes Status: Acute (4) Atrial fibrillation with RVR Current Visit: Yes Status: Acute Subjective Principal diagnosis: Dyspnea Interval history: Patient denies any shortness of breath. He continues to have lower extremity swelling. He is Lasix was decreased yesterday and his creatinine is improved today. He remains in A. fib with a ventricular rate of 116-125. He is hypokalemic. Urine output was about 1 L yesterday. Objective - Vital Signs Vital signs: Vital Signs Temp Pulse Resp BP Pulse Ox 03/30/17 07:10 97.7 F 100 16 115/58 95 03/30/17 04:09 18 96 03/30/17 03:16 98.0 F 105 19 125/79 96 03/30/17 02:23 103 150/66 03/29/17 23:41 98.3 F 122 17 121/62 96 03/29/17 22:28 19 95 03/29/17 19:23 97.6 F 105 18 119/60 95 03/29/17 18:00 121 125/67 03/29/17 17:00 92 128/64 03/29/17 16:35 16 97 03/29/17 16:30 84 124/86 03/29/17 16:00 93 125/68 03/29/17 15:30 106 116/73 03/29/17 15:15 80 122/63 03/29/17 15:00 97.9 F 99 18 109/73 96 03/29/17 14:45 113 120/65 03/29/17 14:30 103 116/63 03/29/17 14:15 99 119/70 03/29/17 14:00 92 116/59 03/29/17 13:45 124 118/68 03/29/17 13:30 85 125/83 03/29/17 13:15 107 114/71 03/29/17 13:00 121 119/70 03/29/17 12:45 109 101/83 03/29/17 12:30 127 115/87 03/29/17 12:15 97 122/65 03/29/17 12:00 158 104/70 03/29/17 11:55 98.3 F 145 20 93 03/29/17 09:43 16 100 03/29/17 08:37 97.6 F 123 18 92/79 98 Intake and Output 03/29/17 03/29/17 03/30/17 15:59 23:59 07:59 Intake Total 810 / 810 435 / 435 489.6 / 489.6 Output Total 575 / 575 1055 / 1055 300 / 300 Balance 235 / 235 -620 / -620 189.6 / 189.6 Intake: IV Fluids 130 / 130 195 / 195 149.6 / 149.6 Cardizem 125 MG In 30 / 30 95 / 95 149.6 / 149.6 Dextrose 5% 100 ML @ 5 MG /HR 5 mls/hr IVC .Q24H [facility] Rx#:[id number] Zosyn 3.375 GM In 100 / 100 100 / 100 Dextrose 5% (Minibag+) 100 ML 100 ML @ 25 mls/hr IVPB Q8H [facility] Rx#: [id number] Oral 680 / 680 240 / 240 340 / 340 Output: Urine 575 / 575 1055 / 1055 300 / 300 Other: Meal Lunch Percent of Meal Consumed 100% Weight 91.7 kg Blood Glucose* 376 361 233 - General Appearance Exam: The patient is alert and oriented. He is in no acute distress. Lungs diminished breath sounds in both bases. Heart irregular rate and rhythm consistent with atrial fibrillation. Abdomen is somewhat distended. Bowel sounds are present. There is no tenderness. There is 2+ lower extremity swelling. - Lab 03/30/17 04:00 03/30/17 04:00 Most recent lab results Calcium 8.9 mg/dL (8.6-10.8) 03/30/17 04:00 Magnesium 2.1 mg/dL (1.6-2.6) 03/28/17 01:20 Urine Creatinine 55 mg/dL 03/27/17 16:35 - VTE Documentation of Mechanical Device: Intermittent pneumatic compression device Consult Discharge Plan - Plan Referrals: Jaime Garcia MD [Primary Care Provider] - 04/02/17 10:15 am
--- NOTE | 2017-03-30 08:17 | Cardiology Progress Note ---
Date of Encounter: 03/30/17 Time of Encounter: 08:14 Assessment and Plan (1) Atrial fibrillation Current Visit: No Status: Chronic Per cardiology: -Known chronic atrial fibrillation. -On cardizem CD 360 and 400 mg amiodarone BID. Toprol XL d/c'd during stay. Loaded with IV amiodarone. -Telemetry reviewed with average HR previous 4 hours noted to be 110, atrial fibrillation. Currently 110. -On cardizem gtt at 20 ml/hr. Hold oral cardizem while cardizem gtt running. -Discussed with Dr. Zepeda, he is a poor candidate for BROCK/ DCCV d/t structural heart disease. -Of note, has missed some doses of xarelto in the past 30 days. Creatinine clearance 31ml/min. - If difficult to rate control we will consider EP consult to discuss PPM with AV node ablation. -restart low dose toprol XL. Qualifiers: Atrial fibrillation type: paroxysmal Qualified Code(s): I48.0 - Paroxysmal atrial fibrillation (2) Diastolic congestive heart failure, NYHA class 4 Current Visit: No Status: Chronic Per cardiology: -Chronic diastolic CHF. -Symptoms unchanged today. -S/p thoracentesis performed for plueral effusion. 700 ml removed. -BNP this admission noted to be 992. -Lasix decreased yesterday d/t concern for increasing creatinine. GIOVANNI/CKD. -Nephrology following. Appreciate input. Lasix increased today. Patient still has significant edema. -Net negative 4134ml this admission. Negative 1000ml in 24hrs. -Echo 02/01/17 with LVEF 50-55%, mild concentric LVH, indeterminate diastolic function, normal RV size with mildly reduced function, moderately dilated left atrium, mild-moderate MR, mid TR, moderate PH. -Weight during last admission 84kg, weight today 91.7kg yesterday. -Strict I/O's, daily weights, fluid restriction. Qualifiers: Congestive heart failure chronicity: acute on chronic Qualified Code(s): I50.33 - Acute on chronic diastolic (congestive) heart failure (3) Chest pain Current Visit: Yes Status: Acute C/o brief chest pain this morning. EKG completed this morning shows no significant change. Continue medical management. Mild troponin up to 0.08 seen initially on admission. Likely demand ischemia from CHF. Last stress test in 03/2015 was negative. Qualifiers: Chest pain type: unspecified Qualified Code(s): R07.9 - Chest pain, unspecified Discussion w patient/family: The assessment and plan as outlined above was discussed with the patient and/or family members who expressed understanding and agreement. All questions were answered. Thank you for involving us in the care of your patient. Please call with any questions. Subjective Principal diagnosis: Dyspnea Interval history: Mr. Flores is in better spirits today. He reports BLE edema is about the same. HR improved. He c/o mild left sided chest pain this morning. The pain increases when he moves. He is now pain free. Objective Vital Signs, Last 4 Hours Temp Pulse Resp BP Pulse Ox 03/30/17 07:10 97.7 F 100 16 115/58 95 General: Conversant, No Apparent Distress HEENT: Atraumatic, Normocephaly, Mucus Membranes Moist Neck: No JVD, Normal carotid pulses Cardiac: Other (irregular) Lungs: Normal Breath Sounds, No Wheeze, Rales, Rhonchi Neuro: Alert and responsive, No focal deficits noted Abdomen: Soft, Non-Tender Skin: No rashes noted on visualized skin Musculoskeletal: No Chest Wall Tenderness Extremities: No Clubbing, No Cyanosis, Normal Pulses, Other (2+ BLE up to abdomen) Results 03/30/17 04:00 03/30/17 04:00 Lab Results 03/30/17 03/30/17 04:00 04:00 WBC 16.7 H Hgb 11.5 L Hct 35.4 L Plt Count 281 Sodium 140 Potassium 2.9 L Chloride 90 L Carbon Dioxide 39 H BUN 76 H Creatinine 2.56 H Glucose 247 H Calcium 8.9 - Imaging and Cardiology Echo: report reviewed - EKG Interpretation EKG results cardiology: personally reviewed (atrial fibrillation, HR 110. Baseline not significantly changed from baseline.) - VTE Documentation of Mechanical Device: Intermittent pneumatic compression device Consult Discharge Plan - Plan Referrals: Jaime Garcia MD [Primary Care Provider] - 04/02/17 10:15 am
[2017-03-30] MEDS: *HR* Morphine 2 MG/ML SYRINGE IVP PRN (09:14)
--- NOTE | 2017-03-30 09:39 | Internal Med Progress Note ---
Date of Encounter: 03/30/17 Time of Encounter: 09:35 - Assessment and plan (1) CHF (congestive heart failure) Current Visit: Yes Status: Acute Assessment and plan: Patient is noted to have a cute on chronic diastolic CHF with volume overload. Also complicated with hypoalbuminemia causing periorbital edema. Cardiology on board. Continue IV Lasix, increase to 80 mg twice daily today. Input/output monitoring does not reflect adequate negative fluid balance. We will reinforce strict fluid restriction. Continue beta jenny. Qualifiers: Congestive heart failure type: diastolic Congestive heart failure chronicity: acute on chronic Qualified Code(s): I50.33 - Acute on chronic diastolic (congestive) heart failure (2) Pleural effusion Current Visit: Yes Status: Acute Assessment and plan: Bilateral pleural effusion, left more than right, transudative likely related to underlying CHF. Underwent left-sided thoracentesis by IR, draining about 700 mL serosanguineous fluid. Pulmonology consult noted, recommend long-term Pleurx catheter for persistent or recurrent pleural effusion. Continue Lasix and supplemental oxygen as needed. Repeat chest x-ray shows left-sided opacity is unchanged, atelectasis with likely pleural effusion. Underlying infiltrate cannot be excluded. Patient has been on Zosyn for at least 1 week, will discontinue antibiotics today. Leukocytosis is likely related to the use of steroids. (3) Afib Current Visit: Yes Status: Acute Assessment and plan: Continues to have atrial fibrillation with rapid ventricular rate. Beta jenny has been initially held, restarted at a lower dose today. Continue amiodarone and IV Cardizem drip. Plan for DC CV versus AV nancy ablation when volume status is optimized. Patient's family would consider hospice/palliative care if continued medical therapy remains futile in the setting of volume overload, acute CHF, atrial tachycardia, acute on chronic renal failure. Qualifiers: Atrial fibrillation type: paroxysmal Qualified Code(s): I48.0 - Paroxysmal atrial fibrillation (4) Acute kidney injury Current Visit: Yes Status: Acute Assessment and plan: Nephrology on board. Agree with increased dosing of IV Lasix to optimize volume status. Serum creatinine noted to be slightly better today, at 2.5. Baseline serum creatinine around 1.2. Continue to monitor and replace electrolytes. (5) HTN (hypertension) Current Visit: Yes Status: Chronic Qualifiers: Hypertension type: unspecified Qualified Code(s): I10 - Essential (primary ) hypertension (6) CKD (chronic kidney disease) stage 3, GFR 30-59 ml/min Current Visit: Yes Status: Chronic (7) Type 2 diabetes mellitus Current Visit: Yes Status: Chronic Assessment and plan: Noted to have steroid-induced hyperglycemia. Steroids have been changed to oral prednisone from today. Increase basal and sliding scale insulin and continue Accu-Chek blood glucose monitoring. Diabetic diet. Qualifiers: Diabetes mellitus complication status: with kidney complications Diabetes mellitus complication detail: with chronic kidney disease Diabetes mellitus mcc insulin use: with mcc use Chronic kidney disease stage: stage 3 (moderate) Qualified Code(s): E11.22 - Type 2 diabetes mellitus with diabetic chronic kidney disease; N18.3 - Chronic kidney disease, stage 3 ( moderate); Z79.4 - prison (current) use of insulin (8) HLD (hyperlipidemia) Current Visit: Yes Status: Chronic Qualifiers: Hyperlipidemia type: unspecified Qualified Code(s): E78.5 - Hyperlipidemia , unspecified - Subjective Interval history: Continues to have intermittent left-sided chest pain and swelling in both hands and legs; no dyspnea, orthopnea, palpitations; continues to require Cardizem drip; - Constitutional Vitals: Temp Pulse Resp BP Pulse Ox 97.7 F 88 16 120/88 95 03/30/17 07:10 03/30/17 09:03 03/30/17 07:10 03/30/17 09:03 03/30/17 07:10 General appearance: Present: cooperative, A&O X 3, answers questions appropriately - Respiratory Respiratory exam: Present: decreased breath sounds (at left base), CTAB. Absent : accessory muscle use, rales, rhonchi, wheezes - Cardiovascular Cardiovascular exam: Present: irregular rhythm, +S1, +S2, tachycardia. Absent: diastolic murmur, gallop, rubs, systolic murmur - GI/Abdominal GI/Abdominal exam: Present: normal bowel sounds, soft, no peritoneal signs. Absent: distended, tenderness - Extremities Exam Extremities exam: Present: full ROM, pedal edema, warm, radial pulses palpable and symmetrical. Absent: calf tenderness, cyanotic Additional comments: B/L upper and lower extremities with 2+ pitting edema - Neurological Exam Neurological exam: Present: CN II-XII intact, oriented X3, no focal deficits. Absent: pronater drift, facial droop, speech deficit Internal Medicine: Result - Labs CBC & Chem 7: 03/30/17 04:00 03/30/17 04:00 Labs: Short CBC 03/30/17 Range/Units 04:00 WBC 16.7 H (4.3-11.1) K/mcL Hgb 11.5 L (12.9-16.9) g/dL Hct 35.4 L (37.5-50.1) % Plt Count 281 (140-400) K/mcL Neutrophils # 15.1 H (1.6-8.9) K/mcL BMP 03/30/17 04:00 Sodium 140 Potassium 2.9 L Chloride 90 L Carbon Dioxide 39 H BUN 76 H Creatinine 2.56 H Glucose 247 H Calcium 8.9 - ABG Interpretation ABG results: PT/INR, D-dimer PT 20.5 Seconds (9.4-12.1) H 03/22/17 12:29 - VTE Documentation of Mechanical Device: Intermittent pneumatic compression device Consult Discharge Plan - Plan Referrals: Jaime Garcia MD [Primary Care Provider] - 04/02/17 10:15 am
[2017-03-30] MEDS: Metoprolol XL (24 HR) Succ 25 MG TAB.ER.24H PO SCH (11:07)
[2017-03-30] MEDS: Budesonide/Formoterol 80/4.5 MDI IH SCH ×2 (11:50→22:23)
[2017-03-30] MEDS: *HR* Rivaroxaban 15 MG TABLET PO SCH (17:27)
--- NOTE | 2017-03-30 18:28 | Electrocardiograph Report ---
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
[2017-03-30] MEDS: rOPINIRole 1 MG TABLET PO SCH (20:31)
[2017-03-31 04:31] LABS: Albumin/Globulin Ratio 1.2 (1.1-2.2); Bilirubin,Total 0.6 mg/dL (0.2-1.2); Calcium 9.1 mg/dL (8.6-10.8); Globulin 2.6 g/dL (2.4-3.5); Potassium 2.9 mEq/L (3.5-4.5); Total Protein 5.6 g/dL (6.0-8.3)
[2017-03-31] MEDS: Ipratropium/Albuterol Neb 3 ML IH SCH ×4 (04:45→22:14)
--- NOTE | 2017-03-31 08:06 | Electrocardiograph Report ---
[address] [address] Test Date: 2017-03-30 Pat Name: Ciro Flores Department: 110 Room: 2N04 Gender: M Cat Driver: ALLISON : 1930 Requested By: Ana Grady Order Number: [id number] Reading MD: Ilya Cortez MD Measurements Intervals [place] Rate: 110 P: NC: 0 QRS: -14 QRSD: 97 T: 204 QT: 328 QTc: 393 Interpretive Statements ATRIAL FIBRILLATION WITH RAPID VENTRICULAR RESPONSE LOW QRS VOLTAGE IN EXTREMITY LEADS PATTERN CONSISTENT WITH PULMONARY DISEASE Electronically Signed On 03-31-2017 8:05:07 EDT by Ilya Cortez MD
[2017-03-31] MEDS ORDERED: Magnesium Sulfate 2 GM in D5% in Water 100 ML IVPB ONE (08:10)
[2017-03-31] MEDS: Insulin LISPRO 300 UNITS/3 ML VIAL SQ SCH ×4 (08:20→21:13)
[2017-03-31 08:21] LABS: Magnesium 2.1 mg/dL (1.6-2.6)
[2017-03-31] MEDS: (Cyclosporine [Restasis] 1 DROP) OP SCH ×2 (08:22→20:17)
[2017-03-31] MEDS: Furosemide 40 MG/4 ML VIAL IVP SCH (08:31)
[2017-03-31] MEDS: predniSONE 20 MG TABLET PO SCH (08:32)
[2017-03-31] MEDS: Aspirin Enteric Coated 81 MG Tablet PO SCH (08:32)
[2017-03-31] MEDS: Potassium Chloride Elixir 20 MEQ/15 ML UDC PO SCH ×2 (08:32→14:23)
[2017-03-31] MEDS: Multivit/Ca/Min/Fe/FA 1 TAB TABLET PO SCH (08:32)
[2017-03-31] MEDS: Metoprolol XL (24 HR) Succ 25 MG TAB.ER.24H PO SCH (08:32)
[2017-03-31] MEDS: *HR* Amiodarone 200 MG TABLET PO SCH ×2 (08:32→20:16)
[2017-03-31] MEDS: metOLazone 5 MG TABLET PO SCH (08:32)
[2017-03-31] MEDS: Silvasorb 44.4 ML TUBE TP SCH (08:33)
[2017-03-31] MEDS: Insulin DETEMIR 100 UNIT/ML X5UNITS SQ SCH ×2 (08:33→21:12)
[2017-03-31] MEDS: Sennosides/Docusate Sodium TABLET PO SCH ×2 (08:33→20:16)
--- NOTE | 2017-03-31 08:47 | Nephrology Progress Note ---
Date of Encounter: 03/31/17 Time of Encounter: 08:25 - Assessment and Plan (1) CKD (chronic kidney disease) stage 3, GFR 30-59 ml/min Current Visit: Yes Status: Chronic CKD 3 at patients baseline 1.6-2.0. Creat 2.17. Documented urine output 450cc. K 2.9. K replacement in orders. Chronic diastolic heart failure. May have to accept higher azotemia related to diuretics related to CHF. Will continue to monitor. Subjective Principal diagnosis: Dyspnea Interval history: Sitting up in bed, eating breakfast. Denies SOB. No new complaints. Objective - Vital Signs Vital signs: Vital Signs Temp Pulse Resp BP Pulse Ox 03/31/17 07:37 97.7 F 58 16 109/68 93 03/31/17 04:47 20 03/31/17 04:00 98 F 93 18 119/66 96 03/31/17 00:00 97.7 F 90 18 105/63 97 03/30/17 22:24 21 93 03/30/17 21:49 97.3 F L 91 18 113/61 98 03/30/17 16:20 18 98 03/30/17 16:04 97.6 F 93 18 106/64 95 03/30/17 14:07 94 101/65 03/30/17 13:00 85 105/73 03/30/17 11:52 16 96 03/30/17 11:23 97.4 F L 103 18 104/68 95 03/30/17 10:00 104 111/67 03/30/17 09:03 88 120/88 Intake and Output 03/30/17 03/31/17 03/31/17 23:59 07:59 15:59 Intake Total 240 / 240 0 / 0 125 / 125 Output Total 450 / 450 800 / 800 250 / 250 Balance -210 / -210 -800 / -800 -125 / -125 Intake: IV Fluids 125 / 125 Cardizem 125 MG In 125 / 125 Dextrose 5% 100 ML @ 5 MG /HR 5 mls/hr IVC .Q24H KELSI Rx#:[id number] Oral 240 / 240 0 / 0 Output: Urine 450 / 450 800 / 800 250 / 250 Other: Meal Dinner Percent of Meal Consumed 100% # Voids 1 Weight 92 kg Blood Glucose* 321 86 Patient Weight 03/31/17 23:59 Weight 92 kg - General Appearance General appearance: Present: well-developed, well-nourished, appears started age EENT: Present: mucous membranes moist Neck: Present: no JVD Respiratory: Present: clear Cardiology: Present: edema, irregular rhythm Additional Comments: pitting LE Gastrointestinal: Present: normoactive bowel sounds, no tenderness Integumentary: Present: warm and dry Psychiatric: Present: mood/affect appropriate, cooperative - Lab 03/30/17 04:00 03/31/17 04:13 Most recent lab results Calcium 9.1 mg/dL (8.6-10.8) 03/31/17 04:13 Magnesium 2.1 mg/dL (1.6-2.6) 03/31/17 04:13 Urine Creatinine 55 mg/dL 03/27/17 16:35 - VTE Documentation of Mechanical Device: Intermittent pneumatic compression device Consult Discharge Plan - Plan Referrals: Jaime Garcia MD [Primary Care Provider] - 04/02/17 10:15 am
--- NOTE | 2017-03-31 09:00 | Cardiology Progress Note ---
Date of Encounter: 03/31/17 Time of Encounter: 08:58 Assessment and Plan (1) Atrial fibrillation Current Visit: No Status: Chronic Per cardiology: -Known chronic atrial fibrillation. -On cardizem CD 360 and 400 mg amiodarone BID. Toprol XL d/c'd during stay. Loaded with IV amiodarone. -toprol xl and cardizem gtt restarted 03/29/17 for -Telemetry reviewed with average HR previous 12 hours noted to be 91, atrial fibrillation. -Convert to oral cardizem. -Of note, has missed some doses of xarelto in the past 30 days. Creatinine clearance 31ml/min. Qualifiers: Atrial fibrillation type: paroxysmal Qualified Code(s): I48.0 - Paroxysmal atrial fibrillation (2) Diastolic congestive heart failure, NYHA class 4 Current Visit: No Status: Chronic Per cardiology: -Chronic diastolic CHF. -Patient is slow to respond to diuresis. -S/p thoracentesis performed for plueral effusion. 700 ml removed. -CXR repeated showed LLL airspace disease. Bilateral pleural effusion left worse than right. -Lasix increased yesterday by nephrology. Unfortunately his 24 hour fluid status is positive. Appreciate nephrology input. -K2.9- potassium replacement is ordered. -I will discuss Lasix drip or zaroxolyn with Dr. Zepeda. -Echo 02/01/17 with LVEF 50-55%, mild concentric LVH, indeterminate diastolic function, normal RV size with mildly reduced function, moderately dilated left atrium, mild-moderate MR, mid TR, moderate PH. -Strict I/O's, daily weights, fluid restriction. Qualifiers: Congestive heart failure chronicity: acute on chronic Qualified Code(s): I50.33 - Acute on chronic diastolic (congestive) heart failure (3) Chest pain Current Visit: Yes Status: Acute C/o brief chest pain this morning. EKG completed this morning shows no significant change. Continue medical management. Mild troponin up to 0.08 seen initially on admission. Likely demand ischemia from CHF. Last stress test in 03/2015 was negative. Qualifiers: Chest pain type: unspecified Qualified Code(s): R07.9 - Chest pain, unspecified Discussion w patient/family: The assessment and plan as outlined above was discussed with the patient and/or family members who expressed understanding and agreement. All questions were answered. Thank you for involving us in the care of your patient. Please call with any questions. Subjective Principal diagnosis: Dyspnea Interval history: Mr. Flores is resting in bed. No new complaints. Objective Vital Signs, Last 4 Hours Temp Pulse Resp BP Pulse Ox 03/31/17 07:37 97.7 F 58 16 109/68 93 Abdomen/Pelvis/Transvag US 03/22/17 00:00 IMPRESSION: Small left pleural effusion. RECOMMENDATIONS: No thoracentesis is indicated for therapeutic purposes given the small size. If a diagnostic thoracentesis is required, the patients Eliquis will be held tonight and the procedure can be performed the following day. This was discussed with the ordering physician at the conclusion of the ultrasound scan. D/ / Van Jones MD / Van Jones MD Interpreting Provider: Vna Jones MD Thoracentesis Ultrasound 03/23/17 00:00 IMPRESSION: Successful ultrasound guided thoracentesis. D/ / Van Jones MD / Van Jones MD Interpreting Provider: Van Jones MD Chest X-Ray 03/30/17 09:38 IMPRESSION: No significant change in left lower lobe airspace disease and bilateral pleural effusions, worse on the left than the right. D/ / 03/30/2017 13:30:01 Iggy Mcqueen MD / lisa Interpreting Provider: Iggy Mcqueen MD General: Conversant, No Apparent Distress HEENT: Atraumatic, Normocephaly, Mucus Membranes Moist Neck: No JVD, Normal carotid pulses Cardiac: Other (Irregularly irrgular) Lungs: Normal Breath Sounds, No Wheeze, Rales, Rhonchi Neuro: Alert and responsive, No focal deficits noted Abdomen: Soft, Non-Tender Skin: No rashes noted on visualized skin Musculoskeletal: No Chest Wall Tenderness Extremities: No Clubbing, No Cyanosis, Normal Pulses, Other (3+ pitting edema up to abdomen. Mildly increased today.) Results 03/30/17 04:00 03/31/17 04:13 Lab Results 03/31/17 04:13 Sodium 141 Potassium 2.9 L Chloride 92 L Carbon Dioxide 37 H BUN 71 H Creatinine 2.17 H Glucose 94 Calcium 9.1 Magnesium 2.1 Total Bilirubin 0.6 AST 27 ALT 33 Alkaline Phosphatase 82 - Imaging and Cardiology Chest Xray: report reviewed Echo: report reviewed - EKG Interpretation EKG results cardiology: personally reviewed (atrial fibrillation) - VTE Documentation of Mechanical Device: Intermittent pneumatic compression device Consult Discharge Plan - Plan Referrals: Jaime Garcia MD [Primary Care Provider] - 04/02/17 10:15 am
--- NOTE | 2017-03-31 09:18 | Internal Med Progress Note ---
Date of Encounter: 03/31/17 Time of Encounter: 09:17 - Assessment and plan (1) CHF (congestive heart failure) Current Visit: Yes Status: Acute Assessment and plan: Patient is noted to have a cute on chronic diastolic CHF with volume overload. Also complicated with hypoalbuminemia causing peripheral edema. Not noted to have appropriate urine output as charted. Case discussed with cardiology and nephrology. Plan to start IV Lasix drip along with metolazone. Strict fluid restriction reinforced with nursing staff. Continue beta jenny. Qualifiers: Congestive heart failure type: diastolic Congestive heart failure chronicity: acute on chronic Qualified Code(s): I50.33 - Acute on chronic diastolic (congestive) heart failure (2) Pleural effusion Current Visit: Yes Status: Acute Assessment and plan: Bilateral pleural effusion, left more than right, transudative likely related to underlying CHF. Underwent left-sided thoracentesis by IR, draining about 700 mL serosanguineous fluid. Pulmonology consult noted, recommend long-term Pleurx catheter for persistent or recurrent pleural effusion. Continue Lasix and supplemental oxygen as needed. (3) Afib Current Visit: Yes Status: Acute Assessment and plan: Heart rate noted to be better controlled. Plan to discontinue IV Cardizem drip and transitioned to oral Cardizem today along with amiodarone and beta jneny. Plan for DC CV versus AV nancy ablation when volume status is optimized. Continue long-term anticoagulation with Xarelto. Patient's family would consider hospice/palliative care if continued medical therapy remains futile in the setting of volume overload, acute CHF, atrial tachycardia, acute on chronic renal failure. Qualifiers: Atrial fibrillation type: paroxysmal Qualified Code(s): I48.0 - Paroxysmal atrial fibrillation (4) Acute kidney injury Current Visit: Yes Status: Acute Assessment and plan: Nephrology on board. Agree with IV Lasix drip to optimize volume status. Serum creatinine noted to be improving, at 2.1. Baseline serum creatinine around 1.2. Continue to monitor and replace electrolytes. (5) HTN (hypertension) Current Visit: Yes Status: Chronic Qualifiers: Hypertension type: unspecified Qualified Code(s): I10 - Essential (primary ) hypertension (6) CKD (chronic kidney disease) stage 3, GFR 30-59 ml/min Current Visit: Yes Status: Chronic (7) Type 2 diabetes mellitus Current Visit: Yes Status: Chronic Assessment and plan: Noted to have steroid-induced hyperglycemia. continue basal and sliding scale insulin and continue Accu-Chek blood glucose monitoring. Diabetic diet. Qualifiers: Diabetes mellitus complication status: with kidney complications Diabetes mellitus complication detail: with chronic kidney disease Diabetes mellitus exterminator termite insulin use: with exterminator termite use Chronic kidney disease stage: stage 3 (moderate) Qualified Code(s): E11.22 - Type 2 diabetes mellitus with diabetic chronic kidney disease; N18.3 - Chronic kidney disease, stage 3 ( moderate); Z79.4 - exterminator termite (current) use of insulin (8) HLD (hyperlipidemia) Current Visit: Yes Status: Chronic Qualifiers: Hyperlipidemia type: unspecified Qualified Code(s): E78.5 - Hyperlipidemia , unspecified - Subjective Interval history: Denies new complaints; no chest pain or dyspnea; requires 3L/min via NC; heart rate better controlled today; - Constitutional Vitals: Temp Pulse Resp BP Pulse Ox 97.7 F 58 16 109/68 93 03/31/17 07:37 03/31/17 07:37 03/31/17 07:37 03/31/17 07:37 03/31/17 07:37 General appearance: Present: cooperative, A&O X 3, answers questions appropriately - Respiratory Respiratory exam: Present: decreased breath sounds (at left base), CTAB. Absent : accessory muscle use, rales, rhonchi, wheezes - Cardiovascular Cardiovascular exam: Present: irregular rhythm, +S1, +S2. Absent: diastolic murmur, gallop, rubs, systolic murmur - GI/Abdominal GI/Abdominal exam: Present: normal bowel sounds, soft, no peritoneal signs. Absent: distended, tenderness - Extremities Exam Extremities exam: Present: full ROM, pedal edema (3+ pitting pedal edema B/L), warm, radial pulses palpable and symmetrical. Absent: calf tenderness, cyanotic Internal Medicine: Result - Labs CBC & Chem 7: 03/30/17 04:00 03/31/17 04:13 Labs: BMP 03/31/17 04:13 Sodium 141 Potassium 2.9 L Chloride 92 L Carbon Dioxide 37 H BUN 71 H Creatinine 2.17 H Glucose 94 Calcium 9.1 Liver Function 03/31/17 Range/Units 04:13 Total Bilirubin 0.6 (0.2-1.2) mg/dL AST 27 (5-34) Units/L ALT 33 (0-55) Units/L Alkaline Phosphatase 82 (38-126) Units/L Albumin 3.0 L (3.5-5.0) g/dL - ABG Interpretation ABG results: PT/INR, D-dimer PT 20.5 Seconds (9.4-12.1) H 03/22/17 12:29 - Impressions Impressions Chest X-Ray 03/30/17 09:38 IMPRESSION: No significant change in left lower lobe airspace disease and bilateral pleural effusions, worse on the left than the right. D/ / 03/30/2017 13:30:01 Iggy Mcqueen MD / [facility] Interpreting Provider: Iggy Mcqueen MD - VTE Documentation of Mechanical Device: Intermittent pneumatic compression device Consult Discharge Plan - Plan Referrals: Jaime Garcia MD [Primary Care Provider] - 04/02/17 10:15 am
[2017-03-31] MEDS: Diltiazem CD (24hr) 180 MG CAPSULE PO SCH (09:30)
[2017-03-31] MEDS: Budesonide/Formoterol 80/4.5 MDI IH SCH ×2 (10:50→22:14)
[2017-03-31] MEDS: Furosemide 240 MG in D5% in Water 96 ML IVC SCH (10:52)
[2017-03-31] MEDS ORDERED: Potassium Chloride Elixir 20 MEQ/15 ML UDC PO ONE (14:22)
[2017-03-31] MEDS: *HR* Rivaroxaban 15 MG TABLET PO SCH (16:34)
[2017-03-31] MEDS ORDERED: 0.9 % Sodium Chloride 1,000 ML ONE (20:12)
[2017-03-31] MEDS: rOPINIRole 1 MG TABLET PO SCH (20:16)
[2017-03-31] MEDS: *HR* Morphine 2 MG/ML SYRINGE IVP PRN (23:15)
[2017-04-01] MEDS: Ipratropium/Albuterol Neb 3 ML IH SCH ×4 (04:10→23:19)
[2017-04-01 05:12] LABS: Basophils % 0.1 %; Hematocrit 36.4 % (37.5-50.1); Hemoglobin 11.6 g/dL (12.9-16.9); Immature Granulocytes % 1.3 % (0-4); Lymphocytes # 0.6 K/mcL (0.6-4.6); Lymphocytes % 4.5 %; Mean Corpuscular HGB Conc 31.9 g/dL (31.6-35.5); Mean Corpuscular Hemoglobin 28.6 pg (28.0-33.3); Mean Corpuscular Volume 89.7 fL (83.0-100.0); Mean Platelet Volume 11.2 fL (9.4-12.4); Monocytes # 0.9 K/mcL (0.0-1.3); Monocytes % 6.4 %; Neutrophils # 12.6 K/mcL (1.6-8.9); Platelet Count 287 K/mcL (140-400); Red Blood Count 4.06 M/mcL (4.19-5.50); Red Cell Distribution Width 13.9 % (11.5-14.5); Segmented Neutrophils % 87.7 %
[2017-04-01 05:15] LABS: Calcium 9.4 mg/dL (8.6-10.8); Magnesium 2.1 mg/dL (1.6-2.6)
[2017-04-01] MEDS: Diltiazem CD (24hr) 180 MG CAPSULE PO SCH (07:43)
[2017-04-01] MEDS: Sennosides/Docusate Sodium TABLET PO SCH ×2 (07:44→20:42)
[2017-04-01] MEDS: metOLazone 5 MG TABLET PO SCH (07:44)
[2017-04-01] MEDS: predniSONE 20 MG TABLET PO SCH (07:44)
[2017-04-01] MEDS: *HR* Amiodarone 200 MG TABLET PO SCH ×2 (07:44→20:42)
[2017-04-01] MEDS: Aspirin Enteric Coated 81 MG Tablet PO SCH (07:44)
[2017-04-01] MEDS: Multivit/Ca/Min/Fe/FA 1 TAB TABLET PO SCH (07:44)
[2017-04-01] MEDS: Metoprolol XL (24 HR) Succ 25 MG TAB.ER.24H PO SCH (07:44)
[2017-04-01] MEDS: (Cyclosporine [Restasis] 1 DROP) OP SCH ×2 (07:46→21:10)
[2017-04-01] MEDS: Silvasorb 44.4 ML TUBE TP SCH (07:46)
[2017-04-01] MEDS: Insulin LISPRO 300 UNITS/3 ML VIAL SQ SCH ×6 (07:50→20:43)
[2017-04-01] MEDS: Insulin DETEMIR 100 UNIT/ML X5UNITS SQ SCH ×2 (08:03→20:42)
[2017-04-01] MEDS: Budesonide/Formoterol 80/4.5 MDI IH SCH ×2 (10:45→23:18)
--- NOTE | 2017-04-01 10:47 | Internal Med Progress Note ---
Date of Encounter: 04/01/17 Time of Encounter: 10:45 - Assessment and plan (1) CHF (congestive heart failure) Current Visit: Yes Status: Acute Assessment and plan: Patient is noted to have acute on chronic diastolic CHF with volume overload. Has been on IV Lasix drip, which has been held since this morning. Noted to have significant urine output and improvement in peripheral edema. We will change to oral Lasix along with metolazone. Strict fluid restriction reinforced with nursing staff. Continue beta jenny. Qualifiers: Congestive heart failure type: diastolic Congestive heart failure chronicity: acute on chronic Qualified Code(s): I50.33 - Acute on chronic diastolic (congestive) heart failure (2) Pleural effusion Current Visit: Yes Status: Acute Assessment and plan: Bilateral pleural effusion, left more than right, transudative likely related to underlying CHF. Underwent left-sided thoracentesis by IR, draining about 700 mL serosanguineous fluid. Pulmonology consult noted, recommend long-term Pleurx catheter for persistent or recurrent pleural effusion. Continue Lasix and supplemental oxygen as needed. (3) Afib Current Visit: Yes Status: Acute Assessment and plan: Heart rate noted to be better controlled with borderline low blood pressure. Continue oral Cardizem along with amiodarone and beta jenny. Plan for DC CV versus AV nancy ablation, pending EP cardiology evaluation. Continue long-term anticoagulation with Xarelto. Patient's family would consider hospice/palliative care if continued medical therapy remains futile in the setting of volume overload, acute CHF, atrial tachycardia, acute on chronic renal failure. Qualifiers: Atrial fibrillation type: paroxysmal Qualified Code(s): I48.0 - Paroxysmal atrial fibrillation (4) Acute kidney injury Current Visit: Yes Status: Acute Assessment and plan: Nephrology on board. Agree with current management. Serum creatinine noted to be improving, at 2. Baseline serum creatinine around 1.2. Continue to monitor and replace electrolytes. (5) HTN (hypertension) Current Visit: Yes Status: Chronic Assessment and plan: Blood pressure noted to be borderline low. Cannot titrate AV nancy blockers. Qualifiers: Hypertension type: unspecified Qualified Code(s): I10 - Essential (primary ) hypertension (6) CKD (chronic kidney disease) stage 3, GFR 30-59 ml/min Current Visit: Yes Status: Chronic (7) Type 2 diabetes mellitus Current Visit: Yes Status: Chronic Assessment and plan: Noted to have steroid-induced hyperglycemia. We will discontinue steroids today. continue basal and sliding scale insulin, start nutritional insulin and continue Accu-Chek blood glucose monitoring. Diabetic diet. Qualifiers: Diabetes mellitus complication status: with kidney complications Diabetes mellitus complication detail: with chronic kidney disease Diabetes mellitus long term care administrator insulin use: with mcc use Chronic kidney disease stage: stage 3 (moderate) Qualified Code(s): E11.22 - Type 2 diabetes mellitus with diabetic chronic kidney disease; N18.3 - Chronic kidney disease, stage 3 ( moderate); Z79.4 - senior care (current) use of insulin (8) HLD (hyperlipidemia) Current Visit: Yes Status: Chronic Qualifiers: Hyperlipidemia type: unspecified Qualified Code(s): E78.5 - Hyperlipidemia , unspecified - Subjective Interval history: Feels better; reports more than 3.5L urine output overnight! Off Lasix drip since early this morning due to polyuria; no chest pain or dyspnea; seems slightly depressed, mentions that his 's birthday was coming up (she has 5 years ago) - Constitutional Vitals: Temp Pulse Resp BP Pulse Ox 97.5 F L 130 14 92/72 97 04/01/17 07:45 04/01/17 07:45 04/01/17 07:45 04/01/17 07:45 04/01/17 07:45 General appearance: Present: cooperative, A&O X 3, answers questions appropriately - Respiratory Respiratory exam: Present: decreased breath sounds (at left base), CTAB, rales ( crackles at right base). Absent: accessory muscle use, rhonchi, wheezes - Cardiovascular Cardiovascular exam: Present: irregular rhythm, +S1, +S2. Absent: diastolic murmur, gallop, rubs, systolic murmur - GI/Abdominal GI/Abdominal exam: Present: normal bowel sounds, soft, no peritoneal signs. Absent: distended, tenderness - Extremities Exam Extremities exam: Present: pedal edema (significant improvement noted), warm, radial pulses palpable and symmetrical. Absent: calf tenderness, cyanotic Internal Medicine: Result - Labs CBC & Chem 7: 04/01/17 04:50 04/01/17 04:50 Labs: Short CBC 04/01/17 Range/Units 04:50 WBC 14.4 H (4.3-11.1) K/mcL Hgb 11.6 L (12.9-16.9) g/dL Hct 36.4 L (37.5-50.1) % Plt Count 287 (140-400) K/mcL Neutrophils # 12.6 H (1.6-8.9) K/mcL BMP 04/01/17 04:50 Sodium 141 Potassium 4.0 D Chloride 91 L Carbon Dioxide 42 H* BUN 63 H Creatinine 2.02 H Glucose 155 H Calcium 9.4 - ABG Interpretation ABG results: PT/INR, D-dimer PT 20.5 Seconds (9.4-12.1) H 03/22/17 12:29 - Impressions Impressions Chest X-Ray 03/30/17 09:38 IMPRESSION: No significant change in left lower lobe airspace disease and bilateral pleural effusions, worse on the left than the right. D/ / 03/30/2017 13:30:01 Iggy Mcqueen MD / [facility] Interpreting Provider: Iggy Mcqueen MD - VTE Documentation of Mechanical Device: Intermittent pneumatic compression device Consult Discharge Plan - Plan Referrals: Jaime Garcia MD [Primary Care Provider] - 04/09/17 10:15 am
--- NOTE | 2017-04-01 10:57 | Nephrology Progress Note ---
Date of Encounter: 04/01/17 Time of Encounter: 10:45 - Assessment and Plan (1) CKD (chronic kidney disease) stage 3, GFR 30-59 ml/min Current Visit: Yes Status: Chronic CKD 3 at patients baseline 1.6-2.0. Creat 2.02. Documented urine output 3745cc. Had been on Lasix drip, now off. K 4.0. Chronic diastolic heart failure. May have to accept higher azotemia related to diuretics related to CHF. Will continue to monitor. Subjective Principal diagnosis: Dyspnea Interval history: Sitting up in bed, eating breakfast. Denies SOB. No new complaints. Objective - Vital Signs Vital signs: Vital Signs Temp Pulse Resp BP Pulse Ox 04/01/17 07:45 97.5 F L 130 14 92/72 97 04/01/17 04:10 16 99 04/01/17 04:00 98 F 94 20 109/86 97 04/01/17 03:00 96 100/64 97 04/01/17 02:00 130 22 119/101 99 04/01/17 01:00 140 126/91 98 04/01/17 00:01 97.9 F 109 18 97/81 97 03/31/17 23:01 112 123/76 03/31/17 22:14 18 96 03/31/17 22:05 93 115/68 03/31/17 21:05 107 117/57 03/31/17 20:35 96 97/84 03/31/17 20:00 98 F 106 18 115/64 98 03/31/17 16:07 97.7 F 57 20 106/65 98 03/31/17 15:27 22 98 03/31/17 11:06 97.9 F 66 22 118/66 98 Intake and Output 03/31/17 04/01/17 04/01/17 23:59 07:59 15:59 Intake Total 670 / 670 40 / 40 360 / 360 Output Total 1770 / 1770 2400 / 2400 150 / 150 Balance -1100 / -1100 -2360 / -2360 210 / 210 Intake: IV Fluids 40 / 40 Lasix 240 MG In Dextrose 40 / 40 5% 96 ML @ 5 MG/HR 2.5 mls/hr IVC .Q24H [facility] Rx#: [id number] Oral 670 / 670 360 / 360 Output: Urine 1570 / 1570 2400 / 2400 150 / 150 Catheter 200 / 200 Other: Meal Dinner Breakfast Percent of Meal Consumed 100% 100% Weight 90.7 kg Blood Glucose* 266 122 Patient Weight 04/01/17 23:59 Weight 90.7 kg - General Appearance General appearance: Present: well-developed, well-nourished, appears started age EENT: Present: mucous membranes moist Neck: Present: no JVD Respiratory: Present: clear Cardiology: Present: edema, irregular rhythm Additional Comments: 1+ pitting Gastrointestinal: Present: normoactive bowel sounds, no tenderness Integumentary: Present: warm and dry Neurologic: Present: alert and oriented x3 Psychiatric: Present: mood/affect appropriate, cooperative - Lab 04/01/17 04:50 04/01/17 04:50 Most recent lab results Calcium 9.4 mg/dL (8.6-10.8) 04/01/17 04:50 Magnesium 2.1 mg/dL (1.6-2.6) 04/01/17 04:50 Urine Creatinine 55 mg/dL 03/27/17 16:35 - VTE Documentation of Mechanical Device: Intermittent pneumatic compression device Consult Discharge Plan - Plan Referrals: Jaime Garcia MD [Primary Care Provider] - 04/09/17 10:15 am
[2017-04-01] MEDS: Furosemide 240 MG in D5% in Water 96 ML IVC SCH (11:49)
--- NOTE | 2017-04-01 11:51 | Cardiology Progress Note ---
Date of Encounter: 04/01/17 Time of Encounter: 11:48 Assessment and Plan (1) Atrial fibrillation with RVR Current Visit: No Status: Acute Atrial fibrillation, persistent RVR depsite agressive medical therapy. Currently on BB/amiodarone/CCB therpay. Relatively hypotensive, so cannot titrate. We could consider cardioversion, but custodial success likely on low side given chronicity of AF and left atrial enlargement. We could also consider AV nancy ablation with pacemaker, which would be a truck terminal manager solution for rate control. Now that his volume status is improved, I think he would better tolerate any necessary procedures to help with rate/rhythm. Consult EP to help guide our therapy. (2) Diastolic congestive heart failure, NYHA class 4 Current Visit: No Status: Chronic Diastolic HF. Lower extremity edema is much better today after initiation of lasix drip in addition to metalozone. CKD/Cr slightly better today. Diuretics currently on hold due to polyuria per reports. Convert to PO when okay with nephrology. Consider Lasix 80 mg PO BID and Metalozone 2.5 mg daily when able. CHF education - low sodium diet, 2L daily fluid restriction. Qualifiers: Congestive heart failure chronicity: acute on chronic Qualified Code(s): I50.33 - Acute on chronic diastolic (congestive) heart failure Discussion w patient/family: The assessment and plan as outlined above was discussed with the patient and/or family members who expressed understanding and agreement. All questions were answered. Thank you for involving us in the care of your patient. Please call with any questions. Subjective Principal diagnosis: Dyspnea Interval history: Clinically, volume status appears improved. LE edema greatly improved - mild right LE edema, minimal left LE edema. HR remains tachycardic, but better. This AM, HR 100s. Objective General: Conversant, No Apparent Distress HEENT: Atraumatic, Normocephaly, Mucus Membranes Moist Neck: No JVD, Normal carotid pulses Cardiac: Other (Irregualr rate and rhythm, tachycardic. ) Lungs: Other (Shallow) Neuro: Alert and responsive, No focal deficits noted Abdomen: Soft, Non-Tender Skin: No rashes noted on visualized skin Musculoskeletal: No Chest Wall Tenderness Extremities: No Clubbing, No Cyanosis, Other (Edema much improved - mild right, minimal left. ) Results 04/01/17 04:50 04/01/17 04:50 Lab Results 04/01/17 04/01/17 04:50 04:50 WBC 14.4 H Hgb 11.6 L Hct 36.4 L Plt Count 287 Sodium 141 Potassium 4.0 D Chloride 91 L Carbon Dioxide 42 H* BUN 63 H Creatinine 2.02 H Glucose 155 H Calcium 9.4 Magnesium 2.1 - Imaging and Cardiology Chest Xray: report reviewed Echo: report reviewed - EKG Interpretation EKG results cardiology: personally reviewed - VTE Documentation of Mechanical Device: Intermittent pneumatic compression device Consult Discharge Plan - Plan Referrals: Jaime Garcia MD [Primary Care Provider] - 04/09/17 10:15 am
--- NOTE | 2017-04-01 12:49 | Electrophysiology Consult Note ---
Date of Encounter: 04/01/17 Time of Encounter: 10:00 Assessment and Plan (1) Atrial fibrillation Current Visit: No Status: Chronic Per cardiology: -Known chronic atrial fibrillation. -On cardizem CD 360, toprol 25, and amiodarone 400mg BID. -Telemetry reviewed with average HR previous 12 hours noted to be 109, atrial fibrillation. -Denies previous use of sotalol or other antiarrthymic. -On xarelto, renally adjusted. Of note, has missed some doses of xarelto in the past 30 days. Creatinine clearance 31ml/min. -BP 90-100s systolic. -Patient has been difficult to rate control with multiple agents. Patient has had multiple admission with atrial fibrillation RVR. -Will discuss and review with Dr. Dannie Gresham for further recommendations. Qualifiers: Atrial fibrillation type: chronic Qualified Code(s): I48.2 - Chronic atrial fibrillation Discussion w patient/family: The assessment and plan as outlined above was discussed with the patient who expressed understanding and agreement. All questions were answered. Thank you for involving us in the care of your patient. Please call with any questions. Discussed and reviewed with Dr.John Gresham. History of Present Illness Consult date: 04/01/17 Requesting physician: Michael Zepeda Consult reason: atrial fibrillation Chief complaint: shortness of breath History of present illness: Mr. Flores is a 86 year old male with a relevant past medical history of HTN, DM , hyperlipidemia, atrial fibrillation, cardiomyopathy, diastolic CHF, CKD. Patient presented to [facility] with complaints of shortness of breath. Patient has had a long standing history of diastolic CHF and atrial fibrillation. Patient has had a lengthy hospital admission for diastolic congestive heart failure. Electrophysiology has been asked to see the patient due to peristent atrial fibrillation with RVR despite multiple rate controlling agents. Patient denies chest pain. Pateint denies palpitations/fluttering. Admits to shortness of breath, however states is improving since admission. Patient is anticoagulated on xarelto. Patient denies bleeding or blood loss. Of note, has missed some xarelto doses in the last 30 days. Past Med Surg Social Fam HX - Past Medical History Attestation: Yes The following information was validated with the patient. Source: patient, old records reviewed Medical history: arthritis, atrial fibrillation, CHF, coronary artery disease, diabetes, hyperlipidemia, hypertension, renal disease, valvular heart disease Psychiatric history: no psych history - Past Surgical History Surgical History: appendectomy, cholecystectomy, knee replacement, orthopedic, other - Social History Smoking Status: Never smoker Smokeless Tobacco Status: No Alcohol use: none Drug use: none - Family History Mother Family Member Ethnicity: Non- Living Status: Brother Family Member Ethnicity: Non- Living Status: Sister Family Member Ethnicity: Non- Living Status: Still Living Father Family Member Ethnicity: Non- Living Status: Hx Family Cardiac Disorders: No Hx Family Respiratory Disorders: No Hx Family Cancer: No Hx Family GI Disorders: No Hx Family Endocrine Disorder: Yes (DM) Hx Family Neuromuscular Disorders: No Hx Family Neurologic Disorders: No Hx Family HEENT Disorders: No Hx Family Autoimmune Disorders: No Medications and Allergies Cyclosporine [Restasis] 1 drop OP BID 04/17/15 [History] Multivit-Min/FA/Lycopen/Lutein [Centrum Silver Tablet] 1 tab PO QAM 04/17/15 [ History] Ropinerole [Requip] 1 mg PO HS 04/17/15 [History] Albuterol Sulfate [Proair Hfa] 1 puff IH Q6H PRN #1 inh 10/12/15 [Rx] Aspirin Enteric Coated [Aspirin EC] 81 mg PO DAILY #30 tablet. 02/06/17 [Rx] Budesonide/Formoterol 80/4.5 [Symbicort 80/4.5] 1 puff IH BID #5 hfa.aer.ad 08/25 [Rx] Diltiazem CD (24hr) [Cardizem CD] 360 mg PO DAILY 30 Days 02/06/17 [Rx] Metoprolol XL (24 HR) Succ [Toprol Xl] 200 mg PO DAILY 30 Days 02/06/17 [Rx] Sennosides/Docusate Sodium [Senna Plus] 2 tab PO BID 02/12/17 [History] Rivaroxaban [Xarelto] 15 mg PO 1700 #1 tablet 03/07/17 [Rx] Furosemide [Lasix] 60 mg PO BID 03/22/17 [History] Insulin Glargine,Hum.rec.anlog [Lantus Solostar] 24 unit SQ QAM 03/22/17 [ History] Potassium Chloride [Klor-Con 10] 10 meq PO BID 03/22/17 [History] Simvastatin [Zocor] 40 mg PO HS 03/22/17 [History] 3 Allergy/AdvReac Type Severity Reaction Status Date / Time codeine AdvReac Mild Flushing Verified 03/22/17 13:10 metformin AdvReac Mild Nausea Verified 03/22/17 13:10 tramadol AdvReac Mild Dizziness Verified 03/22/17 13:10 All Systems Review: A 10-system review of systems was performed and is negative for pertinent findings except as documented above in the HPI. - Cardiovascular Cardiovascular: as per HPI, dyspnea on exertion, irregular heart rhythm Physical Examination Vital Signs, Last 4 Hours Temp Pulse Resp BP Pulse Ox 04/01/17 11:48 97.7 F 113 20 108/83 98 General: Conversant, No Apparent Distress HEENT: Atraumatic, Normocephaly, Mucus Membranes Moist Neck: No JVD, Normal carotid pulses Cardiac: Normal S1 and S2, No Murmur, Other (Irregularly, irregular) Lungs: Other (Lung sounds diminished to bilateral lower lobes. ) Neuro: Alert and responsive, No focal deficits noted Abdomen: Soft, Non-Tender Skin: No rashes noted on visualized skin Musculoskeletal: No Chest Wall Tenderness Extremities: No Clubbing, No Cyanosis, No Edema, Normal Pulses Results 04/01/17 04:50 04/01/17 04:50 Lab Results Impressions Chest X-Ray 03/30/17 09:38 IMPRESSION: No significant change in left lower lobe airspace disease and bilateral pleural effusions, worse on the left than the right. D/ / 03/30/2017 13:30:01 Iggy Mcqueen MD / [facility] Interpreting Provider: Iggy Mcqueen MD Active Medications Albuterol Sulfate (Proventil Neb) 2.5 mg IH Q2H PRN; Protocol PRN Reason: Shortness Of Breath/Wheezing Stop: 09/22/17 11:38 Last Admin: 03/25/17 22:53 Dose: 2.5 mg Albuterol/Ipratropium (Duoneb) 3 ml IH QIDR KELSI PRN Reason: Protocol Stop: 09/22/17 11:46 Last Admin: 04/01/17 10:45 Dose: 3 ml Amiodarone HCl (Cordarone) 400 mg PO BID [facility] Stop: 09/25/17 10:16 Last Admin: 04/01/17 07:44 Dose: 400 mg Aspirin (Aspirin Ec) 81 mg PO DAILY [facility] Stop: 09/22/17 09:01 Last Admin: 04/01/17 07:44 Dose: 81 mg Atorvastatin Calcium (Lipitor) 40 mg PO HS [facility] Stop: 09/25/17 21:01 Last Admin: 03/31/17 20:16 Dose: 40 mg Budesonide/Formoterol Fumarate (Symbicort) 1 puff IH BID [facility] PRN Reason: Protocol Stop: 09/21/17 21:01 Last Admin: 04/01/17 10:45 Dose: 1 puff Dextrose/Water (Dextrose 50% (Syg)) 25 ml IVP AD PRN PRN Reason: Hypoglycemia Stop: 09/21/17 15:08 Diltiazem HCl (Cardizem Cd) 360 mg PO DAILY [facility] Stop: 09/30/17 09:01 Last Admin: 04/01/17 07:43 Dose: 360 mg Glucagon (Glucagen) 1 mg IM ONCE PRN PRN Reason: Hypoglycemia Stop: 09/21/17 15:08 Glucose (Gluctose) 15 gm PO ONCE PRN PRN Reason: Hypoglycemia Stop: 09/21/17 15:08 Glucose (Gluctose) 30 gm PO ONCE PRN PRN Reason: Hypoglycemia Stop: 09/21/17 15:08 Dextrose (Dextrose 5%) 1,000 mls @ 100 mls/hr IVC .Q10H PRN PRN Reason: HYPOGLYCEMIA Stop: 09/21/17 15:08 Furosemide 240 mg/ Dextrose 120 mls @ 2.5 mls/hr IVC .Q24H [facility] PRN Reason: 5 MG/HR Stop: 09/30/17 10:05 Last Admin: 04/01/17 11:49 Dose: Not Given Insulin Detemir (Levemir) 24 unit SQ QAM [facility] Stop: 09/22/17 09:01 Last Admin: 04/01/17 08:03 Dose: 24 unit Insulin Detemir (Levemir) 12 unit SQ HS [facility] Stop: 09/29/17 21:01 Last Admin: 03/31/17 21:12 Dose: 12 unit Insulin Human Lispro (Humalog) 0 units SQ HS KELSI PRN Reason: Protocol Stop: 09/29/17 21:01 Last Admin: 03/31/17 21:13 Dose: Not Given Insulin Human Lispro (Humalog) 0 units SQ TIDAC KELSI PRN Reason: Protocol Stop: 09/29/17 11:31 Last Admin: 04/01/17 11:56 Dose: 10 units Insulin Human Lispro (Humalog) 4 units 0.05 units/kg (4 units) SQ TIDWM [facility] Stop: 10/01/17 12:01 Last Admin: 04/01/17 11:56 Dose: 4 units Metolazone (Zaroxolyn) 5 mg PO DAILY [facility] Stop: 09/30/17 09:01 Last Admin: 04/01/17 07:44 Dose: 5 mg Metoprolol Succinate (Toprol Xl) 25 mg PO DAILY [facility] Stop: 09/29/17 09:46 Last Admin: 04/01/17 07:44 Dose: 25 mg Morphine Sulfate (Morphine Sulfate) 2 mg IVP Q3H PRN PRN Reason: Pain Stop: 09/22/17 11:40 Last Admin: 03/31/17 23:15 Dose: 2 mg Multivitamins/Calcium (Thera M Plus) 1 tab PO QAM [facility] Stop: 09/22/17 09:01 Last Admin: 04/01/17 07:44 Dose: 1 tab Naloxone HCl (Narcan) 0.4 mg IVP Q2MIN PRN PRN Reason: Opioid Reversal Stop: 09/21/17 15:00 Pharmacy Profile Note (Patient Taking Own Medication) 0 each OP BID [facility] Stop: 09/21/17 21:01 Last Admin: 04/01/17 07:46 Dose: 1 each Polyethylene Glycol (Miralax) 17 gm PO DAILY PRN PRN Reason: Constipation Stop: 09/30/17 14:13 Last Admin: 03/31/17 14:35 Dose: 17 gm Potassium Chloride (Potassium Chloride) 20 meq PO BIDWM [facility] Stop: 09/27/17 08:01 Last Admin: 04/01/17 07:43 Dose: 20 meq Prednisone (Prednisone) 40 mg PO DAILY [facility] Stop: 09/29/17 09:01 Last Admin: 04/01/17 07:44 Dose: 40 mg Rivaroxaban (Xarelto) 15 mg PO 1700 KEL[facility] Stop: 09/22/17 17:01 Last Admin: 03/31/17 16:34 Dose: 15 mg Ropinirole HCl (Requip) 1 mg PO HS [facility]ELSI Stop: 09/21/17 21:01 Last Admin: 03/31/17 20:16 Dose: 1 mg Senna/Docusate Sodium (Senna Plus) 2 each PO BID KELSI PRN Reason: Protocol Stop: 09/21/17 21:01 Last Admin: 04/01/17 07:44 Dose: 2 each Silver Nitrate (Silvasorb) 1 appl TP DAILY [facility] Stop: 09/22/17 12:31 Last Admin: 04/01/17 07:46 Dose: 1 appl Laboratory Tests 04/01/17 04/01/17 04:50 04:50 WBC 14.4 H Hgb 11.6 L Potassium 4.0 D Creatinine 2.02 H Magnesium 2.1 - Imaging and Cardiology Chest Xray: report reviewed Echo: report reviewed - EKG Interpretation EKG results cardiology: personally reviewed (ECG with atrial fibrillation RVR with HR 151.), other (Telemetry reviewed with average HR previous 12 hours noted to be 109, atrial fibrillation. PVCs, couplets, and one triplet PVCs noted.) Consult Discharge Plan - Plan Referrals: Jaime Garcia MD [Primary Care Provider] - 04/09/17 10:15 am
[2017-04-01] MEDS: Furosemide 40 MG TABLET PO SCH (17:04)
[2017-04-01] MEDS: *HR* Rivaroxaban 15 MG TABLET PO SCH (17:04)
[2017-04-01] MEDS: rOPINIRole 1 MG TABLET PO SCH (20:42)
[2017-04-02 02:31] LABS: Bilirubin,Urine Negative (Negative); Blood,Urine Negative (Negative); Clarity,Urine Clear (Clear); Color,Urine Yellow (Yellow); Glucose,Urine (UA) Normal (Normal); Ketones,Urine Negative (Negative); Leukocyte Esterase,Urine Negative (Negative); Nitrite,Urine Negative (Negative); Protein,Urine Negative (Neg-Trace); Specific Gravity,Urine 1.011 (1.010-1.025); Urobilinogen,Urine Normal (Normal)
[2017-04-02] MEDS: Ipratropium/Albuterol Neb 3 ML IH SCH ×4 (04:01→22:18)
[2017-04-02] MEDS: Insulin LISPRO 300 UNITS/3 ML VIAL SQ SCH ×7 (07:53→21:11)
[2017-04-02] MEDS: Budesonide/Formoterol 80/4.5 MDI IH SCH ×2 (09:17→22:18)
--- NOTE | 2017-04-02 09:38 | Event Note ---
Date of Encounter: 04/02/17 Time of Encounter: 08:30 - Cardiology Event Note Discussed and reviewed with and Dr.John Gresham, plan for cardioversion today. Will need BROCK prior due to missed doses of xarelto 2 weeks ago. Risks versus benefits of BROCK and cardioversion explained to patient. Patient states understanding and agreeable to continue. Patient agreeable to full code status for 24 hours for procedure. Further recommendations pending BROCK and cardioversion.
--- NOTE | 2017-04-02 09:39 | Nephrology Progress Note ---
Date of Encounter: 04/02/17 Time of Encounter: 09:25 - Assessment and Plan (1) CKD (chronic kidney disease) stage 3, GFR 30-59 ml/min Current Visit: Yes Status: Chronic CKD 3 at patients baseline 1.6-2.0. Creat 1.97. Documented urine output 4280cc. K 4.0. Chronic diastolic heart failure. May have to accept higher azotemia related to diuretics related to CHF. Will continue to monitor. Subjective Principal diagnosis: Dyspnea Interval history: Sitting up in bed, NPO for cardioversion today. Denies SOB. No new complaints. Objective - Vital Signs Vital signs: Vital Signs Temp Pulse Resp BP Pulse Ox 04/02/17 09:17 18 98 04/02/17 07:16 98.3 F 130 20 121/97 99 04/02/17 04:02 16 99 04/02/17 03:36 98.0 F 118 18 112/85 97 04/01/17 23:20 18 96 04/01/17 23:11 126 104/75 04/01/17 22:21 98.5 F 120 17 91/77 94 04/01/17 19:36 130 109/76 04/01/17 18:56 98.0 F 130 18 100/82 98 04/01/17 16:50 98.2 F 125 18 124/80 98 04/01/17 15:50 16 98 04/01/17 11:48 97.7 F 113 20 108/83 98 04/01/17 10:45 16 99 Intake and Output 04/01/17 04/02/17 04/02/17 23:59 07:59 15:59 Intake Total 500 / 500 Output Total 1350 / 1350 685 / 685 Balance -850 / -850 -685 / -685 Intake: Oral 500 / 500 Output: Urine 1350 / 1350 685 / 685 Other: Meal Dinner Percent of Meal Consumed 100% Weight 89.811 kg 88.5 kg Blood Glucose* 298 70 130 Patient Weight 04/02/17 23:59 Weight 88.5 kg - General Appearance General appearance: Present: well-developed, well-nourished, appears started age EENT: Present: mucous membranes moist Neck: Present: no JVD Respiratory: Present: clear Cardiology: Present: no edema, irregular rhythm Gastrointestinal: Present: normoactive bowel sounds, no tenderness Psychiatric: Present: mood/affect appropriate, cooperative - Lab 04/01/17 04:50 04/02/17 03:25 Most recent lab results Calcium 10.0 mg/dL (8.6-10.8) 04/02/17 03:25 Magnesium 2.0 mg/dL (1.6-2.6) 04/02/17 03:25 Urine Creatinine 55 mg/dL 03/27/17 16:35 - VTE Documentation of Mechanical Device: Intermittent pneumatic compression device Consult Discharge Plan - Plan Referrals: Jaime Garcia MD [Primary Care Provider] - 04/09/17 10:15 am
[2017-04-02] MEDS: Silvasorb 44.4 ML TUBE TP SCH (11:15)
[2017-04-02] MEDS: Furosemide 40 MG TABLET PO SCH ×3 (13:11→16:07)
[2017-04-02] MEDS: (Cyclosporine [Restasis] 1 DROP) OP SCH ×2 (13:12→20:11)
[2017-04-02] MEDS ORDERED: Tetracaine/Benzocaine/Butamben 200MG/SPRAY (100SPY/BOT) MM ONE (13:52)
[2017-04-02] MEDS ORDERED: *HR* Midazolam HCl 2 MG/2 ML VIAL IVP PRN (13:52)
[2017-04-02] MEDS ORDERED: 0.9 % Sodium Chloride 500 ML IVC ONE (13:52)
[2017-04-02] MEDS ORDERED: *HR* Midazolam HCl 5 MG/5 ML VIAL IVP ONE ×3 (14:34→14:35)
[2017-04-02] MEDS: *HR* FentaNYL (PF) 100 MCG/2 ML VIAL IVP PRN ×2 (14:50→14:55)
--- NOTE | 2017-04-02 15:46 | Internal Med Progress Note ---
Date of Encounter: 04/02/17 Time of Encounter: 11:00 - Assessment and plan (1) CHF (congestive heart failure) Current Visit: Yes Status: Acute Assessment and plan: Patient is noted to have acute on chronic diastolic CHF with volume overload. Noted to have significant improvement, almost euvolemic today. Significant urine output and net negative fluid balance. Continue by mouth Lasix and metolazone. Strict fluid restriction reinforced with nursing staff. Continue beta jenny. Qualifiers: Congestive heart failure type: diastolic Congestive heart failure chronicity: acute on chronic Qualified Code(s): I50.33 - Acute on chronic diastolic (congestive) heart failure (2) Pleural effusion Current Visit: Yes Status: Acute Assessment and plan: Bilateral pleural effusion, left more than right, transudative likely related to underlying CHF. Underwent left-sided thoracentesis by IR, draining about 700 mL serosanguineous fluid. Pulmonology consult noted, recommend long-term Pleurx catheter for persistent or recurrent pleural effusion. Continue Lasix and supplemental oxygen as needed. (3) Afib Current Visit: Yes Status: Acute Assessment and plan: Noted to have tachycardia upon my evaluation today. Has been evaluated by EP cardiology, plan for BROCK and cardioversion today. Continue oral Cardizem along with amiodarone and beta jenny. Continue long-term anticoagulation with Xarelto. Patient would consider hospice/palliative care if continued medical therapy remains futile in the setting of volume overload, acute CHF, atrial tachycardia , acute on chronic renal failure. Qualifiers: Atrial fibrillation type: paroxysmal Qualified Code(s): I48.0 - Paroxysmal atrial fibrillation (4) Acute kidney injury Current Visit: Yes Status: Acute Assessment and plan: Nephrology on board. Agree with current management. Serum creatinine noted to be improving, at 1.9. Baseline serum creatinine around 1.2. Continue to monitor and replace electrolytes. (5) HTN (hypertension) Current Visit: Yes Status: Chronic Assessment and plan: Blood pressure noted to be borderline low. Cannot titrate AV nancy blockers. Qualifiers: Hypertension type: unspecified Qualified Code(s): I10 - Essential (primary ) hypertension (6) CKD (chronic kidney disease) stage 3, GFR 30-59 ml/min Current Visit: Yes Status: Chronic (7) Type 2 diabetes mellitus Current Visit: Yes Status: Chronic Assessment and plan: Blood sugars noted to be elevated, in 200s but noted to have fasting hypoglycemia today. We will hold nighttime dose of basal insulin and continue the remaining regimen. continue basal and sliding scale insulin, nutritional insulin and continue Accu-Chek blood glucose monitoring. Diabetic diet. Qualifiers: Diabetes mellitus complication status: with kidney complications Diabetes mellitus complication detail: with chronic kidney disease Diabetes mellitus penitentiary insulin use: with ocean transportation intermediary use Chronic kidney disease stage: stage 3 (moderate) Qualified Code(s): E11.22 - Type 2 diabetes mellitus with diabetic chronic kidney disease; N18.3 - Chronic kidney disease, stage 3 ( moderate); Z79.4 - half-way (current) use of insulin (8) HLD (hyperlipidemia) Current Visit: Yes Status: Chronic Qualifiers: Hyperlipidemia type: unspecified Qualified Code(s): E78.5 - Hyperlipidemia , unspecified - Subjective Interval history: Feels about the same; no chest pain or dyspnea; reports dry mouth; improving hand and leg swelling; awaiting cardioversion today; - Constitutional Vitals: Temp Pulse Resp BP Pulse Ox 97.7 F 153 18 115/84 96 04/02/17 14:28 04/02/17 14:28 04/02/17 14:28 04/02/17 14:28 04/02/17 14:28 General appearance: Present: cooperative, A&O X 3, answers questions appropriately - Respiratory Respiratory exam: Present: CTAB. Absent: accessory muscle use, rales, rhonchi, wheezes - Cardiovascular Cardiovascular exam: Present: RRR, +S1, +S2, tachycardia. Absent: diastolic murmur, gallop, rubs, systolic murmur - GI/Abdominal GI/Abdominal exam: Present: normal bowel sounds, soft, no peritoneal signs. Absent: distended, tenderness - Extremities Exam Extremities exam: Present: pedal edema (significantly improved), warm, radial pulses palpable and symmetrical. Absent: calf tenderness, cyanotic - Neurological Exam Neurological exam: Present: CN II-XII intact, oriented X3, no focal deficits. Absent: pronater drift, facial droop, speech deficit Internal Medicine: Result - Labs CBC & Chem 7: 04/01/17 04:50 04/02/17 03:25 Labs: BMP 04/02/17 03:25 Sodium 144 Potassium 4.0 Chloride 90 L Carbon Dioxide 46 H* BUN 62 H Creatinine 1.97 H Glucose 51 L Calcium 10.0 Urine 08/25/17 Range/Units 02:18 Urine Color Yellow (Yellow) Urine Clarity Clear (Clear) Urine pH 7.0 (5.0-8.0) pH Units Ur Specific [place] 1.011 (1.010-1.025) Urine Protein Negative (Neg-Trace) mg/dL Urine Glucose (UA) Normal (Normal) mg/dL - ABG Interpretation ABG results: PT/INR, D-dimer PT 20.5 Seconds (9.4-12.1) H 03/22/17 12:29 - VTE Documentation of Mechanical Device: Intermittent pneumatic compression device Consult Discharge Plan - Plan Referrals: Jaime Garcia MD [Primary Care Provider] - 04/09/17 10:15 am
[2017-04-02] MEDS: *HR* Amiodarone 200 MG TABLET PO SCH ×2 (15:56→20:11)
[2017-04-02] MEDS: Sennosides/Docusate Sodium TABLET PO SCH ×2 (15:57→20:10)
[2017-04-02] MEDS: Insulin DETEMIR 100 UNIT/ML X5UNITS SQ SCH (15:58)
[2017-04-02] MEDS: Diltiazem CD (24hr) 180 MG CAPSULE PO SCH (16:03)
[2017-04-02] MEDS: *HR* Rivaroxaban 15 MG TABLET PO SCH (16:03)
[2017-04-02] MEDS: Aspirin Enteric Coated 81 MG Tablet PO SCH (16:03)
[2017-04-02] MEDS: Multivit/Ca/Min/Fe/FA 1 TAB TABLET PO SCH (16:04)
[2017-04-02] MEDS: metOLazone 5 MG TABLET PO SCH ×2 (16:04→16:09)
[2017-04-02] MEDS: Metoprolol XL (24 HR) Succ 25 MG TAB.ER.24H PO SCH ×2 (16:04→16:08)
[2017-04-02] MEDS: rOPINIRole 1 MG TABLET PO SCH (20:10)
[2017-04-03 04:09] LABS: Calcium 9.7 mg/dL (8.6-10.8); Magnesium 1.9 mg/dL (1.6-2.6); Potassium 4.5 mEq/L (3.5-4.5)
[2017-04-03] MEDS: Ipratropium/Albuterol Neb 3 ML IH SCH ×4 (04:47→22:20)
--- NOTE | 2017-04-03 08:12 | Nephrology Progress Note ---
Date of Encounter: 04/03/17 Time of Encounter: 08:10 - Assessment and Plan (1) Acute kidney injury Current Visit: Yes Status: Acute Patient has a clinical picture of acute kidney injury superimposed on stage III chronic kidney disease in the setting of acute diastolic congestive heart failure. Recent echocardiogram showed an ejection fraction of 50-55% with mild- to-moderate mitral regurgitation and moderate pulmonary hypertension. The patient's renal function remains stable. Current diuretic regimen appears to be effective. I would continue the same medical regimen. (2) CKD (chronic kidney disease) stage 3, GFR 30-59 ml/min Current Visit: Yes Status: Chronic (3) Acute diastolic heart failure Current Visit: Yes Status: Acute (4) Atrial fibrillation with RVR Current Visit: Yes Status: Acute Subjective Principal diagnosis: Dyspnea Interval history: The patient voices no new complaints. He denies any shortness of breath. His swelling continues to improve. Renal function is stable. The patient has undergone electrical cardioversion for his A. fib. Objective - Vital Signs Vital signs: Vital Signs Temp Pulse Resp BP Pulse Ox 04/03/17 07:16 98.0 F 94 16 124/72 97 04/03/17 04:47 18 99 04/03/17 03:38 98.2 F 92 16 119/71 98 04/02/17 23:17 98.1 F 95 18 115/80 97 04/02/17 22:18 18 99 04/02/17 20:19 97.8 F 96 16 114/72 98 04/02/17 17:00 97 102/74 04/02/17 16:30 67 125/76 04/02/17 16:25 18 98 04/02/17 16:01 97.5 F L 106 14 79/69 98 04/02/17 14:28 97.7 F 153 18 115/84 96 04/02/17 11:35 97.7 F 132 14 106/79 100 04/02/17 09:17 18 98 Intake and Output 04/02/17 04/03/17 04/03/17 23:59 07:59 15:59 Intake Total 480 / 480 120 / 120 Output Total 500 / 500 410 / 410 Balance -20 / -20 -290 / -290 Intake: Oral 480 / 480 120 / 120 Output: Urine 500 / 500 410 / 410 Other: Meal Dinner Percent of Meal Consumed 100% Stool Size Large Stool Consistency formed Stool Color Brown Weight 87 kg Blood Glucose* 228 164 Patient Weight 04/03/17 23:59 Weight 87 kg - General Appearance Exam: Patient is alert and oriented. He is in no acute distress. Lung sounds otherwise clear. Heart regular rate and rhythm. Abdomen is benign. The patient continues to have lower extremity swelling but it continues to improve on a daily basis. - Lab 04/01/17 04:50 04/03/17 03:43 Most recent lab results Calcium 9.7 mg/dL (8.6-10.8) 04/03/17 03:43 Magnesium 1.9 mg/dL (1.6-2.6) 04/03/17 03:43 Urine Creatinine 55 mg/dL 03/27/17 16:35 - VTE Documentation of Mechanical Device: Intermittent pneumatic compression device Consult Discharge Plan - Plan Referrals: Jaime Garcia MD [Primary Care Provider] - 04/09/17 10:15 am
--- NOTE | 2017-04-03 08:34 | Event Note ---
Date of Encounter: 04/03/17 Time of Encounter: 08:32 - Cardiology Event Note Patient is s/p BROCK and DCCV yesterday. BP stable. Telemetry reviewed with average HR previous 12 hours noted to be 93, sinus rhythm. PVCS, PACS, and short runs of atrial tachycardia noted. Cardiology will sign off and will follow in outpatient setting. Follow up set with for diastolic CHF and with Dr.John Gresham for atrial fibrillation.
[2017-04-03] MEDS: Silvasorb 44.4 ML TUBE TP SCH (09:02)
[2017-04-03] MEDS: metOLazone 5 MG TABLET PO SCH (09:03)
[2017-04-03] MEDS: Diltiazem CD (24hr) 180 MG CAPSULE PO SCH (09:03)
[2017-04-03] MEDS: Sennosides/Docusate Sodium TABLET PO SCH ×2 (09:03→20:02)
[2017-04-03] MEDS: Aspirin Enteric Coated 81 MG Tablet PO SCH (09:03)
[2017-04-03] MEDS: *HR* Amiodarone 200 MG TABLET PO SCH ×2 (09:03→20:01)
[2017-04-03] MEDS: Metoprolol XL (24 HR) Succ 25 MG TAB.ER.24H PO SCH (09:03)
[2017-04-03] MEDS: Furosemide 40 MG TABLET PO SCH ×2 (09:03→16:48)
[2017-04-03] MEDS: Multivit/Ca/Min/Fe/FA 1 TAB TABLET PO SCH (09:03)
[2017-04-03] MEDS: Insulin DETEMIR 100 UNIT/ML X5UNITS SQ SCH (09:06)
[2017-04-03] MEDS: Insulin LISPRO 300 UNITS/3 ML VIAL SQ SCH ×7 (09:07→20:03)
[2017-04-03] MEDS: (Cyclosporine [Restasis] 1 DROP) OP SCH ×2 (09:09→20:03)
[2017-04-03] MEDS: Budesonide/Formoterol 80/4.5 MDI IH SCH ×2 (10:57→22:20)
--- NOTE | 2017-04-03 13:22 | Internal Med Progress Note ---
Date of Encounter: 04/03/17 Time of Encounter: 10:45 - Assessment and plan (1) Afib Current Visit: Yes Status: Acute Assessment and plan: Failed medical management. Evaluated by EP cardiology, underwent BROCK and cardioversion, successfully converted to sinus rhythm after 1 shock. Continue oral Cardizem along with amiodarone and beta jenny. Continue long-term anticoagulation with Xarelto. Cardiology signed off at this time. Patient is medically stable. Physical and occupational therapy evaluation and recommend placement in extended care facility, renal social worker consulted. Qualifiers: Atrial fibrillation type: paroxysmal Qualified Code(s): I48.0 - Paroxysmal atrial fibrillation (2) CHF (congestive heart failure) Current Visit: Yes Status: Acute Assessment and plan: Patient is noted to have acute on chronic diastolic CHF with volume overload. Improved. Significant urine output and net negative fluid balance. Continue by mouth Lasix and metolazone. Strict fluid restriction. Continue beta jenny. Qualifiers: Congestive heart failure type: diastolic Congestive heart failure chronicity: acute on chronic Qualified Code(s): I50.33 - Acute on chronic diastolic (congestive) heart failure (3) Pleural effusion Current Visit: Yes Status: Acute Assessment and plan: Bilateral pleural effusion, left more than right, transudative likely related to underlying CHF. Underwent left-sided thoracentesis by IR, draining about 700 mL serosanguineous fluid. Pulmonology consult noted, recommend long-term Pleurx catheter for persistent or recurrent pleural effusion. Continue Lasix and supplemental oxygen as needed. (4) Acute kidney injury Current Visit: Yes Status: Acute Assessment and plan: Nephrology on board. Agree with current management. Serum creatinine noted to be improving, at 1.9. Baseline serum creatinine around 1.2. Continue to monitor and replace electrolytes. (5) HTN (hypertension) Current Visit: Yes Status: Chronic Qualifiers: Hypertension type: unspecified Qualified Code(s): I10 - Essential (primary ) hypertension (6) CKD (chronic kidney disease) stage 3, GFR 30-59 ml/min Current Visit: Yes Status: Chronic (7) Type 2 diabetes mellitus Current Visit: Yes Status: Chronic Assessment and plan: Blood sugars are better controlled. continue basal and sliding scale insulin, nutritional insulin and continue Accu-Chek blood glucose monitoring. Diabetic diet. Qualifiers: Diabetes mellitus complication status: with kidney complications Diabetes mellitus complication detail: with chronic kidney disease Diabetes mellitus snf insulin use: with snf use Chronic kidney disease stage: stage 3 (moderate) Qualified Code(s): E11.22 - Type 2 diabetes mellitus with diabetic chronic kidney disease; N18.3 - Chronic kidney disease, stage 3 ( moderate); Z79.4 - longterm (current) use of insulin (8) HLD (hyperlipidemia) Current Visit: Yes Status: Chronic Qualifiers: Hyperlipidemia type: unspecified Qualified Code(s): E78.5 - Hyperlipidemia , unspecified - Subjective Interval history: Reports feeling better. No chest pain, palpitations, shortness of breath. Improving leg swelling. Underwent cardioversion yesterday. - Constitutional Vitals: Temp Pulse Resp BP Pulse Ox 97.9 F 98 18 118/72 97 04/03/17 11:13 04/03/17 11:13 04/03/17 11:13 04/03/17 11:13 04/03/17 11:13 General appearance: Present: cooperative, A&O X 3, answers questions appropriately - Respiratory Respiratory exam: Present: CTAB. Absent: accessory muscle use, rales, rhonchi, wheezes - Cardiovascular Cardiovascular exam: Present: RRR, +S1, +S2. Absent: diastolic murmur, gallop, rubs, systolic murmur - GI/Abdominal GI/Abdominal exam: Present: normal bowel sounds, soft, no peritoneal signs. Absent: distended, tenderness - Extremities Exam Extremities exam: Present: pedal edema (1+ edema B/L, improving), warm, radial pulses palpable and symmetrical. Absent: calf tenderness, cyanotic Internal Medicine: Result - Labs CBC & Chem 7: 04/01/17 04:50 04/03/17 03:43 Labs: BMP 04/03/17 03:43 Sodium 144 Potassium 4.5 Chloride 92 L Carbon Dioxide 44 H* BUN 52 H Creatinine 1.89 H Glucose 171 H Calcium 9.7 - ABG Interpretation ABG results: PT/INR, D-dimer PT 20.5 Seconds (9.4-12.1) H 03/22/17 12:29 - VTE Documentation of Mechanical Device: Intermittent pneumatic compression device Consult Discharge Plan - Plan Referrals: Jaime Garcia MD [Primary Care Provider] - 04/09/17 10:15 am
[2017-04-03] MEDS: *HR* Rivaroxaban 15 MG TABLET PO SCH (16:48)
[2017-04-03] MEDS: rOPINIRole 1 MG TABLET PO SCH (20:02)
[2017-04-04 04:50] LABS: Calcium 9.7 mg/dL (8.6-10.8); Magnesium 1.8 mg/dL (1.6-2.6)
[2017-04-04 04:52] LABS: Potassium 3.4 mEq/L (3.5-4.5)
[2017-04-04] MEDS: Ipratropium/Albuterol Neb 3 ML IH SCH ×4 (05:08→22:58)
[2017-04-04] MEDS: Insulin LISPRO 300 UNITS/3 ML VIAL SQ SCH ×7 (07:55→20:16)
[2017-04-04] MEDS ORDERED: Potassium Chloride Elixir 20 MEQ/15 ML UDC PO ONE (08:11)
[2017-04-04] MEDS: *HR* Amiodarone 200 MG TABLET PO SCH ×2 (08:33→20:15)
[2017-04-04] MEDS: Sennosides/Docusate Sodium TABLET PO SCH ×2 (08:34→20:15)
[2017-04-04] MEDS: metOLazone 5 MG TABLET PO SCH (08:34)
[2017-04-04] MEDS: Aspirin Enteric Coated 81 MG Tablet PO SCH (08:34)
[2017-04-04] MEDS: Diltiazem CD (24hr) 180 MG CAPSULE PO SCH (08:34)
[2017-04-04] MEDS: Multivit/Ca/Min/Fe/FA 1 TAB TABLET PO SCH (08:34)
[2017-04-04] MEDS: Metoprolol XL (24 HR) Succ 25 MG TAB.ER.24H PO SCH (08:35)
[2017-04-04] MEDS: Furosemide 40 MG TABLET PO SCH ×3 (08:35→15:59)
[2017-04-04] MEDS: Insulin DETEMIR 100 UNIT/ML X5UNITS SQ SCH (08:36)
[2017-04-04] MEDS: (Cyclosporine [Restasis] 1 DROP) OP SCH ×2 (08:37→20:17)
[2017-04-04] MEDS: Budesonide/Formoterol 80/4.5 MDI IH SCH ×2 (09:34→22:58)
--- NOTE | 2017-04-04 09:54 | Internal Med Progress Note ---
Date of Encounter: 04/04/17 Time of Encounter: 09:53 - Assessment and plan (1) Afib Current Visit: Yes Status: Acute Assessment and plan: Failed medical management. Underwent BROCK and cardioversion, successfully converted to sinus rhythm after 1 shock. Continue oral Cardizem along with amiodarone and beta jenny. Continue long-term anticoagulation with Xarelto. Patient is medically stable. Physical and occupational therapy evaluation and recommend placement in extended care facility, social insurance analyst consulted. Qualifiers: Atrial fibrillation type: paroxysmal Qualified Code(s): I48.0 - Paroxysmal atrial fibrillation (2) CHF (congestive heart failure) Current Visit: Yes Status: Acute Assessment and plan: Patient is noted to have acute on chronic diastolic CHF with volume overload. Improved. Significant urine output and net negative fluid balance. Continue by mouth Lasix and metolazone. Strict fluid restriction. Continue beta jenny. Qualifiers: Congestive heart failure type: diastolic Congestive heart failure chronicity: acute on chronic Qualified Code(s): I50.33 - Acute on chronic diastolic (congestive) heart failure (3) Pleural effusion Current Visit: Yes Status: Acute Assessment and plan: Bilateral pleural effusion, left more than right, transudative likely related to underlying CHF. Underwent left-sided thoracentesis by IR, draining about 700 mL serosanguineous fluid. Pulmonology consult noted, recommend long-term Pleurx catheter for persistent or recurrent pleural effusion. Continue Lasix and supplemental oxygen as needed. (4) Acute kidney injury Current Visit: Yes Status: Acute Assessment and plan: Nephrology on board. Agree with current management. Serum creatinine noted to be improving, at 1.9. Baseline serum creatinine around 1.2. Continue to monitor and replace electrolytes. (5) HTN (hypertension) Current Visit: Yes Status: Chronic Qualifiers: Hypertension type: unspecified Qualified Code(s): I10 - Essential (primary ) hypertension (6) CKD (chronic kidney disease) stage 3, GFR 30-59 ml/min Current Visit: Yes Status: Chronic (7) Type 2 diabetes mellitus Current Visit: Yes Status: Chronic Assessment and plan: Blood sugars are better controlled. continue basal and sliding scale insulin, nutritional insulin and continue Accu-Chek blood glucose monitoring. Diabetic diet. Qualifiers: Diabetes mellitus complication status: with kidney complications Diabetes mellitus complication detail: with chronic kidney disease Diabetes mellitus long-term insulin use: with long-term use Chronic kidney disease stage: stage 3 (moderate) Qualified Code(s): E11.22 - Type 2 diabetes mellitus with diabetic chronic kidney disease; N18.3 - Chronic kidney disease, stage 3 ( moderate); Z79.4 - group home (current) use of insulin (8) HLD (hyperlipidemia) Current Visit: Yes Status: Chronic Qualifiers: Hyperlipidemia type: unspecified Qualified Code(s): E78.5 - Hyperlipidemia , unspecified - Subjective Interval history: Denies chest pain, palpitations, dyspnea but reports some nasal congestion; wants to wait in the hospital until it is made sure that he is completely better ! - Constitutional Vitals: Temp Pulse Resp BP Pulse Ox 97.8 F 90 18 122/72 98 04/04/17 07:13 04/04/17 07:13 04/04/17 07:13 04/04/17 07:13 04/04/17 07:13 General appearance: Present: cooperative, A&O X 3, answers questions appropriately - Respiratory Respiratory exam: Present: CTAB. Absent: accessory muscle use, rales, rhonchi, wheezes - Cardiovascular Cardiovascular exam: Present: RRR, +S1, +S2. Absent: diastolic murmur, gallop, rubs, systolic murmur - GI/Abdominal GI/Abdominal exam: Present: normal bowel sounds, soft, no peritoneal signs. Absent: distended, tenderness Internal Medicine: Result - Labs CBC & Chem 7: 04/01/17 04:50 04/04/17 04:25 Labs: BMP 04/04/17 04:25 Sodium 145 Potassium 3.4 L D Chloride 89 L Carbon Dioxide 48 H* BUN 44 H Creatinine 1.85 H Glucose 134 H Calcium 9.7 - ABG Interpretation ABG results: PT/INR, D-dimer PT 20.5 Seconds (9.4-12.1) H 03/22/17 12:29 - VTE Documentation of Mechanical Device: Intermittent pneumatic compression device Consult Discharge Plan - Plan Referrals: Jaime Garcia MD [Primary Care Provider] - 04/09/17 10:15 am
[2017-04-04] MEDS: *HR* Rivaroxaban 15 MG TABLET PO SCH (15:59)
[2017-04-04] MEDS: rOPINIRole 1 MG TABLET PO SCH (20:15)
[2017-04-04] MEDS: Silvasorb 44.4 ML TUBE TP SCH (21:10)
[2017-04-05] MEDS: Ipratropium/Albuterol Neb 3 ML IH SCH ×3 (04:56→16:19)
[2017-04-05 05:03] LABS: Calcium 9.3 mg/dL (8.6-10.8); Magnesium 1.7 mg/dL (1.6-2.6); Potassium 3.6 mEq/L (3.5-4.5)
[2017-04-05] MEDS: Insulin LISPRO 300 UNITS/3 ML VIAL SQ SCH ×6 (08:27→16:19)
[2017-04-05] MEDS: Furosemide 40 MG TABLET PO SCH ×2 (08:29→16:31)
[2017-04-05] MEDS: Aspirin Enteric Coated 81 MG Tablet PO SCH (08:30)
[2017-04-05] MEDS: Sennosides/Docusate Sodium TABLET PO SCH (08:30)
[2017-04-05] MEDS: *HR* Amiodarone 200 MG TABLET PO SCH (08:30)
[2017-04-05] MEDS: Metoprolol XL (24 HR) Succ 25 MG TAB.ER.24H PO SCH (08:30)
[2017-04-05] MEDS: metOLazone 5 MG TABLET PO SCH (08:30)
[2017-04-05] MEDS: Multivit/Ca/Min/Fe/FA 1 TAB TABLET PO SCH (08:30)
[2017-04-05] MEDS: Diltiazem CD (24hr) 180 MG CAPSULE PO SCH (08:30)
--- NOTE | 2017-04-05 08:30 | Nephrology Progress Note ---
Date of Encounter: 04/05/17 Time of Encounter: 08: - Assessment and Plan (1) Acute kidney injury Current Visit: Yes Status: Acute Patient has a clinical picture of acute kidney injury superimposed on stage III chronic kidney disease in the setting of acute diastolic congestive heart failure. Recent echocardiogram showed an ejection fraction of 50-55% with mild- to-moderate mitral regurgitation and moderate pulmonary hypertension. Patient' s renal function is now back to baseline. His renal function continued to be monitored. We need to make sure that we do not induce any volume depletion with continued aggressive diuresis. (2) CKD (chronic kidney disease) stage 3, GFR 30-59 ml/min Current Visit: Yes Status: Chronic (3) Acute diastolic heart failure Current Visit: Yes Status: Acute (4) Atrial fibrillation with RVR Current Visit: Yes Status: Acute Subjective Principal diagnosis: Dyspnea Interval history: Patient has no new complaints. Renal function remains stable. Diuresis is good. He has much less edema. He remains in normal sinus rhythm. Objective - Vital Signs Vital signs: Vital Signs Temp Pulse Resp BP Pulse Ox 04/05/17 07:01 97.5 F L 81 16 115/68 97 04/05/17 04:57 16 98 04/05/17 03:58 98.2 F 71 16 114/71 99 04/04/17 23:48 97.6 F 72 18 111/63 99 04/04/17 23:00 14 99 04/04/17 19:41 97.5 F L 78 18 102/65 99 04/04/17 15:58 98.5 F 77 18 115/65 98 04/04/17 15:50 16 115/65 99 04/04/17 11:35 97.9 F 88 18 107/68 97 04/04/17 09:30 16 122/72 93 Intake and Output 04/04/17 04/05/17 04/05/17 23:59 07:59 15:59 Intake Total 420 / 420 350 / 350 150 / 150 Output Total 270 / 270 650 / 650 Balance 150 / 150 -300 / -300 150 / 150 Intake: Oral 420 / 420 350 / 350 150 / 150 Output: Urine 270 / 270 650 / 650 Other: Meal Dinner Percent of Meal Consumed 80% Blood Glucose* 309 72 - General Appearance Exam: Patient is alert and oriented. No acute distress. Vital signs are stable. Lungs diminished breath sounds otherwise clear. Heart regular rate and rhythm. Abdomen is benign. There is much less lower extremity swelling. - Lab 04/01/17 04:50 04/05/17 04:35 Most recent lab results Calcium 9.3 mg/dL (8.6-10.8) 04/05/17 04:35 Magnesium 1.7 mg/dL (1.6-2.6) 04/05/17 04:35 Urine Creatinine 55 mg/dL 03/27/17 16:35 - VTE Documentation of Mechanical Device: Intermittent pneumatic compression device Consult Discharge Plan - Plan Referrals: Jaime Garcia MD [Primary Care Provider] - 04/09/17 10:15 am
[2017-04-05] MEDS: (Cyclosporine [Restasis] 1 DROP) OP SCH (08:31)
[2017-04-05] MEDS: Silvasorb 44.4 ML TUBE TP SCH (08:35)
[2017-04-05] MEDS: Insulin DETEMIR 100 UNIT/ML X5UNITS SQ SCH (08:39)
[2017-04-05] MEDS: Budesonide/Formoterol 80/4.5 MDI IH SCH (10:47)
[2017-04-05 11:10] VITALS: BP 114/68
--- NOTE | 2017-04-05 13:42 | Discharge Summary ---
Date of Encounter: 04/05/17 Time of Encounter: 10:15 - Discharge Diagnosis (1) Afib Priority: Primary Status: Chronic Qualifiers: Atrial fibrillation type: paroxysmal Qualified Code(s): I48.0 - Paroxysmal atrial fibrillation (2) CHF (congestive heart failure) Priority: Primary Status: Acute Qualifiers: Congestive heart failure type: diastolic Congestive heart failure chronicity: acute on chronic Qualified Code(s): I50.33 - Acute on chronic diastolic (congestive) heart failure (3) Pleural effusion Priority: Primary Status: Acute (4) Acute kidney injury Priority: Primary Status: Acute (5) HTN (hypertension) Priority: Secondary Status: Chronic Qualifiers: Hypertension type: unspecified Qualified Code(s): I10 - Essential (primary ) hypertension (6) CKD (chronic kidney disease) stage 3, GFR 30-59 ml/min Priority: Secondary Status: Chronic (7) Type 2 diabetes mellitus Priority: Secondary Status: Chronic Qualifiers: Diabetes mellitus complication status: with kidney complications Diabetes mellitus complication detail: with chronic kidney disease Diabetes mellitus [employer] insulin use: with chcf use Chronic kidney disease stage: stage 3 (moderate) Qualified Code(s): E11.22 - Type 2 diabetes mellitus with diabetic chronic kidney disease; N18.3 - Chronic kidney disease, stage 3 ( moderate); Z79.4 - FDC (current) use of insulin (8) HLD (hyperlipidemia) Priority: Secondary Status: Chronic Qualifiers: Hyperlipidemia type: unspecified Qualified Code(s): E78.5 - Hyperlipidemia , unspecified - Discharge Medications Home Medications: Cyclosporine [Restasis] 1 drop OP BID 04/17/15 [History] Multivit-Min/FA/Lycopen/Lutein [Centrum Silver Tablet] 1 tab PO QAM 04/17/15 [ History] Ropinerole [Requip] 1 mg PO HS 04/17/15 [History] Albuterol Sulfate [Proair Hfa] 1 puff IH Q6H PRN #1 inh 10/12/15 [Rx] Aspirin Enteric Coated [Aspirin EC] 81 mg PO DAILY #30 tablet.dr 02/06/17 [Rx] Budesonide/Formoterol 80/4.5 [Symbicort 80/4.5] 1 puff IH BID #5 hfa.aer.ad 08/25 [Rx] Diltiazem CD (24hr) [Cardizem CD] 360 mg PO DAILY 30 Days 02/06/17 [Rx] Sennosides/Docusate Sodium [Senna Plus] 2 tab PO BID 02/12/17 [History] Rivaroxaban [Xarelto] 15 mg PO 1700 #1 tablet 03/07/17 [Rx] Furosemide [Lasix] 60 mg PO BID 03/22/17 [History] Insulin Glargine,Hum.rec.anlog [Lantus Solostar] 24 unit SQ QAM 03/22/17 [ History] Potassium Chloride [Klor-Con 10] 10 meq PO BID 03/22/17 [History] Amiodarone [Cordarone] 400 mg PO BID tab 04/05/17 [Rx] Atorvastatin [Lipitor] 40 mg PO HS tab 04/05/17 [Rx] Insulin LISPRO [HumaLOG] 0 units SQ HS vial 04/05/17 [Rx] Insulin LISPRO [HumaLOG] 0 units SQ TIDAC vial 04/05/17 [Rx] Insulin LISPRO [HumaLOG] 4 units SQ TIDWM vial 04/05/17 [Rx] metOLazone [Zaroxolyn] 2.5 mg PO DAILY tab 04/05/17 [Rx] Allergies/Adverse Reactions: 3 Allergy/AdvReac Type Severity Reaction Status Date / Time codeine AdvReac Mild Flushing Verified 03/22/17 13:10 metformin AdvReac Mild Nausea Verified 03/22/17 13:10 tramadol AdvReac Mild Dizziness Verified 03/22/17 13:10 Procedures/tests Complete & Pending: Procedures Performed prior 72 hours Category Date Time Status ECG 12 lead ECG [ECG] Routine Y 04/02/17 14:04 Completed ECG 12 lead ECG [ECG] Routine Y 04/02/17 15:04 Completed Date of admission: 03/22/17 16:48 Primary care physician: Jaime Garcia MD Consults: 03/23/17 14:00 Consult to Pulmonology [CONS] Routine Consulting Provider: [facility] Reason for Consult: reoccuring pleural effusions Call Completed: No 03/25/17 11:10 Consult to Cardiology [CONS] Routine Comment: Consulting Provider: Cardiology Rebecca Reason for Consult: a-fib Call Completed: Yes 03/26/17 11:19 Consult to Nephrology [CONS] Routine Consulting Provider: [facility] Torsten FALCON Reason for Consult: GIOVANNI on CKD, oliguria Call Completed: Yes 03/29/17 10:53 Consult to Invasive Line Access Team [CONS] Routine Reason for Consult: limited vasc access, incompatible IV medications Line Type: EPIV 04/01/17 12:07 Consult to Electrophysiology (EP) [CONS] Routine Consulting Provider: Electrophysiology Rebecca Reason for Consult: Persistent AF with RVR Call Completed: Yes 04/02/17 15:44 Consult to Physical Therapy [CONS] Routine Comment: Evaluate, develop and implement POC Reason for Consult: Genralized weakness, CHF, A.fib 04/03/17 10:19 Consult to Occupational Therapy [CONS] Routine Comment: Evaluate, develop and implement POC Reason for Consult: possible ECF placement 04/04/17 16:37 Consult to Urologist Md [CONS] Routine Reason for SW Consult: RECENT DISCHARGE FROM [facility]. PATIENT REPORTED HE DID NOT FELL LIKE HE WAS STRONG ENOUGH TO GO HOME ALONE AND REPORTED THAT HE NEEDED TO GO TO A REHAB. Discharging clinician: Ana Grady Anticipated date of discharge: 04/05/17 - Patient Status Disposition: Transfer Inpatient Rehab Fac Condition: Fair Functional capacity at discharge: uses cane/walker Overall status at discharge: patient is progressing back to baseline - Discharge Instructions Instructions: Heart Failure (DC), Atrial Fibrillation (DC), Diabetes Mellitus Type 2 in Adults (DC) Follow Up With: Jaime Garcia MD [Primary Care Provider] - 04/09/17 10:15 am Additional Instructions: F/up with [facility] as scheduled F/up with [facility]- in 4-6 weeks - Diet and Activity Activity: as per physical therapy, wear oxygen at all times Diet: diabetic diet, low fat, low cholesterol, low salt diet (fluid restriction to 1.2L/day), other (renal diet) Hospital course: Mr. Flores is a 86 year old male with the above medical problems who was admitted with shortness of breath. He was noted to be in acute exacerbation of underlying diastolic CHF. Cardiology was consulted and patient was started on aggressive diuretic therapy with IV Lasix, which was later switched to IV Lasix drip. He was noted to have acute on chronic renal failure due to this, nephrology was consulted and followed the patient. Patient's urine output significantly improved and he had significant neck negative fluid balance with improvement in peripheral edema. He was also noted to be in atrial fibrillation with rapid ventricular rate and was medically managed with oral beta jenny, calcium channel jenny and amiodarone, with inappropriate response. He was continued on anticoagulation with Xarelto. EP cardiology was consulted and patient underwent BROCK along with cardioversion, which was successful after 1 attempt and patient continued to remain in sinus rhythm. Physical and occupational therapy evaluation was completed and recommended placement in inpatient rehabilitation. Patient is currently medically stable for transfer, with outpatient follow-up with cardiology and nephrology. - Time Spent with Patient Total time spent providing and/or coordinating discharge services: Greater than 30 minutes (45 min) - Constitutional Vitals: Temp Pulse Resp BP Pulse Ox 97.5 F L 88 18 114/68 98 04/05/17 12:35 04/05/17 12:35 04/05/17 12:35 04/05/17 12:35 04/05/17 12:35 General appearance: Present: cooperative, A&O X 3, answers questions appropriately - Respiratory Respiratory exam: Present: CTAB. Absent: accessory muscle use, rales, rhonchi, wheezes - Cardiovascular Cardiovascular exam: Present: RRR, +S1, +S2. Absent: diastolic murmur, gallop, rubs, systolic murmur - VTE Documentation of Mechanical Device: Intermittent pneumatic compression device
--- NOTE | 2017-04-05 13:45 | Electrocardiograph Report ---
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
--- NOTE | 2017-04-05 13:46 | Physician Discharge Referral ---
ExtendedCare Referral Info Provider in Charge: Ana Grady Provider in Charge after Transfer: PCP Institutional Level of Care: Intermediate - Diagnosis (1) Afib Priority: Primary Status: Chronic (2) CHF (congestive heart failure) Priority: Primary Status: Acute (3) Pleural effusion Priority: Primary Status: Acute (4) Acute kidney injury Priority: Primary Status: Acute (5) HTN (hypertension) Priority: Secondary Status: Chronic (6) CKD (chronic kidney disease) stage 3, GFR 30-59 ml/min Priority: Secondary Status: Chronic (7) Type 2 diabetes mellitus Priority: Secondary Status: Chronic (8) HLD (hyperlipidemia) Priority: Secondary Status: Chronic Expected Duration of Placement: 3 weeks Prognosis: Fair Aware of Diagnosis: Patient Aware of Prognosis: Patient - Transfer Medications Home Medications: Cyclosporine [Restasis] 1 drop OP BID 04/17/15 [History] Multivit-Min/FA/Lycopen/Lutein [Centrum Silver Tablet] 1 tab PO QAM 04/17/15 [ History] Ropinerole [Requip] 1 mg PO HS 04/17/15 [History] Albuterol Sulfate [Proair Hfa] 1 puff IH Q6H PRN #1 inh 10/12/15 [Rx] Aspirin Enteric Coated [Aspirin EC] 81 mg PO DAILY #30 tablet. 02/06/17 [Rx] Budesonide/Formoterol 80/4.5 [Symbicort 80/4.5] 1 puff IH BID #5 hfa.aer.ad 08/25 [Rx] Diltiazem CD (24hr) [Cardizem CD] 360 mg PO DAILY 30 Days 02/06/17 [Rx] Sennosides/Docusate Sodium [Senna Plus] 2 tab PO BID 02/12/17 [History] Rivaroxaban [Xarelto] 15 mg PO 1700 #1 tablet 03/07/17 [Rx] Furosemide [Lasix] 60 mg PO BID 03/22/17 [History] Insulin Glargine,Hum.rec.anlog [Lantus Solostar] 24 unit SQ QAM 03/22/17 [ History] Potassium Chloride [Klor-Con 10] 10 meq PO BID 03/22/17 [History] Amiodarone [Cordarone] 400 mg PO BID tab 04/05/17 [Rx] Atorvastatin [Lipitor] 40 mg PO HS tab 04/05/17 [Rx] Insulin LISPRO [HumaLOG] 0 units SQ HS vial 04/05/17 [Rx] Insulin LISPRO [HumaLOG] 0 units SQ TIDAC vial 04/05/17 [Rx] Insulin LISPRO [HumaLOG] 4 units SQ TIDWM vial 04/05/17 [Rx] metOLazone [Zaroxolyn] 2.5 mg PO DAILY tab 04/05/17 [Rx] Allergies/Adverse Reactions: 3 Allergy/AdvReac Type Severity Reaction Status Date / Time codeine AdvReac Mild Flushing Verified 03/22/17 13:10 metformin AdvReac Mild Nausea Verified 03/22/17 13:10 tramadol AdvReac Mild Dizziness Verified 03/22/17 13:10 - Respiratory Orders Oxygen / L per min (1-2L/min via NC) Smoking Cessation: Smoking cessation has been advised. For more information, call the [employer] Quit Line at [phone]. - Advance Directives Code Status: DNR-Arrest/Don't Intubate - Mobility Orders Ambulate - Rehabiliation Orders Rehab Potential: Fair Rehab Orders: ROM Exercises, Evaluation for Physical Therapy, Evaluation for Occupational Therapy - Diet Orders No Added Salt (LORENA), No Concentrated Sweets (diabetic), Renal, Cardiac (fluid restriction to 1.2L/day) CERTIFICATION: I certify that the transfer of the above named patient to an Extended Care Facility is necessary for the continuing treatment of the diagnosis listed. The above information is true and accurate reflection of patient's current condition. Confidential - Redisclosure prohibited without a patient's written consent.
--- NOTE | 2017-04-05 13:48 | Electrocardiograph Report ---
[address] [address] Test Date: 2017-04-02 Pat Name: Ciro Flores Department: 101 Room: 2N03 Gender: M Jtac: : 1930 Requested By: Ana Grady Order Number: [id number] Reading MD: Vicenta Taylor Measurements Intervals [place] Rate: 102 P: 99 FL: 138 QRS: -38 QRSD: 88 T: 78 QT: 348 QTc: 407 Interpretive Statements SINUS TACHYCARDIA WITH FREQUENT SUPRAVENTRICULAR PREMATURE COMPLEXES LEFT AXIS DEVIATION LOW QRS VOLTAGE IN EXTREMITY LEADS DIFFUSE FLATTENED ST-T SEGMENTS Electronically Signed On 04-05-2017 13:46:59 EDT by Vicenta Taylor
[2017-04-05] MEDS: *HR* Rivaroxaban 15 MG TABLET PO SCH (16:31)
== END 2017-04-05 18:00 | DRG 291 ==
LOC: 2NENU 11:46 → EMEROO 11:46 → 2NENU 14:47 → 2NNU 03-25 21:34
PROVIDERS: ADMIT Internal Medicine; ATTEND Internal Medicine